=== PATIENT | female | born 1935 | race Caucasian/White ===

== ENCOUNTER 2017-11-16 08:54 | Inpatient (IN) | payer MEDICARE, OTHER, SELFPAY ==
[2017-11-16] VITALS (11 sets, daily range): BP systolic 134–185; BP diastolic 60–103; PULSE 61–83; RESP 16–21; TEMP 36.6–37.1; O2SAT 95–97; BMI 25.7; BMI 26.5; BMI 26.6
--- NOTE | 2017-11-16 09:11 | RAD_ITS ---
STUDY: X-RAY CHEST REASON FOR EXAM: Female, 82 years old. Weakness. Nausea and vomiting. TECHNIQUE: Single AP portable view of the chest. COMPARISON: Comparison is made with prior study dated December 09, 2014. FINDINGS: EKG electrodes are seen. Mild degree of vascular congestion and CHF. There is no demonstrated pleural abnormality. There is mild cardiac enlargement. A left-sided dual-chamber pacemaker is seen. Normal mediastinum and thomas. Normal visualized pulmonary arteries. There is atherosclerotic tortuosity of the aortic arch and descending thoracic aorta. There is a dextroscoliosis of the thoracic spine. Normal visualized ribs, clavicles, and shoulders. There is no demonstrated abnormality of the visualized soft tissue structures of the upper abdomen. RAD/Chest 1 View (Portable) IMPRESSION: Vascular congestion and mild degree of CHF. Electronically Signed: Iain Ho MD at 9:34 EDT Tel [phone], Service support ,
--- NOTE | 2017-11-16 09:11 | EKG12_ITS ---
Test Reason : CARDIAC HISTORY Blood Pressure : / mmHG Vent. Rate : 071 BPM Atrial Rate : 071 BPM P-R Int : 178 ms QRS Dur : 196 ms QT Int : 516 ms P-R-T Axes : 060 -74 086 degrees QTc Int : 560 ms Atrial-sensed ventricular-paced rhythm Abnormal ECG Confirmed by JEMIMA VELÁZQUEZ MD ([id number]), book editor THEODORE QUISPE ([id number]) on 11/17/2017 2:43:12 PM Referred By: HALEY
--- NOTE | 2017-11-16 09:12 | ED.VISSUMM ---
- ER Visit Summary Date of Service: 11/16/17 Chief Complaint: Weakness, lightheaded History of Present Illness: The patient is a 82 F who presents with the above symptoms. She states it started this morning when she woke up. She felt sweaty and at that time she did not feel stable on her feet. She was able to walk bed to hang onto a dresser to help her ambulate. She did not feel like the room was spinning. No vertiginous-like symptoms. She denies any pain. She states that she did have some nausea and vomiting this morning. Recent illnesses. She has been eating and drinking well. Physical Examination: Vital signs reviewed. HEENT exam unremarkable. Heart is regular rate and rhythm without murmurs. Lungs are clear to auscultation. Abdomen is soft and nontender. Extremities reveal no edema. Skin exam normal. Neurologic exam normal. Test Results: EKG was paced rhythm with a rate of 71. Nonspecific ST-T wave changes noted. Chest x-ray reveals CHF. Platelets are 131 which is chronic. BUN 25. Troponin is 0.303 Emergency Department Course and Treatment: I did give the patient aspirin and Lasix. She has no chest pain or shortness of breath at this time. However, due to the elevated troponin I feel she should be admitted. I spoke with the hospitalist for admission Treatment Plan: [] Disposition: Admit Impression: Weakness, elevated troponin, CHF This note was generated with Tube2T[employer] dictation software. It may contain incorrect words, spelling, and punctuation that were not noted in review of the chart prior to signing ED Disposition - Plan for ED Patient: Chief Complaint: Weakness Referrals: Tierney Benitez MD [STAFF PHYSICIAN] -
[2017-11-16 09:28] LABS: Absolute Lymphocyte Count 1.07 X10^3/ul (0.83-4.51); Absolute Neutrophil Count 5.3 X10^3/uL (2.0-7.7); Basophil# 0.02 X10^3/uL; Basophil% 0.3 % (0-1); Eosinophil# 0.14 X10^3/uL; Hematocrit 38.7 % (37-47); Hemoglobin 12.7 g/dl (12.0-15.0); Lymphocyte # 1.07 X10^3/ul (4.0); Lymphocyte % 15.3 % (19-41); Mean Corp Hgb Conc 32.8 g/gl (32-36); Mean Corpuscular Hgb 29.5 pg (27.0-32.0); Mean Corpuscular Volume 89.8 fL (81-99); Mean Platelet Vol. 9.2 fl (6.2-12.0); Monocyte% 5.7 % (0-10); Neutrophil # 5.34 X10^3/uL (2.7-7.7); Neutrophil % 76.6 % (47-70); Platelet Count 131 K/mm3 (150-450); RBC Distribution Width CV 13.2 % (11.6-14.6); RBC Distribution Width SD 43.1 fl (35.1-43.9); Red Blood Count 4.31 M/mm3 (4.2-5.4)
[2017-11-16] MEDS: 0.9% Normal Saline 1,000 ML 1000 ML IV (09:30)
[2017-11-16 09:32] LABS: POSITIVE COUNT NO; POSITIVE DIFFERENTIAL NO; POSITIVE MORPHOLOGY NO
[2017-11-16 09:40] LABS: ALB/GLOB Ratio 0.9 RATIO (0.9-2.4); AST(SGOT) 26 U/L (15-37); Alanine Aminotransfer ALT/SGPT 28 U/L (13-56); Albumin, Serum 3.6 g/dL (3.2-5.0); Alkaline Phosphatase 90 U/L (45-117); Anion Gap 9 (5-15); BUN 25 mg/dL (7-18); Calcium,Total 9.1 mg/dL (8.5-10.1); Chloride 105 mmol/L (98-107); Creatinine, Serum 0.78 mg/dL (0.55-1.02); EST Glomerular Filtration Rate 75 mL/min (>60); Est Glom Filt Rate - Afr Amer 91 mL/min (>60); Estimated Creatinine Clearance 40.33 ml/min; Globulin 3.8 g/dL (2.2-4.2); Glucose 149 mg/dL (74-106); Lipase 101 U/L (73-393); Potassium 3.8 mmol/L (3.5-5.1); Protein, Total 7.4 g/dL (6.4-8.2); Sodium Level 141 mmol/L (136-145)
--- NOTE | 2017-11-16 10:04 | NURSING ---
DR JOHNSON FOR DR JENKINS
--- NOTE | 2017-11-16 10:07 | NURSING ---
[address] NEAR SYNCOPE, ISA TROP ELIZABETH
[2017-11-16] MEDS: Aspirin 325 MG Tablet PO (10:18)
[2017-11-16] MEDS: Furosemide 40 MG/4 ML Vial IV ×2 (10:18→15:42)
[2017-11-16 10:43] LABS: BNP,B-Type NATRIURETIC PEPTIDE 116.1 pg/mL (0-100)
--- NOTE | 2017-11-16 10:44 | EKG12_ITS ---
Test Reason : ADMISSION TO PCU Blood Pressure : / mmHG Vent. Rate : 067 BPM Atrial Rate : 067 BPM P-R Int : 186 ms QRS Dur : 184 ms QT Int : 502 ms P-R-T Axes : 061 -73 085 degrees QTc Int : 530 ms Atrial-sensed ventricular-paced rhythm Abnormal ECG When compared with ECG of 09-DEC-2014 08:07, Vent. rate has decreased BY 6 BPM Confirmed by EBER HAMLIN, JEMIMA ([id number]), editor school photograph THEODORE QUISPE ([id number]) on 11/17/2017 2:48:34 PM Referred By: ELIZABETH Confirmed By:JEMIMA VELÁZQUEZ MD
--- NOTE | 2017-11-16 11:10 | HP.PCM_ITS ---
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 She was also sweaty but denies chest pain, shortness of breath. She denied orthopnea or PND. No vertigo. EKG shows pacemaker rhythm. First troponin 0.30 and second troponin I 0.08. BNP 116. Chest x-ray suggestive of mild vascular congestion. Patient is further admitted in PCU. Currently, she is comfortable sitting on the bed and eating her meal. Past Medical History Allergies No Known Allergies Allergy (Verified 11/16/17 08:55) Home Medications: Ambulatory Orders Medication Instructions Recorded Lisinopril/Hydrochlorothiazide 1 tablet PO DAILY 01/15/14 [Zestoretic 11/27.5 Tablet] Metoprolol(XL)Succ [Toprol Xl 50 mg PO DAILY 01/15/14 (Beta Brooke)] Betaine HCl 1,800 mg PO TIDCM 11/16/17 Calcium Lactate 250 mg PO TID 11/16/17 Cod Liver Oil 1 each PO DAILY 11/16/17 Ferrous Gluconate [Iron] 65 mg PO DAILY 11/16/17 H.A. Joint & Skin Formula 11/16/17 Multivitamin [Multiple Vitamins] 1 each PO DAILY 11/16/17 Seaweed 11/16/17 Smoking Status: Never smoker - *Family History Paternal History Items: No pertinent history Review of Systems Constitutional: Reports: Chills. Denies: Fever, Weight Change HEENT: Reports: Sinus Congestion, Sinus Drainage. Denies: Head Aches Cardiovascular: Denies: Chest Pain, Edema, Orthopnea, Palpitations, Paroxysmal Noc. Dyspnea, Syncope Respiratory: Denies: Cough, Shortness of breath at rest, Sputum production Gastrointestinal: Denies: Abdominal Pain, Nausea, Vomiting Genitourinary: Denies: Dysuria Musculoskeletal: Denies: Joint Tenderness Skin: Denies: Rash, Wounds Neurological: Denies: Numbness, Tingling, Focal weakness Psychiatric: Denies: Anxiety, Depression, Homicidal Ideations, Suicidal Ideations Hematologic/ Lymphatic: Denies: Easy Bruising, Easy Bleeding VTE Information - Inpt Only VTE Present on Admission: No VTE Mechan Device Prophylaxis: None VTE Pharm Prophylaxis ordered?: Yes Patient Problems: Active and Suspected Problems Heart failure (Acute) Near syncope (Acute) NSTEMI (non-ST elevated myocardial infarction) (Acute) - Physical Exam General: Alert, Oriented x3, Cooperative HEENT: Atraumatic, PERRLA, EOMI, Normocephalic Neck: Supple, No JVD, Negative Carotid Bruits Lungs: Clear to auscultation, Normal air movement Cardiovascular: Regular rate, Normal S1, Normal S2, Murmur - Systolic murmur present over left lower sternal border, tricuspid area aortic region., - - Paced rhythm on the athletic monitor Abdomen: Bowel Sounds Present, Soft, Non Tender, Non-Distended Extremities: No edema, Capillary Refill Less than 3 Seconds Skin: No rashes, No breakdown Musculoskeletal: No Tenderness to Palpation of Joints or Extremities, Arthritic Changes, Muscle Wasting Neurological: Cranial nerves II-XII grossly intact Psych/Mental Status: Normal Affect, Appropriate Vital Signs Temp Pulse Resp BP Pulse Ox 97.8 F 65 16 147/89 H 95 11/16/17 10:49 11/16/17 10:49 11/16/17 10:49 11/16/17 10:49 11/16/17 10:49 Oxygen Delivery Method Room Air Weight: 131 lb 13.383 oz Body Mass Index (BMI) 26.5 Laboratory Tests Past 24 Hrs 11/16/17 11/16/17 11/16/17 09:15 09:15 09:15 WBC 7.0 RBC 4.31 Hgb 12.7 Hct 38.7 MCV 89.8 MCH 29.5 MCHC 32.8 RDW 13.2 RDW Differential 43.1 Plt Count 131 L MPV 9.2 Immature Gran % (Auto) 0.100 Neut % (Auto) 76.6 H Lymph % (Auto) 15.3 L [place] % (Auto) 5.7 Eos % (Auto) 2.0 Baso % (Auto) 0.3 Absolute Neuts (auto) 5.3 Absolute Lymphs (auto) 1.07 Total Counted Not Reportable Sodium 141 Potassium 3.8 Chloride 105 Carbon Dioxide 27.0 Anion Gap 9 BUN 25 H Creatinine 0.78 Estim Creat Clear Calc 40.33 Est GFR (MDRD) Af Amer 91 Est GFR (MDRD) Non-Af 75 BUN/Creatinine Ratio 32.0 H Glucose 149 H Calcium 9.1 Total Bilirubin 0.50 AST 26 ALT 28 Alkaline Phosphatase 90 Troponin I 0.303 H B-Natriuretic Peptide 116.1 H Total Protein 7.4 Albumin 3.6 Globulin 3.8 Albumin/Globulin Ratio 0.9 Lipase 101 Assessment/Plan All Active Problems Heart failure (Acute) Near syncope (Acute) NSTEMI (non-ST elevated myocardial infarction) (Acute) The patient is a 82 year old F with history of possible sinus node dysfunction with pacemake in [facility] 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 She was also sweaty but denies chest pain, shortness of breath. She denied orthopnea or PND. No vertigo. EKG shows pacemaker rhythm. First troponin 0.30 and second troponin I 0.08. BNP 116. Chest x-ray suggestive of mild vascular congestion. Patient is further admitted in PCU. Currently, she is comfortable sitting on the bed and eating her meal. 1. Near syncope, most probably related to cardiac origin: Patient is being admitted in PCU. Her blood pressure was high 185/103, heart rate 83 and respiratory rate 21 when she came to ER. Currently pulse ox 95% on room air. Try to treat underlying condition. 2. CHF exacerbation, type and etiology unclear, probably ACS might be triggering factor: Patient follows Dr. Lipscomb and she does not previous cardiac tests record here. Started on Lasix, continue metoprolol and lisinopril. 2D echo ordered. Cardiology consulted. 3. Elevated troponin probably non-STEMI: Serial troponin enzymes. Rest as mentioned above. Aspirin given in ER. Plavix loading dose ordered. started on Lovenox 1 mg/kg body weight, therapeutic dose. Further recommendation as per supervisor long goods. 4. Hypertension: Currently blood pressure is controlled. Continue home medications. 5. Hyperglycemia: A1c tomorrow a.m. DVT prophylaxis: On Lovenox. Laboratory Results 11/16/17 09:15: WBC 7.0, RBC 4.31, Hgb 12.7, Hct 38.7, MCV 89.8, MCH 29.5, MCHC 32.8, RDW 13.2, RDW Differential 43.1, Plt Count 131 L, MPV 9.2, Immature Gran % (Auto) 0.100, Neut % (Auto) 76.6 H, Lymph % (Auto) 15.3 L, [place] % (Auto) 5.7, Eos % (Auto) 2.0, Baso % (Auto) 0.3, Absolute Neuts (auto) 5.3, Absolute Lymphs (auto) 1.07, Total Counted Not Reportable 11/16/17 09:15: Sodium 141, Potassium 3.8, Chloride 105, Carbon Dioxide 27.0, Anion Gap 9, BUN 25 H, Creatinine 0.78, Estim Creat Clear Calc 40.33, Est GFR (MDRD) Af Amer 91, Est GFR (MDRD) Non-Af 75, BUN/Creatinine Ratio 32.0 H, Glucose 149 H, Calcium 9.1, Total Bilirubin 0.50, AST 26, ALT 28, Alkaline Phosphatase 90, Troponin I 0.303 H, Total Protein 7.4, Albumin 3.6, Globulin 3.8, Albumin/Globulin Ratio 0.9, Lipase 101 11/16/17 09:15: B-Natriuretic Peptide 116.1 H 11/16/17 11:40: Urine Color Yellow, Urine Clarity Clear, Urine pH 6.5, Ur Specific [place] 1.010, Urine Protein Negative, Urine Glucose (UA) Normal, Urine Ketones Negative, Urine Occult Blood Negative, Urine Nitrite Negative, Urine Bilirubin Negative, Urine Urobilinogen Normal, Ur Leukocyte Esterase Negative, Urine RBC 0 SEEN, Urine WBC 0 SEEN, Ur Squamous Epith Cells 0 SEEN, Urine Bacteria 0 SEEN, Urine Mucus 0 SEEN 11/16/17 12:00: Troponin I 1.080 H* Clinical Impression(s) from Imaging Studies Chest X-Ray 11/16/17 09:11 IMPRESSION: Vascular congestion and mild degree of CHF. [] Code Visit Inpatient E&M: 71467 Init Hosp L3
[2017-11-16 11:51] LABS: Bacteria 0 SEEN /hpf (None Seen); Mucous, Urine 0 SEEN /hpf (<or=2+); Red Blood Cells-Urine 0 SEEN /hpf (0-5); Squamous Epithelial Cells - UA 0 SEEN /hpf (5-10); White Blood Cells 0 SEEN /hpf (0-5)
[2017-11-16 11:53] LABS: Color, Urine Yellow (Yellow); Glucose, Dipstick Normal (Normal); Ketone-Dipstick Negative (Negative); Leukocyte Esterase-Dipstick Negative /ul (Negative); Nitrite-Dipstick Negative (Negative); Occult Blood-Urine Negative /ul (Negative); Protein-Dipstick Negative (Negative); Urine Bilirubin Dipstick Negative (Negative); Urine Clarity Clear (Clear); Urine Urobilinogen Normal (Normal); Urine pH 6.5 (5.0 - 8.0)
--- NOTE | 2017-11-16 13:29 | ECHOD_ITS ---
Reason For Study: CHF Procedure This was a 2D Doppler, Color Flow transthoracic echocardiogram. Did not use Definity due to increased PAP. Exam performed portable in patient room. Left Ventricle Normal LV size. Sigmoid septum. Left ventricular systolic function is lower limits of normal. The estimated ejection fraction is 53 %. There are regional wall motion abnormalities as specified. [place] : Akinetic. Mid-anteroseptal : Hypokinetic. Mid-Anterior : Hypokinetic. Mid-Lateral : Hypokinetic. Right Ventricle Normal RV size. ICD or pacer leads identified within the right ventricle. Normal systolic function. Atria Normal left atrium. Normal right atrium. Mitral Valve There is moderate mitral annular calcification. Mild (1+) eccentric mitral valve insufficiency. Tricuspid Valve Normal tricuspid valve. Mild (1+) tricuspid valve insufficiency. Pulmonary artery systolic pressure is 31 mmHg. Aortic Valve Normal aortic valve. Trisinus/trileaflet aortic valve. Trivial aortic valve insufficiency. Pulmonic Valve Normal pulmonic valve. Great Vessels Normal aortic root. The pulmonary artery is normal size. Inferior vena cava collapse with sniff. Pericardium/Pleural No pericardial effusion. MMode/2D Measurements & Calculations LVIDd: 4.3 cm IVSd: 1.4 cm Ao root diam: 2.6 cm LVIDs: 3.5 cm LVPWd: 1.1 cm RVDd: 4.8 cm FS: 17.8 % LAV(MOD-bp): 57.5 ml LVAd ap4: 31.4 cm2 SV(MOD-sp4): 39.9 ml LAV(MOD-bp) Indexed: 37.3 ml/m2 EDV(MOD-sp4): 101.2 ml LAV(MOD-sp2): 62.1 ml EDV(sp4-el): 106.1 ml LAV(MOD-sp4): 52.1 ml LVAs ap4: 23.3 cm2 ESV(MOD-sp4): 61.3 ml ESV(sp4-el): 64.0 ml EF(MOD-sp4): 39.4 % EF(sp4-el): 39.7 % SV(sp4-el): 42.1 ml LA A4 area: 19.2 cm2 RA A4 area: 19.2 cm2 Doppler Measurements & Calculations MV E max bharath: 90.6 cm/sec Lat Peak E' Bharath: 6.7 cm/sec Med Peak E' Bharath: 5.6 cm/sec MV A max bharath: 127.8 cm/sec E/E' lat: 13.5 E/E' med: 16.3 MV E/A: 0.71 Ao V2 max: 184.6 cm/sec LV V1 max: 119.1 cm/sec TR max bharath: 240.6 cm/sec Ao max P.6 mmHg LV V1 max P.7 mmHg TR max P.5 mmHg Ao V2 mean: 138.8 cm/sec Ao mean P.3 mmHg Ao V2 VTI: 41.5 cm Interpretation Summary Normal LV size. Sigmoid septum. Left ventricular systolic function is lower limits of normal. The estimated ejection fraction is 53 %. There are regional wall motion abnormalities as specified. Mild (1+) eccentric mitral valve insufficiency. Mild (1+) tricuspid valve insufficiency. Trivial aortic valve insufficiency. Compared to prior study, there is no significant change. Ordering Physician: Juan Porras Referring Physician: Oneida Monreal Performed By: Maritza Solis, LILI, RVT
[2017-11-16] MEDS: Metoprolol(XL)Succ 50 MG Tablet PO (15:42)
[2017-11-16] MEDS: Enoxaparin 60 MG/0.6 ML Syringe SC (15:43)
[2017-11-16] MEDS: Clopidogrel Bisulfate 300 MG Tablet PO (15:48)
[2017-11-16] MEDS: 0.9% Saline Lock 10 ML Syringe IV (15:59)
--- NOTE | 2017-11-16 16:45 | NURSING ---
this RN assuming care of pt at this time
--- NOTE | 2017-11-16 16:59 | PCM.CONS.C ---
Reason for Consult Date of Consultation: 11/16/17 Reason for Consultation: Abnormal cardiac enzymes History of Present Illness: The patient is a 82 year old F with a previous cardiac history secondary to for sick sinus syndrome status post pacemaker implantation at [facility]. She says she woke up this morning not feeling well with vertiginous-like symptoms. She also was weak but she specifically denied any chest pain. She did not have any paroxysmal nocturnal dyspnea or pedal edema. Due to her not feeling well she presented to the emergency room where she was noted to be in a paced rhythm but with minimally abnormal cardiac enzymes. Cardiology was called for further evaluation on the basis of the above. She denies any neck arm or jaw discomfort suggest angina no palpitations and no intermittent claudication. [] Past Medical History Allergies/Adverse Reactions: Allergies No Known Allergies Allergy (Verified 11/16/17 08:55) Home Medications: Ambulatory Orders Medication Instructions Recorded Lisinopril/Hydrochlorothiazide 1 tablet PO DAILY 01/15/14 [Zestoretic 11/27.5 Tablet] Metoprolol(XL)Succ [Toprol Xl 50 mg PO DAILY 01/15/14 (Beta Brooke)] Betaine HCl 1,800 mg PO TIDCM 11/16/17 Calcium Lactate 250 mg PO TID 11/16/17 Cod Liver Oil 1 each PO DAILY 11/16/17 Ferrous Gluconate [Iron] 65 mg PO DAILY 11/16/17 H.A. Joint & Skin Formula 11/16/17 Multivitamin [Multiple Vitamins] 1 each PO DAILY 11/16/17 Seaweed 11/16/17 - *Family History Paternal History Items: No pertinent history Smoking Status: Never smoker Alcohol: None Drugs: None Review of Systems - Review of Systems General: Denies: Fever, Night Sweats, Fatigue Cardiovascular: Denies: Chest Discomfort, Shortness of Breath, Orthopnea, PND, Peripheral Edema, Palpitations, Lightheadedness, Dizziness, Near Syncope, Syncope Respiratory: Denies: Cough, Sputum Production, Hemoptysis Gastrointestinal: Denies: Hematemesis, Hematochezia, Melena Genitourinary: Denies: Dysuria, Hematuria Skin: Denies: Rash Subjectve: Pleasant lady in no apparent distress Objective: Vital Signs Temp Pulse Resp BP Pulse Ox 98.1 F 67 16 134/74 H 95 11/16/17 15:36 11/16/17 16:04 11/16/17 15:36 11/16/17 15:36 11/16/17 15:36 Oxygen Delivery Method Room Air Weight: 131 lb 13.383 oz Body Mass Index (BMI) 26.5 General: Awake, Alert, Oriented x 3 HEENT: PERRL, EOMI, Sclera Non Icteric Neck: Supple, Good ROM, No Lymph Node Enlargement Lungs: Clear to auscultation Cardiovascular: Regular Rhythm, Normal S1, Normal S2, No Murmurs, No Rubs, No Gallops Vascular: No Carotid Bruits, Normal Femoral Pulses, Normal Radial Pulses, Normal Dorsalis Pedal Pulse, Normal Posterior Tibial Pulses Abdomen: Bowel Sounds Present, Soft, Non Tender, No HSM, No Organomegaly Extremities: No Cyanosis, No Clubbing, No edema Neurological: No Focal Motor or Sensory Deficit 11/16/17 09:15: WBC 7.0, RBC 4.31, Hgb 12.7, Hct 38.7, MCV 89.8, MCH 29.5, MCHC 32.8, RDW 13.2, RDW Differential 43.1, Plt Count 131 L, MPV 9.2, Immature Gran % (Auto) 0.100, Neut % (Auto) 76.6 H, Lymph % (Auto) 15.3 L, [place] % (Auto) 5.7, Eos % (Auto) 2.0, Baso % (Auto) 0.3, Absolute Neuts (auto) 5.3, Total Counted Not Reportable 11/16/17 09:15: Sodium 141, Potassium 3.8, Chloride 105, Carbon Dioxide 27.0, Anion Gap 9, BUN 25 H, Creatinine 0.78, Est GFR (MDRD) Af Amer 91, Est GFR (MDRD) Non-Af 75, BUN/Creatinine Ratio 32.0 H, Glucose 149 H, Calcium 9.1, Total Bilirubin 0.50, Troponin I 0.303 H 11/16/17 09:15: B-Natriuretic Peptide 116.1 H 11/16/17 11:40: Urine Color Yellow, Urine Clarity Clear, Urine pH 6.5, Ur Specific [place] 1.010, Urine Protein Negative, Urine Glucose (UA) Normal, Urine Ketones Negative, Urine Occult Blood Negative, Urine Nitrite Negative, Urine Bilirubin Negative, Urine Urobilinogen Normal, Ur Leukocyte Esterase Negative, Urine RBC 0 SEEN, Urine WBC 0 SEEN 11/16/17 12:00: Troponin I 1.080 H* 11/16/17 15:30: Troponin I 1.570 H* Rhythm: EKG: Normal sinus rhythm with a ventricular paced at 70 bpm Assessment/Plan 1. Non-ST elevation myocardial infarction Patient presents with atypical symptoms and is noted to have a non-ST elevation myocardial infarction. My recommendation at this time would be for us to work her up for coronary artery disease as this has never been done previously. 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 This appears to be old-dating back to at least 2016. I would recommend that we obtain a cardiac catheterization and depending on the findings further recommendations will be made. In the meantime we will start her on clopidogrel Continue baby aspirin Continue beta-brooke The risk benefits alternatives have been explained to her she understands and agrees to proceed. 2. Hypertension Blood pressure appears to be under good control Continue current medical therapy with no changes 3. We will continue secondary risk factor modification with statins. Thank you for allowing me to participate in the care of your patient. Please don't hesitate to call if any issues arise
--- NOTE | 2017-11-16 17:03 | CON.PCM_ITS ---
Reason for Consult Date of Consultation: 11/16/17 Reason for Consultation: Abnormal cardiac enzymes History of Present Illness: The patient is a 82 year old F with a previous cardiac history secondary to for sick sinus syndrome status post pacemaker implantation at [facility]. She says she woke up this morning not feeling well with vertiginous- like symptoms. She also was weak but she specifically denied any chest pain. She did not have any paroxysmal nocturnal dyspnea or pedal edema. Due to her not feeling well she presented to the emergency room where she was noted to be in a paced rhythm but with minimally abnormal cardiac enzymes. Cardiology was called for further evaluation on the basis of the above. She denies any neck arm or jaw discomfort suggest angina no palpitations and no intermittent claudication. [] Past Medical History Allergies/Adverse Reactions: Allergies No Known Allergies Allergy (Verified 11/16/17 08:55) Home Medications: Ambulatory Orders Medication Instructions Recorded Lisinopril/Hydrochlorothiazide 1 tablet PO DAILY 01/15/14 [Zestoretic 11/27.5 Tablet] Metoprolol(XL)Succ [Toprol Xl 50 mg PO DAILY 01/15/14 (Beta Brooke)] Betaine HCl 1,800 mg PO TIDCM 11/16/17 Calcium Lactate 250 mg PO TID 11/16/17 Cod Liver Oil 1 each PO DAILY 11/16/17 Ferrous Gluconate [Iron] 65 mg PO DAILY 11/16/17 H.A. Joint & Skin Formula 11/16/17 Multivitamin [Multiple Vitamins] 1 each PO DAILY 11/16/17 Seaweed 11/16/17 - *Family History Paternal History Items: No pertinent history Smoking Status: Never smoker Alcohol: None Drugs: None Review of Systems - Review of Systems General: Denies: Fever, Night Sweats, Fatigue Cardiovascular: Denies: Chest Discomfort, Shortness of Breath, Orthopnea, PND, Peripheral Edema, Palpitations, Lightheadedness, Dizziness, Near Syncope, Syncope Respiratory: Denies: Cough, Sputum Production, Hemoptysis Gastrointestinal: Denies: Hematemesis, Hematochezia, Melena Genitourinary: Denies: Dysuria, Hematuria Skin: Denies: Rash Subjectve: Pleasant lady in no apparent distress Objective: Vital Signs Temp Pulse Resp BP Pulse Ox 98.1 F 67 16 134/74 H 95 11/16/17 15:36 11/16/17 16:04 11/16/17 15:36 11/16/17 15:36 11/16/17 15:36 Oxygen Delivery Method Room Air Weight: 131 lb 13.383 oz Body Mass Index (BMI) 26.5 General: Awake, Alert, Oriented x 3 HEENT: PERRL, EOMI, Sclera Non Icteric Neck: Supple, Good ROM, No Lymph Node Enlargement Lungs: Clear to auscultation Cardiovascular: Regular Rhythm, Normal S1, Normal S2, No Murmurs, No Rubs, No Gallops Vascular: No Carotid Bruits, Normal Femoral Pulses, Normal Radial Pulses, Normal Dorsalis Pedal Pulse, Normal Posterior Tibial Pulses Abdomen: Bowel Sounds Present, Soft, Non Tender, No HSM, No Organomegaly Extremities: No Cyanosis, No Clubbing, No edema Neurological: No Focal Motor or Sensory Deficit 11/16/17 09:15: WBC 7.0, RBC 4.31, Hgb 12.7, Hct 38.7, MCV 89.8, MCH 29.5, MCHC 32.8, RDW 13.2, RDW Differential 43.1, Plt Count 131 L, MPV 9.2, Immature Gran % (Auto) 0.100, Neut % (Auto) 76.6 H, Lymph % (Auto) 15.3 L, [place] % (Auto) 5.7, Eos % (Auto) 2.0, Baso % (Auto) 0.3, Absolute Neuts (auto) 5.3, Total Counted Not Reportable 11/16/17 09:15: Sodium 141, Potassium 3.8, Chloride 105, Carbon Dioxide 27.0, Anion Gap 9, BUN 25 H, Creatinine 0.78, Est GFR (MDRD) Af Amer 91, Est GFR (MDRD) Non-Af 75, BUN/Creatinine Ratio 32.0 H, Glucose 149 H, Calcium 9.1, Total Bilirubin 0.50, Troponin I 0.303 H 11/16/17 09:15: B-Natriuretic Peptide 116.1 H 11/16/17 11:40: Urine Color Yellow, Urine Clarity Clear, Urine pH 6.5, Ur Speci fic [place] 1.010, Urine Protein Negative, Urine Glucose (UA) Normal, Urine Ketones Negative, Urine Occult Blood Negative, Urine Nitrite Negative, Urine Bilirubin Negative, Urine Urobilinogen Normal, Ur Leukocyte Esterase Negative, Urine RBC 0 SEEN, Urine WBC 0 SEEN 11/16/17 12:00: Troponin I 1.080 H* 11/16/17 15:30: Troponin I 1.570 H* Rhythm: EKG: Normal sinus rhythm with a ventricular paced at 70 bpm Assessment/Plan 1. Non-ST elevation myocardial infarction Patient presents with atypical symptoms and is noted to have a non-ST elevation myocardial infarction. My recommendation at this time would be for us to work her up for coronary artery disease as this has never been done previously. 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 This appears to be old-dating back to at least 2015. I would recommend that we obtain a cardiac catheterization and depending on the findings further recommendations will be made. * In the meantime we will start her on clopidogrel * Continue baby aspirin * Continue beta-brooke * The risk benefits alternatives have been explained to her she understands and agrees to proceed. * 2. Hypertension * Blood pressure appears to be under good control * Continue current medical therapy with no changes * 3. We will continue secondary risk factor modification with statins. Thank you for allowing me to participate in the care of your patient. Please don't hesitate to call if any issues arise
[2017-11-17] VITALS (41 sets, daily range): BP systolic 100–154; BP diastolic 35–88; PULSE 60–92; RESP 12–25; TEMP 36.7–36.9; O2SAT 93–100
[2017-11-17 05:40] LABS: Hematocrit 41.1 % (37-47); Hemoglobin 13.5 g/dl (12.0-15.0); Mean Corp Hgb Conc 32.8 g/gl (32-36); Mean Corpuscular Hgb 29.2 pg (27.0-32.0); Mean Platelet Vol. 9.1 fl (6.2-12.0); Platelet Count 153 K/mm3 (150-450); RBC Distribution Width CV 13.2 % (11.6-14.6); RBC Distribution Width SD 42.6 fl (35.1-43.9); Red Blood Count 4.62 M/mm3 (4.2-5.4); White Blood Count 5.7 K/mm3 (4.4-11.0)
[2017-11-17] MEDS: Aspirin E.C. 81 MG Tablet PO (05:40)
[2017-11-17] MEDS: Clopidogrel Bisulfate 75 MG Tablet PO (05:40)
[2017-11-17] MEDS: Lisinopril 10 MG Tablet PO (05:40)
[2017-11-17] MEDS: Metoprolol(XL)Succ 50 MG Tablet PO (05:40)
[2017-11-17 05:44] LABS: Partial Thromboplast Time 32.4 Seconds (24.1-36.2); Prothrombin Time (Protime)PT. 13.4 SECONDS (11.7-14.9)
[2017-11-17 05:53] LABS: Scan Indicated on CBC? Y/N NO
[2017-11-17 06:06] LABS: ALB/GLOB Ratio 0.9 RATIO (0.9-2.4); AST(SGOT) 33 U/L (15-37); Alanine Aminotransfer ALT/SGPT 27 U/L (13-56); Albumin, Serum 3.4 g/dL (3.2-5.0); Alkaline Phosphatase 79 U/L (45-117); Anion Gap 9 (5-15); BUN 20 mg/dL (7-18); BUN/Creat Ratio 24.1 RATIO (10-20); Calcium,Total 8.9 mg/dL (8.5-10.1); Chloride 101 mmol/L (98-107); Cholesterol 262 mg/dL (200); Creatinine, Serum 0.83 mg/dL (0.55-1.02); EST Glomerular Filtration Rate 70 mL/min (>60); Est Glom Filt Rate - Afr Amer 85 mL/min (>60); Estimated Creatinine Clearance 50.18 ml/min; Globulin 3.9 g/dL (2.2-4.2); Glucose 101 mg/dL (74-106); High Density Lipoprotein 74 mg/dL; Magnesium 2.1 mg/dL (1.6-2.6); Potassium 3.3 mmol/L (3.5-5.1); Protein, Total 7.3 g/dL (6.4-8.2); Sodium Level 140 mmol/L (136-145); Thyroid Stim Hormone (TSH) 0.24 uIU/mL (0.358-3.74); Triglycerides 176 mg/dL; Very Low Density Lipoprotein 35 mg/dL (5-40)
[2017-11-17 07:58] LABS: Hemoglobin A1c 5.7 % (4.2-6.3)
--- NOTE | 2017-11-17 08:13 | PN.CARD_ITS ---
Subjectve: Patient seen and evaluated. Appears to be doing well. Underwent cardiac catheterization this morning. Objective: Vital Signs Temp Pulse Resp BP Pulse Ox 98.3 F 66 16 125/69 H 94 11/17/17 05:35 11/17/17 07:02 11/17/17 05:35 11/17/17 05:35 11/17/17 05:35 Oxygen Delivery Method Room Air Weight: 131 lb 13.383 oz Body Mass Index (BMI) 26.5 Intake and Output for Last 24 Hours 11/15/17 11/16/17 11/17/17 23:59 23:59 23:59 Intake Total 450 / 450 120 / 120 Balance 450 / 450 120 / 120 General: Awake, Alert, Oriented x 3 HEENT: PERRL, EOMI, Sclera Non Icteric Neck: Supple, Good ROM, No Lymph Node Enlargement Lungs: Clear to auscultation Cardiovascular: Regular Rhythm, Normal S1, Normal S2, No Murmurs, No Rubs, No Gallops Vascular: No Carotid Bruits, Normal Femoral Pulses, Normal Radial Pulses, Normal Dorsalis Pedal Pulse, Normal Posterior Tibial Pulses Abdomen: Bowel Sounds Present, Soft, Non Tender, No HSM, No Organomegaly Extremities: No Cyanosis, No Clubbing, No edema Neurological: No Focal Motor or Sensory Deficit 11/16/17 09:15: WBC 7.0, RBC 4.31, Hgb 12.7, Hct 38.7, MCV 89.8, MCH 29.5, MCHC 32.8, RDW 13.2, RDW Differential 43.1, Plt Count 131 L, MPV 9.2, Immature Gran % (Auto) 0.100, Neut % (Auto) 76.6 H, Lymph % (Auto) 15.3 L, [place] % (Auto) 5.7, Eos % (Auto) 2.0, Baso % (Auto) 0.3, Absolute Neuts (auto) 5.3, Total Counted Not Reportable 11/16/17 09:15: Sodium 141, Potassium 3.8, Chloride 105, Carbon Dioxide 27.0, Anion Gap 9, BUN 25 H, Creatinine 0.78, Est GFR (MDRD) Af Amer 91, Est GFR (MDRD) Non-Af 75, BUN/Creatinine Ratio 32.0 H, Glucose 149 H, Calcium 9.1, Total Bilirubin 0.50, Troponin I 0.303 H 11/16/17 09:15: B-Natriuretic Peptide 116.1 H 11/16/17 11:40: Urine Color Yellow, Urine Clarity Clear, Urine pH 6.5, Ur Specific [place] 1.010, Urine Protein Negative, Urine Glucose (UA) Normal, Urine Ketones Negative, Urine Occult Blood Negative, Urine Nitrite Negative, Urine Bilirubin Negative, Urine Urobilinogen Normal, Ur Leukocyte Esterase Negative, Urine RBC 0 SEEN, Urine WBC 0 SEEN 11/16/17 12:00: Troponin I 1.080 H* 11/16/17 15:30: Troponin I 1.570 H* 11/17/17 05:00: Sodium 140, Potassium 3.3 L, Chloride 101, Carbon Dioxide 30.0, Anion Gap 9, BUN 20 H, Creatinine 0.83, Est GFR (MDRD) Af Amer 85, Est GFR (MDRD) Non-Af 70, BUN/Creatinine Ratio 24.1 H, Glucose 101, Calcium 8.9, Magnesium 2.1, Total Bilirubin 0.60, Triglycerides 176, Cholesterol 262 H, LDL Cholesterol 153 H, VLDL Cholesterol 35, HDL Cholesterol 74 11/17/17 05:00: Hemoglobin A1c 5.7 11/17/17 05:00: WBC 5.7, RBC 4.62, Hgb 13.5, Hct 41.1, MCV 89.0, MCH 29.2, MCHC 32.8, RDW 13.2, RDW Differential 42.6, Plt Count 153, MPV 9.1 11/17/17 05:00: PT 13.4, INR 1.0, APTT 32.4 Rhythm: EKG: ECHO: Stress Test: Cardiac Cath: PCI: CT Surgery: Holter monitor: EPS: PPM: CXR: Chest CT Scan: Medical Necessity - Tobacco Use Smoking Status: Never smoker Assessment/Plan 1. Non-ST elevation myocardial infarction Patient presents with atypical symptoms and is noted to have a non-ST elevation myocardial infarction. My recommendation at this time would be for us to work her up for coronary artery disease as this has never been done previously. 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 This appears to be old-dating back to at least 2016. She underwent a cardiac catheterization which demonstrated the following: Normal left main coronary artery. Left anterior descending artery with mid segment 75% stenosis. Left circumflex artery with no significant stenosis. Dominant right coronary artery with no significant stenosis. Reduced left ventricular systolic function with near akinetic apex and estimated ejection fraction of 45-50%. 2. Hypertension * Blood pressure appears to be under good control * Continue current medical therapy with no changes * 3. We will continue secondary risk factor modification with statins. 4. Status post ICD implantation * Will have her ICD interrogated today to make sure that there is no evidence of defibrillator discharge or ventricular tachyarrhythmias. Thank you for allowing me to participate in the care of your patient. Please don't hesitate to call if any issues arise
--- NOTE | 2017-11-17 08:42 | CL.D_ITS ---
Patient Name: RAJIV SUTTON Study Date: 11/17/2017 Performing: Sonny Jaime MD Ht: 59.05 inches 150 cm : 1935 Wt: 132.28 lbs 60 kg Age: 82 Gender: female BSA: 1.55 PROCEDURE(S) PERFORMED BT64-THR/COR/LV CLINICAL PROFILE AND INDICATIONS Indications: Suspected CAD Heart Failure: None Stress/Imaging Stress/Image Study Performed: No CAD Presentations: Non-STEMI. 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 RECOMMENDATIONS Referred for immediate PCI DESCRIPTION OF PROCEDURE The patient arrived to the procedure lab. The risks and benefits of the procedure as well as a full d escription of our services here and current unavailability of surgical backup were fully explained to the patient and/or their significant other prior to the catheterization. The Timeout was completed, verifying the correct patient and procedure. The patient's procedural site was prepped and draped in the usual fashion. Local anesthetic was given subcutaneously to right groin region with Lidocaine 2%. Using a modified Seldinger technique, arterial access was obtained via the right femoral artery, a 5 Fr sheath was inserted. Left Coronary Artery selective angiography was performed in multiple views u sing a 5 Fr. JL4 catheter. Right Coronary Artery selective angiography was then performed in multiple views using a 5 Fr. JR 4 catheter. Left Ventriculography was performed in CELESTE projection using a 5 F r. Pigtail catheter. LV to AO pullback pressures were then recorded. CORONARY ANGIOGRAPHY DOMINANCE: Right Dominant LEFT HEART ASSESSMENT Left Ventricular Ejection Fraction: by LV Gram 45 % Apical Akinesis Depressed Left Ventricular systolic function LEFT MAIN: Angiographically normal LEFT ANTERIOR DECENDING ARTERY: MID LAD: 75 % Stenosis DIAGONAL 1: Proximal - Mild luminal irregularities CIRCUMFLEX ARTERY: Mild luminal irregularities RIGHT CORONARY ARTERY: Mild luminal irregularities COMPLICATIONS PROCEDURE MEDICATIONS Versed 1 mg IV Oxygen: 2 L/min via nasal cannula Heparin 6000 unit(s) IV 11/17/2017 08:15:29 Nitro 200 mcg IC 11/17/2017 08:20:28 Nitro 200 mcg IC 11/17/2017 08:20:28 SUMMARY OF HEMODYNAMIC DATA Time AIR REST ECG 07:31:46 AO 123/65 (89) SA 07:40:30 LV 129/3, 8 07:49:59 LV 127/4, 8 07:50:06 LV 129/1, 16 07:51:14 LV 135/2, 18 07:51:21 LVp 138/3, 19 07:51:25 AOp 145/66 (98) 07:51:30 Signed By Sonny Jaime MD On 11/17/2017 08:41:06 Sonny Jaime MD
--- NOTE | 2017-11-17 08:50 | PCM.PN.HOSP ---
Patient Problems: Active and Suspected Problems Heart failure (Acute) Near syncope (Acute) NSTEMI (non-ST elevated myocardial infarction) (Acute) Subjective: Patient had cardiac catheter today. Discussed with educational adviser Dr. ryan. EF 45% on LV gram, mid LAD 75% and a stent was inserted. Patient was admitted with atypical symptoms of non-STEMI. Vitals/I&O's: Vital Signs Temp Pulse Resp BP Pulse Ox 98.3 F 66 16 125/69 H 94 11/17/17 05:35 11/17/17 07:02 11/17/17 05:35 11/17/17 05:35 11/17/17 05:35 Oxygen Delivery Method Room Air Weight: 131 lb 13.383 oz Body Mass Index (BMI) 26.5 Intake and Output for Last 24 Hours 11/15/17 11/16/17 11/17/17 23:59 23:59 23:59 Intake Total 450 / 450 120 / 120 Balance 450 / 450 120 / 120 General: Alert, Oriented x3, Cooperative HEENT: Atraumatic, PERRLA, EOMI, Normocephalic Neck: Supple, No JVD, Negative Carotid Bruits Lungs: Clear to auscultation, Normal air movement Cardiovascular: Regular rate, Regular Rhythm, Normal S1, Normal S2, No murmurs Abdomen: Bowel Sounds Present, Soft, Non Tender Extremities: No edema, Capillary Refill Less than 3 Seconds Skin: No rashes, No breakdown Musculoskeletal: No Tenderness to Palpation of Joints or Extremities Neurological: Cranial nerves II-XII grossly intact Psych/Mental Status: Normal Affect, Appropriate Microbiology Past 72 Hours 11/16/17 14:47 Mucosa - Nasopharyngeal - Final Laboratory Results 11/16/17 09:15: WBC 7.0, RBC 4.31, Hgb 12.7, Hct 38.7, MCV 89.8, MCH 29.5, MCHC 32.8, RDW 13.2, RDW Differential 43.1, Plt Count 131 L, MPV 9.2, Immature Gran % (Auto) 0.100, Neut % (Auto) 76.6 H, Lymph % (Auto) 15.3 L, [place] % (Auto) 5.7, Eos % (Auto) 2.0, Baso % (Auto) 0.3, Absolute Neuts (auto) 5.3, Absolute Lymphs (auto) 1.07, Total Counted Not Reportable 11/16/17 09:15: Sodium 141, Potassium 3.8, Chloride 105, Carbon Dioxide 27.0, Anion Gap 9, BUN 25 H, Creatinine 0.78, Estim Creat Clear Calc 40.33, Est GFR (MDRD) Af Amer 91, Est GFR (MDRD) Non-Af 75, BUN/Creatinine Ratio 32.0 H, Glucose 149 H, Calcium 9.1, Total Bilirubin 0.50, AST 26, ALT 28, Alkaline Phosphatase 90, Troponin I 0.303 H, Total Protein 7.4, Albumin 3.6, Globulin 3.8, Albumin/Globulin Ratio 0.9, Lipase 101 11/16/17 09:15: B-Natriuretic Peptide 116.1 H 11/16/17 11:40: Urine Color Yellow, Urine Clarity Clear, Urine pH 6.5, Ur Specific [place] 1.010, Urine Protein Negative, Urine Glucose (UA) Normal, Urine Ketones Negative, Urine Occult Blood Negative, Urine Nitrite Negative, Urine Bilirubin Negative, Urine Urobilinogen Normal, Ur Leukocyte Esterase Negative, Urine RBC 0 SEEN, Urine WBC 0 SEEN, Ur Squamous Epith Cells 0 SEEN, Urine Bacteria 0 SEEN, Urine Mucus 0 SEEN 11/16/17 12:00: Troponin I 1.080 H* 11/16/17 15:30: Troponin I 1.570 H* 11/17/17 05:00: Sodium 140, Potassium 3.3 L, Chloride 101, Carbon Dioxide 30.0, Anion Gap 9, BUN 20 H, Creatinine 0.83, Estim Creat Clear Calc 50.18, Est GFR (MDRD) Af Amer 85, Est GFR (MDRD) Non-Af 70, BUN/Creatinine Ratio 24.1 H, Glucose 101, Calcium 8.9, Magnesium 2.1, Total Bilirubin 0.60, AST 33, ALT 27, Alkaline Phosphatase 79, Total Protein 7.3, Albumin 3.4, Globulin 3.9, Albumin/Globulin Ratio 0.9, Triglycerides 176, Cholesterol 262 H, LDL Cholesterol 153 H, VLDL Cholesterol 35, HDL Cholesterol 74, TSH 0.24 L 11/17/17 05:00: Hemoglobin A1c 5.7 11/17/17 05:00: WBC 5.7, RBC 4.62, Hgb 13.5, Hct 41.1, MCV 89.0, MCH 29.2, MCHC 32.8, RDW 13.2, RDW Differential 42.6, Plt Count 153, MPV 9.1 11/17/17 05:00: PT 13.4, INR 1.0, APTT 32.4 Current Medications Al Hydroxide/Mg Hydroxide (Mylanta Ii) 30 ml PO Q6H PRN PRN PRN Reason: Gastric Burning Aspirin (Ecotrin) 81 mg PO DAILY@0800 COUNTS INCLUDE 234 BEDS AT THE [facility] Last Admin: 11/17/17 05:40 Dose: 81 mg Bisacodyl (Dulcolax) 10 mg RECTAL DAILY PRN PRN PRN Reason: Constipation Clopidogrel Bisulfate (Plavix) 75 mg PO DAILY COUNTS INCLUDE 234 BEDS AT THE [facility] Last Admin: 11/17/17 05:40 Dose: 75 mg Docusate Sodium (Colace) 200 mg PO BID PRN PRN PRN Reason: Constipation Enoxaparin Sodium (Lovenox) 60 mg SC Q12@0600,1800 COUNTS INCLUDE 234 BEDS AT THE [facility] Last Admin: 11/17/17 05:39 Dose: Not Given Ferrous Gluconate (Ferrous Gluconate) 325 mg PO DAILY COUNTS INCLUDE 234 BEDS AT THE [facility] Sodium Chloride () 1,000 mls @ 0 mls/hr IV .Q0M COUNTS INCLUDE 234 BEDS AT THE [facility] Lisinopril (Zestril) 10 mg PO DAILY COUNTS INCLUDE 234 BEDS AT THE [facility] Last Admin: 11/17/17 05:40 Dose: 10 mg Metoprolol Succinate (Toprol Xl (Beta Brooke)) 50 mg PO DAILY COUNTS INCLUDE 234 BEDS AT THE [facility] Last Admin: 11/17/17 05:40 Dose: 50 mg Multivit[facility] ([facility] Nitroglycerin (Nitrostat) 0.4 mg SUBLINGUAL Q5M PRN PRN Reason: CHEST PAIN Ondansetron HCl (Zofran) 4 mg IV Q8H PRN PRN PRN Reason: Nausea Polyethylene Glycol (Miralax) 17 gm PO DAILY COUNTS INCLUDE 234 BEDS AT THE [facility] Sodium Chloride () 5 - 30 ml IV UD PRN PRN Reason: SALINE FLUSH Zolpidem Tartrate (Ambien (Generic)) 5 mg PO QHS PRN PRN PRN Reason: INSOMNIA Medical Necessity - Tobacco Use Smoking Status: Never smoker Assessment/Plan All Active Problems Heart failure (Acute) Near syncope (Acute) NSTEMI (non-ST elevated myocardial infarction) (Acute) The patient is a 82 year old F with history of possible sinus node dysfunction with pacemake in [facility] last year, educational adviser Dr. Lipscomb but no previous cardiac cath, hypertension came to ER today for dizziness, lightheadedness this morning when she woke up. She was also sweaty but denies chest pain, shortness of breath. She denied orthopnea or PND. No vertigo. EKG shows pacemaker rhythm. First troponin 0.30 and second troponin I 0.08. BNP 116. Chest x-ray suggestive of mild vascular congestion. Patient is further admitted in PCU. Currently, she is comfortable sitting on the bed and eating her meal. 1. Near syncope, most probably related to cardiac origin: Patient is being admitted in PCU. Her blood pressure was high 185/103, heart rate 83 and respiratory rate 21 when she came to ER. Currently pulse ox 95% on room air. Blood pressure was controlled. 2. CHF exacerbation, acute systolic heart failure, NSTEMI triggering factor: Patient follows Dr. Lipscomb. Started on Lasix, continue metoprolol and lisinopril. 2D echo ordered. Patient was seen by Dr. ryan in his consult and discussion appreciated. 2D echo reported as EF 53% with systolic function lower limits of normal. [place] akinetic, mid anteroseptal, mid anterior and mid lateral hypokinetic. Normal right and left atria. Mild eccentric MR. Mild TR, RVSP 31 mmHg. Normal aortic valve. 3. non-STEMI: Serial troponins met the criteria for non-STEMI although it was atypical presentation. Aspirin given in ER. Plavix loading dose ordered. Was started on Lovenox 1 mg/kg body weight, therapeutic dose. She had cardiac cath which showed mid LAD 75%, EF 45% on LV gram and WARNER inserted. Right groin, cardiac cath access is dry with no hematoma or bruise. 4. Hypertension: Currently blood pressure is controlled. Continue home medications. 5. Hyperglycemia: A1c 5.7. TSH 0.24. Free T4 ordered. 6. Dyslipidemia: Total cholesterol 262, LDL 153. On atorvastatin. DVT prophylaxis: On Lovenox. Microbiology Past 72 Hours 11/16/17 14:47 Mucosa - Nasopharyngeal - Final Laboratory Results 11/16/17 09:15: WBC 7.0, RBC 4.31, Hgb 12.7, Hct 38.7, MCV 89.8, MCH 29.5, MCHC 32.8, RDW 13.2, RDW Differential 43.1, Plt Count 131 L, MPV 9.2, Immature Gran % (Auto) 0.100, Neut % (Auto) 76.6 H, Lymph % (Auto) 15.3 L, [place] % (Auto) 5.7, Eos % (Auto) 2.0, Baso % (Auto) 0.3, Absolute Neuts (auto) 5.3, Absolute Lymphs (auto) 1.07, Total Counted Not Reportable 11/16/17 09:15: Sodium 141, Potassium 3.8, Chloride 105, Carbon Dioxide 27.0, Anion Gap 9, BUN 25 H, Creatinine 0.78, Estim Creat Clear Calc 40.33, Est GFR (MDRD) Af Amer 91, Est GFR (MDRD) Non-Af 75, BUN/Creatinine Ratio 32.0 H, Glucose 149 H, Calcium 9.1, Total Bilirubin 0.50, AST 26, ALT 28, Alkaline Phosphatase 90, Troponin I 0.303 H, Total Protein 7.4, Albumin 3.6, Globulin 3.8, Albumin/Globulin Ratio 0.9, Lipase 101 11/16/17 09:15: B-Natriuretic Peptide 116.1 H 11/16/17 11:40: Urine Color Yellow, Urine Clarity Clear, Urine pH 6.5, Ur Specific [place] 1.010, Urine Protein Negative, Urine Glucose (UA) Normal, Urine Ketones Negative, Urine Occult Blood Negative, Urine Nitrite Negative, Urine Bilirubin Negative, Urine Urobilinogen Normal, Ur Leukocyte Esterase Negative, Urine RBC 0 SEEN, Urine WBC 0 SEEN, Ur Squamous Epith Cells 0 SEEN, Urine Bacteria 0 SEEN, Urine Mucus 0 SEEN 11/16/17 12:00: Troponin I 1.080 H* 11/16/17 15:30: Troponin I 1.570 H* 11/17/17 05:00: Sodium 140, Potassium 3.3 L, Chloride 101, Carbon Dioxide 30.0, Anion Gap 9, BUN 20 H, Creatinine 0.83, Estim Creat Clear Calc 50.18, Est GFR (MDRD) Af Amer 85, Est GFR (MDRD) Non-Af 70, BUN/Creatinine Ratio 24.1 H, Glucose 101, Calcium 8.9, Magnesium 2.1, Total Bilirubin 0.60, AST 33, ALT 27, Alkaline Phosphatase 79, Total Protein 7.3, Albumin 3.4, Globulin 3.9, Albumin/Globulin Ratio 0.9, Triglycerides 176, Cholesterol 262 H, LDL Cholesterol 153 H, VLDL Cholesterol 35, HDL Cholesterol 74, TSH 0.24 L 11/17/17 05:00: Hemoglobin A1c 5.7 11/17/17 05:00: WBC 5.7, RBC 4.62, Hgb 13.5, Hct 41.1, MCV 89.0, MCH 29.2, MCHC 32.8, RDW 13.2, RDW Differential 42.6, Plt Count 153, MPV 9.1 11/17/17 05:00: PT 13.4, INR 1.0, APTT 32.4 Clinical Impression(s) from Imaging Studies Chest X-Ray 11/16/17 09:11 IMPRESSION: Vascular congestion and mild degree of CHF. [] Active Medications Al Hydroxide/Mg Hydroxide (Mylanta Ii) 30 ml PO Q6H PRN PRN PRN Reason: Gastric Burning Aspirin (Ecotrin) 81 mg PO DAILY@0800 COUNTS INCLUDE 234 BEDS AT THE [facility] Last Admin: 11/17/17 05:40 Dose: 81 mg Bisacodyl (Dulcolax) 10 mg RECTAL DAILY PRN PRN PRN Reason: Constipation Clopidogrel Bisulfate (Plavix) 75 mg PO DAILY COUNTS INCLUDE 234 BEDS AT THE [facility] Last Admin: 11/17/17 05:40 Dose: 75 mg Docusate Sodium (Colace) 200 mg PO BID PRN PRN PRN Reason: Constipation Ferrous Gluconate (Ferrous Gluconate) 325 mg PO DAILY COUNTS INCLUDE 234 BEDS AT THE [facility] Sodium Chloride () 1,000 mls @ 0 mls/hr IV .Q0M COUNTS INCLUDE 234 BEDS AT THE [facility] Lisinopril (Zestril) 10 mg PO DAILY COUNTS INCLUDE 234 BEDS AT THE [facility] Last Admin: 11/17/17 05:40 Dose: 10 mg Metoprolol Succinate (Toprol Xl (Beta [place]oke)) 50 mg PO DAILY COUNTS INCLUDE 234 BEDS AT THE [facility] Last Admin: 11/17/17 05:40 Dose: 50 mg Multivitamins ([facility]itamin) [facility] Nitroglycerin (Nitrostat) 0.4 mg SUBLINGUAL Q5M PRN PRN Reason: CHEST PAIN Ondansetron HCl (Zofran) 4 mg IV Q8H PRN PRN PRN Reason: Nausea Polyethylene Glycol (Miralax) 17 gm PO DAILY COUNTS INCLUDE 234 BEDS AT THE [facility] Sodium Chloride () 5 - 30 ml IV UD PRN PRN Reason: SALINE FLUSH Zolpidem Tartrate (Ambien (Generic)) 5 mg PO QHS PRN PRN PRN Reason: INSOMNIA Code Visit Inpatient E&M: 91089 Subs Hosp L3
--- NOTE | 2017-11-17 08:57 | PN_ITS ---
Patient Problems: Active and Suspected Problems Heart failure (Acute) Near syncope (Acute) NSTEMI (non-ST elevated myocardial infarction) (Acute) Subjective: Patient had cardiac catheter today. Discussed with architectural draftsman Dr. ryan. EF 45% on LV gram, mid LAD 75% and a stent was inserted. Patient was admitted with atypical symptoms of non-STEMI. Vitals/I&O's: Vital Signs Temp Pulse Resp BP Pulse Ox 98.3 F 66 16 125/69 H 94 11/17/17 05:35 11/17/17 07:02 11/17/17 05:35 11/17/17 05:35 11/17/17 05:35 Oxygen Delivery Method Room Air Weight: 131 lb 13.383 oz Body Mass Index (BMI) 26.5 Intake and Output for Last 24 Hours 11/15/17 11/16/17 11/17/17 23:59 23:59 23:59 Intake Total 450 / 450 120 / 120 Balance 450 / 450 120 / 120 General: Alert, Oriented x3, Cooperative HEENT: Atraumatic, PERRLA, EOMI, Normocephalic Neck: Supple, No JVD, Negative Carotid Bruits Lungs: Clear to auscultation, Normal air movement Cardiovascular: Regular rate, Regular Rhythm, Normal S1, Normal S2, No murmurs Abdomen: Bowel Sounds Present, Soft, Non Tender Extremities: No edema, Capillary Refill Less than 3 Seconds Skin: No rashes, No breakdown Musculoskeletal: No Tenderness to Palpation of Joints or Extremities Neurological: Cranial nerves II-XII grossly intact Psych/Mental Status: Normal Affect, Appropriate Microbiology Past 72 Hours 11/16/17 14:47 Mucosa - Nasopharyngeal - Final Laboratory Results 11/16/17 09:15: WBC 7.0, RBC 4.31, Hgb 12.7, Hct 38.7, MCV 89.8, MCH 29.5, MCHC 32.8, RDW 13.2, RDW Differential 43.1, Plt Count 131 L, MPV 9.2, Immature Gran % (Auto) 0.100, Neut % (Auto) 76.6 H, Lymph % (Auto) 15.3 L, Shelby % (Auto) 5.7, Eos % (Auto) 2.0, Baso % (Auto) 0.3, Absolute Neuts (auto) 5.3, Absolute Lymphs (auto) 1.07, Total Counted Not Reportable 11/16/17 09:15: Sodium 141, Potassium 3.8, Chloride 105, Carbon Dioxide 27.0, Anion Gap 9, BUN 25 H, Creatinine 0.78, Estim Creat Clear Calc 40.33, Est GFR (MDRD) Af Amer 91, Est GFR (MDRD) Non-Af 75, BUN/Creatinine Ratio 32.0 H, Glucos e 149 H, Calcium 9.1, Total Bilirubin 0.50, AST 26, ALT 28, Alkaline Phosphatase 90, Troponin I 0.303 H, Total Protein 7.4, Albumin 3.6, Globulin 3.8, Albumin/Globulin Ratio 0.9, Lipase 101 11/16/17 09:15: B-Natriuretic Peptide 116.1 H 11/16/17 11:40: Urine Color Yellow, Urine Clarity Clear, Urine pH 6.5, Ur Specific [place] 1.010, Urine Protein Negative, Urine Glucose (UA) Normal, Urine Ketones Negative, Urine Occult Blood Negative, Urine Nitrite Negative, Urine Bilirubin Negative, Urine Urobilinogen Normal, Ur Leukocyte Esterase Negative, Urine RBC 0 SEEN, Urine WBC 0 SEEN, Ur Squamous Epith Cells 0 SEEN, Urine Bacteria 0 SEEN, Urine Mucus 0 SEEN 11/16/17 12:00: Troponin I 1.080 H* 11/16/17 15:30: Troponin I 1.570 H* 11/17/17 05:00: Sodium 140, Potassium 3.3 L, Chloride 101, Carbon Dioxide 30.0, Anion Gap 9, BUN 20 H, Creatinine 0.83, Estim Creat Clear Calc 50.18, Est GFR (MDRD) Af Amer 85, Est GFR (MDRD) Non-Af 70, BUN/Creatinine Ratio 24.1 H, Glucose 101, Calcium 8.9, Magnesium 2.1, Total Bilirubin 0.60, AST 33, ALT 27, Alkaline Phosphatase 79, Total Protein 7.3, Albumin 3.4, Globulin 3.9, Albumin/Globulin Ratio 0.9, Triglycerides 176, Cholesterol 262 H, LDL Cholesterol 153 H, VLDL Cholesterol 35, HDL Cholesterol 74, TSH 0.24 L 11/17/17 05:00: Hemoglobin A1c 5.7 11/17/17 05:00: WBC 5.7, RBC 4.62, Hgb 13.5, Hct 41.1, MCV 89.0, MCH 29.2, MCHC 32.8, RDW 13.2, RDW Differential 42.6, Plt Count 153, MPV 9.1 11/17/17 05:00: PT 13.4, INR 1.0, APTT 32.4 Current Medications Al Hydroxide/Mg Hydroxide (Mylanta Ii) 30 ml PO Q6H PRN PRN PRN Reason: Gastric Burning Aspirin (Ecotrin) 81 mg PO DAILY@0800 [facility] Last Admin: 11/17/17 05:40 Dose: 81 mg Bisacodyl (Dulcolax) 10 mg RECTAL DAILY PRN PRN PRN Reason: Constipation Clopidogrel Bisulfate (Plavix) 75 mg PO DAILY [facility] Last Admin: 11/17/17 05:40 Dose: 75 mg Docusate Sodium (Colace) 200 mg PO BID PRN PRN PRN Reason: Constipation Enoxaparin Sodium (Lovenox) 60 mg SC Q12@0600,1800 [facility] Last Admin: 11/17/17 05:39 Dose: Not Given Ferrous Gluconate (Ferrous Gluconate) 325 mg PO DAILY [facility] Sodium Chloride () 1,000 mls @ 0 mls/hr IV .Q0M [facility] Lisinopril (Zestril) 10 mg PO DAILY [facility] Last Admin: 11/17/17 05:40 Dose: 10 mg Metoprolol Succinate (Toprol Xl (Beta Brooke)) 50 mg PO DAILY [facility] Last Admin: 11/17/17 05:40 Dose: 50 mg Multivit[facility] ([facility]ivitamin) [facility] Nitroglycerin (Nitrostat) 0.4 mg SUBLINGUAL Q5M PRN PRN Reason: CHEST PAIN Ondansetron HCl (Zofran) 4 mg IV Q8H PRN PRN PRN Reason: Nausea Polyethylene Glycol (Miralax) 17 gm PO DAILY [facility] Sodium Chloride () 5 - 30 ml IV UD PRN PRN Reason: SALINE FLUSH Zolpidem Tartrate (Ambien (Generic)) 5 mg PO QHS PRN PRN PRN Reason: INSOMNIA Medical Necessity - Tobacco Use Smoking Status: Never smoker Assessment/Plan All Active Problems Heart failure (Acute) Near syncope (Acute) NSTEMI (non-ST elevated myocardial infarction) (Acute) The patient is a 82 year old F with history of possible sinus node dysfunction with pacemake in [facility] last year, architectural draftsman Dr. Lipscomb but no previous cardiac cath, hypertension came to ER today for dizziness, lightheadedness this morning when she woke up. She was also sweaty but denies chest pain, shortness of breath. She denied orthopnea or PND. No vertigo. EKG shows pacemaker rhythm. First troponin 0.30 and second troponin I 0.08. BNP 116. Chest x-ray suggestive of mild vascular congestion. Patient is further admitted in PCU. Currently, she is comfortable sitting on the bed and eating her meal. 1. Near syncope, most probably related to cardiac origin: Patient is being admitted in PCU. Her blood pressure was high 185/103, heart rate 83 and respiratory rate 21 when she came to ER. Currently pulse ox 95% on room air. Blood pressure was controlled. 2. CHF exacerbation, acute systolic heart failure, NSTEMI triggering factor: Patient follows Dr. Lipscomb. Started on Lasix, continue metoprolol and lisinopril. 2D echo ordered. Patient was seen by Dr. ryan in his consult and discussion appreciated. 2D echo reported as EF 53% with systolic function lower limits of normal. [place] akinetic, mid anteroseptal, mid anterior and mid lateral hypokinetic. Normal right and left atria. Mild eccentric MR. Mild TR, RVSP 31 mmHg. Normal aortic valve. 3. non-STEMI: Serial troponins met the criteria for non-STEMI although it was atypical presentation. Aspirin given in ER. Plavix loading dose ordered. Was started on Lovenox 1 mg/kg body weight, therapeutic dose. She had cardiac cath which showed mid LAD 75%, EF 45% on LV gram and WARNER inserted. Right groin, cardiac cath access is dry with no hematoma or bruise. 4. Hypertension: Currently blood pressure is controlled. Continue home medications. 5. Hyperglycemia: A1c 5.7. TSH 0.24. Free T4 ordered. 6. Dyslipidemia: Total cholesterol 262, LDL 153. On atorvastatin. DVT prophylaxis: On Lovenox. Microbiology Past 72 Hours 11/16/17 14:47 Mucosa - Nasopharyngeal - Final Laboratory Results 11/16/17 09:15: WBC 7.0, RBC 4.31, Hgb 12.7, Hct 38.7, MCV 89.8, MCH 29.5, MCHC 32.8, RDW 13.2, RDW Differential 43.1, Plt Count 131 L, MPV 9.2, Immature Gran % (Auto) 0.100, Neut % (Auto) 76.6 H, Lymph % (Auto) 15.3 L, Shelby % (Auto) 5.7, Eos % (Auto) 2.0, Baso % (Auto) 0.3, Absolute Neuts (auto) 5.3, Absolute Lymphs (auto) 1.07, Total Counted Not Reportable 11/16/17 09:15: Sodium 141, Potassium 3.8, Chloride 105, Carbon Dioxide 27.0, Anion Gap 9, BUN 25 H, Creatinine 0.78, Estim Creat Clear Calc 40.33, Est GFR (MDRD) Af Amer 91, Est GFR (MDRD) Non-Af 75, BUN/Creatinine Ratio 32.0 H, Glucose 149 H, Calcium 9.1, Total Bilirubin 0.50, AST 26, ALT 28, Alkaline Phosphatase 90, Troponin I 0.303 H, Total Protein 7.4, Albumin 3.6, Globulin 3.8, Albumin/Globulin Ratio 0.9, Lipase 101 11/16/17 09:15: B-Natriuretic Peptide 116.1 H 11/16/17 11:40: Urine Color Yellow, Urine Clarity Clear, Urine pH 6.5, Ur Specific [place] 1.010, Urine Protein Negative, Urine Glucose (UA) Normal, Urine Ketones Negative, Urine Occult Blood Negative, Urine Nitrite Negative, Urine Bilirubin Negative, Urine Urobilinogen Normal, Ur Leukocyte Esterase Negative, Urine RBC 0 SEEN, Urine WBC 0 SEEN, Ur Squamous Epith Cells 0 SEEN, Urine Bacteria 0 SEEN, Urine Mucus 0 SEEN 11/16/17 12:00: Troponin I 1.080 H* 11/16/17 15:30: Troponin I 1.570 H* 11/17/17 05:00: Sodium 140, Potassium 3.3 L, Chloride 101, Carbon Dioxide 30.0, Anion Gap 9, BUN 20 H, Creatinine 0.83, Estim Creat Clear Calc 50.18, Est GFR (MDRD) Af Amer 85, Est GFR (MDRD) Non-Af 70, BUN/Creatinine Ratio 24.1 H, Glucose 101, Calcium 8.9, Magnesium 2.1, Total Bilirubin 0.60, AST 33, ALT 27, Alkaline Phosphatase 79, Total Protein 7.3, Albumin 3.4, Globulin 3.9, Albumin/Globulin Ratio 0.9, Triglycerides 176, Cholesterol 262 H, LDL Cholesterol 153 H, VLDL Cholesterol 35, HDL Cholesterol 74, TSH 0.24 L 11/17/17 05:00: Hemoglobin A1c 5.7 11/17/17 05:00: WBC 5.7, RBC 4.62, Hgb 13.5, Hct 41.1, MCV 89.0, MCH 29.2, MCHC 32.8, RDW 13.2, RDW Differential 42.6, Plt Count 153, MPV 9.1 11/17/17 05:00: PT 13.4, INR 1.0, APTT 32.4 Clinical Impression(s) from Imaging Studies Chest X-Ray 11/16/17 09:11 IMPRESSION: Vascular congestion and mild degree of CHF. [] Active Medications Al Hydroxide/Mg Hydroxide (Mylanta Ii) 30 ml PO Q6H PRN PRN PRN Reason: Gastric Burning Aspirin (Ecotrin) 81 mg PO DAILY@0800 [facility] Last Admin: 11/17/17 05:40 Dose: 81 mg Bisacodyl (Dulcolax) 10 mg RECTAL DAILY PRN PRN PRN Reason: Constipation Clopidogrel Bisulfate (Plavix) 75 mg PO DAILY [facility] Last Admin: 11/17/17 05:40 Dose: 75 mg Docusate Sodium (Colace) 200 mg PO BID PRN PRN PRN Reason: Constipation Ferrous Gluconate (Ferrous Gluconate) 325 mg PO DAILY [facility] Sodium Chloride () 1,000 mls @ 0 mls/hr IV .Q0M [facility] Lisinopril (Zestril) 10 mg PO DAILY [facility] Last Admin: 11/17/17 05:40 Dose: 10 mg Metoprolol Succinate (Toprol Xl (Beta Brooke)) 50 mg PO DAILY [facility] Last Admin: 11/17/17 05:40 Dose: 50 mg Multivitamins (Multivitamin) [facility] Nitroglycerin (Nitrostat) 0.4 mg SUBLINGUAL Q5M PRN PRN Reason: CHEST PAIN Ondansetron HCl (Zofran) 4 mg IV Q8H PRN PRN PRN Reason: Nausea Polyethylene Glycol (Miralax) 17 gm PO DAILY [facility] Sodium Chloride () 5 - 30 ml IV UD PRN PRN Reason: SALINE FLUSH Zolpidem Tartrate (Ambien (Generic)) 5 mg PO QHS PRN PRN PRN Reason: INSOMNIA Code Visit Inpatient E&M: 80230 Subs Hosp L3
--- NOTE | 2017-11-17 09:15 | CL.I_ITS ---
Patient Name: RAJIV SUTTON Study Date: 11/17/2017 Performing: Ron Waller MD Ht: 59.05 inches 150 cm : 1935 Wt: 132.28 lbs 60 kg Age: 82 Gender: female BSA: 1.55 PROCEDURE(S) PERFORMED [id number] W OR WO PTCA, SINGLE CORONARY ARTERY [id number] W OR WO PTCA, EACH ADD'L ARTERY, SAME MAJOR CLINICAL PROFILE AND CO-MORBIDITIES Indications: Suspected CAD, Suspected CAD Heart Failure: NYHA Class: 1, Newly Diagnosed: No, Heart Failure Type: Systolic Stress/Imaging Stress/Image Study Performed: No Stress/Image Study Performed: No Angina Classification Anginal Classification w/in 2 Weeks: No symptoms CAD Presentations: Non-STEMI. Symptom onset Date/Time: 11/16/2017 Time Not Available Non-STEMI. Sy mptom onset Date/Time: 11/17/2017 Time Not Available Comorbidities/Risk Factors: Current/Recent Smoker (< 1year) Hypertension Dyslipidemia Prior CHF CONCLUSIONS Successful PTCA/WARNER to mid LAD with a 3.0 x 24 Promus Synergy, post dilated proximally with a 3.5 x 8 NC Balloon; 75%-->0%, no dissection. Successful PCI with PTCA to the ostial DIAG#2 with a 2.0 x 12 Balloon; 75%-->40%, no dissection. No additional stenting performed due to acute angle of DIAG#2 and <50% ostial stenosis post POBA. RECOMMENDATIONS Highly recommend quitting all tobacco products Follow up with primary control room helper Risk factor modification ASA Indefinitley Plavix for at least 12 months Routine post interventional care Refer for Outpatient Cardiac Rehab Manual sheath removal per protocol Follow up with Dr. Jaime PPM interrogation. DESCRIPTION OF PROCEDURE The patient arrived to the procedure lab. The risks and benefits of the procedure as well as a full d escription of our services here and current unavailability of surgical backup were fully explained to the patient and/or their significant other prior to the catheterization. The Timeout was completed, verifying the correct patient and procedure. The patient's procedural site was prepped and draped in the usual fashion. Local anesthetic was given subcutaneously to right groin region with Lidocaine 2% Using a modified Seldinger technique,arterial access was obtained via the right femoral artery, a 5Fr sheath was inserted. Left Coronary Artery selective angiography was performed in multiple views usin g a 5 Fr. JL4 catheter. Right Coronary Artery selective angiography was then performed in multiple vi ews using a 5 Fr. JR 4 catheter. Left Ventriculography was performed in CELESTE projection using a 5 Fr. Pigtail catheter. LV to AO pullback pressures were then recorded.The images were reviewed and options discussed. A decision was then made to proceed with an Intervention, IVUS or other adjunct procedure . Arterial sheath was exchanged for a 6 Fr Sheath. ebu 3.5 Guide catheter was inserted and engaged into the LCA. bmw Guide wire was advanced to the LAD. bmw Guide wire was advanced to the 2 Diagonal. Jennifer ogram performed pre balloon dilatation. emerge 2.00 x 12 Balloon catheter was advanced across lesion in the second diagonal, ostial PTCA balloon inflated at 8 atms for 20 secs. PTCA balloon inflated at 6 atms for 12 secs. Angiogram performed post balloon dilatation. synergy 3.00 x 24 Drug Eluting stent was advanced across the lesion in the LAD, mid. Angiogram performed post stent deployment. nc emerge 3.50 x 8 Balloon catheter was inserted post stent. Angiogram performed post balloon dilatation. reema ge push 1.2 x 8 Balloon catheter was advanced across lesion in the second diagonal, ostial PTCA ballo on inflated at 14 atms for 25 secs. PTCA balloon inflated at 14 atms for 23 secs. emerge 1.5 x 8 Ball oon catheter was advanced across lesion in the second diagonal, ostial PTCA balloon inflated at 12 at ms for 29 secs. Angiogram performed post balloon dilatation. emerge 2.00 x 12 Balloon catheter was ad vanced across lesion in the second diagonal, ostial PTCA balloon inflated at 9 atms for 60 secs. Jennifer ogram performed post balloon dilatation. The arterial sheath was exchanged to a standard sheath and left inplace to be pulled in the holding area. The arterial sheath was sutured in place and capped INTERVENTION INFORMATION LESION SITE: 2nd Diagonal (Ostial) Lesion Complexity: High/C, lesion at bifurcation: Yes, thrombus present: No, lesion length: 10 mm, cu lprit lesion: No Pre Stenosis: 75 % Pre intervention JUAN flow: 3 PROCEDURE: Balloon Angioplasty Post Stenosis: 40 % Post intervention JUAN flow: 3 Lesion Devices: Jaydon Sci EMERGE MR 2.00x12 BALLOON Jaydon Sci EMERGE MR 1.50x08 BALLOON Jaydon Sci EMERGE PUSH MR 1.20x08 BALLOON LESION SITE: LAD (Mid) Lesion Complexity: High/C, lesion at bifurcation: Yes, thrombus present: No, lesion length: 24 mm, cu lprit lesion: Yes Pre Stenosis: 75 % Pre intervention JUAN flow: 3 PROCEDURE: Drug Eluting Stent with pre and post dilatation Post Stenosis: 0 % Post intervention JUAN flow: 3 Lesion Devices: Jaydon Sci Synergy MR WARNER 3.00x24 Jaydon Sci NC EMERGE MR 3.50x08 BALLOON COMPLICATIONS PROCEDURE MEDICATIONS Versed 1 mg IV Oxygen: 2 L/min via nasal cannula Heparin 6000 unit(s) IV 11/17/2017 08:15:29 Nitro 200 mcg IC 11/17/2017 08:20:28 Nitro 200 mcg IC 11/17/2017 08:20:28 SUMMARY OF HEMODYNAMIC DATA Time AIR REST ECG 07:31:46 AO 123/65 (89) SA 07:40:30 LV 129/3, 8 07:49:59 LV 127/4, 8 07:50:06 LV 129/1, 16 07:51:14 LV 135/2, 18 07:51:21 LVp 138/3, 19 07:51:25 AOp 145/66 (98) 07:51:30 Signed By Ron Waller MD On 11/17/2017 09:14:16 Ron Waller MD
--- NOTE | 2017-11-17 09:17 | EKG12_ITS ---
Test Reason : POST PCI Blood Pressure : / mmHG Vent. Rate : 063 BPM Atrial Rate : 063 BPM P-R Int : 180 ms QRS Dur : 184 ms QT Int : 622 ms P-R-T Axes : 058 -80 137 degrees QTc Int : 636 ms Atrial-sensed ventricular-paced rhythm Abnormal ECG When compared with ECG of 16-NOV-2017 11:30, Vent. rate has decreased BY 4 BPM Confirmed by EBER HAMLIN, JEMIMA ([id number]), web content editor THEODORE QUISPE ([id number]) on 11/23/2017 3:50:19 PM Referred By: PAOLO Confirmed By:JEMIMA VELÁZQUEZ MD
[2017-11-17] MEDS: 0.9% Normal Saline 1,000 ML 150 ML IV (09:45)
[2017-11-17 10:10] LABS: ACT Activated Clotting Time 180 sec (74-137)
[2017-11-17 10:13] LABS: T4 Free Direct 0.86 ng/dL (0.76-1.46)
--- NOTE | 2017-11-17 10:32 | CRPHASE1 ---
Patient Data/Charges Phase II Referral:: [facility] Start Phase II:: FOLLOWING OFFICE VISIT WITH CARDIOLOGY Risk Factors/Lifestyle Smoking Status: Never smoker Hx Hypertension: Yes Hx Diabetes Mellitus Type 1: No Hx Diabetes Mellitus Type 2: No Hx Metabolic Disorders: No Hx Dyslipidemia: Yes Hx Obesity: No Height: 4 ft 11 in - BMI 26.6 Post-Menopausal: Yes Stress: Home/Family Substance Abuse: No Risk Factor for Sedentary Lifestyle: Moderate Risk Past Cardiac Illness: CHF Laboratory Values: Cardiac Rehab Phase I Labs Hemoglobin A1c 5.7 % (4.2-6.3) 11/17/17 05:00 Triglycerides 176 mg/dL (-199) 11/17/17 05:00 Cholesterol 262 mg/dL (200) H 11/17/17 05:00 LDL Cholesterol 153 mg/dL (0-130) H 11/17/17 05:00 HDL Cholesterol 74 mg/dL (40-) 11/17/17 05:00 Phase I Education Given On:: [place], Nutrition, Antiplatelet medication, CHF Issues Affecting Care:: None, Reading difficulty Knowledge of Condition:: Yes Learning Preferences: Verbal, Written Hospital Course Presenting Symptoms:: NSTEMI Medical/Surgical History [place]:: Yes - NSTEMI Diabetes:: No Hypertension:: Yes Dyslipidemia:: Yes Discharge/Home/Social Eval Discharge Disposition: Home
--- NOTE | 2017-11-17 10:35 | CRPHASE1_ITS ---
Patient Data/Charges Phase II Referral:: [facility] Start Phase II:: FOLLOWING OFFICE VISIT WITH CARDIOLOGY Risk Factors/Lifestyle Smoking Status: Never smoker Hx Hypertension: Yes Hx Diabetes Mellitus Type 1: No Hx Diabetes Mellitus Type 2: No Hx Metabolic Disorders: No Hx Dyslipidemia: Yes Hx Obesity: No Height: 4 ft 11 in - BMI 26.6 Post-Menopausal: Yes Stress: Home/Family Substance Abuse: No Risk Factor for Sedentary Lifestyle: Moderate Risk Past Cardiac Illness: CHF Laboratory Values: Cardiac Rehab Phase I Labs Hemoglobin A1c 5.7 % (4.2-6.3) 11/17/17 05:00 Triglycerides 176 mg/dL (-199) 11/17/17 05:00 Cholesterol 262 mg/dL (200) H 11/17/17 05:00 LDL Cholesterol 153 mg/dL (0-130) H 11/17/17 05:00 HDL Cholesterol 74 mg/dL (40-) 11/17/17 05:00 Phase I Education Given On:: [place], Nutrition, Antiplatelet medication, CHF Issues Affecting Care:: None, Reading difficulty Knowledge of Condition:: Yes Learning Preferences: Verbal, Written Hospital Course Presenting Symptoms:: NSTEMI Medical/Surgical History [place]:: Yes - NSTEMI Diabetes:: No Hypertension:: Yes Dyslipidemia:: Yes Discharge/Home/Social Eval Discharge Disposition: Home
--- NOTE | 2017-11-17 10:35 | CRPH1.INSTRU ---
General Education CAD and cardiac anatomy and function:: Patient communicates acknowledgment Explanation of diagnoses and procedures:: Patient communicates acknowledgment Sign/Symptoms of [place]:: Patient communicates acknowledgment Antiplatelet therapy: Patient communicates acknowledgment Proper use of NTG-SL: Patient communicates acknowledgment Emergency procedures and activation of EMS: Patient communicates acknowledgment Compliance of all prescribed medications: Patient communicates acknowledgment Smoking Patient Nicotine/Smoking Risk Factors Are:: Never smoked Dyslipidemia Patient Dyslipidemia Risk Factors Are:: Total Cholesterol, Triglycerides, LDL Recommendations Include:: Lipid profile not available, Reviewed NCEP/ATP guidelines, Therapeutic Lifestyle Change dietary guidelines Dyslipidemia Response Code:: Patient communicates acknowledgment Overweight/Obesity Patient Overweight/Obesity Risk Factors Are:: BMI Normal [24-29 & > 65 years old] Hypertension Recommendations Include:: Maintain BP <130/85, DASH dietary guidelines, Decrease/maintain normal body weight, Moderation of ETOH Hypertension:: Patient communicates acknowledgment Diabetes Patient Diabetes Risk Factors Are:: No documented hx of diabetes Metabolic Syndrome Recommendations Include:: Does not meet criteria Sedentary Patient Sedentary Risk Factors Are:: Lack of regular exercise Recommendations Include:: Aerobic exercise 5-7 times/week for 20-30 minutes continuously, Benefits of regular exercise, Discussed home walking program, Monitored Outpatient Cardiac Rehab Sedentary Response Code:: Patient communicates acknowledgment Stress Recommendations Include:: Identification of stressors, and assessment of coping skills, Stress management techniques Stress Response Code:: Patient communicates acknowledgment
[2017-11-17 10:51] LABS: ACT Activated Clotting Time 213 sec (74-137)
[2017-11-17 11:11] LABS: ACT Activated Clotting Time 153 sec (74-137)
--- NOTE | 2017-11-17 12:29 | CASEMGMT ---
RN CM Assessment. Attempted to see pt post heart cath. Nursing providing care. Victor Manuel VILLEDA RN ACM
--- NOTE | 2017-11-17 13:49 | CASEMGMT ---
RN CM Assessment. Pt presented to ER with feeling unsteady, came to ER. NSTEMI, for PCI. PCP: Dr. Monreal Specialists: Dr. Stas Knowles Prescription Benefit:? Yes LNOK: Sons Living Arrangements: Lives with son Art Transportation: Drives or has family drive DME/HHC: has walker, usually independent ?Intro role of CM to patient in room. Pt states she is normally independent, no needs identified for dc. Plan: Home on dc with family support.
[2017-11-18] VITALS (15 sets, daily range): BP systolic 87–128; BP diastolic 40–64; PULSE 60–78; RESP 12–22; TEMP 36.6–36.8; O2SAT 92–99
[2017-11-18 04:33] LABS: Hematocrit 34.7 % (37-47); Hemoglobin 11.3 g/dl (12.0-15.0); Mean Corp Hgb Conc 32.6 g/gl (32-36); Mean Corpuscular Hgb 29.4 pg (27.0-32.0); Mean Corpuscular Volume 90.4 fL (81-99); Mean Platelet Vol. 9.4 fl (6.2-12.0); Platelet Count 147 K/mm3 (150-450); RBC Distribution Width CV 13.5 % (11.6-14.6); RBC Distribution Width SD 44.5 fl (35.1-43.9); Red Blood Count 3.84 M/mm3 (4.2-5.4); White Blood Count 6.3 K/mm3 (4.4-11.0)
[2017-11-18 04:34] LABS: Scan Indicated on CBC? Y/N NO
[2017-11-18 05:09] LABS: Anion Gap 10 (5-15); BUN 22 mg/dL (7-18); BUN/Creat Ratio 30.1 RATIO (10-20); Calcium,Total 8.1 mg/dL (8.5-10.1); Chloride 108 mmol/L (98-107); Creatinine, Serum 0.73 mg/dL (0.55-1.02); EST Glomerular Filtration Rate 81 mL/min (>60); Est Glom Filt Rate - Afr Amer 98 mL/min (>60); Estimated Creatinine Clearance 41.65 ml/min; Glucose 100 mg/dL (74-106); Sodium Level 141 mmol/L (136-145)
--- NOTE | 2017-11-18 05:55 | EKG12_ITS ---
Test Reason : MORNING EKG Blood Pressure : / mmHG Vent. Rate : 064 BPM Atrial Rate : 064 BPM P-R Int : 186 ms QRS Dur : 180 ms QT Int : 602 ms P-R-T Axes : -08 -75 154 degrees QTc Int : 621 ms AV dual-paced rhythm Abnormal ECG When compared with ECG of 17-NOV-2017 09:36, MANUAL COMPARISON REQUIRED, DATA IS UNCONFIRMED Confirmed by EBER HAMLIN, JEMIMA ([id number]), editor city THEODORE QUISPE ([id number]) on 11/23/2017 3:49:14 PM Referred By: ELIZABETH Confirmed By:JEMIMA VELÁZQUEZ MD
--- NOTE | 2017-11-18 08:05 | PCM.PN.CARD ---
Subjectve: Patient seen and evaluated. Had uneventful night. Objective: Vital Signs Temp Pulse Resp BP Pulse Ox 97.8 F 63 16 111/57 L 99 11/18/17 07:50 11/18/17 07:50 11/18/17 07:50 11/18/17 07:50 11/18/17 07:50 Oxygen Delivery Method Room Air Weight: 131 lb 13.383 oz Body Mass Index (BMI) 26.5 Intake and Output for Last 24 Hours 11/16/17 11/17/17 11/18/17 23:59 23:59 23:59 Intake Total 450 / 450 1899 / 1899 120 / 120 Output Total 0 / 0 Balance 450 / 450 1899 / 1899 120 / 120 General: Awake, Alert, Oriented x 3 HEENT: PERRL, EOMI, Sclera Non Icteric Neck: Supple, Good ROM, No Lymph Node Enlargement Lungs: Clear to auscultation Cardiovascular: Regular Rhythm, Normal S1, Normal S2, No Murmurs, No Rubs, No Gallops Vascular: No Carotid Bruits, Normal Femoral Pulses, Normal Radial Pulses, Normal Dorsalis Pedal Pulse, Normal Posterior Tibial Pulses Abdomen: Bowel Sounds Present, Soft, Non Tender, No HSM, No Organomegaly Extremities: No Cyanosis, No Clubbing, No edema Neurological: No Focal Motor or Sensory Deficit 11/18/17 04:20: Sodium 141, Potassium 4.0, Chloride 108 H, Carbon Dioxide 23.0, Anion Gap 10, BUN 22 H, Creatinine 0.73, Est GFR (MDRD) Af Amer 98, Est GFR (MDRD) Non-Af 81, BUN/Creatinine Ratio 30.1 H, Glucose 100, Calcium 8.1 L 11/18/17 04:20: WBC 6.3, RBC 3.84 L, Hgb 11.3 L, Hct 34.7 L, MCV 90.4, MCH 29.4, MCHC 32.6, RDW 13.5, RDW Differential 44.5 H, Plt Count 147 L, MPV 9.4 Rhythm: EKG: ECHO: Stress Test: Cardiac Cath: PCI: CT Surgery: Holter monitor: EPS: PPM: CXR: Chest CT Scan: Medical Necessity - Tobacco Use Smoking Status: Never smoker Assessment/Plan 1. Non-ST elevation myocardial infarction Patient presents with atypical symptoms and is noted to have a non-ST elevation myocardial infarction. My recommendation at this time would be for us to work her up for coronary artery disease as this has never been done previously. 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 This appears to be old-dating back to at least 2016. She underwent a cardiac catheterization which demonstrated the following: Normal left main coronary artery. Left anterior descending artery with mid segment 75% stenosis. Left circumflex artery with no significant stenosis. Dominant right coronary artery with no significant stenosis. Reduced left ventricular systolic function with near akinetic apex and estimated ejection fraction of 45-50%. She subsequently underwent angioplasty and stenting of the mid left anterior descending artery. Post stenting she is done well with no EKG changes no groin hematomas and no significant decrease in hemoglobin or increase in creatinine. The plan will be to discharge her today for outpatient follow-up in 2-4 weeks with my office. 2. Hypertension Blood pressure appears to be under good control. Was mildly hypotensive through the night. We will reduce lisinopril to 5 mg a day. Continue current medical therapy with no changes 3. We will continue secondary risk factor modification with statins. 4. Status post ICD implantation Her ICD interrogated did not demonstrate any evidence of defibrillator discharge or ventricular tachyarrhythmias. Thank you for allowing me to participate in the care of your patient. Please don't hesitate to call if any issues arise
--- NOTE | 2017-11-18 08:08 | PN.CARD_ITS ---
Subjectve: Patient seen and evaluated. Had uneventful night. Objective: Vital Signs Temp Pulse Resp BP Pulse Ox 97.8 F 63 16 111/57 L 99 11/18/17 07:50 11/18/17 07:50 11/18/17 07:50 11/18/17 07:50 11/18/17 07:50 Oxygen Delivery Method Room Air Weight: 131 lb 13.383 oz Body Mass Index (BMI) 26.5 Intake and Output for Last 24 Hours 11/16/17 11/17/17 11/18/17 23:59 23:59 23:59 Intake Total 450 / 450 1899 / 1899 120 / 120 Output Total 0 / 0 Balance 450 / 450 1899 / 1899 120 / 120 General: Awake, Alert, Oriented x 3 HEENT: PERRL, EOMI, Sclera Non Icteric Neck: Supple, Good ROM, No Lymph Node Enlargement Lungs: Clear to auscultation Cardiovascular: Regular Rhythm, Normal S1, Normal S2, No Murmurs, No Rubs, No Gallops Vascular: No Carotid Bruits, Normal Femoral Pulses, Normal Radial Pulses, Normal Dorsalis Pedal Pulse, Normal Posterior Tibial Pulses Abdomen: Bowel Sounds Present, Soft, Non Tender, No HSM, No Organomegaly Extremities: No Cyanosis, No Clubbing, No edema Neurological: No Focal Motor or Sensory Deficit 11/18/17 04:20: Sodium 141, Potassium 4.0, Chloride 108 H, Carbon Dioxide 23.0, Anion Gap 10, BUN 22 H, Creatinine 0.73, Est GFR (MDRD) Af Amer 98, Est GFR (MDRD) Non-Af 81, BUN/Creatinine Ratio 30.1 H, Glucose 100, Calcium 8.1 L 11/18/17 04:20: WBC 6.3, RBC 3.84 L, Hgb 11.3 L, Hct 34.7 L, MCV 90.4, MCH 29.4, MCHC 32.6, RDW 13.5, RDW Differential 44.5 H, Plt Count 147 L, MPV 9.4 Rhythm: EKG: ECHO: Stress Test: Cardiac Cath: PCI: CT Surgery: Holter monitor: EPS: PPM: CXR: Chest CT Scan: Medical Necessity - Tobacco Use Smoking Status: Never smoker Assessment/Plan 1. Non-ST elevation myocardial infarction Patient presents with atypical symptoms and is noted to have a non-ST elevation myocardial infarction. My recommendation at this time would be for us to work her up for coronary artery disease as this has never been done previously. 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 This appears to be old-dating back to at least 2016. She underwent a cardiac catheterization which demonstrated the following: Normal left main coronary artery. Left anterior descending artery with mid segment 75% stenosis. Left circumflex artery with no significant stenosis. Dominant right coronary artery with no significant stenosis. Reduced left ventricular systolic function with near akinetic apex and estimated ejection fraction of 45-50%. She subsequently underwent angioplasty and stenting of the mid left anterior descending artery. Post stenting she is done well with no EKG changes no groin hematomas and no significant decrease in hemoglobin or increase in creatinine. The plan will be to discharge her today for outpatient follow-up in 2-4 weeks with my office. 2. Hypertension * Blood pressure appears to be under good control. Was mildly hypotensive through the night. We will reduce lisinopril to 5 mg a day. * Continue current medical therapy with no changes * 3. We will continue secondary risk factor modification with statins. 4. Status post ICD implantation * Her ICD interrogated did not demonstrate any evidence of defibrillator discharge or ventricular tachyarrhythmias. Thank you for allowing me to participate in the care of your patient. Please don't hesitate to call if any issues arise
--- NOTE | 2017-11-18 08:16 | DCINST_ITS ---
- Discharge Diagnoses Current Active Problems: Current Active and Chronic Problems Heart failure (Acute) Near syncope (Acute) NSTEMI (non-ST elevated myocardial infarction) (Acute) You will use the following diet at home:: Cardiac Allergies/Adverse Reactions: Allergies No Known Allergies Allergy (Verified 11/16/17 08:55) Medications to take at Discharge Betaine HCl 1,800 mg PO TIDCM 11/16/17 Calcium Lactate 250 mg PO TID 11/16/17 Cod Liver Oil 1 each PO DAILY 11/16/17 Ferrous Gluconate [Iron] 65 mg PO DAILY 11/16/17 H.A. Joint & Skin Formula 11/16/17 Multivitamin [Multiple Vitamins] 1 each PO DAILY 11/16/17 Seaweed 11/16/17 Aspirin E.C. [Ecotrin] 81 mg PO DAILY@0800 #30 tablet 11/18/17 Clopidogrel Bisulfate [Plavix] 75 mg PO DAILY #30 tablet 11/18/17 Lisinopril [Prinivil] 5 mg PO DAILY #30 tablet 11/18/17 Metoprolol(XL)Succ [Toprol Xl (Beta Brooke)] 50 mg PO DAILY #0 11/18/17 The following prescriptions were given: Aspirin E.C. [Ecotrin] 81 mg PO DAILY@0800 #30 tablet Clopidogrel Bisulfate [Plavix] 75 mg PO DAILY #30 tablet Lisinopril [Prinivil] 5 mg PO DAILY #30 tablet Primary Care Physician: Tierney Benitez MD [STAFF PHYSICIAN] - Please follow up with your Primary Care Physician in: in 1-2 weeks Test Results: Test results from this visit will be discussed in further detail at your follow- up appointment, if applicable. Please Follow Up With: Sonny Jaime MD When: in 2-4 weeks
--- NOTE | 2017-11-18 08:16 | PCM.DC.SUM ---
Discharge Date and Diagnosis Date of Admission: 11/16/17 Date of Discharge: 11/18/17 - Primary Discharge Diagnosis Active and Suspected Problems Heart failure (Acute) Near syncope (Acute) NSTEMI (non-ST elevated myocardial infarction) (Acute) Hospital Course and Treatment Summary of Care Provided: [] The patient is a 82 year old F with history of possible sinus node dysfunction with pacemake in 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 She was also sweaty but denies chest pain, shortness of breath. She denied orthopnea or PND. No vertigo. EKG shows pacemaker rhythm. First troponin 0.30 and second troponin I 0.08. BNP 116. Chest x-ray suggestive of mild vascular congestion. Patient was further admitted in PCU and transferred to ICU after cardiac cath resulting into PCI Currently, she is comfortable sitting on the bed and eating her meal. Seen and examined today. General: Alert, Oriented x3, Cooperative HEENT: Atraumatic, PERRLA, EOMI, Normocephalic Neck: Supple, No JVD, Negative Carotid Bruits Lungs: Clear to auscultation, Normal air movement Cardiovascular: Regular rate, Regular Rhythm, Normal S1, Normal S2, No murmurs Abdomen: Bowel Sounds Present, Soft, Non Tender Extremities: No edema, Capillary Refill Less than 3 Seconds Skin: No rashes, No breakdown. No hematoma on right groin. Musculoskeletal: No Tenderness to Palpation of Joints or Extremities Neurological: Cranial nerves II-XII grossly intact Psych/Mental Status: Normal Affect, Appropriate 1. Near syncope, most probably related to cardiac origin: Patient is being admitted in PCU. Her blood pressure was high 185/103, heart rate 83 and respiratory rate 21 when she came to ER. Currently pulse ox 95% on room air. Blood pressure was controlled. Mild hypotension: Patient blood pressure in the morning systolic was in the 80s. Blood pressure in the morning was held and lisinopril dose was decreased to 5 mg daily. 2. CHF exacerbation, acute systolic heart failure, NSTEMI triggering factor: Patient follows Dr. Lipscomb. Started on Lasix, continue metoprolol and lisinopril. 2D echo ordered. Patient was seen by Dr. ryan in his consult and discussion appreciated. 2D echo reported as EF 53% with systolic function lower limits of normal. [place] akinetic, mid anteroseptal, mid anterior and mid lateral hypokinetic. Normal right and left atria. Mild eccentric MR. Mild TR, RVSP 31 mmHg. Normal aortic valve. 3. non-STEMI: Serial troponins met the criteria for non-STEMI although it was atypical presentation. Aspirin given in ER. Plavix loading dose ordered. Was started on Lovenox 1 mg/kg body weight, therapeutic dose. She had cardiac cath which showed mid LAD 75%, EF 45% on LV gram and WARNER inserted. Right groin, cardiac cath access is dry with no hematoma or bruise. 4. Hypertension: Currently blood pressure is controlled. Continue home medications. 5. Hyperglycemia: A1c 5.7. TSH 0.24. Free T4 0.86. Most probably euthyroid sick syndrome. Advised to repeat TFT after 3-4 weeks. 6. Dyslipidemia: Total cholesterol 262, LDL 153. On atorvastatin. DVT prophylaxis: On Lovenox. Discharge medication reconciliation done. Patient is discharged on lisinopril, metoprolol, aspirin Plavix and atorvastatin. Follow-up with Dr. ryan in 2 weeks. Discharge follow-up instructions completed. Total time spent, exact 35 minutes on discharge meds reconciliation, examination, review of imaging and blood test and discussion with the patient on follow-up instructions. Home Medications: Medications to take at Discharge Betaine HCl 1,800 mg PO TIDCM 11/16/17 Calcium Lactate 250 mg PO TID 11/16/17 Cod Liver Oil 1 each PO DAILY 11/16/17 Ferrous Gluconate [Iron] 65 mg PO DAILY 11/16/17 H.A. Joint & Skin Formula 11/16/17 Multivitamin [Multiple Vitamins] 1 each PO DAILY 11/16/17 Seaweed 11/16/17 Aspirin E.C. [Ecotrin] 81 mg PO DAILY@0800 #30 tablet 11/18/17 Clopidogrel Bisulfate [Plavix] 75 mg PO DAILY #30 tablet 11/18/17 Lisinopril [Prinivil] 5 mg PO DAILY #30 tablet 11/18/17 Metoprolol(XL)Succ [Toprol Xl (Beta Brooke)] 50 mg PO DAILY #0 11/18/17 Following Prescrptions Were Given to Patient: Aspirin E.C. [Ecotrin] 81 mg PO DAILY@0800 #30 tablet Clopidogrel Bisulfate [Plavix] 75 mg PO DAILY #30 tablet Lisinopril [Prinivil] 5 mg PO DAILY #30 tablet Primary Care Physician: Tierney Benitez MD [STAFF PHYSICIAN] - Please follow up with your Primary Care Physician in: in 1-2 weeks Please Follow Up With: Sonny Ryan MD When: in 2-4 weeks Medical Necessity - Tobacco Use Smoking Status: Never smoker Meaningful Use Info Meaningful Use Diagnoses (Choose all that apply): AMI - AMI Aspirin given w/in 24hrs of arrival?: Yes ASA at discharge?: Yes Statins at discharge?: Yes Dave/ARB at discharge?: Yes Beta Brooke at discharge?: Yes Done w/ Acute ME measure.: Yes
[2017-11-18] MEDS: Aspirin E.C. 81 MG Tablet PO (08:44)
[2017-11-18] MEDS: Multivitamins,Therapeutic Tablet 1 TABLET PO (08:44)
[2017-11-18] MEDS: Clopidogrel Bisulfate 75 MG Tablet PO (08:45)
[2017-11-18] MEDS: Ferrous Gluconate 325 MG Tablet PO (08:45)
[2017-11-18] MEDS: Metoprolol(XL)Succ 25 MG Tablet PO (08:49)
== END 2017-11-18 11:00 | disposition home or self-care (01) | DRG 246 ==
LOC: ED 09:36 → PCU 10:17 → ICU 11-17 08:26
PROVIDERS: Internal Medicine Cardiovascular Disease; Admitting Provider Internal Medicine; Emergency Provider Emergency Medicine; Family Provider Internal Medicine; PCP Internal Medicine; Visit Provider Internal Medicine
DX: I21.4 Non-ST elevation (NSTEMI) myocardial infarction (principal); I50.23 Acute on chronic systolic (congestive) heart failure; I11.0 Hypertensive heart disease with heart failure; E78.5 Hyperlipidemia, unspecified; I25.10 Atherosclerotic heart disease of native coronary artery without angina pectoris; R73.9 Hyperglycemia, unspecified; Z95.810 Presence of automatic (implantable) cardiac defibrillator
CPT/HCPCS: 36415; 71045; 80048; 80053; 80061; 81001; 83036; 83690; 83735; 83880; 84439; 84443; 84484; 85025; 85027; 85347; 85610; 85730; 87631; 92921; 92928; 93005; 93306; 93458; 99152; 99153; 99285; J0153; J7030; J7040; A4216; C1725; C1769; C1874; C1887; C1894; C9600; J1940; Q9967

== ENCOUNTER → 2017-11-26 10:33 | Outpatient (CLI) | payer MEDICARE, OTHER, SELFPAY | PROVIDERS: Family Provider Internal Medicine; PCP Internal Medicine; Referring Provider Internal Medicine Cardiovascular Disease; Visit Provider Internal Medicine Cardiovascular Disease | DX: I25.10 Atherosclerotic heart disease of native coronary artery without angina pectoris (principal); Z95.5 Presence of coronary angioplasty implant and graft; Z95.0 Presence of cardiac pacemaker; I49.5 Sick sinus syndrome; R55 Syncope and collapse; I21.4 Non-ST elevation (NSTEMI) myocardial infarction ==

== ENCOUNTER 2019-04-01 15:04 | Emergency (ER) | payer MEDICARE, OTHER, SELFPAY ==
[2018-06-03 14:42] VITALS: BMI 27.4
[2019-04-01 15:05] VITALS: BP 123/77; PULSE 76; RESP 16; TEMP 36.9; O2SAT 98; BMI 28.4
--- NOTE | 2019-04-01 15:23 | VDLE_ITS ---
Reason For Study: EDEMA RIGHT GSV is normal. CFV is compressible, spontaneous, phasic, competent and demonstrates normal augmentation. FV is compressible, spontaneous, phasic, competent and demonstrates normal augmentation. POP V is compressible, spontaneous, phasic, competent and demonstrates normal augmentation. T/P Trunk is compressible. PTV is compressible. RT PerV is compressible. Procedure Exam performed portable in ED. A preliminary report was called and/or faxed to ED. Interpretation Summary Deep veins of the right lower extremity are patent and compressible segmentally. There is no evidence of right lower extremity deep vein thrombosis. Valvular competence appears intact within the proximal deep venous system on the right . The right great saphenous vein appears patent and compressible segmentally. Ordering Physician: Dana Tejada Referring Physician: ISRAEL BERTRAND Performed By: Lyn Limon, LILI, RVT
--- NOTE | 2019-04-01 15:24 | ED.VIS.GEN ---
History of Present Illness Chief Complaint: Edema Informant: Patient Onset: Month(s) Context: Gradual Onset Timing: Continuous Narrative: Patient is an 84-year-old female presenting from urgent care with concern of atraumatic right leg swelling. Patient has had slightly worsening swelling of her right lower leg for the past month or 2. Patient had an injury back in December, 3 months ago, with a wound on the back of her right calf but that has been healing. She does have a history of an atraumatic DVT from boots that were too tight remotely. She is not currently on any anticoagulation. 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 She denies any pain, fever, chest pain, shortness of breath or any other associated symptoms. Past Medical History - Allergies and Home Meds Allergies/Adverse Reactions: Allergies No Known Allergies Allergy (Verified 04/01/19 15:10) Primary Care Physician: Oneida Monreal MD [Primary Care Provider] - Past Medical History: - - CHF, hyperlipidemia, hypertension, history of V. fib status post ICD Surgical History: noncontributory Lives: With Family Smoking Status: Never smoker - Family History Paternal Family History: Reports: No pertinent history Review of Systems General: Denies: Chills, Fever, Sweats Eyes: Denies: Visual changes - bilaterally, Diplopia Cardiovascular: Denies: Chest pain, Palpitations Respiratory: Denies: Dyspnea, Cough, Dyspnea on exertion Gastrointestinal: Denies: Abdominal pain, Nausea, Vomiting, Diarrhea Musculoskeletal: Reports: Swelling - Right lower leg. Denies: Back pain, Extremity Pain Skin: Reports: Wounds - Chronic wound right posterior calf?healing. Denies: Rash Neurological: Denies: Headache, Weakness, Numbness Physical Exam Vital Signs/Narrative: Vital Signs Temp Pulse Resp BP Pulse Ox 04/01/19 15:05 98.4 F 76 16 123/77 H 98 Inital Vital Signs reviewed: Yes General: Well nourished, Well developed, No Acute Distress Head: Normocephalic, Atraumatic Eyes: Perrl, EOMI ENT: Moist mucous membranes, No rhinorrhea Neck: Supple, Nontender Cardiovascular: Regular rate, Regular rhythm, Murmur Respiratory: No distress, CTA bilaterally, Chest nontender Abdomen: Soft, Nontender, Nondistended Back: Nontender, Normal Inspection Extremities: Nontender, Edema - nonpitting, right calf, no plapable cords . Negative for: Calf Tenderness Skin: Normal color, No rash, - - 1 cm wound with overlying scab right posterior mid calf, no surrounding erythema. Neurological: Alert, Oriented x3, Cranial nerves II-XII grossly intact, Normal Strength, Normal Sensation Psychological: Normal affect, Normal Mood Diagnostic/Tx/Re-eval - Medical Decision Making Patient is evaluated for 1 to 2 months of right lower extremity edema. She is concerned for DVT. Ultrasound obtained in the ER does not show DVT. Likely this is dependent edema as patient states the swelling gets better in the morning and is worse at the end of the day. Patient is counseled on elevating her leg throughout the day and wearing compression stockings. Patient is instructed to follow-up with her PCP. Patient does not have any other systemic symptoms. Patient is counseled on signs and symptoms requiring return to the emergency room. Patient verbalizes agreement and understand this plan. Patient discharged home in stable and improved condition. ED Disposition - Plan for ED Patient: Disposition: Home or Assisted Living Diagnosis: Edema of right lower extremity Instructions: ED Peripheral Edema, Unilateral Referrals: Oneida Monreal MD [Primary Care Provider] - Additional Instructions: You do not have a DVT. Elevate the leg as much as you can and wear compression stockings. Please follow-up with your primary care doctor.
--- NOTE | 2019-04-01 15:50 | ED.RN ---
pt doppler completed. negative dvt reported to dr roy
== END 2019-04-01 16:23 | disposition home or self-care (01) ==
PROVIDERS: Emergency Provider Emergency Medicine; PCP Internal Medicine
DX: R60.0 Localized edema (principal); S81.801A Unspecified open wound, right lower leg, initial encounter; X58.XXXA Exposure to other specified factors, initial encounter; Y93.9 Activity, unspecified; Y92.9 Unspecified place or not applicable; I11.0 Hypertensive heart disease with heart failure; I50.9 Heart failure, unspecified; I49.01 Ventricular fibrillation; Z86.718 Personal history of other venous thrombosis and embolism; Z95.810 Presence of automatic (implantable) cardiac defibrillator; Z79.899 Other long term (current) drug therapy
CPT/HCPCS: 93971; 99282; J7030

== ENCOUNTER → 2020-05-28 15:34 | Outpatient (CLI) | payer MEDICARE, OTHER, SELFPAY ==
[2020-05-28 17:07] LABS: Absolute Lymphocyte Count 1.16 X10^3/uL (0.83-4.51); Absolute Neutrophil Count 3.9 X10^3/uL (2.0-7.7); Basophil# 0.03 X10^3/uL; Basophil% 0.5 % (0-1); Eosinophils% 1.7 % (0-5); Hematocrit 38.5 % (37-47); Hemoglobin 12.2 g/dL (12.0-15.0); Lymphocyte # 1.16 X10^3/ul (4.0); Lymphocyte % 20.1 % (19-41); Mean Corp Hgb Conc 31.7 g/dL (32-36); Mean Corpuscular Volume 91.4 fL (81-99); Monocyte# 0.57 X10^3/uL; Monocyte% 9.9 % (0-10); NRBC Flagged by Analyzer 0 % (0-5); Neutrophil % 67.5 % (47-70); Platelet Count 196 K/mm3 (150-450); Red Blood Count 4.21 M/mm3 (4.2-5.4); White Blood Count 5.8 K/mm3 (4.4-11.0)
[2020-05-28 17:25] LABS: ALB/GLOB Ratio 0.8 RATIO (0.9-2.4); AST(SGOT) 33 U/L (15-37); Alanine Aminotransfer ALT/SGPT 25 U/L (13-56); Albumin, Serum 3.6 g/dL (3.2-5.0); Alkaline Phosphatase 110 U/L (45-117); Anion Gap 7 (5-15); BUN 18 mg/dL (7-18); BUN/Creat Ratio 26.4 RATIO (10-20); Chloride 105 mmol/L (98-107); Creatinine, Serum 0.68 mg/dL (0.55-1.02); EST Glomerular Filtration Rate 87 mL/min (>60); Est Glom Filt Rate - Afr Amer 106 mL/min (>60); Ferritin 331 ng/mL (8-252); Globulin 4.3 g/dL (2.2-4.2); Glucose 87 mg/dL (74-106); Iron 37 ug/dL (50-170); Iron Binding Capacity,Total 296 ug/dL (250-450); PERCENT IRON SATURATION 12.5 % (15.0-55.0); Potassium 3.8 mmol/L (3.5-5.1); Protein, Total 7.9 g/dL (6.4-8.2); Sodium Level 137 mmol/L (136-145); Thyroid Stim Hormone (TSH) 0.39 uIU/mL (0.358-3.74)
== END ==
PROVIDERS: PCP Internal Medicine; Visit Provider Internal Medicine
DX: E78.5 Hyperlipidemia, unspecified (principal); I10 Essential (primary) hypertension; I49.01 Ventricular fibrillation
CPT/HCPCS: 36415; 80053; 82728; 83540; 83550; 84443; 85025

== ENCOUNTER → 2020-06-14 | Outpatient (CLI) | payer MEDICARE, OTHER, SELFPAY ==
--- NOTE | 2020-06-14 12:00 | LES_PTH ---
PATIENT: RAJIV STUTON LOC: [facility] U#:[id number] AGE/SX: 85/F ROOM: RE06/14/[address]: Dr. Jeff Underwood MD : [id number] BED: DIS: 06/14/2020 SPEC #: [id number] RECD: 06/14/20 16:18 STATUS: BIBI RERené #: [id number] LIONEL: 06/14/20 12:[address]: Jeff Underwood DEPT: SURGICAL PATHOLOGY RECD BY: Cyndi Forrester ENTERED: 06/15/20 09:03 SP TYPE: Lesion OTHR DR: Dr. Zuleyka Delatorre MD Tissues: Skin of arm Procedures: Surgery Specimen Level IV HEADER OPERATION: Excision posterior right upper arm lesion PRE-OP DIAGNOSIS: Neoplasm arm TISSUE SUBMITTED: Right arm lesion MICROSCOPIC DIAGNOSIS Skin lesion of right arm, excisional biopsy: Seborrheic keratosis with mild atypia, inflamed, completely excised. AM:burke 06/18/2020 COMMENT Case has been reviewed in consultation with Dr. Malhotra who concurs with the above diagnosis. IDC:[email or web address] MICROSCOPIC DESCRIPTION Slides are reviewed. GROSS DESCRIPTION Received in fixative is one container labeled with the patient's name and designated right arm lesion. The specimen consists of a piece of [place]-white skin measuring 2 x 1.5 cm and up to 1 cm in thickness. There is a raised round lesion on the surface measuring 1.6 x 1.5 x 0.5 cm. The specimen is inked, serially sectioned and submitted entirely in three cassettes. Cassette 1 contains the tips of the skin ellipse. / VASU:burke 06/15/20 TC:1 CPT: 81628
[2020-06-14 12:04] VITALS: BMI 28.4
== END | disposition home or self-care (01) ==
LOC: LABSPEC 16:23
PROVIDERS: PCP Internal Medicine; Referring Provider Surgery; Visit Provider Surgery
DX: L82.0 Inflamed seborrheic keratosis (principal)
CPT/HCPCS: 88305

== ENCOUNTER → 2021-06-17 | Outpatient (CLI) | payer MEDICARE, OTHER, SELFPAY ==
[2021-06-17 15:28] LABS: Absolute Lymphocyte Count 1.07 X10^3/uL (0.83-4.51); Absolute Neutrophil Count 3.4 X10^3/uL (2.0-7.7); Basophil# 0.03 X10^3/uL; Basophil% 0.6 % (0-1); Eosinophil# 0.11 X10^3/uL; Eosinophils% 2.2 % (0-5); Hematocrit 37.3 % (37-47); Hemoglobin 12.1 g/dL (12.0-15.0); Lymphocyte # 1.07 X10^3/ul (0.83-4.51); Lymphocyte % 21.2 % (19-41); Mean Corp Hgb Conc 32.4 g/dL (32-36); Mean Corpuscular Hgb 29.9 pg (27.0-32.0); Mean Corpuscular Volume 92.1 fL (81-99); Mean Platelet Vol. 9.9 fl (6.2-12.0); Monocyte# 0.46 X10^3/uL; Monocyte% 9.1 % (0-10); NRBC Flagged by Analyzer 0 % (0-5); Neutrophil # 3.35 X10^3/uL (2.7-7.7); Neutrophil % 66.5 % (47-70); Platelet Count 183 K/mm3 (150-450); RBC Distribution Width CV 12.6 % (11.6-14.6); RBC Distribution Width SD 42.2 fl (35.1-43.9); Red Blood Count 4.05 M/mm3 (4.2-5.4)
[2021-06-17 16:00] LABS: Vitamin B12 405 pg/mL (211-911); Vitamin D,25 Hydroxy 17.9 ng/mL
[2021-06-17 16:32] LABS: ALB/GLOB Ratio 0.9 RATIO (0.9-2.4); AST(SGOT) 29 U/L (15-37); Alanine Aminotransfer ALT/SGPT 27 U/L (13-56); Albumin, Serum 3.8 g/dL (3.2-5.0); Alkaline Phosphatase 90 U/L (45-117); Anion Gap 7 (5-15); BUN 28 mg/dL (7-18); BUN/Creat Ratio 36.5 RATIO (10-20); Chloride 100 mmol/L (98-107); Cholesterol 237 mg/dL (200); Creatinine, Serum 0.77 mg/dL (0.55-1.02); EST Glomerular Filtration Rate 76 mL/min (>60); Est Glom Filt Rate - Afr Amer 92 mL/min (>60); Free T3 2.7 pg/mL (2.18-3.98); Globulin 4.1 g/dL (2.2-4.2); Glucose 91 mg/dL (74-106); High Density Lipoprotein 64 mg/dL; Magnesium 1.9 mg/dL (1.6-2.6); Potassium 3.8 mmol/L (3.5-5.1); Protein, Total 7.9 g/dL (6.4-8.2); Sodium Level 135 mmol/L (136-145); T4 Free Direct 0.93 ng/dL (0.76-1.46); Thyroid Stim Hormone (TSH) 0.56 uIU/mL (0.358-3.74); Triglycerides 80 mg/dL; Very Low Density Lipoprotein 16 mg/dL (5-40)
[2021-06-18 11:42] LABS: Ferritin 382 ng/mL (8-252); Iron 46 ug/dL (50-170); Iron Binding Capacity,Total 155 ug/dL (250-450); PERCENT IRON SATURATION 29.7 % (15.0-55.0)
== END | disposition home or self-care (01) ==
PROVIDERS: PCP Internal Medicine; Referring Provider Internal Medicine; Visit Provider Internal Medicine
DX: R55 Syncope and collapse (principal); I48.0 Paroxysmal atrial fibrillation; I10 Essential (primary) hypertension; I25.2 Old myocardial infarction; E78.00 Pure hypercholesterolemia, unspecified; D64.9 Anemia, unspecified; E55.9 Vitamin D deficiency, unspecified
CPT/HCPCS: 36415; 80053; 80061; 82306; 82607; 82728; 82746; 83540; 83550; 83735; 84439; 84443; 84481; 85025

== ENCOUNTER → 2022-02-27 | Outpatient (CLI) | payer MEDICARE, SELFPAY ==
[2022-02-27 15:54] LABS: Absolute Lymphocyte Count 0.99 X10^3/uL (0.83-4.51); Absolute Neutrophil Count 4.1 X10^3/uL (2.0-7.7); Basophil# 0.02 X10^3/uL; Basophil% 0.3 % (0-1); Eosinophil# 0.16 X10^3/uL; Eosinophils% 2.7 % (0-5); Hematocrit 35.6 % (37-47); Hemoglobin 11.8 g/dL (12.0-15.0); Lymphocyte # 0.99 X10^3/ul (0.83-4.51); Lymphocyte % 16.9 % (19-41); Mean Corp Hgb Conc 33.1 g/dL (32-36); Mean Corpuscular Hgb 30.1 pg (27.0-32.0); Mean Corpuscular Volume 90.8 fL (81-99); Mean Platelet Vol. 9.7 fl (6.2-12.0); Monocyte# 0.61 X10^3/uL; Monocyte% 10.4 % (0-10); NRBC Flagged by Analyzer 0 % (0-5); Neutrophil # 4.06 X10^3/uL (2.7-7.7); Neutrophil % 69.4 % (47-70); Platelet Count 183 K/mm3 (150-450); RBC Distribution Width CV 12.7 % (11.6-14.6); RBC Distribution Width SD 41.7 fl (35.1-43.9); Red Blood Count 3.92 M/mm3 (4.2-5.4); White Blood Count 5.9 K/mm3 (4.4-11.0)
[2022-02-27 16:28] LABS: Vitamin D,25 Hydroxy 16.3 ng/mL
[2022-02-27 16:35] LABS: AST(SGOT) 25 U/L (15-37); Alanine Aminotransfer ALT/SGPT 22 U/L (13-56); Albumin, Serum 3.8 g/dL (3.2-5.0); Alkaline Phosphatase 82 U/L (45-117); Anion Gap 8 (5-15); BUN 22 mg/dL (7-18); BUN/Creat Ratio 25.1 RATIO (10-20); Calcium,Total 9.6 mg/dL (8.5-10.1); Chloride 101 mmol/L (98-107); Cholesterol 216 mg/dL (200); Creatinine, Serum 0.88 mg/dL (0.55-1.02); EST Glomerular Filtration Rate 65 mL/min (>60); Est Glom Filt Rate - Afr Amer 79 mL/min (>60); Glucose 102 mg/dL (74-106); High Density Lipoprotein 60 mg/dL; Iron 48 ug/dL (50-170); Iron Binding Capacity,Total 157 ug/dL (250-450); Magnesium 2.1 mg/dL (1.6-2.6); PERCENT IRON SATURATION 30.6 % (15.0-55.0); Potassium 3.7 mmol/L (3.5-5.1); Protein, Total 7.8 g/dL (6.4-8.2); Sodium Level 134 mmol/L (136-145); Triglycerides 123 mg/dL; Very Low Density Lipoprotein 25 mg/dL (5-40)
== END | disposition home or self-care (01) ==
LOC: LAB 15:03
PROVIDERS: PCP Internal Medicine; Referring Provider Internal Medicine; Visit Provider Internal Medicine
DX: Z95.5 Presence of coronary angioplasty implant and graft (principal); R06.81 Apnea, not elsewhere classified; E61.1 Iron deficiency; I10 Essential (primary) hypertension; E78.00 Pure hypercholesterolemia, unspecified; E55.9 Vitamin D deficiency, unspecified
CPT/HCPCS: 36415; 80053; 80061; 82306; 83540; 83550; 83735; 85025

== ENCOUNTER 2022-04-24 11:56 | Emergency (ER) | payer MEDICARE, SELFPAY ==
[2022-04-24 11:57] VITALS: BP 183/95; PULSE 91; RESP 16; TEMP 36.6; O2SAT 97
--- NOTE | 2022-04-24 12:18 | EDS_ITS ---
HPI History of Present Illness Chief Complaint: Chest Other Narrative Narrative: Patient presents with chest pain that started in the middle the night and its continuous its left sided below her breast. No pleuritic component. No fever chills cough or congestion. The pain does not radiate. No back pain or tearing sensation. No abdominal pain. [facility] Medical History Anemia Arthritis Atherosclerosis of coronary artery of [place] heart without angina pectoris Chronic systolic (congestive) heart failure Deep vein thrombosis Essential (primary) hypertension Hearing loss Hyperlipidemia Hypertension Non-rheumatic tricuspid valve insufficiency NSTEMI (non-ST elevated myocardial infarction) (11/17/17) Paroxysmal atrial fibrillation Seborrheic keratoses, inflamed Secondary pulmonary arterial hypertension Sick sinus syndrome Ventricular fibrillation (03/2012) Home Medications apple cider vinegar 600 mg capsule 600 mg PO DAILY 06/03/18 [History Last Taken Unknown] calcium citrate 250 mg PO DAILY 06/03/18 [History Last Taken Unknown] cataplex B PO 11/29/19 [History Last Taken Unknown] cataplex E2 PO 11/29/19 [History Last Taken Unknown] cataplex F PO 11/29/19 [History Last Taken Unknown] omega [id number] oil 600 mg-20 mg-500 mcg-800 mcg capsule (CardioVid PLUS) 1 cap PO DAILY 11/29/19 [History Last Taken Unknown] ferrous sulfate 325 mg (65 mg iron) tablet (FeroSul) 325 mg PO BID 02/27/22 [History Last Taken Unknown] cholecalciferol (vitamin D3) 25 mcg (1,000 unit) capsule 25 mcg PO DAILY 03/03/22 [History Last Taken Unknown] lisinopril 10 mg-hydrochlorothiazide 12.5 mg tablet 1 tab PO DAILY #90 tabs 04/04/22 [Rx Last Taken Unknown] metoprolol succinate 50 mg tablet,extended release 24 hr 50 mg PO DAILY #90 tabs 04/04/22 [Rx Last Taken Unknown] doxycycline hyclate 100 mg capsule 100 mg PO BID #20 caps 04/24/22 [Rx Last Taken Unknown] Allergy/AdvReac Type Severity Reaction Status Date / Time Arwnebs-HJW-HqK Reductase AdvReac Mild muscle Verified 04/24/22 11:59 Inhibitor aches [Srebebd-Dms-Xfe Reductase Inhibitor] Family History Other Depression Diabetes Suicide attempt Surgical History History of coronary artery stent placement (11/17/17) History of implantable cardiac defibrillator (ICD) (04/09/17) Social History Smoking Status: Never smoker alcohol intake: never substance use type: does not use ROS ROS ED ROS Narrative Past medical history: Reviewed Medications: Reviewed Social history: Noncontributory Review of systems: All systems negative except as indicated General: No fever Eyes: No visual changes ENT: No upper airway congestion, normal voice Neck: No neck pain Cardiovascular: Chest pain as in HPI no palpitations. Respiratory: No shortness of breath or cough Gastrointestinal: No abdominal pain, nausea vomiting or diarrhea Genitourinary: No dysuria Musculoskeletal: Denies myalgias no difficulty with ambulation Skin: No rash Neurological: No memory loss, confusion or any focal weakness Psych: No recent behavioral changes Hematologic: No easy bleeding or easy bruising EXAM Physical Exam Narrative Exam Narrative: Physical exam General: Well nourished, Well developed, No Acute Distress Head: Normocephalic, Atraumatic Eyes: Conjunctiva not pale ENT: Moist mucous membranes Neck: Supple, Nontender, No lymphadenopathy Cardiovascular: Regular rate, Regular rhythm Chest wall: She has reproducible point tenderness right below her rib. No rash in that region. Respiratory: No distress, CTA bilaterally Abdomen: Soft, Nontender, Nondistended Back: Nontender, Normal Inspection. Negative for: CVA tenderness Extremities: Nontender, No edema Skin: Normal color, No rash Neurological: Alert, Normal Strength, Normal Sensation Psychological: Normal affect Const Vital Signs: 04/24/22 11:57 04/24/22 12:11 04/24/22 12:35 Temperature 97.8 F Temperature Source Temporal Pulse Rate 91 Respiratory Rate 16 Respiratory Effort Normal Non-Labored Blood Pressure 183/95 H Blood Pressure Mean 124 Pulse Ox 97 Oxygen Delivery Method Room Air Room Air MDM MDM MDM Narrative Medical decision making narrative: A. Problems addressed Patient has chest pain. I thought about pulmonary embolism especially that she has had thromboembolic events in the past, D-dimer was elevated but the PE study was normal for PE. I thought about cardiac etiology but patient has normal EKG and normal troponin There is no evidence of pneumothorax on the chest x-ray. The x-ray did show a infiltrate, which is confirmed by the chest x-ray. Patient will be treated with doxycycline for home anything changes she is to return. B. Amount and/or complexity of the data 1. I discussed with the son and granddaughter in the room. CBC CMP troponin and D-dimer were ordered interpreted by me. 2. Independent interpretation of test Telemetry: Paced rhythm in the 90s C. Risk of complications and/or morbidity Differential diagnosis: See above I have thought about admitting the patient, but she is not hypoxic, and has a normal work-up. Lab Data Labs: Laboratory Results - last 24 hr 04/24/22 04/24/22 04/24/22 12:26 12:26 12:26 WBC 8.0 RBC 3.90 L Hgb 11.8 L Hct 36.2 L MCV 92.8 MCH 30.3 MCHC 32.6 RDW Std Deviation 42.7 RDW Coeff of Josette 12.6 Plt Count 175 MPV 9.1 Immature Gran % (Auto) 0.300 Neut % (Auto) 81.7 H Lymph % (Auto) 8.2 L Louisa % (Auto) 8.5 Eos % (Auto) 1.0 Baso % (Auto) 0.3 Absolute Neuts (auto) 6.5 Absolute Lymphs (auto) 0.65 L Nucleated RBC % 0 D-Dimer Quant (PE/DVT) > 20.00 H* Sodium 136 Potassium 3.6 Chloride 100 Carbon Dioxide 28.0 Anion Gap 8 BUN 15 Creatinine 0.89 Est GFR (MDRD) Af Amer 78 Est GFR (MDRD) Non-Af 64 BUN/Creatinine Ratio 16.9 Glucose 173 H Calcium 9.1 Troponin I High Sens 13 B-Natriuretic Peptide 04/24/22 12:26 WBC RBC Hgb Hct MCV MCH MCHC RDW Std Deviation RDW Coeff of Josette Plt Count MPV Immature Gran % (Auto) Neut % (Auto) Lymph % (Auto) Louisa % (Auto) Eos % (Auto) Baso % (Auto) Absolute Neuts (auto) Absolute Lymphs (auto) Nucleated RBC % D-Dimer Quant (PE/DVT) Sodium Potassium Chloride Carbon Dioxide Anion Gap BUN Creatinine Est GFR (MDRD) Af Amer Est GFR (MDRD) Non-Af BUN/Creatinine Ratio Glucose Calcium Troponin I High Sens B-Natriuretic Peptide 109.8 H Radiography Diagnostic Testing: Clinical Impression(s) from Imaging Studies Chest X-Ray 04/24/22 12:30 IMPRESSION: Increased markings at the left lung base suggestive of early infiltrate. Follow-up is recommended. Electronically Signed: Iain Ho MD at 12:52 EST , Chest CTA 04/24/22 13:05 IMPRESSION: Small left pleural effusion with left basilar infiltration and/or atelectasis. No evidence of a pulmonary embolism. Electronically Signed: Iain Ho MD at 13:49 EST , Chest x-ray read by me is relatively normal other than slight haziness in the left lower lung EKG Initial EKG: Comments: Atrially sensed ventricular paced rhythm. No malfunction. No ischemic changes underlying. Interpreted by emergency doctor Discharge Plan Triage Chief Complaint: Chest Other ED Provider: Jos Gzt Dx/Rx/DC Orders Clinical Impression: Chest pain, Pneumonia Instructions: Treating Pneumonia Prescriptions: New doxycycline hyclate 100 mg capsule 100 mg PO BID Qty: 20 0RF No Action calcium citrate 250 mg calcium tablet 250 mg PO DAILY apple cider vinegar 600 mg capsule 600 mg PO DAILY cataplex F PO cataplex E2 PO cataplex B PO CardioVid PLUS [id number] [id number]-qa-meg-mcg capsule 1 cap PO DAILY ferrous sulfate [FeroSul] 325 mg (65 mg iron) tablet 325 mg PO BID cholecalciferol (vitamin D3) 25 mcg (1,000 unit) capsule 25 mcg PO DAILY metoprolol succinate 50 mg tablet extended release 24 hr 50 mg PO DAILY Qty: 90 3RF lisinopril-hydrochlorothiazide 10-12.5 mg tablet 1 tab PO DAILY Qty: 90 3RF Primary Care Provider: Zuelyka Delatorre Referrals: Zuleyka Delatorre MD [Primary Care Provider] - 3-5 Days Disposition Disposition: Home, Self Care
--- NOTE | 2022-04-24 12:30 | RAD_ITS ---
STUDY: X-RAY CHEST REASON FOR EXAM: Female, 87 years old. Chest pain TECHNIQUE: Single AP portable view of the chest. COMPARISON: Comparison is made with prior study November 16, 2012. FINDINGS: EKG electrodes are seen. Mild degree of increased markings at the left lung base with blunting of the left costophrenic angle. This may represent an early infiltrate. Normal size heart. A left-sided pacemaker is seen. Normal mediastinum and thomas. Normal visualized pulmonary arteries. There is atherosclerotic calcification of the aortic arch with tortuosity. There are diffuse degenerative changes of the visualized thoracic spine. Dextroscoliosis. There is degenerative osteoarthritis of the bilateral shoulders. There is no demonstrated abnormality of the visualized soft tissue structures of the upper abdomen. RAD/Chest 1 View (Portable) IMPRESSION: Increased markings at the left lung base suggestive of early infiltrate. Follow-up is recommended. Electronically Signed: Iain Ho MD at 12:52 EST ,
[2022-04-24 12:35] LABS: Absolute Lymphocyte Count 0.65 X10^3/uL (0.83-4.51); Absolute Neutrophil Count 6.5 X10^3/uL (2.0-7.7); Basophil# 0.02 X10^3/uL; Basophil% 0.3 % (0-1); Eosinophil# 0.08 X10^3/uL; Hematocrit 36.2 % (37-47); Hemoglobin 11.8 g/dL (12.0-15.0); Lymphocyte # 0.65 X10^3/ul (0.83-4.51); Lymphocyte % 8.2 % (19-41); Mean Corp Hgb Conc 32.6 g/dL (32-36); Mean Corpuscular Hgb 30.3 pg (27.0-32.0); Mean Corpuscular Volume 92.8 fL (81-99); Mean Platelet Vol. 9.1 fl (6.2-12.0); Monocyte# 0.68 X10^3/uL; Monocyte% 8.5 % (0-10); NRBC Flagged by Analyzer 0 % (0-5); Neutrophil # 6.51 X10^3/uL (2.7-7.7); Neutrophil % 81.7 % (47-70); Platelet Count 175 K/mm3 (150-450); RBC Distribution Width CV 12.6 % (11.6-14.6); RBC Distribution Width SD 42.7 fl (35.1-43.9)
[2022-04-24] MEDS: Aspirin 81 MG TAB.CHEW 324 MG PO (12:45)
[2022-04-24 12:51] LABS: Anion Gap 8 (5-15); BUN 15 mg/dL (7-18); BUN/Creat Ratio 16.9 RATIO (10-20); Calcium,Total 9.1 mg/dL (8.5-10.1); Chloride 100 mmol/L (98-107); Creatinine, Serum 0.89 mg/dL (0.55-1.02); EST Glomerular Filtration Rate 64 mL/min (>60); Est Glom Filt Rate - Afr Amer 78 mL/min (>60); Glucose 173 mg/dL (74-106); Potassium 3.6 mmol/L (3.5-5.1); Sodium Level 136 mmol/L (136-145); Troponin-I HS (w/2H Reflex) 13 pg/mL (3.0-54.0)
[2022-04-24 12:54] LABS: BNP,B-Type NATRIURETIC PEPTIDE 109.8 pg/mL (0-100)
--- NOTE | 2022-04-24 13:05 | CT_ITS ---
STUDY: CTA CHEST REASON FOR EXAM: Female, 87 years old. PE. Lower chest pain. RADIATION DOSAGE (If Supplied By Facility): CTDIvol = ( 7.58 ) mGy, DLP = ( 177.28 ) mGycm TECHNIQUE: The examination was performed with the intravenous administration of IV 100mL Isovue-370. Post-processing of the angiographic images was performed, with multiplanar reformation and 3D reconstruction. Individualized dose optimization techniques were used for this CT. COMPARISON: Comparison is made with prior chest radiograph done earlier today. FINDINGS: Normal enhancement of the main pulmonary artery and right and left pulmonary arteries. Normal enhancement of the bilateral peripheral pulmonary arteries. There is no demonstrated pulmonary embolism. There is atherosclerotic calcification of the aortic arch with tortuosity. There is no demonstrated aortic dissection. There are calcifications of the coronary arteries. A dual-chamber pacemaker is seen. Cardiomegaly. Normal mediastinum. Calcified right hilar lymph nodes. Normal visualized trachea and bronchi. The lungs are well expanded. Small left pleural effusion with left basilar atelectasis and/or infiltrate mild increased markings are seen in the posterior aspect of the lingular segment of the left upper lobe. Normal chest wall structures. There are degenerative changes of thoracic spine. Increased kyphosis. Calcified splenic granulomas. CT/CTA Chest W/WO Contrast IMPRESSION: Small left pleural effusion with left basilar infiltration and/or atelectasis. No evidence of a pulmonary embolism. Electronically Signed: Iain Ho MD at 13:49 EST ,
[2022-04-24 13:06] LABS: D-Dimer Quantitative (DVT/PE) > 20.00 FEU/ug/m (0.27-0.49)
[2022-04-24 14:00] VITALS: BP 159/74; PULSE 85; RESP 23; O2SAT 98
[2022-04-24] MEDS: Doxycycline 100 MG CAPSULE PO (14:26)
[2022-04-24 14:31] LABS: Reflex Troponin-HS? (from REC) Y
== END 2022-04-24 14:41 | disposition home or self-care (01) ==
PROVIDERS: Emergency Provider Emergency Medicine; PCP Internal Medicine; Visit Provider Emergency Medicine
DX: R07.9 Chest pain, unspecified (principal); I50.22 Chronic systolic (congestive) heart failure; J18.9 Pneumonia, unspecified organism; I25.10 Atherosclerotic heart disease of native coronary artery without angina pectoris; I25.2 Old myocardial infarction; Z86.718 Personal history of other venous thrombosis and embolism; Z95.810 Presence of automatic (implantable) cardiac defibrillator; Z95.5 Presence of coronary angioplasty implant and graft
CPT/HCPCS: 71045; 71275; 80048; 83880; 84484; 85025; 85379; 93005; 99285; Q9967; A4216

== ENCOUNTER → 2022-05-14 | Outpatient (CLI) | payer MEDICARE, SELFPAY ==
--- NOTE | 2022-05-14 14:20 | RAD_ITS ---
INDICATION: Follow up pneumonia/left effusion EXAMINATION/TECHNIQUE: X-RAY - XR Chest 2 Views COMPARISON: April 24, 2022 FINDINGS: LINES/DEVICES: Stable left-sided pacemaker. LUNGS: No consolidation, edema or effusion. Right basilar atelectasis. No pneumothorax. MEDIASTINUM AND CARDIOVASCULAR STRUCTURES: Cardiac silhouette not enlarged. Central airways and mediastinal contour are unremarkable. BONES AND SOFT TISSUES: Degenerative vertebral changes and scoliosis. Degenerative changes of the shoulders. RAD/Chest PA and Lateral IMPRESSION: Mild right basilar atelectasis. Electronically Signed: Aramis Daniel DO at 18:33 EDT ,
== END | disposition home or self-care (01) ==
LOC: RAD 14:12
PROVIDERS: PCP Internal Medicine; Visit Provider Internal Medicine
DX: R07.9 Chest pain, unspecified (principal); J18.9 Pneumonia, unspecified organism
CPT/HCPCS: 71046

== ENCOUNTER 2022-06-06 21:43 | Emergency (ER) | payer MEDICARE, SELFPAY ==
[2022-06-06 21:43] VITALS: BP 154/78; PULSE 87; RESP 18; TEMP 36.7; O2SAT 99; BMI 28.9
[2022-06-06 22:03] VITALS: O2SAT 100
--- NOTE | 2022-06-06 22:14 | EKG12_ITS ---
Test Reason : DYSRHYTHMIA Blood Pressure : / mmHG Vent. Rate : 068 BPM Atrial Rate : 068 BPM P-R Int : 180 ms QRS Dur : 188 ms QT Int : 514 ms P-R-T Axes : 062 -78 084 degrees QTc Int : 546 ms Atrial-sensed ventricular-paced rhythm with occasional Premature ventricular complexes Abnormal ECG Confirmed by EBER HAMLIN, JEMIMA ([id number]), primer expeditor and drier LITTLE TAI ([id number]) on 06/09/2022 11:07:26 AM Referred By: RONNIE Confirmed By:JEMIMA VELÁZQUEZ MD
--- NOTE | 2022-06-06 22:20 | RAD_ITS ---
INDICATION: cough EXAMINATION/TECHNIQUE: X-RAY - XR Chest 2 Views COMPARISON: 05/14/2022 FINDINGS: LINES/DEVICES: Left chest AICD remains in similar position. LUNGS: Interval increased interstitial markings and hazy opacities in the right hemithorax No consolidation, edema or effusion. No pneumothorax. MEDIASTINUM AND CARDIOVASCULAR STRUCTURES: Atherosclerotic calcifications. Cardiac silhouette not enlarged. Central airways and mediastinal contour are unremarkable. BONES AND SOFT TISSUES: Degenerative changes in the shoulders and scoliotic and degenerative changes visualized spine. No acute osseous abnormality. RAD/Chest PA and Lateral IMPRESSION: Increased interstitial markings and hazy opacities, differential includes infection or asymmetric edema. Electronically Signed: Nakul Gaona MD at 22:56 EDT ,
[2022-06-06] MEDS: Albuterol Sulfate 8 gm Inhaler (60 puffs) 2 PUFF INHALATION (22:37)
--- NOTE | 2022-06-06 22:49 | ED.VIS.DYS ---
HPI History of Present Illness Chief Complaint: Cough Informant: patient and family Narrative Narrative: Presents with reported increasing dyspnea wheezing this evening. Mild cough for 2 days worse since this morning. No fevers no myalgias. No chest pains. No abdominal pain. Denies history of asthma or COPD. When discussed she states she has severe iron deficiency however not any significant anemia. Initial reported no other significant history. Records reviewed, history of AICD V-fib history. NSTEMI sick sinus history. Paroxysmal A-fib. [facility] Medical History Anemia Arthritis Atherosclerosis of coronary artery of [place] heart without angina pectoris Chronic systolic (congestive) heart failure Deep vein thrombosis Essential (primary) hypertension Hearing loss Hyperlipidemia Hypertension Non-rheumatic tricuspid valve insufficiency NSTEMI (non-ST elevated myocardial infarction) (11/17/17) Paroxysmal atrial fibrillation Seborrheic keratoses, inflamed Secondary pulmonary arterial hypertension Sick sinus syndrome Ventricular fibrillation (03/2012) Home Medications apple cider vinegar 600 mg capsule 600 mg PO DAILY 06/03/18 [History Last Taken Unknown] calcium citrate 250 mg PO DAILY 06/03/18 [History Last Taken Unknown] cataplex B PO 11/29/19 [History Last Taken Unknown] cataplex E2 PO 11/29/19 [History Last Taken Unknown] cataplex F PO 11/29/19 [History Last Taken Unknown] omega [id number] oil 600 mg-20 mg-500 mcg-800 mcg capsule (CardioVid PLUS) 1 cap PO DAILY 11/29/19 [History Last Taken Unknown] ferrous sulfate 325 mg (65 mg iron) tablet (FeroSul) 325 mg PO BID 02/27/22 [History Last Taken Unknown] cholecalciferol (vitamin D3) 25 mcg (1,000 unit) capsule 25 mcg PO DAILY 03/03/22 [History Last Taken Unknown] metoprolol succinate 50 mg tablet,extended release 24 hr 50 mg PO DAILY #90 tabs 04/04/22 [Rx Last Taken Unknown] doxycycline hyclate 100 mg capsule 100 mg PO BID #20 caps 04/24/22 [Rx Last Taken Unknown] lisinopril 10 mg-hydrochlorothiazide 12.5 mg tablet 1 tab PO DAILY #90 tabs 05/04/22 [Rx Last Taken Unknown] cefdinir 300 mg capsule 300 mg PO BID #13 caps 06/06/22 [Rx Last Taken Unknown] Allergy/AdvReac Type Severity Reaction Status Date / Time Qcsmalo-HLX-TtO Reductase AdvReac Mild muscle Verified 06/06/22 21:45 Inhibitor aches [Uzcnagj-Sgt-Zzp Reductase Inhibitor] Family History Other Depression Diabetes Suicide attempt Surgical History History of coronary artery stent placement (11/17/17) History of implantable cardiac defibrillator (ICD) (04/09/17) Social History Smoking Status: Never smoker alcohol intake: never substance use type: does not use ROS ROS ED Constitutional Constitutional ED: Denies chills, fever(s) or sweats Eyes Eyes: Denies change in vision ENT ENT ED: Denies dysphagia or sore throat Cardiovascular Cardiovascular: Denies chest pain, leg edema, palpitations or racing heartbeat Respiratory/Chest Respiratory/Chest: Reports cough and dyspnea; Denies dyspnea on exertion Gastrointestinal Gastrointestinal: Denies abdominal pain, diarrhea, nausea or vomiting Genitourinary Genitourinary ED: Denies dysuria, hematuria or urinary frequency Musculoskeletal Musculoskeletal: Denies back pain, extremity pain or neck pain Integumentary Denies rash or wounds Neurologic Neurologic: Denies headache(s), paresthesias or weakness EXAM Physical Exam Const Vital Signs: 06/06/22 21:43 06/06/22 22:03 06/06/22 23:16 Temperature 98.0 F Temperature Source Temporal Pulse Rate 87 88 Respiratory Rate 18 18 Respiratory Effort Normal Non-Labored Respiratory Depth Normal Respiratory Pattern Normal Blood Pressure 154/78 H Blood Pressure Mean 103 Pulse Ox 99 99 Oxygen Delivery Method Room Air Room Air Positive well nourished and well developed General Appearance ED: well developed and NAD HEENT Reports moist mucous membranes normocephalic and atraumatic Eyes PERRL, EOMs intact bilaterally and conjunctivae normal General Eye ED: Yes normal appearance of both eyes Neck no lymphadenopathy and supple General: Negative for tenderness Chest Wall Chest: Negative for tenderness Resp Resp Narrative: No distress mild expiratory wheeze. Effort and Inspection: symmetric chest movement; Negative for respiratory distress Cardio regular rate, regular rhythm and no murmurs Peripheral Pulses: pulses 2+ throughout GI normal to inspection, nondistended, normoactive bowel sounds and non-tender Palpation: Negative for guarding or rebound tenderness present Back/Spine no CVA tenderness and no thoracic nor lumbar tenderness Extremity normal to inspection General Extremety ED: Negative for edema or tenderness General Extremity: Negative for edema Neuro oriented x3, CN's II-XII intact bilaterally and no sensory deficits noted Sensorium / Orientation: awake and alert Skin no rashes or lesions noted and no wounds MDM MDM MDM Narrative Medical decision making narrative: Interventions / MDM: Differential diagnosis: Pneumonia, bronchitis, viral syndrome Diagnosis considered but do not suspect: N/A My EKG interpretation: Atrial paced rhythm rate of 68, PVC noted. Imaging independently reviewed and interpreted by myself: 2 view chest x-ray: Right lower lobe infiltrate, per radiology possible also edema. External documents reviewed: N/A Test considered but not ordered:N/A ED course: Patient upper airway wheezing, aerosol treatment with MDI provided with spacer. This improving symptoms. Rapid COVID-negative. Two-view chest x-ray concerning for pneumonia. Clinically cough with sputum. No CHF symptoms. Feeling better on reevaluation 99% on room air. She started on Omnicef for community acquired pneumonia. With her cardiac history EKG obtained noting paced rhythm. Clinically is feeling better, return precautions discussed otherwise outpatient follow with her PCP. All questions were answered. Re-evaluation: stable Disposition discussed with patient/family/significant other: Patient and family Case discussed with consulting clinician: N/A Radiography Diagnostic Testing: Clinical Impression(s) from Imaging Studies Chest X-Ray 06/06/22 22:20 IMPRESSION: Increased interstitial markings and hazy opacities, differential includes infection or asymmetric edema. Electronically Signed: Nakul Gaona MD at 22:56 EDT , Discharge Plan Triage Chief Complaint: Cough ED Provider: Mick Lind Dx/Rx/DC Orders Clinical Impression: Community acquired pneumonia, Acute bronchospasm Instructions: ED Bronchospasm (Adult), ED Pneumonia (Adult) Prescriptions: New cefdinir 300 mg capsule 300 mg PO BID Qty: 13 0RF No Action calcium citrate 250 mg calcium tablet 250 mg PO DAILY apple cider vinegar 600 mg capsule 600 mg PO DAILY cataplex F PO cataplex E2 PO cataplex B PO CardioVid PLUS [id number] ni-pi-hyv-mcg capsule 1 cap PO DAILY ferrous sulfate [FeroSul] 325 mg (65 mg iron) tablet 325 mg PO BID doxycycline hyclate 100 mg capsule 100 mg PO BID Qty: 20 0RF cholecalciferol (vitamin D3) 25 mcg (1,000 unit) capsule 25 mcg PO DAILY metoprolol succinate 50 mg tablet extended release 24 hr 50 mg PO DAILY Qty: 90 3RF lisinopril-hydrochlorothiazide 10-12.5 mg tablet 1 tab PO DAILY Qty: 90 3RF Primary Care Provider: Zuleyka Delatorre Referrals: Zuleyka Delatorre MD [Primary Care Provider] - 3-5 Days Activity Restrictions/Additional Instructions: Chest x-ray with pneumonia right lower lobe. Take antibiotic prescribed. Inhaler as needed for wheezing. Follow-up your doctor. Return if worsening symptoms. Disposition Disposition: Home, Self Care Discharge Date/Time: 06/06/22 23:46
[2022-06-06 23:16] VITALS: PULSE 88; RESP 18; O2SAT 99
[2022-06-06] MEDS: Cefdinir 300 MG Capsule PO (23:26)
== END 2022-06-06 23:46 | disposition home or self-care (01) ==
PROVIDERS: Emergency Provider Emergency Medicine; PCP Internal Medicine; Visit Provider Emergency Medicine
DX: J18.9 Pneumonia, unspecified organism (principal); I11.0 Hypertensive heart disease with heart failure; I50.22 Chronic systolic (congestive) heart failure; I25.10 Atherosclerotic heart disease of native coronary artery without angina pectoris; J98.01 Acute bronchospasm; E78.5 Hyperlipidemia, unspecified; Z95.5 Presence of coronary angioplasty implant and graft
CPT/HCPCS: 71046; 87811; 93005; 99283

== ENCOUNTER 2022-09-14 13:40 | Observation (INO) | payer MEDICARE, SELFPAY ==
[2022-09-14 13:41] VITALS: BP 159/77; PULSE 65; RESP 16; TEMP 37.1; O2SAT 99; BMI 28.5
--- NOTE | 2022-09-14 14:00 | RAD_ITS ---
STUDY: X-RAY CHEST REASON FOR EXAM: Female, 87 years old. cough TECHNIQUE: PA and lateral views of the chest. COMPARISON: 06/06/2022 FINDINGS: Left pacer in place. There is hyperinflation of the lungs consistent with chronic obstructive lung disease (COPD). Mild opacity overlies the right lower lobe possibly representing superimposed interstitial markings. There is no demonstrated pleural abnormality. There is mild cardiac enlargement. Normal mediastinum and thomas. Normal visualized pulmonary arteries. There is atherosclerotic tortuosity of the aortic arch and descending thoracic aorta. There are diffuse degenerative changes of the visualized thoracic spine. Degenerative scoliosis of the lower thoracolumbar spine is present. Normal visualized ribs, clavicles, and shoulders. There is no demonstrated abnormality of the visualized soft tissue structures of the upper abdomen. RAD/Chest PA and Lateral IMPRESSION: 1. COPD related changes with prominent interstitial markings with superimposed right lower lobe infiltrate not excluded. Overall similar appearance compared to prior exam. Electronically Signed: Royal Santiago DO at 14:40 EDT ,
--- NOTE | 2022-09-14 14:00 | EKG12_ITS ---
Test Reason : Blood Pressure : / mmHG Vent. Rate : 066 BPM Atrial Rate : 071 BPM P-R Int : 000 ms QRS Dur : 186 ms QT Int : 530 ms P-R-T Axes : 000 -70 086 degrees QTc Int : 555 ms Ventricular-paced rhythm with occasional supraventricular complexes and with premature ventricular or aberrantly conducted complexes Abnormal ECG Confirmed by NOAM HAMLIN, MARCELA ([id number]), graphics editor LITTLE TAI ([id number]) on 09/18/2022 8:41:26 AM Referred By: Confirmed By:RICHAR SANTACRUZ MD
--- NOTE | 2022-09-14 14:01 | EX.ED.DYSGE1 ---
HPI History of Present Illness Chief Complaint: General Illness Informant: patient Narrative Narrative: Patient presents with decreased energy and some fatigue that started yesterday. She states that she was seen here twice recently with some upper abdominal pain. On 1 visit she was diagnosed with pneumonia and on the other visit with bronchitis. She states those symptoms resolved. She states now she feels short of breath would not be surprised if she has pneumonia. She does not believe she had a fever. 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 [facility] Medical History Anemia Arthritis Atherosclerosis of coronary artery of [place] heart without angina pectoris Chronic systolic (congestive) heart failure Deep vein thrombosis Essential (primary) hypertension Hearing loss Hyperlipidemia Hypertension Non-rheumatic tricuspid valve insufficiency NSTEMI (non-ST elevated myocardial infarction) (11/17/17) Paroxysmal atrial fibrillation Seborrheic keratoses, inflamed Secondary pulmonary arterial hypertension Sick sinus syndrome Ventricular fibrillation (03/2012) Home Medications calcium citrate 250 mg PO DAILY 06/03/18 [History Last Taken Unknown] cataplex B PO 11/29/19 [History Last Taken Unknown] cataplex E2 PO 11/29/19 [History Last Taken Unknown] cataplex F PO 11/29/19 [History Last Taken Unknown] omega [id number] oil 600 mg-20 mg-500 mcg-800 mcg capsule (CardioVid PLUS) 1 cap PO DAILY 11/29/19 [History Last Taken Unknown] ferrous sulfate 325 mg (65 mg iron) tablet (FeroSul) 325 mg PO BID 02/27/22 [History Last Taken Unknown] cholecalciferol (vitamin D3) 25 mcg (1,000 unit) capsule 25 mcg PO DAILY 03/03/22 [History Last Taken Unknown] metoprolol succinate 50 mg tablet,extended release 24 hr 50 mg PO DAILY #90 tabs 04/04/22 [Rx Last Taken Unknown] lisinopril 10 mg-hydrochlorothiazide 12.5 mg tablet 1 tab PO DAILY #90 tabs 05/04/22 [Rx Last Taken Unknown] apple cider vinegar 600 mg capsule 600 mg PO .COMPLEX 06/16/22 [History Last Taken Unknown] vitamin b PO 06/16/22 [History Last Taken Unknown] Allergy/AdvReac Type Severity Reaction Status Date / Time Ruxtiob-HAN-QdX Reductase AdvReac Mild muscle Verified 09/14/22 13:41 Inhibitor aches [Rsghzyk-Tkx-Ueg Reductase Inhibitor] Family History Other Depression Diabetes Suicide attempt Surgical History History of coronary artery stent placement (11/17/17) History of implantable cardiac defibrillator (ICD) (04/09/17) Social History Smoking Status: Never smoker alcohol intake: never substance use type: does not use ROS ROS ED Constitutional Constitutional ED: Denies chills or fever(s) Eyes Eyes: Denies change in vision ENT ENT ED: Denies rhinorrhea or sore throat Cardiovascular Cardiovascular: Denies chest pain or palpitations Respiratory/Chest Respiratory/Chest: Reports cough and sputum; Denies dyspnea Gastrointestinal Gastrointestinal: Denies abdominal pain, diarrhea, nausea or vomiting Genitourinary Genitourinary ED: Denies dysuria Musculoskeletal Musculoskeletal: Denies back pain or extremity pain Integumentary Denies Abrasions or rash Neurologic Neurologic: Reports weakness; Denies headache(s) Psychiatric Psychiatric: Denies anxiety or depression Allergic/Immunologic Allergic/Immunologic ED: Denies lip swelling or urticaria EXAM Physical Exam Const Vital Signs: 09/14/22 13:41 09/14/22 13:57 09/14/22 15:48 Temperature 98.7 F Temperature Source Temporal Pulse Rate 65 89 Respiratory Rate 16 14 Respiratory Effort Normal Respiratory Pattern Normal Blood Pressure 159/77 H 134/76 H Blood Pressure Mean 104 95 Pulse Ox 99 98 Oxygen Delivery Method Room Air Positive well nourished and well developed General Appearance ED: well developed HEENT Reports normocephalic and head/scalp atraumatic Eyes PERRL and EOMs intact bilaterally Neck supple Chest Wall inspection of chest normal and palpation of chest normal Resp normal respiratory effort and clear to auscultation bilaterally Cardio regular rate and regular rhythm GI non-tender Auscultation: hypoactive bowel sounds Palpation: soft Extremity normal to inspection Neuro oriented x3 Neuro Narrative: No focal neurologic deficit. Sensorium / Orientation: alert Psych mental status grossly normal Skin no rashes or lesions noted MDM MDM MDM Narrative Medical decision making narrative: Patient placed on monitoring tech. EKG obtained to evaluate for cardiac arrhythmia/ischemia. Labwork obtained to evaluate for leukocytosis, anemia, and electrolyte derangement. Urinalysis obtained to evaluate for infection/hematuria. Chest x-ray obtained to evaluate for acute lung pathology, cardiac size, or mediastinal abnormality. Swab for COVID and influenza obtained. Lab Data Attestation: I reviewed the patient's lab results. Labs: Laboratory Results - last 24 hr 09/14/22 09/14/22 09/14/22 14:17 15:15 16:25 WBC 4.6 RBC 3.80 L Hgb 11.4 L Hct 34.6 L MCV 91.1 MCH 30.0 MCHC 32.9 RDW Std Deviation 47.1 H RDW Coeff of Josette 14.0 Plt Count 193 MPV 8.8 Immature Gran % (Auto) 0.200 Neut % (Auto) 65.3 Lymph % (Auto) 16.6 L [place] % (Auto) 17.9 H Eos % (Auto) 0.0 Baso % (Auto) 0.0 Absolute Neuts (auto) 3.0 Absolute Lymphs (auto) 0.77 L Nucleated RBC % 0 Sodium 134 L Potassium 3.3 L Chloride 102 Carbon Dioxide 25.0 Anion Gap 7 BUN 23 H Creatinine 1.13 H Estim Creat Clear Calc 33.78 Est GFR (MDRD) Af Amer 59 L Est GFR (MDRD) Non-Af 49 L BUN/Creatinine Ratio 20.4 H Glucose 154 H Calcium 8.1 L Total Bilirubin 0.30 Direct Bilirubin 0.10 AST 31 ALT 24 Alkaline Phosphatase 77 Troponin I High Sens 100 H 125 H* Total Protein 7.4 Albumin 3.1 L Globulin 4.3 H Urine Color Yellow Urine Clarity Clear Urine pH 5.0 Ur Specific [place] 1.020 Urine Protein 30 H Urine Glucose (UA) Normal Urine Ketones Negative Urine Occult Blood 25 H Urine Nitrite Negative Urine Bilirubin Negative Urine Urobilinogen Normal Ur Leukocyte Esterase 500 H Urine RBC 0 SEEN Urine WBC 10-25 SEEN Ur Squamous Epith Cells 5-10 SEEN Urine Bacteria 2+ Urine Mucus 0 SEEN Radiography Chest X-Ray - ED: 2 View, Read by ED Physician and Chronic Changes Diagnostic Testing: Clinical Impression(s) from Imaging Studies Chest X-Ray 09/14/22 14:00 IMPRESSION: 1. COPD related changes with prominent interstitial markings with superimposed right lower lobe infiltrate not excluded. Overall similar appearance compared to prior exam. Electronically Signed: Royal Santiago DO at 14:40 EDT , EKG Initial EKG: Attestation: I personally reviewed and interpreted this EKG as follows: Interpretation: - (Paced rhythm at 66 bpm. Occasional [place] beats. No acute ischemia.) Treatment and Re-Evaluation :: CBC reveals white count of 4.6 with normal differential. Hemoglobin 11.4. Chemistry studies reveal a sodium of 134 potassium of 3.3. This is replaced orally. BUN is 23 and creatinine is 1.13. She is given a 500 cc IV fluid bolus. Glucose is 154. LFTs are unremarkable. Troponin is 100. COVID swab is positive. Influenza swab is positive for influenza B. Urinalysis does reveal 10-25 white cells however 5-10 epithelials are noted. 2+ bacteria is present. There are no nitrites. This will be sent for urine culture but will not give her antibiotics as she does not have any symptoms of UTI. Test results are discussed with the patient and family at bedside. She would prefer not to start Paxlovid or Tamiflu at this time. Given her elevated troponin level we will repeat this at 2 hours. Repeat troponin after 2 hours has elevated to 125. Protocol suggest hospital observation for an elevation of troponin of 20 points. I do believe this is a type II event given her viral illnesses. I will discuss with hospitalist regarding observation and cycling of enzymes. Discharge Plan Triage Chief Complaint: General Illness ED Provider: Eve Rivers Dx/Rx/DC Orders Clinical Impression: COVID, Influenza B, Elevated troponin Prescriptions: No Action calcium citrate 250 mg calcium tablet 250 mg PO DAILY apple cider vinegar 600 mg capsule 600 mg PO .COMPLEX Rx Instructions: 600 mg orally 3x a day; cataplex F PO cataplex E2 PO cataplex B PO CardioVid PLUS [id number]-mcg capsule 1 cap PO DAILY ferrous sulfate [FeroSul] 325 mg (65 mg iron) tablet 325 mg PO BID vitamin b PO cholecalciferol (vitamin D3) 25 mcg (1,000 unit) capsule 25 mcg PO DAILY metoprolol succinate 50 mg tablet extended release 24 hr 50 mg PO DAILY Qty: 90 3RF lisinopril-hydrochlorothiazide 10-12.5 mg tablet 1 tab PO DAILY Qty: 90 3RF Primary Care Provider: Zuleyka Delatorre Referrals: Zuleyka Delatorre MD [Primary Care Provider] -
[2022-09-14] MEDS: 0.9% Normal Saline 1,000 ML 100 ML IV (14:30)
[2022-09-14 14:31] LABS: Absolute Lymphocyte Count 0.77 X10^3/uL (0.83-4.51); Hematocrit 34.6 % (37-47); Hemoglobin 11.4 g/dL (12.0-15.0); Lymphocyte # 0.77 X10^3/ul (0.83-4.51); Lymphocyte % 16.6 % (19-41); Mean Corp Hgb Conc 32.9 g/dL (32-36); Mean Corpuscular Volume 91.1 fL (81-99); Mean Platelet Vol. 8.8 fl (6.2-12.0); Monocyte# 0.83 X10^3/uL; Monocyte% 17.9 % (0-10); NRBC Flagged by Analyzer 0 % (0-5); Neutrophil # 3.03 X10^3/uL (2.7-7.7); Neutrophil % 65.3 % (47-70); Platelet Count 193 K/mm3 (150-450); RBC Distribution Width SD 47.1 fl (35.1-43.9); White Blood Count 4.6 K/mm3 (4.4-11.0)
--- NOTE | 2022-09-14 14:42 | ED.RN ---
PT WITH POSITIVE COVID AND FLU B. DR BATEMAN
[2022-09-14 14:45] LABS: AST(SGOT) 31 U/L (15-37); Alanine Aminotransfer ALT/SGPT 24 U/L (13-56); Albumin, Serum 3.1 g/dL (3.2-5.0); Alkaline Phosphatase 77 U/L (45-117); Anion Gap 7 (5-15); BUN 23 mg/dL (7-18); BUN/Creat Ratio 20.4 RATIO (10-20); Calcium,Total 8.1 mg/dL (8.5-10.1); Chloride 102 mmol/L (98-107); Creatinine, Serum 1.13 mg/dL (0.55-1.02); EST Glomerular Filtration Rate 49 mL/min (>60); Est Glom Filt Rate - Afr Amer 59 mL/min (>60); Estimated Creatinine Clearance 33.78 ml/min; Globulin 4.3 g/dL (2.2-4.2); Glucose 154 mg/dL (74-106); Potassium 3.3 mmol/L (3.5-5.1); Protein, Total 7.4 g/dL (6.4-8.2); Sodium Level 134 mmol/L (136-145); Troponin-I HS 100 pg/mL (3.0-54.0)
[2022-09-14 15:25] LABS: Mucous, Urine 0 SEEN /hpf (<or=2+); Red Blood Cells-Urine 0 SEEN /hpf (0-5)
[2022-09-14 15:29] LABS: Color, Urine Yellow (Yellow); Glucose, Dipstick Normal (Normal); Ketone-Dipstick Negative (Negative); Leukocyte Esterase-Dipstick 500 /ul (Negative); Nitrite-Dipstick Negative (Negative); Occult Blood-Urine 25 /ul (Negative); Protein-Dipstick 30 mg/dl (Negative); Urine Bilirubin Dipstick Negative (Negative); Urine Clarity Clear (Clear); Urine Urobilinogen Normal (Normal)
[2022-09-14 15:39] LABS: White Blood Cells 10-25 SEEN /hpf (0-5)
[2022-09-14 15:40] LABS: Bacteria 2+ /hpf (None Seen); Squamous Epithelial Cells - UA 5-10 SEEN /hpf (5-10)
[2022-09-14 15:48] VITALS: BP 134/76; PULSE 89; RESP 14; O2SAT 98
[2022-09-14] MEDS: Potassium Chloride Oral Tablet 20 MEQ 40 MEQ PO (15:57)
[2022-09-14 17:13] LABS: Troponin-I HS 125 pg/mL (3.0-54.0)
[2022-09-14 17:27] VITALS: BP 134/76; PULSE 89; RESP 14; TEMP 36.6; O2SAT 98
[2022-09-14 17:56] LABS: Magnesium 1.9 mg/dL (1.6-2.6); Phosphorus 2.8 mg/dL (2.5-4.9)
--- NOTE | 2022-09-14 18:03 | HP.PCM.HOS_ITS ---
HPI - General General Date of Admission: 09/14/22 Date of Service: 09/14/22 Chief Complaint: Tiredness extreme for 3 days HPI Narrative RAJIV SUTTON, is a 87 F Came to ED for extreme tiredness fatigue progressive worsening for 3 days. 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 As per the son she is mildly short of breath on exertion for last 3 days and fatigue. She gets short of breath even on walking within the home or climbing stairs. She denies fever or chills. She also has mild cough which is on and off since May 2022. In May 2022, she was found to have right lower lobe pneumonia and was given antibiotic and discharged in ED. In June 2022 she also had bronchitis and oral thrush and was treated by PCP but not an antibiotic. Currently she denies nasal congestion sore throat or postnasal drip. Denies chest pain tightness or pressure. She has history of coronary artery disease, chronic systolic heart failure status post AICD and mild valvular heart disease, sick sinus syndrome history of ventricular fibrillation, secondary pulmonary hypertension and follows Dr. Jaime and Lanie Hammond. Last visit was May 2018. In ED, her vitals are in normal range. Pulse ox 98% on room air. She is not tachypneic. In ED, twelve-lead EKG done which shows prominent interstitial markings suggestive of chronic changes with possible right lower lobe infiltrate which looks atelectatic to me rather than pneumonic consolidation. Twelve-lead individually reviewed shows V paced rhythm with occasional supraventricular complexes, PVCs at 66 beats present. [facility] Medical History Anemia Arthritis Atherosclerosis of coronary artery of [place] heart without angina pectoris Chronic systolic (congestive) heart failure Deep vein thrombosis Essential (primary) hypertension Hearing loss Hyperlipidemia Hypertension Non-rheumatic tricuspid valve insufficiency NSTEMI (non-ST elevated myocardial infarction) (11/17/17) Paroxysmal atrial fibrillation Seborrheic keratoses, inflamed Secondary pulmonary arterial hypertension Sick sinus syndrome Ventricular fibrillation (03/2012) Home Medications calcium citrate 250 mg PO DAILY supplement 06/03/18 [History Last Taken 09/13/22] cataplex B See Rx Instructions PO DAILY supplement 11/29/19 [History Last Taken Unknown] cataplex E2 See Rx Instructions PO .COMPLEX supplement 11/29/19 [History Last Taken Unknown] cataplex F See Rx Instructions PO .COMPLEX supplement 11/29/19 [History Last Taken Unknown] omega [id number] oil 600 mg-20 mg-500 mcg-800 mcg capsule (CardioVid PLUS) 1 cap PO DAILY supplement 11/29/19 [History Last Taken Unknown] ferrous sulfate 325 mg (65 mg iron) tablet (FeroSul) 325 mg PO BID supplement 02/27/22 [History Last Taken Unknown] metoprolol succinate 50 mg tablet,extended release 24 hr 50 mg PO DAILY #90 tabs 04/04/22 [Rx Last Taken 09/14/22] lisinopril 10 mg-hydrochlorothiazide 12.5 mg tablet 1 tab PO DAILY #90 tabs 05/04/22 [Rx Last Taken 09/14/22] apple cider vinegar 600 mg capsule 600 mg PO .COMPLEX 06/16/22 [History Last Taken 09/11/22] ascorbic acid (vitamin C) 500 mg tablet 500 mg PO BID supplement 09/14/22 [His tory Last Taken Unknown] vitamin B complex (B Complex-Vitamin B12 tablet) 1 tab PO DAILY supplement 09/14/22 [History Last Taken Unknown] Allergy/AdvReac Type Severity Reaction Status Date / Time Camvxev-TDZ-EcG Reductase AdvReac Mild muscle Verified 09/14/22 13:41 Inhibitor aches [Ggcycti-Jlc-Ewd Reductase Inhibitor] Family History Other Depression Diabetes Suicide attempt Surgical History History of coronary artery stent placement (11/17/17) History of implantable cardiac defibrillator (ICD) (04/09/17) Social History Smoking Status: Never smoker alcohol intake: never substance use type: does not use ROS ROS Narrative Constitutional: Reports extreme fatigue and weakness. No fever. HEENT: Reports systems reviewed and no addt'l complaints, except as documented Respiratory/Chest: No wheezing. Rest as described in HPI. CVS: Denies chest pain pressure or tightness. Gastrointestinal: Denies coffee ground emesis, hematemesis or vomiting Genitourinary: Denies burning urination or new urinary tract symptoms. Musculoskeletal: Denies acute joint pain or limited range of motion. No acute injury Neurologic: Denies seizure-like symptoms. skin: No ulcer. No rash Endocrinology: Reports systems reviewed and no addt'l complaints, except as documented Hematologic/Lymphatic: Reports systems reviewed and no addt'l complaints, except as documented Rest 14 ROS are negative except as mentioned in HPI Vital Signs Vital Signs Vital Signs: 09/14/22 13:41 09/14/22 13:57 09/14/22 15:48 Temperature 98.7 F Temperature Source Temporal Pulse Rate 65 89 Respiratory Rate 16 14 Respiratory Effort Normal Respiratory Pattern Normal Blood Pressure 159/77 H 134/76 H Blood Pressure Mean 104 95 Pulse Ox 99 98 Oxygen Delivery Method Room Air 09/14/22 17:27 09/14/22 17:27 Temperature 97.8 F Temperature Source Oral Pulse Rate 89 89 Respiratory Rate 14 14 Respiratory Effort Respiratory Pattern Blood Pressure 134/76 H 134/76 H Blood Pressure Mean 95 95 Pulse Ox 98 98 Oxygen Delivery Method Room Air Room Air Weight Weight: 132 lb Body Mass Index (BMI) 28.5 Physical Exam Narrative General: Alert, Oriented x3, Cooperative HEENT: Atraumatic, PERRLA, EOMI, Normocephalic Oral: Oral mucosa dry. No Gingival or Mucosal Lesions/ Ulcerations Neck: Supple, No JVD, Negative Carotid Bruits Lungs: Air entry diminished in bilateral lung bases. No crepitation/rhonchi Cardiovascular: Regular rhythm, paced rhythm, Normal S1, Normal S2, no clinically murmur. Abdomen: Bowel Sounds Present, Soft, Non Tender, Non-Distended : No renal angle tenderness. No suprapubic tenderness. Extremities: No edema, Capillary Refill Less than 3 Seconds Skin: No rashes, No breakdown Musculoskeletal: No Tenderness to Palpation of Joints or Extremities. Muscle strength 5/5 at knee and hip joints. Neurological: Cranial nerves II-XII grossly intact, DTR 2+/4. No acute focal neurological defic Psych/Mental Status: Normal Affect, Appropriate. Results Lab / Micro Data 09/14/22 14:17 09/14/22 14:17 Labs: Laboratory Results - last 24 hr 09/14/22 14:17: WBC 4.6, RBC 3.80 L, Hgb 11.4 L, Hct 34.6 L, MCV 91.1, MCH 30.0, MCHC 32.9, RDW Std Deviation 47.1 H, RDW Coeff of Josette 14.0, Plt Count 193, MPV 8.8, Immature Gran % (Auto) 0.200, Neut % (Auto) 65.3, Lymph % (Auto) 16.6 L, [place] % (Auto) 17.9 H, Eos % (Auto) 0.0, Baso % (Auto) 0.0, Absolute Neuts (auto) 3.0, Absolute Lymphs (auto) 0.77 L, Nucleated RBC % 0, Sodium 134 L, Potassium 3.3 L, Chloride 102, Carbon Dioxide 25.0, Anion Gap 7, BUN 23 H, Creatinine 1.13 H, Estim Creat Clear Calc 33.78, Est GFR (MDRD) Af Amer 59 L, Est GFR (MDRD) Non-Af 49 L, BUN/Creatinine Ratio 20.4 H, Glucose 154 H, Calcium 8.1 L, Total Bilirubin 0.30, Direct Bilirubin 0.10, AST 31, ALT 24, Alkaline Phosphatase 77, Troponin I High Sens 100 H, Total Protein 7.4, Albumin 3.1 L, Globulin 4.3 H 09/14/22 15:15: Urine Color Yellow, Urine Clarity Clear, Urine pH 5.0, Ur Specific [place] 1.020, Urine Protein 30 H, Urine Glucose (UA) Normal, Urine Ketones Negative, Urine Occult Blood 25 H, Urine Nitrite Negative, Urine B ilirubin Negative, Urine Urobilinogen Normal, Ur Leukocyte Esterase 500 H, Urine RBC 0 SEEN, Urine WBC 10-25 SEEN, Ur Squamous Epith Cells 5-10 SEEN, Urine Bacteria 2+, Urine Mucus 0 SEEN 09/14/22 16:25: Phosphorus 2.8, Magnesium 1.9, Troponin I High Sens 125 H* Micro: Microbiology 09/14/22 14:17 Nasal Secretion SARS-CoV-2 & FLU Antigen (Rapid) - Final SARS-CoV-2 (COVID 19) Influenzae B Radiology Impression Chest X-Ray 09/14/22 14:00 IMPRESSION: 1. COPD related changes with prominent interstitial markings with superimposed right lower lobe infiltrate not excluded. Overall similar appearance compared to prior exam. Electronically Signed: Royal Santiago, DO at 14:40 EDT , Assessment & Plan Assessment/Plan (1) COVID: (2) Influenza B: (3) Elevated troponin: PLAN: Plan This 87-year-old female is being mainly admitted for extreme fatigue and weakness with elevated troponin. 1. Extreme fatigue and weakness probably due to acute COVID-19 and influenza infection/bronchitis: Patient is being admitted in PCU. Rapid antigen in the ED is positive of SARS-CoV-2 and influenza B. To ED physician, she refused for Tamiflu and Paxlovid thinking to be a vaccine. She is not vaccinated with COVID and remotely vaccinated for flu. COVID-19 PCR ordered. She agreed for Tamiflu which is ordered. We do not have Paxlovid as inpatient therefore started on dexamethasone 6 mg daily for extreme fatigue and weakness and mild bronchitis symptoms. Chest x-ray shows bilateral atelectasis predominantly in the lung base. She is not having symptoms of fever, severe cough, tachypnea or hypoxia to require IV antibiotic. ED patient Dr. Kirby said she would have discharged the patient because she has minimal symptoms of COVID-19 and flu but she need observation because of elevat ed troponin. 2. Elevated troponin probably due to mild increased myocardial demand/myocardial injury from viral bronchitis: First troponin 100, second troponin 125 although delta change is not significant. Serial troponin ordered. Patient has multiple chronic cardiac conditions including coronary artery disease, chronic systolic heart failure status post AICD, sick sinus syndrome, history of ventricular fibrillation, secondary pulmonary hypertension and follows Dr. Jaime. Last cardiology visit in November 2017. Last echo in November 2017 reported as EF 53%, mild eccentric MR, mild TR, trivial AI. PASP 31 mmHg. Serum magnesium and phosphorus level are normal. She has history of coronary artery disease, chronic systolic heart failure status post AICD and mild valvular heart disease, sick sinus syndrome history of ventricular fibrillation, secondary pulmonary hypertension and follows Dr. Jaime. Last cardiology clinic visit was in May 2018. Her cardiac medications are continued. 3. CKD stage 3B and slight pyuria on UA: UA suggestive of 5-10 cells, LE 500 but negative nitrite. 2+ bacteria. Patient does not have burning micturition increased frequency urgency or intact symptoms therefore decided not to treat for now. Urine culture is ordered. Most probably asymptomatic bacteriuria. Creatinine clearance is 33 mill per minute, creatinine 1.13. Last creatinine 0.89 in April 2022. She does not meet criteria for OUMAR. 4. Hypertension: Currently blood pressure is controlled. Continue home medications. 5. Hyperglycemia: Glucose is elevated 154. During previous admission in November 2017, her A1c was 5.7. Repeat A1c. At that time her TSH 0.24. Free T4 0.86. Repeat TSH and free T4 tomorrow a.m. 6. Dyslipidemia: Patient was on atorvastatin during previous admission in 2017 but herself discontinued. During last cardiology clinic visit in May 2018 it is mentioned that patient does not want to take statin because of significant muscle aches. DVT prophylaxis: On Lovenox 40 mg subcu daily. Discontinue if platelet count drops less than 50,000 or hemoglobin less than 8 g% Living will/advanced directive/end of life care: Patient does have living will or advanced directive. After discussion of benefits/risks procedures involved with full code, DNR CC arrest and DNR CC, the patient and her POA son in ED opted for DNR CC arrest with no intubation. Patient doesn't want artificial life support including intubation, tube feed, ventilator and/chest compression, central venous catheter, vasopressor and DC shock if needed Total time spent in [id number] encounter in discussion of advanced directive 17 minutes. Microbiology Past 72 Hours 09/14/22 14:17 Nasal Secretion SARS-CoV-2 & FLU Antigen (Rapid) - Final SARS-CoV-2 (COVID 19) Influenzae B Laboratory Results 09/14/22 14:17: WBC 4.6, RBC 3.80 L, Hgb 11.4 L, Hct 34.6 L, MCV 91.1, MCH 30.0, MCHC 32.9, RDW Std Deviation 47.1 H, RDW Coeff of [place] 14.0, Plt Count 193, MPV 8.8, Immature Gran % (Auto) 0.200, Neut % (Auto) 65.3, Lymph % (Auto) 16.6 L, [place] % (Auto) 17.9 H, Eos % (Auto) 0.0, Baso % (Auto) 0.0, Absolute Neuts (auto) 3.0, Absolute Lymphs (auto) 0.77 L, Nucleated RBC % 0, Sodium 134 L, Potassium 3.3 L, Chloride 102, Carbon Dioxide 25.0, Anion Gap 7, BUN 23 H, Creatinine 1.13 H, Estim Creat Clear Calc 33.78, Est GFR (MDRD) Af Amer 59 L, Est GFR (MDRD) Non-Af 49 L, BUN/Creatinine Ratio 20.4 H, Glucose 154 H, Calcium 8.1 L, Total Bilirubin 0.30, Direct Bilirubin 0.10, AST 31, ALT 24, Alkaline Phosphatase 77, Troponin I High Sens 100 H, Total Protein 7.4, Albumin 3.1 L, Globulin 4.3 H 09/14/22 15:15: Urine Color Yellow, Urine Clarity Clear, Urine pH 5.0, Ur Specific [place] 1.020, Urine Protein 30 H, Urine Glucose (UA) Normal, Urine Ketones Negative, Urine Occult Blood 25 H, Urine Nitrite Negative, Urine Bilirubin Negative, Urine Urobilinogen Normal, Ur Leukocyte Esterase 500 H, Urine RBC 0 SEEN, Urine WBC 10-25 SEEN, Ur Squamous Epith Cells 5-10 SEEN, Urine Bacteria 2+, Urine Mucus 0 SEEN 09/14/22 16:25: Phosphorus 2.8, Magnesium 1.9, Troponin I High Sens 125 H* Charges/Coding Visit Charges Inpatient E&M: 09016 Init Hosp L3 Procedures Hospitalists Procedures: 75951 Advncd Care Plan 30 Min
[2022-09-14 18:41] VITALS: BMI 29.0
[2022-09-14 18:55] VITALS: BP 145/68; PULSE 64; RESP 20; TEMP 37.9; O2SAT 97
[2022-09-14 19:00] VITALS: BP 134/66; PULSE 66; RESP 17; TEMP 36.4; O2SAT 98
[2022-09-14 19:31] LABS: BNP,B-Type NATRIURETIC PEPTIDE 499.8 pg/mL (0-100)
[2022-09-14 19:34] LABS: CPK Total, Creatine Kinase 118 U/L (26-192); LDH 209 U/L (84-246)
[2022-09-14 19:35] LABS: Lactic Acid 0.9 mmol/L (0.4-1.9)
[2022-09-14 19:39] LABS: Procalcitonin 0.25 ng/mL (0.00-0.09)
[2022-09-14 19:43] LABS: Troponin-I HS 135 pg/mL (3.0-54.0)
--- NOTE | 2022-09-14 19:44 | NURSING ---
Pts primary rn aware of troponin of 135 at this time.
[2022-09-14 19:57] VITALS: O2SAT 99
[2022-09-14 19:58] LABS: Fibrinogen 511 mg/dl (203-444)
[2022-09-14 20:03] LABS: D-Dimer Quantitative (DVT/PE) > 20.00 FEU/ug/m (0.27-0.49)
[2022-09-14] MEDS: KCL 20MEQ in 0.9% NS 20 MEQ/1,000 ML IV.SOLN. 75 MEQ IV (20:16)
[2022-09-14] MEDS: Oseltamivir Phosphate 30 MG Capsule PO (20:17)
[2022-09-14] MEDS: dexAMETHasone 4 MG Tablet 6 MG PO (20:18)
[2022-09-14] MEDS: Ascorbic Acid 500 MG Tablet PO (20:18)
--- NOTE | 2022-09-14 20:18 | CT_ITS ---
INDICATION: suspected PE EXAMINATION: CTA Chest WO/W Contrast Injection TECHNIQUE: Helically acquired images were obtained of the chest following administration of IV contrast. A radiation dose optimization technique was used for this scan. 3D postprocessing images including MIPS were reviewed. IV Contrast dosage and agent: IV 100mL [id number] COMPARISON: 04/24/2022. FINDINGS: Lungs: Bibasilar atelectasis. Mediastinum: The heart is moderately enlarged. No mediastinal, hilar or axillary adenopathy. Mild aortic arch and coronary artery calcifications. No obvious filling defect seen within the visualized pulmonary arteries. Left-sided cardiac device. Pleura: Trace left pleural effusion. Bones/Soft tissues: There are diffuse severe degenerative changes of the spine. Exaggerated kyphosis of the thoracic spine. Incompletely healed fracture deformities of the sternum. Upper abdomen: No visualized abnormalities in the upper abdomen. CT/CTA Chest W/WO Contrast IMPRESSION: No evidence of acute pulmonary emboli to the segmental level. Cardiomegaly with trace left pleural effusion. Incompletely healed fracture deformities of the sternum. Electronically Signed: Phillip Zhang MD at 22:33 EDT ,
[2022-09-14] MEDS: 0.9% Saline Lock 10 ML Syringe IV (20:20)
[2022-09-14] MEDS: Contrast Allergy Safety Check IV (22:30)
[2022-09-15] VITALS (7 sets, daily range): BP systolic 112–128; BP diastolic 64–78; PULSE 62–77; RESP 15–18; TEMP 36.6–36.8; O2SAT 93–98; BMI 29.2
[2022-09-15] MEDS: Enoxaparin 40 MG/0.4 ML Syringe SC ×2 (00:43→09:09)
[2022-09-15 06:30] LABS: Absolute Lymphocyte Count 0.58 X10^3/uL (0.83-4.51); Hematocrit 36.3 % (37-47); Hemoglobin 11.5 g/dL (12.0-15.0); Lymphocyte # 0.58 X10^3/ul (0.83-4.51); Lymphocyte % 21.8 % (19-41); Mean Corp Hgb Conc 31.7 g/dL (32-36); Mean Corpuscular Hgb 29.3 pg (27.0-32.0); Mean Corpuscular Volume 92.4 fL (81-99); Mean Platelet Vol. 8.9 fl (6.2-12.0); Monocyte# 0.11 X10^3/uL; Monocyte% 4.1 % (0-10); NRBC Flagged by Analyzer 0 % (0-5); Neutrophil # 1.96 X10^3/uL (2.7-7.7); Neutrophil % 73.7 % (47-70); POSITIVE DIFFERENTIAL YES; Platelet Count 180 K/mm3 (150-450); RBC Distribution Width CV 13.6 % (11.6-14.6); RBC Distribution Width SD 46.6 fl (35.1-43.9); Red Blood Count 3.93 M/mm3 (4.2-5.4); White Blood Count 2.7 K/mm3 (4.4-11.0)
[2022-09-15 06:32] LABS: Differential Indicated SCAN CRITERIA MET
[2022-09-15 07:05] LABS: T4 Free Direct 0.77 ng/dL (0.76-1.46); Thyroid Stim Hormone (TSH) 0.03 uIU/mL (0.358-3.74)
[2022-09-15 07:37] LABS: Differential Comment SCANNED
[2022-09-15 07:39] LABS: Hemoglobin A1c 5.6 % (3.8-5.6)
[2022-09-15] MEDS: dexAMETHasone 4 MG Tablet 6 MG PO (09:09)
[2022-09-15] MEDS: Metoprolol(XL)Succ 50 MG Tablet PO (09:10)
[2022-09-15] MEDS: Vitamin B Comp W-C Capsule 1 CAP PO (09:10)
[2022-09-15] MEDS: Ferrous Sulfate 325 MG Tablet PO (09:10)
[2022-09-15] MEDS: Calcium Carbonate 500 MG Tablet PO (09:11)
[2022-09-15] MEDS: Oseltamivir Phosphate 30 MG Capsule PO (09:11)
[2022-09-15] MEDS: Ascorbic Acid 500 MG Tablet PO (09:11)
[2022-09-15] MEDS: Lisinopril 10 MG Tablet PO (09:11)
[2022-09-15] MEDS: hydroCHLOROthiazide 12.5mg 12.5 MG PO (09:12)
--- NOTE | 2022-09-15 13:52 | DCINST_ITS ---
Discharge Instructions Diet Discharge Diet: No restrictions Activity Discharge Activity: - (Increase activity as tolerated) Follow Up Care Test Results: Test results from this visit will be discussed in further detail at your follow- up appointment, if applicable. Discharge Plan Admission Admit Date/Time: 09/14/22 17:26 Primary Reason for Your Visit: Weakness, covid 19 Attending Provider: Reshma Dodd Primary Care Provider: Zuleyka Delatorre Consulting Providers: Juan Porras Instructions Patient Instructions: Infection Preventing Spread Additional Instructions / Restrictions: DISCHARGE INSTRUCTIONS PLEASE READ *Please take this with you to your next doctors appointment* -You will be discharged on an additional 8 days of dexamethasone -It is advised that you completely isolate for 5 days from her positive test on 09/14 and wear a mask after that for 5 additional days to decrease risk of transmission -Continue other home medications -Please call your primary care provider's office upon discharge to schedule a hospital follow up within 1 week. -For any concerning signs or symptoms please call 911 or proceed to the nearest emergency department Discharge Orders/Prescriptions Prescriptions: New dexamethasone 4 mg Tablet 6 mg PO DAILY 8 Days Qty: 12 0RF Rx Instructions: Start 09/16 Continued calcium citrate 250 mg calcium tablet 250 mg PO DAILY apple cider vinegar 600 mg capsule 600 mg PO .COMPLEX Rx Instructions: 600 mg orally 3x a day; cataplex F See Rx Instructions PO .COMPLEX Rx Instructions: 1 tablet daily orally cataplex E2 See Rx Instructions PO .COMPLEX Rx Instructions: 1 tablet orally daily cataplex B See Rx Instructions PO DAILY Rx Instructions: 1 tablet orally daily; CardioVid PLUS [id number] capsule 1 cap PO DAILY ferrous sulfate [FeroSul] 325 mg (65 mg iron) tablet 325 mg PO BID ascorbic acid (vitamin C) 500 mg tablet 500 mg PO BID vitamin B complex [B Complex-Vitamin B12] Tablet 1 tab PO DAILY metoprolol succinate 50 mg tablet extended release 24 hr 50 mg PO DAILY Qty: 90 3RF lisinopril-hydrochlorothiazide 10-12.5 mg tablet 1 tab PO DAILY Qty: 90 3RF Referrals / Follow Up: Zuleyka Delatorre MD [Primary Care Provider] - Within 1 Week Disposition Disposition (needs filled in before D/C Order can be placed): Home, Self Care
--- NOTE | 2022-09-15 14:10 | DS.PCM_ITS ---
Providers Date of Admission: 09/14/22 Date of Discharge: 09/15/22 Primary Care Physician: Dr. Zuleyka Delatorre MD Reason For Visit: RaPID COVID 19, SOB Diagnosis Discharge Diagnosis (1) COVID: Status: Acute Code(s): U07.1 - COVID-19 (2) Elevated troponin: Status: Acute Code(s): R77.8 - Other specified abnormalities of plasma proteins Plan #COVID viral illness #Elevated troponin, demand ischemia #HTN #SSS s/p ppm Medications at Discharge Home Medications calcium citrate 250 mg PO DAILY supplement 06/03/18 cataplex B See Rx Instructions PO DAILY supplement 11/29/19 cataplex E2 See Rx Instructions PO .COMPLEX supplement 11/29/19 cataplex F See Rx Instructions PO .COMPLEX supplement 11/29/19 omega [id number] oil 600 mg-20 mg-500 mcg-800 mcg capsule (CardioVid PLUS) 1 cap PO DAILY supplement 11/29/19 ferrous sulfate 325 mg (65 mg iron) tablet (FeroSul) 325 mg PO BID supplement 02/27/22 metoprolol succinate 50 mg tablet,extended release 24 hr 50 mg PO DAILY #90 tabs 04/04/22 lisinopril 10 mg-hydrochlorothiazide 12.5 mg tablet 1 tab PO DAILY #90 tabs 05/04/22 apple cider vinegar 600 mg capsule 600 mg PO .COMPLEX 06/16/22 ascorbic acid (vitamin C) 500 mg tablet 500 mg PO BID supplement 09/14/22 vitamin B complex (B Complex-Vitamin B12 tablet) 1 tab PO DAILY supplement 09/14/22 dexamethasone 4 mg tablet 6 mg (1.5 x 4 mg) PO DAILY 8 days #12 tabs 09/15/22 Hospital Course Summary of Care Provided Minutes Spent on Discharge: 31 Hospital Course: 87-year-old female history of hypertension and sick sinus syndrome status post pacemaker presented to [facility] 09/14/2022 with increasing fatigue and shortness of breath for 3 days, she is found to be COVID-positive and was admitted due to her weakness and fatigue and started on dexamethasone. Was also on a stoma barrier due to a rapid flu being positive however follow-up swab was negative but COVID PCR was indeed positive. She felt much better after being started on the steroids and felt stronger and ready to go home. She was not hypoxic but given her significant improvement with the dexamethasone will complete course. On day of discharge patient feels ready for home with minimal cough and no shortness of breath. Physical Exam Narrative General: Alert, oriented, no apparent distress HEENT: Atraumatic, normocephalic Eyes: Anicteric, normal conjunctiva, extraocular movements grossly intact Neck: Supple Respiratory: Clear to auscultation bilaterally, normal respiratory effort Cardiovascular: Regular rate GI: Soft, nontender, nondistended Extremities: No edema Musculoskeletal: Moving all extremities Neuro: No overt focal neurological deficits Skin: No rashes appreciated Psych: Cooperative Weight / BMI Weight Weight: 61.2 kg Body Mass Index (BMI) 29.2 ABG / Lab / Microbiology Data 09/15/22 06:15 09/14/22 14:17 Laboratory: Laboratory Results - last 24 hr 09/14/22 14:17: WBC 4.6, RBC 3.80 L, Hgb 11.4 L, Hct 34.6 L, MCV 91.1, MCH 30.0, MCHC 32.9, RDW Std Deviation 47.1 H, RDW Coeff of Josette 14.0, Plt Count 193, MPV 8.8, Immature Gran % (Auto) 0.200, Neut % (Auto) 65.3, Lymph % (Auto) 16.6 L, [place] % (Auto) 17.9 H, Eos % (Auto) 0.0, Baso % (Auto) 0.0, Absolute Neuts (auto) 3.0, Absolute Lymphs (auto) 0.77 L, Nucleated RBC % 0, Sodium 134 L, Potassium 3.3 L, Chloride 102, Carbon Dioxide 25.0, Anion Gap 7, BUN 23 H, Creatinine 1.13 H, Estim Creat Clear Calc 33.78, Est GFR (MDRD) Af Amer 59 L, Est GFR (MDRD) Non-Af 49 L, BUN/Creatinine Ratio 20.4 H, Glucose 154 H, Calcium 8.1 L, Total Bilirubin 0.30, Direct Bilirubin 0.10, AST 31, ALT 24, Alkaline Phosphatase 77, Troponin I High Sens 100 H, Total Protein 7.4, Albumin 3.1 L, Globulin 4.3 H 09/14/22 15:15: Urine Color Yellow, Urine Clarity Clear, Urine pH 5.0, Ur Specific [place] 1.020, Urine Protein 30 H, Urine Glucose (UA) Normal, Urine Ketones Negative, Urine Occult Blood 25 H, Urine Nitrite Negative, Urine Bilirubin Negative, Urine Urobilinogen Normal, Ur Leukocyte Esterase 500 H, Urine RBC 0 SEEN, Urine WBC 10-25 SEEN, Ur Squamous Epith Cells 5-10 SEEN, Urine Bacteria 2+, Urine Mucus 0 SEEN 09/14/22 16:25: Phosphorus 2.8, Magnesium 1.9, Troponin I High Sens 125 H* 09/14/22 18:57: Fibrinogen 511 H, D-Dimer Quant (PE/DVT) > 20.00 H*, Lactic Acid 0.9, Lactate Dehydrogenase 209, Total Creatine Kinase 118, Troponin I High Sens 135 H*, C-React Prot Ext Range 18.90 H, B-Natriuretic Peptide 499.8 H, Procalcitonin 0.25 H 09/15/22 06:15: WBC 2.7 L, RBC 3.93 L, Hgb 11.5 L, Hct 36.3 L, MCV 92.4, MCH 29.3, MCHC 31.7 L, RDW Std Deviation 46.6 H, RDW Coeff of Josette 13.6, Plt Count 180, MPV 8.9, Immature Gran % (Auto) 0.400, Neut % (Auto) 73.7 H, Lymph % (Auto) 21.8, [place] % (Auto) 4.1, Eos % (Auto) 0.0, Baso % (Auto) 0.0, Absolute Neuts (auto) 2.0, Absolute Lymphs (auto) 0.58 L, Nucleated RBC % 0, Differential Comment SCANNED, Diff Path Review June foll, Hemoglobin A1c 5.6, TSH 0.03 L, Free T4 0.77 Microbiology: Microbiology 09/14/22 17:45 Mucosa - Nasopharyngeal Respiratory Panel (PCR) - Final 09/14/22 15:15 Urine, Clean Catch Urine Culture - Final Mixed Gram Positive Organisms 09/14/22 23:45 Urine, Random Legionella Antigen - Final 09/14/22 23:45 Urine, Random Streptococcus pneumoniae Antigen (M - Final 09/14/22 17:45 Mucosa - Nasopharyngeal Coronavirus COVID-19 PCR - Final SARS-CoV-2 (COVID 19 PCR) 09/14/22 14:17 Nasal Secretion SARS-CoV-2 & FLU Antigen (Rapid) - Final SARS-CoV-2 (COVID 19) Influenzae B Radiography Diagnostic Testing: Radiology Impression Chest X-Ray 09/14/22 14:00 IMPRESSION: 1. COPD related changes with prominent interstitial markings with superimposed right lower lobe infiltrate not excluded. Overall similar appearance compared to prior exam. Electronically Signed: Royal Santiago DO at 14:40 EDT , Chest CTA 09/14/22 20:18 IMPRESSION: No evidence of acute pulmonary emboli to the segmental level. Cardiomegaly with trace left pleural effusion. Incompletely healed fracture deformities of the sternum. Electronically Signed: Phillip Zhang MD at 22:33 EDT , D/C Instructions Discharge Diet: No restrictions Meaningful Use Info Meaningful Use Diagnoses (Choose all that apply): None applicable Discharge Plan Admission Admit Date/Time: 09/14/22 17:26 Primary Reason for Your Visit: Weakness, covid 19 Attending Provider: Reshma Dodd Primary Care Provider: Zuleyka Delatorre Consulting Providers: Juan Porras Instructions Patient Instructions: Infection Preventing Spread Additional Instructions / Restrictions: DISCHARGE INSTRUCTIONS PLEASE READ *Please take this with you to your next doctors appointment* -You will be discharged on an additional 8 days of dexamethasone -It is advised that you completely isolate for 5 days from her positive test on 09/14 and wear a mask after that for 5 additional days to decrease risk of transmission -Continue other home medications -Please call your primary care provider's office upon discharge to schedule a hospital follow up within 1 week. -For any concerning signs or symptoms please call 911 or proceed to the nearest emergency department Discharge Orders/Prescriptions Prescriptions: New dexamethasone 4 mg Tablet 6 mg PO DAILY 8 Days Qty: 12 0RF Rx Instructions: Start 09/16 Continued calcium citrate 250 mg calcium tablet 250 mg PO DAILY apple cider vinegar 600 mg capsule 600 mg PO .COMPLEX Rx Instructions: 600 mg orally 3x a day; cataplex F See Rx Instructions PO .COMPLEX Rx Instructions: 1 tablet daily orally cataplex E2 See Rx Instructions PO .COMPLEX Rx Instructions: 1 tablet orally daily cataplex B See Rx Instructions PO DAILY Rx Instructions: 1 tablet orally daily; CardioVid PLUS [phone] [id number] capsule 1 cap PO DAILY ferrous sulfate [FeroSul] 325 mg (65 mg iron) tablet 325 mg PO BID ascorbic acid (vitamin C) 500 mg tablet 500 mg PO BID vitamin B complex [B Complex-Vitamin B12] Tablet 1 tab PO DAILY metoprolol succinate 50 mg tablet extended release 24 hr 50 mg PO DAILY Qty: 90 3RF lisinopril-hydrochlorothiazide 10-12.5 mg tablet 1 tab PO DAILY Qty: 90 3RF Referrals / Follow Up: Zuleyka Delatorre MD [Primary Care Provider] - Within 1 Week Disposition Disposition (needs filled in before D/C Order can be placed): Home, Self Care Charges/Coding Visit Charges Inpatient E&M: 22251 Disch Hosp >30min
--- NOTE | 2022-09-15 14:52 | PHA.DC_ITS ---
Pharmacy [facility] has performed discharge medication reconciliation and counseling for this patient. Patient counseled via telephone due to COVID precautions. Patient requested meds to beds delivery. This h spoke to retail to requested delivery to floor/nurse because patient is in COVID precautions. Nurse also notified to expect delivery. 1. DEXAMETHASONE 6MG PO X 8 DAYS The patient's discharge medication list was reviewed for discrepancies and discrepancies were resolved. The patient was counseled on the following discharge medications and changes in medications for homegoing were reviewed. The Reason for Use, instructions for use, and potential side effects were reviewed for all new medications. The patient's questions regarding all of their medications were answered. The patient was able to verbally demonstrate an understanding of their discharge medications. Medications at Discharge Home Medications calcium citrate 250 mg PO DAILY supplement 06/03/18 cataplex B See Rx Instructions PO DAILY supplement 11/29/19 cataplex E2 See Rx Instructions PO .COMPLEX supplement 11/29/19 cataplex F See Rx Instructions PO .COMPLEX supplement 11/29/19 omega [id number] oil 600 mg-20 mg-500 mcg-800 mcg capsule (CardioVid PLUS) 1 cap PO DAILY supplement 11/29/19 ferrous sulfate 325 mg (65 mg iron) tablet (FeroSul) 325 mg PO BID supplement 02/27/22 metoprolol succinate 50 mg tablet,extended release 24 hr 50 mg PO DAILY #90 tabs 04/04/22 lisinopril 10 mg-hydrochlorothiazide 12.5 mg tablet 1 tab PO DAILY #90 tabs 05/04/22 apple cider vinegar 600 mg capsule 600 mg PO .COMPLEX 06/16/22 ascorbic acid (vitamin C) 500 mg tablet 500 mg PO BID supplement 09/14/22 vitamin B complex (B Complex-Vitamin B12 tablet) 1 tab PO DAILY supplement 09/14/22 dexamethasone 4 mg tablet 6 mg (1.5 x 4 mg) PO DAILY 8 days #12 tabs 09/15/22
--- NOTE | 2022-09-15 15:17 | CASEMGMT ---
EMELIA CALVO in to patient's room to discuss needs at discharge. EMELIA CALVO reviewed progress with therapy 50 ft SBA. Patient states she has walker and son is able to help patient. EMELIA CALVO discussed HHC with patient, patient declined HHC at this time. Patient had no further questions or concerns at this time.
[2022-09-16 15:39] LABS: Pathologist Review Reviewed
== END 2022-09-15 18:01 | disposition home or self-care (01) ==
LOC: ED 14:24 → PCU 17:48
PROVIDERS: Admitting Provider Internal Medicine; Emergency Provider Emergency Medicine; PCP Internal Medicine; Visit Provider Internal Medicine
DX: U07.1 COVID-19 (principal); I13.0 Hypertensive heart and chronic kidney disease with heart failure and stage 1 through stage 4 chronic kidney disease, or unspecified chronic kidney disease; I50.22 Chronic systolic (congestive) heart failure; I27.21 Secondary pulmonary arterial hypertension; I48.0 Paroxysmal atrial fibrillation; N18.32 Chronic kidney disease, stage 3b; I25.10 Atherosclerotic heart disease of native coronary artery without angina pectoris; Z95.810 Presence of automatic (implantable) cardiac defibrillator; I49.3 Ventricular premature depolarization; E78.5 Hyperlipidemia, unspecified; Z86.718 Personal history of other venous thrombosis and embolism; Z79.899 Other long term (current) drug therapy; R73.9 Hyperglycemia, unspecified
CPT/HCPCS: 36415; 71046; 71275; 80048; 80076; 81001; 82550; 83036; 83605; 83615; 83735; 83880; 84100; 84145; 84439; 84443; 84484; 85025; 85379; 85384; 86140; 87086; 87088; 87428; 87449; 87633; 87635; 93005; 94668; 96360; 96361; 96372; 97162; 97166; 99221; 99285; J7040; Q9967; A4216; G0378

== ENCOUNTER → 2022-09-29 | Outpatient (CLI) | payer MEDICARE, SELFPAY ==
[2022-09-29 15:00] LABS: Anion Gap 6 (5-15); BUN 30 mg/dL (7-18); BUN/Creat Ratio 29.1 RATIO (10-20); Calcium,Total 9.1 mg/dL (8.5-10.1); Chloride 100 mmol/L (98-107); Creatinine, Serum 1.03 mg/dL (0.55-1.02); EST Glomerular Filtration Rate 54 mL/min (>60); Est Glom Filt Rate - Afr Amer 65 mL/min (>60); Glucose 93 mg/dL (74-106); Magnesium 2.4 mg/dL (1.6-2.6); Potassium 3.8 mmol/L (3.5-5.1); Sodium Level 134 mmol/L (136-145)
== END | disposition home or self-care (01) ==
LOC: LAB 13:46
PROVIDERS: PCP Internal Medicine; Referring Provider Internal Medicine; Visit Provider Internal Medicine
DX: E87.6 Hypokalemia (principal); I10 Essential (primary) hypertension
CPT/HCPCS: 36415; 80048; 83735

== ENCOUNTER → 2022-10-16 | Outpatient (CLI) | payer MEDICARE, SELFPAY ==
--- NOTE | 2022-10-16 13:00 | VDLE_ITS ---
Reason For Study: BLE Swelling RIGHT LEFT GSV is normal. GSV is normal. CFV is compressible, spontaneous, competent CFV is compressible, spontaneous, competent, and demonstrates pulsatile venous flow. and demonstrates pulsatile venous flow. FV is compressible, spontaneous, competent FV is compressible, spontaneous, competent and demonstrates pulsatile venous flow. and demonstrates pulsatile venous flow. POP V is compressible, spontaneous, competent POP V is compressible, spontaneous, competent and demonstrates pulsatile venous flow. and demonstrates pulsatile venous flow. T/P Trunk is compressible. T/P Trunk is compressible. PTV is compressible. PTV is compressible. RT PerV is compressible. LT PerV is compressible. Pitting edema noted throughout calf. A non vascularized anechoic area measuring Procedure approximately 3.42cm x 1.23cm is noted in the This is a venous duplex using B-mode, color popliteal fossa. flow and spectral Doppler. Pitting edema noted throughout calf. Exam performed in department. The exam was diagnostic. A preliminary report was called and/or faxed to [facility]. VL/Venous Duplex US - Ubaldo Extrem Interpretation Summary Deep veins of the bilateral lower extremities are patent and compressible segme ntally. There is no evidence of bilateral lower extremity deep vein thrombosis. The bilateral great saphenous veins appear patent and compressible segmentally. Ordering Physician: Kristie Stewart Referring Physician: Zuleyka Delatorre M.D. Performed By: Aleksandr Brenner, RVT
== END | disposition home or self-care (01) ==
LOC: CVS 13:00
PROVIDERS: PCP Internal Medicine; Referring Provider Internal Medicine Cardiovascular Disease; Visit Provider Internal Medicine Cardiovascular Disease
DX: I21.4 Non-ST elevation (NSTEMI) myocardial infarction (principal); R60.0 Localized edema; L81.9 Disorder of pigmentation, unspecified
CPT/HCPCS: 93970

== ENCOUNTER 2022-11-14 09:53 | Outpatient (RCR) | payer MEDICARE, SELFPAY ==
[2022-11-14 10:51] VITALS: BP 152/65; PULSE 66; RESP 18; TEMP 35.8
--- NOTE | 2022-11-14 13:14 | HP.PCM_ITS ---
History of Present Illness Date of Service: 11/14/22 Chief Complaint: nonhealing ulcer to right pichardo, edema bilaterally History of Wound: Kenia is a sweet 87 yo woman that presents to the wound center today for evaluation and treatment of a nonhealing ulcer of her right lower leg/pichardo that has been present for several weeks. She has had increased edema to her lower legs bilaterally for the last 3 months and about 2 weeks ago her granddaughter noticed an area that was open and draining on her right leg and took her to urgent care at the [facility]. She was diagnosed with cellulitis and was treated with Keflex 500 mg TID x 10 days. She was also referred here for an ulcer and a callous of her right plantar foot. They have been dressing the area on her right pichardo with black salve. She has had improvement in her edema but it is still present. She did have a venous duplex a month ago to evaluate for DVTs which was negative. She has never had trouble healing wounds in the past and had not been having edema until several months ago. She does not wear compression stockings and does not typically elevate her feet often. She does eat well and has significant amount of protein in her diet. They do have a new puppy in the house which could have caused a scratch or open area to begin. She lives with her son and his family. She is still very active and does some cleaning and some cooking and outside work. She denies fever, chills, erythema or odor. [facility] Medical History Anemia Arthritis Atherosclerosis of coronary artery of [place] heart without angina pectoris Breathlessness Chronic systolic (congestive) heart failure COVID Deep vein thrombosis Elevated troponin Essential (primary) hypertension Hearing loss Hyperlipidemia Hypertension Iron deficiency Near syncope Non-rheumatic tricuspid valve insufficiency NSTEMI (non-ST elevated myocardial infarction) (11/17/17) Paroxysmal atrial fibrillation Seborrheic keratoses, inflamed Secondary pulmonary arterial hypertension Sick sinus syndrome Skin lesion Ventricular fibrillation (03/2012) Home Medications calcium citrate 250 mg PO DAILY supplement 06/03/18 [History Last Taken 09/13/22] cataplex B See Rx Instructions PO DAILY supplement 11/29/19 [History Last Taken Unknown] cataplex E2 See Rx Instructions PO .COMPLEX supplement 11/29/19 [History Last Taken Unknown] cataplex F See Rx Instructions PO .COMPLEX supplement 11/29/19 [History Last Taken Unknown] omega [id number] oil 600 mg-20 mg-500 mcg-800 mcg capsule (CardioVid PLUS) 1 cap PO DAILY supplement 11/29/19 [History Last Taken Unknown] ferrous sulfate 325 mg (65 mg iron) tablet (FeroSul) 325 mg PO BID supplement 02/27/22 [History Last Taken Unknown] apple cider vinegar 600 mg capsule 600 mg PO .COMPLEX 06/16/22 [History Last Taken 09/11/22] ascorbic acid (vitamin C) 500 mg tablet 500 mg PO BID supplement 09/14/22 [History Last Taken Unknown] vitamin B complex (B Complex-Vitamin B12 tablet) 1 tab PO DAILY supplement 09/14/22 [History Last Taken Unknown] dexamethasone 4 mg tablet 6 mg (1.5 x 4 mg) PO DAILY 8 days #12 tabs 09/15/22 [Rx Last Taken Unknown] furosemide 20 mg tablet (Lasix) 20 mg PO DAILY #30 tabs 10/16/22 [Rx Last Taken Unknown] lisinopril 10 mg tablet 10 mg PO DAILY #30 tabs 10/16/22 [Rx Last Taken Unknown] metoprolol succinate 100 mg tablet,extended release 24 hr 100 mg PO DAILY #30 tabs 10/16/22 [Rx Last Taken Unknown] potassium chloride 10 mEq tablet,extended release 10 meq PO DAILY #30 tabs 10/16/22 [Rx Last Taken Unknown] cephalexin 500 mg capsule 500 mg PO TID 10 days #30 caps 11/07/22 [Rx Last Taken Unknown] Allergy/AdvReac Type Severity Reaction Status Date / Time Jyzlyge-SPD-XaH Reductase AdvReac Mild muscle Verified 10/16/22 11:12 Inhibitor aches [Dteaael-Bgd-Kae Reductase Inhibitor] Family History Other Depression Diabetes Suicide attempt Surgical History History of coronary artery stent placement (11/17/17) History of implantable cardiac defibrillator (ICD) (04/09/17) Status post excision of skin lesion, follow-up exam Social History Smoking Status: Never smoker alcohol intake: never substance use type: does not use caffeine: Yes Type: coffee Number of servings: 2 ROS Constitutional Constitutional: Denies chills, fatigue or fever(s) Eyes Eyes: Denies blurry vision, change in vision or loss of vision ENT HEENT: Denies dysphagia, hearing loss or sore throat Cardiovascular Cardiovascular: Reports edema and leg edema; Denies chest pain or palpitations Respiratory/Chest Respiratory/Chest: Denies dry cough, dyspnea, dyspnea on exertion, productive cough or wheezing Gastrointestinal Gastrointestinal: Denies diarrhea, nausea or vomiting Genitourinary Genitourinary: Denies dysuria or polyuria Musculoskeletal Musculoskeletal: Denies arthralgias, joint stiffness or muscle weakness Integumentary Integumentary: Reports erythema and wounds Neurologic Neurologic: Denies dizziness, memory loss or weakness Psychiatric Psychiatric: Denies homicidal ideation or suicidal ideation Endocrine Endocrinology: Denies polydipsia, polyphagia or polyuria Hematologic/Lymphatic Hematologic/Lymphatic: Denies easy bleeding or easy bruising Allergic/Immunologic Allergic/Immunologic: Denies throat swelling, tongue swelling or urticaria Vital Signs Vital Signs Vital Signs: 11/14/22 10:51 Temperature 96.4 F L Temperature Source Temporal Pulse Rate 66 Respiratory Rate 18 Blood Pressure 152/65 H Blood Pressure Mean 94 Blood Pressure Source Monitor Blood Pressure Position Semi-Fowlers Blood Pressure Location Left Arm Physical Exam Const alert, oriented x3 and no apparent distress General Appearance: cooperative and comfortable HEENT normocephalic and head/scalp atraumatic Resp normal respiratory effort Effort and Inspection: able to speak in complete sentences Cardio regular rate and regular rhythm GI normal to inspection, nondistended, normoactive bowel sounds and soft to palpation Extremity General Extremity: edema bilateral lower extremity Details: moderate Skin General Skin Exam: venous stasis and dermatitis Wounds: wounds noted Wound Narrative: as in clinical panel Psych mental status grossly normal, thought process normal, cooperative and affect normal Debridement Note Debridement Note Wound debrided: right pichardo Laterality: Right Type of Debridement: Excisional debridement Anesthesia Used: 4% Lidocaine Solution and 5% Lidocaine Gel Depth: Down to and including healthy tissue and in the subcutaneous layer Percentage of wound debrided: 100 Instrument Used: 3mm curette Tissue Removed: Yellow slough, devitalized tissue Severity: Fat Layer Exposed Amount of bleeding with debridement: Mild Bleeding Controlled with: Compression and gauze Patient tolerated procedure: Patient tolerated procedure well Post-Debridement Measurements and Additional Note: Post-Debridement Measurements/Treatment WC - Nurse 1 - General Ulcer Assessment Start: 11/14/22 10:50 Freq: Status: Active Protocol: MICHAEL Activity Type Activity Date Activity User E-sign Co-sign Detail Recorded Client Recorded Date Recorded By Document 11/14/22 10:51 RB Desktop 11/14/22 10:57 RB 11/14/22 10:51 WC - Today's Visit Information Type of service Initial Visit Arrival Mode Ambulatory Transfer Assistance None Patient Identification Verified (Name & Yes ) Patient Requires Transmission-Based No Precautions Vital Signs Temperature (97.8 F-99.1 F) 96.4 F L Temperature Source Temporal Pulse Rate (60-100) 66 Pulse Location Monitor Respiratory Rate (12-18) 18 Respiratory rate source Observation Blood Pressure (90/60-120/80) 152/65 H Blood Pressure Mean 94 Source Monitor Position Semi-Fowlers Blood Pressure Location Left Arm History Since Last Visit- (Skip if this is Patient's initial visit) Have you changed medications since your No last visit? Any new allergies or adverse reactions No Had a fall/change in ADL's that may No increase risk of falls Signs or symptoms of abuse and/or No neglect since last visit Have you been in the hospital since your No last visit? Has dressing in place as prescribed Yes Has compression in place as prescribed No Has offloadiing in place as prescribed No Experienced any changes in pain level or No management Pain Scale: 0-10 Numeric Is Patient Pain Free? Yes Neuropathy Assessment Feet - Top Side and Bottom <Entered> (a) Communication Assessment Preferred language Lithuanian Glass Etcher Helper Required No Able to Read Yes Able to Write Yes Communication Tools None Caregiver Communication Skills No Impairment Impairment Right Hearing Abillity Normal Left Hearing Abillity Normal Visual Assistive Devices Glasses Teaching Assessment Preferences Verbal,Written, Demonstration Barriers to Learning None Readiness To Learn Good Willingness to Engage in Self Management Med Activies Readiness to Engage in Self Management Med Activities Anxiety Level Calm Cooperation Cooperative Perception Coherent Interest in Health Problem Asks Questions Education Importance Acknowledges Need Does Patient Smoke tobacco or other No substances Smoking Status Never smoker Is Patient Diabetic No (a) 1 - + throughout WC - Nurse 1 - General Ulcer Measurement Start: 11/14/22 10:50 Freq: Status: Active Protocol: Activity Type Activity Date Activity User E-sign Co-sign Detail Recorded Client Recorded Date Recorded By Document 11/14/22 10:51 RB Desktop 11/14/22 10:57 RB 11/14/22 10:51 Wound Center Nurse 1 2. R plantar -Combined with other wound No -Current Size (cm) - Length 0.1 -Current Size (cm) - Width 0.1 -Current Size (cm) - Depth 0.1 -Total Square Cm 0.01 -Tunneling No -Undermining/Tunneling No -Circular Undermining No -Exudate Amt Large -Exudate Type Serosanguineous -Wound Margin Distinct, Outline Attached -Granulation Amt Medium (34-66%) -Granulation Quality [place] -Slough/Fibrin Yes -Necrosis Amt Medium (34-66%) -Necrotic Tissue Type Adherent Slough -Structure Exposed N/A -Texture (Sania-wound Skin Appearance) Assessed -Moisture (Sania-wound Skin Appearance) Assessed -Color (Sania-wound Skin Appearance) Assessed -Temperature (Sania-wound Skin No Abnormality Appearance) (Pt Warm) -Tenderness on Palpation (Sania-wound No Skin Appearance) -Ulcer Cleansing Wound Cleanser -Foul Odor after Cleansing No -Anesthetic Used 5% Lidocaine Gel 1. RLE -Combined with other wound No -Current Size (cm) - Length 0.4 -Current Size (cm) - Width 0.3 -Current Size (cm) - Depth 0.1 -Total Square Cm 0.12 -Photo Taken Yes -Tunneling No -Undermining/Tunneling No -Circular Undermining No -Exudate Amt Medium -Exudate Type Serosanguineous -Wound Margin Distinct, Outline Attached -Granulation Amt Medium (34-66%) -Granulation Quality [place] -Slough/Fibrin Yes -Necrosis Amt Medium (34-66%) -Necrotic Tissue Type Adherent Slough -Structure Exposed N/A -Texture (Sania-wound Skin Appearance) Assessed -Moisture (Sania-wound Skin Appearance) Assessed -Color (Sania-wound Skin Appearance) Assessed -Temperature (Sania-wound Skin No Abnormality Appearance) (Pt Warm) -Tenderness on Palpation (Sania-wound No Skin Appearance) -Ulcer Cleansing Wound Cleanser -Foul Odor after Cleansing No -Anesthetic Used 5% Lidocaine Gel Lower Limb Edema Present Yes Right Calf (cm) 37.5 Right Ankle (cm) 19.5 Left Calf (cm) 34 Left Ankle (cm) 21 - Nurse 2 - General Ulcer CM Notes Start: 11/14/22 10:50 Freq: Status: Active Protocol: Activity Type Activity Date Activity User E-sign Co-sign Detail Recorded Client Recorded Date Recorded By Document 11/14/22 12:45 GM [id number] 11/14/22 12:50 GM 11/14/22 12:45 Wound Center Nurse 2 2. R plantar -Time 11:08 -Correct Patient Yes -Correct Side, Site, Position Yes -Correct Procedure Yes -Procedure Performed Yes -Type of Procedure Debridement -Ulcer Cleansing Rinsed/ Irrigated with Saline -Foul Odor after Cleansing No -Bioengineered Tissue No -Bleeding Controlled with Pressure -Treatment Response Procedure Tolerated Well -Debridement - Subq, 1st 20sq cm Yes 1. RLE -Time 11:08 -Correct Patient Yes -Correct Side, Site, Position Yes -Correct Procedure Yes -Procedure Performed Yes -Type of Procedure Debridement -Clinical Debridement Subcutaneous -Tissue Removed Subcutaneous -Post Debridement (cm) - Length 0.8 -Post Debridement (cm) - Width 0.5 -Post Debridement (cm) - Depth 0.2 -Total Square (Post) (cm) 0.40 -Area of Debridement (cm) - Length 0.8 -Area of Debridement (cm) - Width 0.5 -Total Square (Area) (cm) 0.40 -Tunneling No -Undermining/Tunneling No -Wound/Ulcer Outcome Not Healed -Ulcer Cleansing Rinsed/ Irrigated with Saline -Foul Odor after Cleansing No -Bioengineered Tissue No -Bleeding Controlled with Pressure -Treatment Response Procedure Tolerated Well -Offloading No -Debridement - Subq, 1st 20sq cm Yes Pain Scale: 0-10 Numeric Is Patient Pain Free? Yes - Nurse 3 - General Ulcer D/C NN Start: 11/14/22 10:50 Freq: Status: Active Protocol: Activity Type Activity Date Activity User E-sign Co-sign Detail Recorded Client Recorded Date Recorded By Document 11/14/22 12:35 RB [id number] 11/14/22 12:39 RB 11/14/22 12:35 Wound Care Center Nurse 3 2. R plantar -Primary Dressing Covered/Secured with Dry Gauze,Dry Gauze & Roll Gauze,Secured with Tape 1. RLE -Ulcer Cleansing Wound Cleanser -Primary Dressing Applied C Hydrogel ($), Mepilex Border -Mepilex Border 2 Right -Tubular Bandage Single Layer -Size of Tubigrip Used Size D -Size D ($) 2 Left -Tubular Bandage Single Layer -Size of Tubigrip Used Size D -Size D ($) 2 Pain Scale: 0-10 Numeric Is Patient Pain Free? Yes Teaching: Wound Center Dressing Your Wound -Person Taught Patient,Family -Teaching Method Discussion, Demonstration -Response to teaching Verbalize understanding WC - Visit Discharge Discharge Condition Stable Ambulatory Status Ambulatory Transportation Private Auto Medication Reconcilliation completed & No provided to patient/care provider Clinical Summary of Care Provided Yes Additional Wound Wound debrided: right plantar Laterality: Right Type of Debridement: Selective debridement Anesthesia Used: 5% Lidocaine Gel Depth: Down to and including healthy tissue Percentage of wound debrided: 100 Instrument Used: #15 blade Tissue Removed: Devitalized tissue and callus Severity: Limited To Skin Breakdown Amount of bleeding with debridement: None Patient tolerated procedure: Patient tolerated procedure well Assessment/Plan Assessment/Plan (1) Bilateral lower extremity edema: CODE(S): R60.0 - Localized edema (2) Cellulitis of right lower extremity: CODE(S): L03.115 - Cellulitis of right lower limb (3) Hypertension: CODE(S): I10 - Essential (primary) hypertension QUALIFIERS: Hypertension type: primary hypertension Qualified Code(s): I10 - Essential (primary) hypertension (4) Non-rheumatic tricuspid valve insufficiency: CODE(S): I36.1 - Nonrheumatic tricuspid (valve) insufficiency (5) Paroxysmal atrial fibrillation: CODE(S): I48.0 - Paroxysmal atrial fibrillation (6) Chronic systolic (congestive) heart failure: CODE(S): I50.22 - Chronic systolic (congestive) heart failure (7) Hyperlipidemia: CODE(S): E78.5 - Hyperlipidemia, unspecified QUALIFIERS: Hyperlipidemia type: pure hypercholesterolemia Qualified Code(s): E78.00 - Pure hypercholesterolemia, unspecified; E78.0 - Pure hypercholesterolemia (8) History of implantable cardiac defibrillator (ICD): (9) Atherosclerosis of coronary artery of [place] heart without angina pectoris: CODE(S): I25.10 - Atherosclerotic heart disease of [place] coronary artery without angina pectoris QUALIFIERS: Coronary Disease-Associated Artery/Lesion type: [place] artery Qualified Code(s): I25.10 - Atherosclerotic heart disease of [place] coronary artery without angina pectoris (10) Callus of foot: CODE(S): L84 - Corns and callosities (11) Venous ulcer of right lower extremity without varicose veins: CODE(S): I87.2 - Venous insufficiency (chronic) (peripheral); L97.919 - Non-pressure chronic ulcer of unspecified part of right lower leg with unspecified severity (12) Venous stasis dermatitis of both lower extremities: CODE(S): I87.2 - Venous insufficiency (chronic) (peripheral) PLAN: Plan Debridement performed today in clinic as annotated above. At home wound-care instructions: Will have her dress the ulcer of her right lower leg with hydrogel and a foam dressing daily for moderate drainage. Try to offload the right plantar foot with ABD. Keep dressing clean and dry. Vascular studies ordered to evaluate for venous disease and for PAD given her h/o CAD and edema. May benefit from venous intervention if significant reflux is seen. Compression: Will have her use tubigrip compression daily upon rising and remove at bedtime. Off-loading: The patient was instructed to avoid pressure and friction on the affected areas. Reposition every 2 hours at minimum. Avoid prolonged standing and/or dangling of legs. When seated, feet should be elevated at chest level. Frequent ambulation is encouraged. Diet: Patient encouraged to increase protein intake while taking caution to avoid high carbohydrate and/or sugar intake. Labs/cultures/imaging: No sign of infecton and 3 days left of Keflex. Follow-up: Return in 1 week for wound care follow up. Return sooner or report to the emergency room should symptoms worsen, or new symptoms arise. Note: [employer] speech recognition housekeeping supervisor hotel software was used to create portions of this document. Sound-alike and misspelled words, as well as other housekeeping supervisor hotel errors may be contained in the documentation.
== END 2022-11-15 23:59 | disposition home or self-care (01) ==
LOC: WC 09:53
PROVIDERS: PCP Internal Medicine; Referring Provider Physician Assistant Surgical; Visit Provider Family Medicine
DX: L97.812 Non-pressure chronic ulcer of other part of right lower leg with fat layer exposed (principal); L97.411 Non-pressure chronic ulcer of right heel and midfoot limited to breakdown of skin; I11.0 Hypertensive heart disease with heart failure; I50.22 Chronic systolic (congestive) heart failure; I48.0 Paroxysmal atrial fibrillation; I87.2 Venous insufficiency (chronic) (peripheral); R60.0 Localized edema; L84 Corns and callosities; I25.10 Atherosclerotic heart disease of native coronary artery without angina pectoris; I36.1 Nonrheumatic tricuspid (valve) insufficiency; E78.00 Pure hypercholesterolemia, unspecified; L03.115 Cellulitis of right lower limb; I25.2 Old myocardial infarction
CPT/HCPCS: 11042; 99213; G0463

== ENCOUNTER 2022-12-05 10:30 | Outpatient (RCR) | payer MEDICARE, SELFPAY ==
[2022-11-16 00:30] VITALS: BP 152/65; PULSE 66; RESP 18; TEMP 35.8
--- NOTE | 2022-11-20 14:01 | VDLE_ITS ---
Reason For Study: edema RIGHT LEFT CFV is compressible, spontaneous, phasic, CFV is compressible, spontaneous, phasic, competent and demonstrates normal competent, and demonstrates normal augmentation. augmentation. FV is compressible, spontaneous, phasic, FV is compressible, spontaneous, phasic, competent and demonstrates normal competent and demonstrates normal augmentation. augmentation. POP V is compressible, spontaneous, phasic, POP V is compressible, spontaneous, phasic, competent and demonstrates normal competent and demonstrates normal augmentation. augmentation. T/P Trunk is compressible. T/P Trunk is compressible. PTV is compressible. PTV is compressible. RT PerV is compressible. LT PerV is compressible. SFJ is competent and measures .56 cm. Heterogeneous area behind the knee measuring GSV proximal thigh measures .49 x .45 cm. 1.24 x 2.98 cm. Area is nonvascular. GSV at knee measures .47 x .48 cm. SFJ is competent and measures .64 cm. GSV INCOMPETENT throughout for greater than GSV proximal thigh measures .35 x .36 cm. 0.5 seconds. GSV at knee measures .19 x .19 cm. SSV proximal calf is INCOMPETENT for greater GSV INCOMPETENT throughout for greater than than 0.5 seconds and measures .25 x .29 cm. 0.5 seconds. Procedure SSV proximal calf is INCOMPETENT for greater This is a venous duplex using B-mode, color than 0.5 seconds and measures .33 x 33 cm. flow and spectral Doppler. Exam performed in department. The exam was diagnostic. VL/Venous Duplex US - Ubaldo Extrem Interpretation Summary Deep veins of the lower extremities are bilaterally patent and compressible seg mentally. There is no evidence of deep vein thrombosis on either side. Valvular competence appears in tact within the proximal deep venous systems bilaterally. The great saphenous veins appear bila terally patent and compressible segmentally. Sapheno-femoral junctions are bilaterally competent . Segmental valvular incompetence is noted within the great saphenous veins bilaterally. Small saphe nous veins are patent and incompetent bilaterally. A non-vascular, heterogeneous structure is noted i n the left popliteal space, measuring 1.24 cm x 2.98 cm. This probably represents a popliteal cyst. Clinical correlation is advised. Ordering Physician: Kimber Braun Referring Physician: Blayne Crain Performed By: Urbano Rosa RVT
[2022-11-21 09:26] VITALS: BP 159/66; PULSE 82; RESP 18; TEMP 36.1
--- NOTE | 2022-11-21 14:22 | PCM.WC.PN ---
History of Present Illness Date of Service: 11/21/22 Chief Complaint: nonhealing ulcer to right pichardo, edema bilaterally History of Wound: Kenia is a sweet 87 yo woman that presents to the wound center today for evaluation and treatment of a nonhealing ulcer of her right lower leg/pichardo that has been present for several weeks. She has had increased edema to her lower legs bilaterally for the last 3 months and about 2 weeks ago her granddaughter noticed an area that was open and draining on her right leg and took her to urgent care at the [facility]. She was diagnosed with cellulitis and was treated with Keflex 500 mg TID x 10 days. She was also referred here for an ulcer and a callous of her right plantar foot. They have been dressing the area on her right picahrdo with black salve. She has had improvement in her edema but it is still present. She did have a venous duplex a month ago to evaluate for DVTs which was negative. She has never had trouble healing wounds in the past and had not been having edema until several months ago. She does not wear compression stockings and does not typically elevate her feet often. She does eat well and has significant amount of protein in her diet. They do have a new puppy in the house which could have caused a scratch or open area to begin. She lives with her son and his family. She is still very active and does some cleaning and some cooking and outside work. She denies fever, chills, erythema or odor. Subjective Subjective Kenia returns today for follow up of a nonhealing ulcer of her right lateral lower leg. She tolerated the compression and the dressings to her right lower leg ulcer. She has light drainage from the ulcer. She denies erythema, pain or increase in drainage. Objective Data Objective Data Vital Signs: Vital Signs Temp Pulse Resp BP 96.9 F L 82 18 159/66 H 11/21/22 09:26 11/21/22 09:26 11/21/22 09:26 11/21/22 09:26 Radiography Diagnostic Testing: Radiology Impression Venous Doppler Study 11/20/22 14:01 Interpretation Summary Deep veins of the lower extremities are bilaterally patent and compressible segmentally. There is no evidence of deep vein thrombosis on either side. Valvular competence appears intact within the proximal deep venous systems bilaterally. The great saphenous veins appear bilaterally patent and compressible segmentally. Sapheno-femoral junctions are bilaterally competent . Segmental valvular incompetence is noted within the great saphenous veins bilaterally. Small saphenous veins are patent and incompetent bilaterally. A non-vascular, heterogeneous structure is noted in the left popliteal space, measuring 1.24 cm x 2.98 cm. This probably represents a popliteal cyst. Clinical correlation is advised. Ordering Physician: Kimber Braun Referring Physician: Blayne Crain Performed By: Urbano Rosa RVT Physical Exam Const alert, oriented x3 and no apparent distress General Appearance: cooperative and comfortable HEENT normocephalic and head/scalp atraumatic Resp normal respiratory effort Effort and Inspection: able to speak in complete sentences Cardio regular rate and regular rhythm GI normal to inspection, nondistended, normoactive bowel sounds and soft to palpation Extremity General Extremity: edema bilateral lower extremity Details: moderate Skin General Skin Exam: venous stasis and dermatitis Wounds: wounds noted Wound Narrative: as in clinical panel Psych mental status grossly normal, thought process normal, cooperative and affect normal Debridement Note Debridement Note Wound debrided: right pichardo Laterality: Right Type of Debridement: Excisional debridement Anesthesia Used: 4% Lidocaine Solution and 5% Lidocaine Gel Depth: Down to and including healthy tissue and in the subcutaneous layer Percentage of wound debrided: 100 Instrument Used: 3mm curette Tissue Removed: Yellow slough, devitalized tissue Severity: Fat Layer Exposed Amount of bleeding with debridement: Mild Bleeding Controlled with: Compression and gauze Patient tolerated procedure: Patient tolerated procedure well Post-Debridement Measurements and Additional Note: Post-Debridement Measurements/Treatment WC - Nurse 1 - General Ulcer Assessment Start: 11/21/22 09:26 Freq: Status: Active Protocol: MICHAEL Activity Type Activity Date Activity User E-sign Co-sign Detail Recorded Client Recorded Date Recorded By Document 11/21/22 09:26 RB Desktop 11/21/22 09:30 RB 11/21/22 09:26 - Today's Visit Information Type of service 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 Any new allergies or adverse reactions No Had a fall/change in ADL's that may No increase risk of falls Signs or symptoms of abuse and/or No neglect since last visit Have you been in the hospital since your No last visit? Has dressing in place as prescribed Yes Has compression in place as prescribed No Has offloadiing in place as prescribed No Experienced any changes in pain level or No management Pain Scale: 0-10 Numeric Is Patient Pain Free? Yes - Nurse 1 - General Ulcer Measurement Start: 11/21/22 09:26 Freq: Status: Active Protocol: Activity Type Activity Date Activity User E-sign Co-sign Detail Recorded Client Recorded Date Recorded By Document 11/21/22 09:26 Desktop 11/21/22 09:30 11/21/22 09:26 Wound Center Nurse 1 2. R plantar -Combined with other wound No -Current Size (cm) - Length 0.1 -Current Size (cm) - Width 0.1 -Current Size (cm) - Depth 0.1 -Total Square Cm 0.01 -Tunneling No -Undermining/Tunneling No -Circular Undermining No -Exudate Amt Medium -Exudate Type Serosanguineous -Wound Margin Distinct, Outline Attached -Granulation Amt Medium (34-66%) -Granulation Quality Cent[place] -Slough/Fibrin Yes -Necrosis Amt Medium (34-66%) -Necrotic Tissue Type Adherent Slough -Structure Exposed N/A -Texture (Sania-wound Skin Appearance) Assessed -Moisture (Sania-wound Skin Appearance) Assessed -Color (Sania-wound Skin Appearance) Assessed -Temperature (Sania-wound Skin No Abnormality Appearance) (Pt Warm) -Tenderness on Palpation (Sania-wound No Skin Appearance) -Ulcer Cleansing Wound Cleanser -Foul Odor after Cleansing No -Anesthetic Used 5% Lidocaine Gel 1. RLE -Combined with other wound No -Current Size (cm) - Length 0.7 -Current Size (cm) - Width 0.5 -Current Size (cm) - Depth 0.1 -Total Square Cm 0.35 -Tunneling No -Undermining/Tunneling No -Circular Undermining No -Exudate Amt Medium -Exudate Type Serosanguineous -Wound Margin Distinct, Outline Attached -Granulation Amt Medium (34-66%) -Granulation Quality [place] -Slough/Fibrin Yes -Necrosis Amt Medium (34-66%) -Necrotic Tissue Type Adherent Slough -Structure Exposed N/A -Texture (Sania-wound Skin Appearance) Assessed -Moisture (Sania-wound Skin Appearance) Assessed -Color (Sania-wound Skin Appearance) Assessed -Temperature (Sania-wound Skin No Abnormality Appearance) (Pt Warm) -Tenderness on Palpation (Sania-wound No Skin Appearance) -Ulcer Cleansing Wound Cleanser -Foul Odor after Cleansing No -Anesthetic Used 5% Lidocaine Gel Lower Limb Edema Present Yes Right Calf (cm) 33.5 Right Ankle (cm) 21.2 Left Calf (cm) 35.5 Left Ankle (cm) 19 WC - Nurse 2 - General Ulcer CM Notes Start: 11/21/22 09:26 Freq: Status: Active Protocol: Activity Type Activity Date Activity User E-sign Co-sign Detail Recorded Client Recorded Date Recorded By Document 11/21/22 09:36 Desktop 11/21/22 09:46 GM 11/21/22 09:36 Wound Center Nurse 2 2. R plantar -Time 09:36 -Correct Patient Yes -Correct Side, Site, Position Yes -Correct Procedure Yes 1. RLE -Time 09:36 -Correct Patient Yes -Correct Side, Site, Position Yes -Correct Procedure Yes -Procedure Performed Yes -Type of Procedure Debridement -Clinical Debridement Subcutaneous -Tissue Removed Subcutaneous -Post Debridement (cm) - Length 0.9 -Post Debridement (cm) - Width 0.5 -Post Debridement (cm) - Depth 0.1 -Total Square (Post) (cm) 0.45 -Area of Debridement (cm) - Length 0.9 -Area of Debridement (cm) - Width 0.5 -Total Square (Area) (cm) 0.45 -Tunneling No -Undermining/Tunneling No -Circular Undermining No -Wound/Ulcer Outcome Not Healed -Ulcer Cleansing Rinsed/ Irrigated with Saline -Foul Odor after Cleansing No -Bioengineered Tissue No -Bleeding Controlled with Pressure -Treatment Response Procedure Tolerated Well -Debridement - Subq, 1st 20sq cm Yes Pain Scale: 0-10 Numeric Is Patient Pain Free? Yes - Nurse 3 - General Ulcer D/C NN Start: 11/21/22 09:26 Freq: Status: Active Protocol: Activity Type Activity Date Activity User E-sign Co-sign Detail Recorded Client Recorded Date Recorded By Document 11/21/22 10:01 RB Desktop 11/21/22 10:02 RB 11/21/22 10:01 Wound Care Center Nurse 3 1. RLE -Primary Dressing Applied Mepilex Border -Other Dressing hydrogel -Mepilex Border 2 Right -Other pt own single layer tubigrip Left -Other pt own single layer tubigrip Treatment Response Procedure Tolerated Well Pain Scale: 0-10 Numeric Is Patient Pain Free? Yes WC - Visit Discharge Discharge Condition Stable Ambulatory Status Ambulatory Transportation Private Auto Medication Reconcilliation completed & No provided to patient/care provider Clinical Summary of Care Provided Yes Assessment/Plan Assessment/Plan (1) Bilateral lower extremity edema: CODE(S): R60.0 - Localized edema (2) Cellulitis of right lower extremity: CODE(S): L03.115 - Cellulitis of right lower limb (3) Hypertension: CODE(S): I10 - Essential (primary) hypertension QUALIFIERS: Hypertension type: primary hypertension Qualified Code(s): I10 - Essential (primary) hypertension (4) Non-rheumatic tricuspid valve insufficiency: CODE(S): I36.1 - Nonrheumatic tricuspid (valve) insufficiency (5) Paroxysmal atrial fibrillation: CODE(S): I48.0 - Paroxysmal atrial fibrillation (6) Chronic systolic (congestive) heart failure: CODE(S): I50.22 - Chronic systolic (congestive) heart failure (7) Hyperlipidemia: CODE(S): E78.5 - Hyperlipidemia, unspecified QUALIFIERS: Hyperlipidemia type: pure hypercholesterolemia Qualified Code(s): E78.00 - Pure hypercholesterolemia, unspecified; E78.0 - Pure hypercholesterolemia (8) History of implantable cardiac defibrillator (ICD): (9) Atherosclerosis of coronary artery of [place] heart without angina pectoris: CODE(S): I25.10 - Atherosclerotic heart disease of [place] coronary artery without angina pectoris QUALIFIERS: Coronary Disease-Associated Artery/Lesion type: [place] artery Qualified Code(s): I25.10 - Atherosclerotic heart disease of [place] coronary artery without angina pectoris (10) Callus of foot: CODE(S): L84 - Corns and callosities (11) Venous ulcer of right lower extremity without varicose veins: CODE(S): I87.2 - Venous insufficiency (chronic) (peripheral); L97.919 - Non-pressure chronic ulcer of unspecified part of right lower leg with unspecified severity (12) Venous stasis dermatitis of both lower extremities: CODE(S): I87.2 - Venous insufficiency (chronic) (peripheral) PLAN: Plan Debridement performed today in clinic as annotated above. At home wound-care instructions: Will have her dress the ulcer of her right lower leg with hydrogel, cover with adaptic and a foam dressing daily for light drainage. Try to offload the right plantar foot with ABD. Keep dressing clean and dry. Vascular studies ordered to evaluate for venous disease and for PAD given her h/o CAD and edema. May benefit from venous intervention if significant reflux is seen. Compression: Will have her use tubigrip compression daily upon rising and remove at bedtime. Off-loading: The patient was instructed to avoid pressure and friction on the affected areas. Reposition every 2 hours at minimum. Avoid prolonged standing and/or dangling of legs. When seated, feet should be elevated at chest level. Frequent ambulation is encouraged. Diet: Patient encouraged to increase protein intake while taking caution to avoid high carbohydrate and/or sugar intake. Labs/cultures/imaging: No sign of infection. Follow-up: Return in 2 weeks for wound care follow up. Return sooner or report to the emergency room should symptoms worsen, or new symptoms arise. Note: [employer] speech recognition senior grant writer software was used to create portions of this document. Sound-alike and misspelled words, as well as other senior grant writer errors may be contained in the documentation.
[2022-12-05 10:58] VITALS: BP 155/77; PULSE 81; RESP 18; TEMP 35.9
--- NOTE | 2022-12-05 15:24 | PN.PCM_ITS ---
History of Present Illness Date of Service: 12/05/22 Chief Complaint: nonhealing ulcer to right pichardo, edema bilaterally History of Wound: Kenia is a sweet 87 yo woman that presents to the wound center today for evaluation and treatment of a nonhealing ulcer of her right lower leg/pichardo that has been present for several weeks. She has had increased edema to her lower legs bilaterally for the last 3 months and about 2 weeks ago her granddaughter noticed an area that was open and draining on her right leg and took her to urgent care at the [facility]. She was diagnosed with cellulitis and was treated with Keflex 500 mg TID x 10 days. She was also referred here for an ulcer and a callous of her right plantar foot. They have been dressing the area on her right pichardo with black salve. She has had improvement in her edema but it is still present. She did have a venous duplex a month ago to evaluate for DVTs which was negative. She has never had trouble healing wounds in the past and had not been having edema until several months ago. She does not wear compression stockings and does not typically elevate her feet often. She does eat well and has significant amount of protein in her diet. They do have a new puppy in the house which could have caused a scratch or open area to begin. She lives with her son and his family. She is still very active and does some cleaning and some cooking and outside work. She denies fever, chills, erythema or odor. Subjective Subjective Kenia returns today for follow up of a nonhealing ulcer of her right lateral lower leg. She tolerated the compression and the dressings to her right lower leg ulcer. She has light drainage from the ulcer. It has minimally improved in size. Her edema is controlled. She denies erythema, pain or increase in drainage. Objective Data Objective Data Vital Signs: Vital Signs Temp Pulse Resp BP 96.6 F L 81 18 155/77 H 12/05/22 10:58 12/05/22 10:58 12/05/22 10:58 12/05/22 10:58 Physical Exam Const alert, oriented x3 and no apparent distress General Appearance: cooperative and comfortable HEENT normocephalic and head/scalp atraumatic Resp normal respiratory effort Effort and Inspection: able to speak in complete sentences Cardio regular rate and regular rhythm GI normal to inspection, nondistended, normoactive bowel sounds and soft to palpation Extremity General Extremity: edema bilateral lower extremity Details: moderate Skin General Skin Exam: venous stasis and dermatitis Wounds: wounds noted Wound Narrative: as in clinical panel Psych mental status grossly normal, thought process normal, cooperative and affect normal Debridement Note Debridement Note Wound debrided: right pichardo Laterality: Right Type of Debridement: Excisional debridement Anesthesia Used: 4% Lidocaine Solution and 5% Lidocaine Gel Depth: Down to and including healthy tissue and in the subcutaneous layer Percentage of wound debrided: 100 Instrument Used: 3mm curette Tissue Removed: Yellow slough, devitalized tissue Severity: Fat Layer Exposed Amount of bleeding with debridement: Mild Bleeding Controlled with: Compression and gauze Patient tolerated procedure: Patient tolerated procedure well Post-Debridement Measurements and Additional Note: Post-Debridement Measurements/Treatment - Nurse 1 - General Ulcer Assessment Start: 11/21/22 09:26 Freq: Status: Active Protocol: [email or web address].[email or web address] Activity Type Activity Date Activity User E-sign Co-sign Detail Recorded Client Recorded Date Recorded By Document 11/21/22 09:26 Desktop 11/21/22 09:30 RB Document 12/05/22 10:58 Desktop 12/05/22 11:05 RB 11/21/22 12/05/22 09:26 10:58 - Today's Visit Information Type of service Follow-up Visit Follow-up Visit (Physician/STYRENE DEHYDRATION REACTOR OPERATOR (Physician/STYRENE DEHYDRATION REACTOR OPERATOR ) ) Arrival Mode Ambulatory Ambulatory Transfer Assistance None None Patient Identification Verified (Name & Yes Yes ) Patient Requires Transmission-Based No No Precautions Vital Signs Temperature (97.8 F-99.1 F) 96.9 F L 96.6 F L Temperature Source Temporal Temporal Pulse Rate (60-100) 82 81 Pulse Location Monitor Monitor Respiratory Rate (12-18) 18 18 Respiratory rate source Observation Observation Blood Pressure (90/60-120/80) 159/66 H 155/77 H Blood Pressure Mean (mm Hg) 97 103 Source Monitor Monitor Position Semi-Fowlers Semi-Fowlers Blood Pressure Location Left Arm Left Arm History Since Last Visit- (Skip if this is Patient's initial visit) Have you changed medications since your No No last visit? Any new allergies or adverse reactions No No Had a fall/change in ADL's that may No No increase risk of falls Signs or symptoms of abuse and/or No No neglect since last visit Have you been in the hospital since your No No last visit? Has dressing in place as prescribed Yes Yes Has compression in place as prescribed No Yes Has offloadiing in place as prescribed No No Experienced any changes in pain level or No No management Pain Scale: 0-10 Numeric Is Patient Pain Free? Yes Yes WC - Nurse 1 - General Ulcer Measurement Start: 11/21/22 09:26 Freq: Status: Active Protocol: Activity Type Activity Date Activity User E-sign Co-sign Detail Recorded Client Recorded Date Recorded By Document 11/21/22 09:26 RB Desktop 11/21/22 09:30 RB Document 12/05/22 10:58 RB Desktop 12/05/22 11:05 RB 11/21/22 12/05/22 09:26 10:58 Wound Center Nurse 1 2. R plantar -Combined with other wound No No -Current Size (cm) - Length 0.1 0.1 -Current Size (cm) - Width 0.1 0.1 -Current Size (cm) - Depth 0.1 0.1 -Total Square Cm 0.01 0.01 -Tunneling No No -Undermining/Tunneling No No -Circular Undermining No No -Exudate Amt Medium Medium -Exudate Type Serosanguineous Serosanguineous -Wound Margin Distinct, Distinct, Outline Outline Attached Attached -Granulation Amt Medium (34-66%) Medium (34-66%) -Granulation Quality [place] -Slough/Fibrin Yes Yes -Necrosis Amt Medium (34-66%) Medium (34-66%) -Necrotic Tissue Type Adherent Slough Adherent Slough -Structure Exposed N/A N/A -Texture (Sania-wound Skin Appearance) Assessed Assessed -Moisture (Sania-wound Skin Appearance) Assessed Assessed -Color (Sania-wound Skin Appearance) Assessed Assessed -Temperature (Sania-wound Skin No Abnormality No Abnormality Appearance) (Pt Warm) (Pt Warm) -Tenderness on Palpation (Sania-wound No No Skin Appearance) -Ulcer Cleansing Wound Cleanser Wound Cleanser -Foul Odor after Cleansing No No -Anesthetic Used 5% Lidocaine 5% Lidocaine Gel Gel 1. RLE -Combined with other wound No No -Current Size (cm) - Length 0.7 0.9 -Current Size (cm) - Width 0.5 0.5 -Current Size (cm) - Depth 0.1 0.1 -Total Square Cm 0.35 0.45 -Tunneling No No -Undermining/Tunneling No No -Circular Undermining No No -Exudate Amt Medium Medium -Exudate Type Serosanguineous Serosanguineous -Wound Margin Distinct, Distinct, Outline Outline Attached Attached -Granulation Amt Medium (34-66%) Medium (34-66%) -Granulation Quality [place] -Slough/Fibrin Yes Yes -Necrosis Amt Medium (34-66%) Medium (34-66%) -Necrotic Tissue Type Adherent Slough Adherent Slough -Structure Exposed N/A N/A -Texture (Sania-wound Skin Appearance) Assessed Assessed,Callus -Moisture (Sania-wound Skin Appearance) Assessed Assessed -Color (Sania-wound Skin Appearance) Assessed Assessed -Temperature (Sania-wound Skin No Abnormality No Abnormality Appearance) (Pt Warm) (Pt Warm) -Tenderness on Palpation (Sania-wound No No Skin Appearance) -Ulcer Cleansing Wound Cleanser Wound Cleanser -Foul Odor after Cleansing No No -Anesthetic Used 5% Lidocaine 5% Lidocaine Gel Gel Lower Limb Edema Present Yes Yes Right Calf (cm) 33.5 33.4 Right Ankle (cm) 21.2 19.5 Left Calf (cm) 35.5 Left Ankle (cm) 19 WC - Nurse 2 - General Ulcer CM Notes Start: 11/21/22 09:26 Freq: Status: Active Protocol: Activity Type Activity Date Activity User E-sign Co-sign Detail Recorded Client Recorded Date Recorded By Document 11/21/22 09:36 Desktop 11/21/22 09:46 Document 12/05/22 11:14 Desktop 12/05/22 11:27 11/21/22 12/05/22 09:36 11:14 Wound Center Nurse 2 2. R plantar -Time 09:36 11:15 -Correct Patient Yes Yes -Correct Side, Site, Position Yes Yes -Correct Procedure Yes Yes -Procedure Performed Yes -Type of Procedure Debridement -Clinical Debridement Subcutaneous -Tissue Removed Subcutaneous -Wound/Ulcer Outcome Not Healed -Ulcer Cleansing Rinsed/ Irrigated with Saline -Foul Odor after Cleansing No -Bioengineered Tissue No -Bleeding Controlled with Pressure -Treatment Response Procedure Tolerated Well -Debridement - Subq, 1st 20sq cm No 1. RLE -Time 09:36 11:15 -Correct Patient Yes Yes -Correct Side, Site, Position Yes Yes -Correct Procedure Yes Yes -Procedure Performed Yes Yes -Type of Procedure Debridement Debridement -Clinical Debridement Subcutaneous Subcutaneous -Tissue Removed Subcutaneous Subcutaneous -Post Debridement (cm) - Length 0.9 1.0 -Post Debridement (cm) - Width 0.5 0.4 -Post Debridement (cm) - Depth 0.1 0.2 -Total Square (Post) (cm) 0.45 0.40 -Area of Debridement (cm) - Length 0.9 1 -Area of Debridement (cm) - Width 0.5 0.4 -Total Square (Area) (cm) 0.45 0.4 -Tunneling No No -Undermining/Tunneling No No -Circular Undermining No No -Wound/Ulcer Outcome Not Healed Not Healed -Ulcer Cleansing Rinsed/ Rinsed/ Irrigated with Irrigated with Saline Saline -Foul Odor after Cleansing No No -Bioengineered Tissue No No -Bleeding Controlled with Pressure Pressure -Treatment Response Procedure Procedure Tolerated Well Tolerated Well -Debridement - Subq, 1st 20sq cm Yes Yes Pain Scale: 0-10 Numeric Is Patient Pain Free? Yes Yes - Nurse 3 - General Ulcer D/C NN Start: 11/21/22 09:26 Freq: Status: Active Protocol: Activity Type Activity Date Activity User E-sign Co-sign Detail Recorded Client Recorded Date Recorded By Document 11/21/22 10:01 RB Desktop 11/21/22 10:02 RB Document 12/05/22 11:42 RB Desktop 12/05/22 11:43 RB 11/21/22 12/05/22 10:01 11:42 Wound Care Center Nurse 3 1. RLE -Ulcer Cleansing Wound Cleanser -Primary Dressing Applied Mepilex Border Mepilex Border, NonAdherent Contact Layer, Promogran -Other Dressing hydrogel moistened hydrogel -Mepilex Border 2 1 -Promogran 1 Right -Tubular Bandage Single Layer -Size of Tubigrip Used Size D -Size D ($) 1 -Other pt own single layer tubigrip Left -Tubular Bandage Single Layer -Size of Tubigrip Used Size D -Size D ($) 1 -Other pt own single layer tubigrip Treatment Response Procedure Procedure Tolerated Well Tolerated Well Pain Scale: 0-10 Numeric Is Patient Pain Free? Yes Yes WC - Visit Discharge Discharge Condition Stable Stable Ambulatory Status Ambulatory Ambulatory Transportation Private Auto Private Auto Medication Reconcilliation completed & No No provided to patient/care provider Clinical Summary of Care Provided Yes Yes Assessment/Plan Assessment/Plan (1) Bilateral lower extremity edema: CODE(S): R60.0 - Localized edema (2) Cellulitis of right lower extremity: CODE(S): L03.115 - Cellulitis of right lower limb (3) Hypertension: CODE(S): I10 - Essential (primary) hypertension QUALIFIERS: Hypertension type: primary hypertension Qualified Code(s): I10 - Essential (primary) hypertension (4) Non-rheumatic tricuspid valve insufficiency: CODE(S): I36.1 - Nonrheumatic tricuspid (valve) insufficiency (5) Paroxysmal atrial fibrillation: CODE(S): I48.0 - Paroxysmal atrial fibrillation (6) Chronic systolic (congestive) heart failure: CODE(S): I50.22 - Chronic systolic (congestive) heart failure (7) Hyperlipidemia: CODE(S): E78.5 - Hyperlipidemia, unspecified QUALIFIERS: Hyperlipidemia type: pure hypercholesterolemia Qualified Code(s): E78.00 - Pure hypercholesterolemia, unspecified; E78.0 - Pure hypercholesterolemia (8) History of implantable cardiac defibrillator (ICD): (9) Atherosclerosis of coronary artery of [place] heart without angina pectoris: CODE(S): I25.10 - Atherosclerotic heart disease of [place] coronary artery without angina pectoris QUALIFIERS: Coronary Disease-Associated Artery/Lesion type: [place] artery Qualified Code(s): I25.10 - Atherosclerotic heart disease of [place] coronary artery without angina pectoris (10) Callus of foot: CODE(S): L84 - Corns and callosities (11) Venous ulcer of right lower extremity without varicose veins: CODE(S): I87.2 - Venous insufficiency (chronic) (peripheral); L97.919 - Non-pressure chronic ulcer of unspecified part of right lower leg with unspecified severity (12) Venous stasis dermatitis of both lower extremities: CODE(S): I87.2 - Venous insufficiency (chronic) (peripheral) PLAN: Plan Debridement performed today in clinic as annotated above. At home wound-care instructions: Will have her dress the ulcer of her right lower leg with Promogram moistened with hydrogel, cover with adaptic and a foam dressing every other day for light drainage. Try to offload the right plantar foot with ABD. Keep dressing clean and dry. Vascular studies ordered to evaluate for venous disease and for PAD given her h/o CAD and edema. May benefit from venous intervention if significant reflux is seen. Compression: Will have her use tubigrip compression daily upon rising and remove at bedtime. Off-loading: The patient was instructed to avoid pressure and friction on the affected areas. Reposition every 2 hours at minimum. Avoid prolonged standing and/or dangling of legs. When seated, feet should be elevated at chest level. Frequent ambulation is encouraged. Diet: Patient encouraged to increase protein intake while taking caution to avoid high carbohydrate and/or sugar intake. Labs/cultures/imaging: No sign of infection. Follow-up: Return in 2 weeks for wound care follow up. Return sooner or report to the emergency room should symptoms worsen, or new symptoms arise. Note: [employer] speech recognition brazer induction software was used to create portions of this document. Sound-alike and misspelled words, as well as other brazer induction errors may be contained in the documentation.
== END 2022-12-16 23:59 ==
LOC: WC 10:30
PROVIDERS: PCP Internal Medicine; Referring Provider Physician Assistant Surgical; Visit Provider Family Medicine
DX: I87.2 Venous insufficiency (chronic) (peripheral) (principal); L97.812 Non-pressure chronic ulcer of other part of right lower leg with fat layer exposed; I50.22 Chronic systolic (congestive) heart failure; I11.0 Hypertensive heart disease with heart failure; I48.0 Paroxysmal atrial fibrillation; R60.0 Localized edema; L84 Corns and callosities; I25.10 Atherosclerotic heart disease of native coronary artery without angina pectoris; L03.115 Cellulitis of right lower limb; I36.1 Nonrheumatic tricuspid (valve) insufficiency; E78.5 Hyperlipidemia, unspecified; Z95.810 Presence of automatic (implantable) cardiac defibrillator
CPT/HCPCS: 11042; 93970

== ENCOUNTER 2022-12-26 11:48 | Emergency (ER) | payer MEDICARE, SELFPAY ==
[2022-12-26 11:49] VITALS: BP 133/87; PULSE 76; RESP 16; TEMP 35.8; O2SAT 99; BMI 29.6
--- NOTE | 2022-12-26 12:49 | ED.VIS.FEGU ---
HPI HPI - Female History of Present Illness Chief Complaint: Complaint Informant: patient Narrative Narrative: 87-year-old female states she has had a prolapsed bladder for 6 years, and for the past year her pessary has not been working properly. She states it very easily drops down, and feels like it is sitting on the nerve because it is so uncomfortable and painful. Sometimes it falls out. She has urinary frequency and incontinence, she denies any dysuria, fevers, chills, hematuria. She states sometimes it gets in the way of bowel movements, and stool gets on the prolapsed bladder or pessary and she has a hard time cleaning it. She states she has seen urology, but she is offered no other solutions and she states she came to the ER because she does not know what else to do. She has no acute symptoms. [facility] Medical History Anemia Arthritis Atherosclerosis of coronary artery of [place] heart without angina pectoris Breathlessness Chronic systolic (congestive) heart failure COVID Deep vein thrombosis Elevated troponin Essential (primary) hypertension Hearing loss Hyperlipidemia Hypertension Iron deficiency Near syncope Non-rheumatic tricuspid valve insufficiency NSTEMI (non-ST elevated myocardial infarction) (11/17/17) Paroxysmal atrial fibrillation Seborrheic keratoses, inflamed Secondary pulmonary arterial hypertension Sick sinus syndrome Skin lesion Ventricular fibrillation (03/2012) Home Medications calcium citrate 250 mg PO DAILY supplement 06/03/18 [History Last Taken 09/13/22] cataplex B See Rx Instructions PO DAILY supplement 11/29/19 [History Last Taken Unknown] cataplex E2 See Rx Instructions PO .COMPLEX supplement 11/29/19 [History Last Taken Unknown] cataplex F See Rx Instructions PO .COMPLEX supplement 11/29/19 [History Last Taken Unknown] omega [id number] oil 600 mg-20 mg-500 mcg-800 mcg capsule (CardioVid PLUS) 1 cap PO DAILY supplement 11/29/19 [History Last Taken Unknown] ferrous sulfate 325 mg (65 mg iron) tablet (FeroSul) 325 mg PO BID supplement 02/27/22 [History Last Taken Unknown] apple cider vinegar 600 mg capsule 600 mg PO .COMPLEX 06/16/22 [History Last Taken 09/11/22] ascorbic acid (vitamin C) 500 mg tablet 500 mg PO BID supplement 09/14/22 [History Last Taken Unknown] vitamin B complex (B Complex-Vitamin B12 tablet) 1 tab PO DAILY supplement 09/14/22 [History Last Taken Unknown] lisinopril 10 mg tablet 10 mg PO DAILY #30 tabs 10/16/22 [Rx Last Taken Unknown] metoprolol succinate 100 mg tablet,extended release 24 hr 100 mg PO DAILY awaiting on mail order RX #30 tabs 11/20/22 [Rx Last Taken Unknown] Allergy/AdvReac Type Severity Reaction Status Date / Time [id number] Reductase AdvReac Mild muscle Verified 10/16/22 11:12 Inhibitor aches [Odskbpb-Ylc-Ovk Reductase Inhibitor] Family History Other Depression Diabetes Suicide attempt Surgical History History of coronary artery stent placement (11/17/17) History of implantable cardiac defibrillator (ICD) (04/09/17) Status post excision of skin lesion, follow-up exam Social History Smoking Status: Never smoker alcohol intake: never substance use type: does not use caffeine: Yes Type: coffee Number of servings: 2 ROS ROS ED Constitutional Constitutional ED: Denies chills or fever(s) Eyes Eyes: Denies change in vision or diplopia ENT ENT ED: Denies rhinorrhea or sore throat Cardiovascular Cardiovascular: Denies chest pain or palpitations Respiratory/Chest Respiratory/Chest: Denies cough or dyspnea Gastrointestinal Gastrointestinal: Denies abdominal pain, diarrhea, nausea or vomiting Genitourinary Genitourinary ED: Denies dysuria or hematuria Musculoskeletal Musculoskeletal: Denies back pain or neck pain Integumentary Denies abscess or rash Neurologic Neurologic: Denies headache(s), paresthesias or weakness Psychiatric Psychiatric: Denies anxiety or suicidal thoughts EXAM Physical Exam Const Vital Signs: 12/26/22 11:49 Temperature 96.5 F L Temperature Source Temporal Pulse Rate 76 Respiratory Rate 16 Blood Pressure 133/87 H Blood Pressure Mean 102 Pulse Ox 99 Oxygen Delivery Method Room Air Positive well nourished and well developed General Appearance ED: well developed and NAD HEENT Reports moist mucous membranes normocephalic and atraumatic Eyes PERRL and EOMs intact bilaterally Neck full ROM and supple Resp normal respiratory effort GI non-tender and non-distended Auscultation: normoactive bowel sounds Palpation: soft Back/Spine General Back: other FROM Extremity normal to inspection General Extremety ED: Negative for edema, pulses abnormal or tenderness General Extremity: Negative for edema or pulses abnormal Neuro oriented x3, CN's II-XII intact bilaterally and no sensory deficits noted Sensorium / Orientation: awake and alert Motor Exam: strength 5/5 throughout Skin no rashes or lesions noted and no wounds MDM MDM MDM Narrative Medical decision making narrative: I discussed with Dr. Burnett, who states that she is happy to reevaluate the patient in the office and discuss pros and cons of surgical options, and alternative providers if the patient wishes. She is comfortable with that plan. Discharge Plan Triage Chief Complaint: Complaint Other Complaint: Female C/O ED Provider: Karri Caballero Dx/Rx/DC Orders Clinical Impression: Bladder prolapse, female, acquired Instructions: Cystocele Prolapsed Bladder Prescriptions: No Action calcium citrate 250 mg calcium tablet 250 mg PO DAILY apple cider vinegar 600 mg capsule 600 mg PO .COMPLEX Rx Instructions: 600 mg orally 3x a day; cataplex F See Rx Instructions PO .COMPLEX Rx Instructions: 1 tablet daily orally cataplex E2 See Rx Instructions PO .COMPLEX Rx Instructions: 1 tablet orally daily cataplex B See Rx Instructions PO DAILY Rx Instructions: 1 tablet orally daily; CardioVid PLUS [phone] [id number] capsule 1 cap PO DAILY ferrous sulfate [FeroSul] 325 mg (65 mg iron) tablet 325 mg PO BID lisinopril 10 mg tablet 10 mg PO DAILY Qty: 30 1RF furosemide [Lasix] 20 mg tablet 20 mg PO DAILY Qty: 30 1RF potassium chloride 10 mEq tablet extended release 10 meq PO DAILY Qty: 30 1RF ascorbic acid (vitamin C) 500 mg tablet 500 mg PO BID vitamin B complex [B Complex-Vitamin B12] Tablet 1 tab PO DAILY dexamethasone 4 mg Tablet 6 mg PO DAILY 8 Days Qty: 12 0RF Rx Instructions: Start 09/16 metoprolol succinate 100 mg tablet extended release 24 hr 100 mg PO DAILY Qty: 30 0RF Primary Care Provider: Zuleyka Delatorre Referrals: Marisol Burnett MD [Med Staff - Active Staff] - As soon as possible Zuleyka Delatorre MD [Primary Care Provider] - Disposition Disposition: Home, Self Care Discharge Date/Time: 12/26/22 13:06
[2022-12-26 13:05] VITALS: PULSE 80; RESP 16
== END 2022-12-26 13:06 | disposition home or self-care (01) ==
PROVIDERS: Emergency Provider Emergency Medicine; PCP Internal Medicine; Visit Provider Emergency Medicine
DX: N32.89 Other specified disorders of bladder (principal); I11.0 Hypertensive heart disease with heart failure; I50.22 Chronic systolic (congestive) heart failure; I25.10 Atherosclerotic heart disease of native coronary artery without angina pectoris; E78.5 Hyperlipidemia, unspecified; I25.2 Old myocardial infarction; I5A Non-ischemic myocardial injury (non-traumatic); Z79.899 Other long term (current) drug therapy; Z95.5 Presence of coronary angioplasty implant and graft
CPT/HCPCS: 99283

== ENCOUNTER 2023-01-02 10:15 | Outpatient (RCR) | payer MEDICARE, SELFPAY ==
[2022-12-17 00:19] VITALS: BP 155/77; PULSE 81; RESP 18; TEMP 35.9
[2022-12-19 11:07] VITALS: BP 154/80; PULSE 78; RESP 16; TEMP 36.2
--- NOTE | 2022-12-19 14:10 | PCM.WC.PN ---
History of Present Illness Date of Service: 12/19/22 Chief Complaint: nonhealing ulcer to right pichardo, edema bilaterally History of Wound: Kenia is a sweet 87 yo woman that presents to the wound center today for evaluation and treatment of a nonhealing ulcer of her right lower leg/pichardo that has been present for several weeks. She has had increased edema to her lower legs bilaterally for the last 3 months and about 2 weeks ago her granddaughter noticed an area that was open and draining on her right leg and took her to urgent care at the [facility]. She was diagnosed with cellulitis and was treated with Keflex 500 mg TID x 10 days. She was also referred here for an ulcer and a callous of her right plantar foot. They have been dressing the area on her right pichardo with black salve. She has had improvement in her edema but it is still present. She did have a venous duplex a month ago to evaluate for DVTs which was negative. She has never had trouble healing wounds in the past and had not been having edema until several months ago. She does not wear compression stockings and does not typically elevate her feet often. She does eat well and has significant amount of protein in her diet. They do have a new puppy in the house which could have caused a scratch or open area to begin. She lives with her son and his family. She is still very active and does some cleaning and some cooking and outside work. She denies fever, chills, erythema or odor. Subjective Subjective Kenia returns today for follow up of a nonhealing ulcer of her right lateral lower leg. She tolerated the compression and the dressings to her right lower leg ulcer. She continues to have light drainage from the ulcer. It has minimally improved in size. Her edema is controlled. She denies erythema, pain or increase in drainage. Objective Data Objective Data Vital Signs: Vital Signs Temp Pulse Resp BP O2 Del Method 97.1 F L 78 16 154/80 H Room Air 12/19/22 11:07 12/19/22 11:07 12/19/22 11:07 12/19/22 11:12/19/22 11:07 Oxygen Delivery Method Room Air Physical Exam Const alert, oriented x3 and no apparent distress General Appearance: cooperative and comfortable HEENT normocephalic and head/scalp atraumatic Resp normal respiratory effort Effort and Inspection: able to speak in complete sentences Cardio regular rate and regular rhythm GI normal to inspection, nondistended, normoactive bowel sounds and soft to palpation Extremity General Extremity: edema bilateral lower extremity Details: moderate Skin General Skin Exam: venous stasis and dermatitis Wounds: wounds noted Wound Narrative: as in clinical panel Psych mental status grossly normal, thought process normal, cooperative and affect normal Debridement Note Debridement Note Wound debrided: right pichardo Laterality: Right Type of Debridement: Excisional debridement Anesthesia Used: 4% Lidocaine Solution and 5% Lidocaine Gel Depth: Down to and including healthy tissue and in the subcutaneous layer Percentage of wound debrided: 100 Instrument Used: 3mm curette Tissue Removed: Yellow slough, devitalized tissue Severity: Fat Layer Exposed Amount of bleeding with debridement: Mild Bleeding Controlled with: Compression and gauze Patient tolerated procedure: Patient tolerated procedure well Post-Debridement Measurements and Additional Note: Post-Debridement Measurements/Treatment - Nurse 1 - General Ulcer Assessment Start: 12/19/22 11:05 Freq: Status: Active Protocol: MICHAEL Activity Type Activity Date Activity User E-sign Co-sign Detail Recorded Client Recorded Date Recorded By Document 12/19/22 11:07 [facility] Desktop 12/19/22 11:15 [facility] 12/19/22 11:07 - Today's Visit Information Type of service 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 ) Arrival Mode Ambulatory Transfer Assistance None Accompanied by gr yoav Patient Identification Verified (Name & Yes ) Patient Requires Transmission-Based No Precautions Vital Signs Temperature (97.8 F-99.1 F) 97.1 F L Temperature Source Temporal Pulse Rate (60-100) 78 Pulse Location Monitor Respiratory Rate (12-18) 16 Respiratory rate source Observation Oxygen Delivery Method Room Air Blood Pressure (90/60-120/80) 154/80 H Blood Pressure Mean (mm Hg) 104 Source Monitor Position Sitting Blood Pressure Location Left Arm History Since Last Visit- (Skip if this is Patient's initial visit) Have you changed medications since your No last visit? Any new allergies or adverse reactions No Had a fall/change in ADL's that may No increase risk of falls Signs or symptoms of abuse and/or No neglect since last visit Have you been in the hospital since your No last visit? Has dressing in place as prescribed Yes Has compression in place as prescribed Yes Has offloadiing in place as prescribed N/A Experienced any changes in pain level or No management Left Footwear Regular Shoe Right Footwear Regular Shoe Pain Scale: 0-10 Numeric Is Patient Pain Free? Yes WC - Nurse 1 - General Ulcer Measurement Start: 12/19/22 11:05 Freq: Status: Active Protocol: Activity Type Activity Date Activity User E-sign Co-sign Detail Recorded Client Recorded Date Recorded By Document 12/19/22 11:07 [facility] Desktop 12/19/22 11:15 [facility] 12/19/22 11:07 Wound Center Nurse 1 2. R plantar -Combined with other wound No -Current Size (cm) - Length 0.1 -Current Size (cm) - Width 0.1 -Current Size (cm) - Depth 0.1 -Total Square Cm 0.01 -Texture (Sania-wound Skin Appearance) Assessed,Callus -Moisture (Sania-wound Skin Appearance) Assessed,Dry/ Scaly -Color (Sania-wound Skin Appearance) Assessed 1. RLE -Combined with other wound No -Current Size (cm) - Length 0.5 -Current Size (cm) - Width 0.3 -Current Size (cm) - Depth 0.2 -Total Square Cm 0.15 -Photo Taken No -Epithelialization Small 1-33% -Tunneling No -Undermining/Tunneling No -Circular Undermining No -Exudate Amt Medium -Exudate Type Serosanguineous -Wound Margin Distinct, Outline Attached -Granulation Amt Large (67-100%) -Granulation Quality Red -Slough/Fibrin Yes -Necrosis Amt Small (1-33%) -Necrotic Tissue Type Adherent Slough -Texture (Sania-wound Skin Appearance) Assessed, Scarring -Moisture (Sania-wound Skin Appearance) Assessed, Maceration -Color (Sania-wound Skin Appearance) Assessed -Temperature (Sania-wound Skin No Abnormality Appearance) (Pt Warm) -Tenderness on Palpation (Sania-wound No Skin Appearance) -Ulcer Cleansing Rinsed/ Irrigated with Saline -Foul Odor after Cleansing No -Anesthetic Used 5% Lidocaine Gel Right Calf (cm) 32.6 Right Ankle (cm) 20 WC - Nurse 2 - General Ulcer CM Notes Start: 12/19/22 11:05 Freq: Status: Active Protocol: Activity Type Activity Date Activity User E-sign Co-sign Detail Recorded Client Recorded Date Recorded By Document 12/19/22 11:24 Desktop 12/19/22 11:32 12/19/22 11:24 Wound Center Nurse 2 1. RLE -Time 11:25 -Correct Patient Yes -Correct Side, Site, Position Yes -Correct Procedure Yes -Procedure Performed Yes -Type of Procedure Debridement -Clinical Debridement Subcutaneous -Tissue Removed Subcutaneous -Post Debridement (cm) - Length 0.6 -Post Debridement (cm) - Width 0.3 -Post Debridement (cm) - Depth 0.1 -Total Square (Post) (cm) 0.18 -Area of Debridement (cm) - Length 0.6 -Area of Debridement (cm) - Width 0.3 -Total Square (Area) (cm) 0.18 -Tunneling No -Undermining/Tunneling No -Circular Undermining No -Wound/Ulcer Outcome Not Healed -Ulcer Cleansing Rinsed/ Irrigated with Saline -Foul Odor after Cleansing No -Bioengineered Tissue No -Bleeding Controlled with Pressure -Treatment Response Procedure Tolerated Well -Debridement - Subq, 1st 20sq cm Yes Pain Scale: 0-10 Numeric Is Patient Pain Free? Yes - Nurse 3 - General Ulcer D/C NN Start: 12/19/22 11:05 Freq: Status: Active Protocol: Activity Type Activity Date Activity User E-sign Co-sign Detail Recorded Client Recorded Date Recorded By Document 12/19/22 11:38 [facility] 12/19/22 11:41 12/19/22 11:38 Wound Care Center Nurse 3 2. R plantar -Other Dressing vaseline to callus to R foot per pt at home. 1. RLE -Ulcer Cleansing Rinsed/ Irrigated with Saline -Primary Dressing Applied Mepilex Border, NonAdherent Contact Layer, Promogran -Mepilex Border 1 -Promogran 1 Right -Tubular Bandage Single Layer -Size of Tubigrip Used Size C -Size C ($) 1 Left -Tubular Bandage Single Layer -Size of Tubigrip Used Size C -Size C ($) 1 Pain Scale: 0-10 Numeric Is Patient Pain Free? Yes - Visit Discharge Discharge Condition Stable Ambulatory Status Ambulatory Transportation Private Auto Medication Reconcilliation completed & No provided to patient/care provider Clinical Summary of Care Provided Yes Assessment/Plan Assessment/Plan (1) Bilateral lower extremity edema: CODE(S): R60.0 - Localized edema (2) Cellulitis of right lower extremity: CODE(S): L03.115 - Cellulitis of right lower limb (3) Hypertension: CODE(S): I10 - Essential (primary) hypertension QUALIFIERS: Hypertension type: primary hypertension Qualified Code(s): I10 - Essential (primary) hypertension (4) Non-rheumatic tricuspid valve insufficiency: CODE(S): I36.1 - Nonrheumatic tricuspid (valve) insufficiency (5) Paroxysmal atrial fibrillation: CODE(S): I48.0 - Paroxysmal atrial fibrillation (6) Chronic systolic (congestive) heart failure: CODE(S): I50.22 - Chronic systolic (congestive) heart failure (7) Hyperlipidemia: CODE(S): E78.5 - Hyperlipidemia, unspecified QUALIFIERS: Hyperlipidemia type: pure hypercholesterolemia Qualified Code(s): E78.00 - Pure hypercholesterolemia, unspecified; E78.0 - Pure hypercholesterolemia (8) History of implantable cardiac defibrillator (ICD): (9) Atherosclerosis of coronary artery of [place] heart without angina pectoris: CODE(S): I25.10 - Atherosclerotic heart disease of [place] coronary artery without angina pectoris QUALIFIERS: Coronary Disease-Associated Artery/Lesion type: [place] artery Qualified Code(s): I25.10 - Atherosclerotic heart disease of [place] coronary artery without angina pectoris (10) Callus of foot: CODE(S): L84 - Corns and callosities (11) Venous ulcer of right lower extremity without varicose veins: CODE(S): I87.2 - Venous insufficiency (chronic) (peripheral); L97.919 - Non-pressure chronic ulcer of unspecified part of right lower leg with unspecified severity (12) Venous stasis dermatitis of both lower extremities: CODE(S): I87.2 - Venous insufficiency (chronic) (peripheral) PLAN: Plan Debridement performed today in clinic as annotated above. At home wound-care instructions: Will have her dress the ulcer of her right lower leg with Promogram moistened with hydrogel, cover with adaptic and a folded gauze for additional edema control and a foam dressing every other day for light drainage. Apply Vaseline or Aquaphor to sole of foot daily. Keep dressing clean and dry. Compression: Will have her use tubigrip compression daily upon rising and remove at bedtime. Off-loading: The patient was instructed to avoid pressure and friction on the affected areas. Reposition every 2 hours at minimum. Avoid prolonged standing and/or dangling of legs. When seated, feet should be elevated at chest level. Frequent ambulation is encouraged. Diet: Patient encouraged to increase protein intake while taking caution to avoid high carbohydrate and/or sugar intake. Labs/cultures/imaging: No sign of infection. Venous testing showed incompetence of veins in right lower leg. Discussed referral to Dr. Egan for consideration of possible intervention. Follow-up: Return in 2 weeks for wound care follow up. Return sooner or report to the emergency room should symptoms worsen, or new symptoms arise. Note: [employer] speech recognition food safety scientist software was used to create portions of this document. Sound-alike and misspelled words, as well as other food safety scientist errors may be contained in the documentation.
[2023-01-02 10:24] VITALS: BP 152/72; PULSE 72; RESP 20; TEMP 36.3
--- NOTE | 2023-01-02 14:04 | PN.PCM_ITS ---
History of Present Illness Date of Service: 01/02/23 Chief Complaint: nonhealing ulcer to right pichardo, edema bilaterally History of Wound: Kenia is a sweet 87 yo woman that presents to the wound center today for evaluation and treatment of a nonhealing ulcer of her right lower leg/pichardo that has been present for several weeks. She has had increased edema to her lower legs bilaterally for the last 3 months and about 2 weeks ago her granddaughter noticed an area that was open and draining on her right leg and took her to urgent care at the [facility]. She was diagnosed with cellulitis and was treated with Keflex 500 mg TID x 10 days. She was also referred here for an ulcer and a callous of her right plantar foot. They have been dressing the area on her right pichardo with black salve. She has had improvement in her edema but it is still present. She did have a venous duplex a month ago to evaluate for DVTs which was negative. She has never had trouble healing wounds in the past and had not been having edema until several months ago. She does not wear compression stockings and does not typically elevate her feet often. She does eat well and has significant amount of protein in her diet. They do have a new puppy in the house which could have caused a scratch or open area to begin. She lives with her son and his family. She is still very active and does some cleaning and some cooking and outside work. She denies fever, chills, erythema or odor. Subjective Subjective Kenia returns today for follow up of a nonhealing ulcer of her right lateral lower leg. She tolerated the compression and the dressings to her right lower leg ulcer. She continues to have light drainage from the ulcer. It has minimally improved in size. Her edema is controlled. She denies erythema, pain or increase in drainage. She is scheduled to see vascular surgery on 01/05/23 for evaluation of her venous disease. Objective Data Objective Data Vital Signs: Vital Signs Temp Pulse Resp BP O2 Del Method 97.4 F L 72 20 H 152/72 H Room Air 01/02/23 10:24 01/02/23 10:24 01/02/23 10:24 01/02/23 10:24 12/19/22 11:07 Oxygen Delivery Method Room Air Physical Exam Const alert, oriented x3 and no apparent distress General Appearance: cooperative and comfortable HEENT normocephalic and head/scalp atraumatic Resp normal respiratory effort Effort and Inspection: able to speak in complete sentences Cardio regular rate and regular rhythm GI normal to inspection, nondistended, normoactive bowel sounds and soft to palpation Extremity General Extremity: edema bilateral lower extremity Details: moderate Skin General Skin Exam: venous stasis and dermatitis Wounds: wounds noted Wound Narrative: as in clinical panel Psych mental status grossly normal, thought process normal, cooperative and affect normal Debridement Note Debridement Note Wound debrided: right pichardo Laterality: Right Type of Debridement: Excisional debridement Anesthesia Used: 4% Lidocaine Solution and 5% Lidocaine Gel Depth: Down to and including healthy tissue and in the subcutaneous layer Percentage of wound debrided: 100 Instrument Used: 3mm curette Tissue Removed: Yellow slough, devitalized tissue Severity: Fat Layer Exposed Amount of bleeding with debridement: Mild Bleeding Controlled with: Compression and gauze Patient tolerated procedure: Patient tolerated procedure well Post-Debridement Measurements and Additional Note: Post-Debridement Measurements/Treatment - Nurse 1 - General Ulcer Assessment Start: 12/19/22 11:05 Freq: Status: Active Protocol: MICHAEL Activity Type Activity Date Activity User E-sign Co-sign Detail Recorded Client Recorded Date Recorded By Document 12/19/22 11:[address] [facility] Desktop 12/19/22 11:15 [employer] Document 01/02/23 10:24 MW Desktop 01/02/23 10:34 MW 12/19/22 01/02/23 11:07 10:24 - Today's Visit Information Type of service Follow-up Visit Follow-up Visit (Physician/COLLATOR OPERATOR (Physician/COLLATOR OPERATOR ) ) Arrival Mode Ambulatory Ambulatory Transfer Assistance None None Accompanied by gr yoav Patient Identification Verified (Name & Yes Yes ) Patient Requires Transmission-Based No No Precautions Vital Signs Temperature (97.8 F-99.1 F) 97.1 F L 97.4 F L Temperature Source Temporal Temporal Pulse Rate (60-100) 78 72 Pulse Location Monitor Monitor Respiratory Rate (12-18) 16 20 H Respiratory rate source Observation Observation Oxygen Delivery Method Room Air Blood Pressure (90/60-120/80) 154/80 H 152/72 H Blood Pressure Mean (mm Hg) 104 98 Source Monitor Monitor Position Sitting Blood Pressure Location Left Arm History Since Last Visit- (Skip if this is Patient's initial visit) Have you changed medications since your No No last visit? Any new allergies or adverse reactions No No Had a fall/change in ADL's that may No No increase risk of falls Signs or symptoms of abuse and/or No No neglect since last visit Have you been in the hospital since your No No last visit? Has dressing in place as prescribed Yes Yes Has compression in place as prescribed Yes Yes Has offloadiing in place as prescribed N/A N/A Experienced any changes in pain level or No No management Left Footwear Regular Shoe Right Footwear Regular Shoe Pain Scale: 0-10 Numeric Is Patient Pain Free? Yes Yes WC - Nurse 1 - General Ulcer Measurement Start: 12/19/22 11:05 Freq: Status: Active Protocol: Activity Type Activity Date Activity User E-sign Co-sign Detail Recorded Client Recorded Date Recorded By Document 12/19/22 11:07 [facility] Desktop 12/19/22 11:15 [facility] Document 01/02/23 10:24 MW Desktop 01/02/23 10:34 MW 12/19/22 01/02/23 11:07 10:24 Wound Center Nurse 1 2. R plantar -Combined with other wound No -Current Size (cm) - Length 0.1 0.1 -Current Size (cm) - Width 0.1 0.1 -Current Size (cm) - Depth 0.1 0.1 -Total Square Cm 0.01 0.01 -Exudate Amt None Present -Wound Margin Thickened -Granulation Amt None Present (0 %) -Necrosis Amt Small (1-33%) -Necrotic Tissue Type Eschar -Structure Exposed N/A -Texture (Sania-wound Skin Appearance) Assessed,Callus Callus,Scarring -Moisture (Sania-wound Skin Appearance) Assessed,Dry/ No Abnormality Scaly -Color (Sania-wound Skin Appearance) Assessed Hemosiderin Staining -Temperature (Sania-wound Skin No Abnormality Appearance) (Pt Warm) -Tenderness on Palpation (Sania-wound No Skin Appearance) -Ulcer Cleansing Soap and Water -Foul Odor after Cleansing No -Anesthetic Used 5% Lidocaine Gel 1. RLE -Combined with other wound No -Current Size (cm) - Length 0.5 0.5 -Current Size (cm) - Width 0.3 0.3 -Current Size (cm) - Depth 0.2 0.1 -Total Square Cm 0.15 0.15 -Photo Taken No -Epithelialization Small 1-33% -Tunneling No -Undermining/Tunneling No -Circular Undermining No -Exudate Amt Medium Small -Exudate Type Serosanguineous Serosanguineous -Wound Margin Distinct, Distinct, Outline Outline Attached Attached -Granulation Amt Large (67-100%) Small (1-33%) -Granulation Quality Red [place] -Slough/Fibrin Yes -Necrosis Amt Small (1-33%) None Present (0 %) -Necrotic Tissue Type Adherent Slough -Texture (Sania-wound Skin Appearance) Assessed, Scarring Scarring -Moisture (Sania-wound Skin Appearance) Assessed, Maceration -Color (Sania-wound Skin Appearance) Assessed Hemosiderin Staining -Temperature (Sania-wound Skin No Abnormality No Abnormality Appearance) (Pt Warm) (Pt Warm) -Tenderness on Palpation (Sania-wound No Skin Appearance) -Ulcer Cleansing Rinsed/ Soap and Water Irrigated with Saline -Foul Odor after Cleansing No No -Anesthetic Used 5% Lidocaine 5% Lidocaine Gel Gel Right Calf (cm) 32.6 31.5 Right Ankle (cm) 20 19.6 - Nurse 2 - General Ulcer CM Notes Start: 12/19/22 11:05 Freq: Status: Active Protocol: Activity Type Activity Date Activity User E-sign Co-sign Detail Recorded Client Recorded Date Recorded By Document 12/19/22 11:24 GM Desktop 12/19/22 11:32 GM Document 01/02/23 11:13 GM Desktop 01/02/23 11:24 12/19/22 01/02/23 11:24 11:13 Wound Center Nurse 2 Right achilles -Time 11:22 -Correct Patient Yes -Correct Side, Site, Position Yes -Correct Procedure Yes -Procedure Performed Yes -Type of Procedure Debridement -Clinical Debridement Subcutaneous -Tissue Removed Subcutaneous -Post Debridement (cm) - Length 0.3 -Post Debridement (cm) - Width 0.5 -Post Debridement (cm) - Depth 0.1 -Total Square (Post) (cm) 0.15 -Area of Debridement (cm) - Length 0.3 -Area of Debridement (cm) - Width 0.5 -Total Square (Area) (cm) 0.15 -Tunneling No -Undermining/Tunneling No -Circular Undermining No -Wound/Ulcer Outcome Not Healed -Ulcer Cleansing Not Cleansed -Foul Odor after Cleansing No -Bioengineered Tissue No -Bleeding Controlled with Pressure -Treatment Response Procedure Tolerated Well -Debridement - Subq, 1st 20sq cm No 2. R plantar -Time 11:13 -Correct Patient Yes -Correct Side, Site, Position Yes -Correct Procedure Yes -Procedure Performed Yes -Type of Procedure Debridement -Clinical Debridement Subcutaneous -Tissue Removed Subcutaneous -Wound/Ulcer Outcome Not Healed -Ulcer Cleansing Rinsed/ Irrigated with Saline -Foul Odor after Cleansing No -Bioengineered Tissue No -Bleeding Controlled with Pressure -Treatment Response Procedure Tolerated Well -Debridement - Subq, 1st 20sq cm No 1. RLE -Time 11:25 11:13 -Correct Patient Yes Yes -Correct Side, Site, Position Yes Yes -Correct Procedure Yes Yes -Procedure Performed Yes Yes -Type of Procedure Debridement Debridement -Clinical Debridement Subcutaneous Subcutaneous -Tissue Removed Subcutaneous Subcutaneous -Post Debridement (cm) - Length 0.6 0.7 -Post Debridement (cm) - Width 0.3 0.3 -Post Debridement (cm) - Depth 0.1 0.1 -Total Square (Post) (cm) 0.18 0.21 -Area of Debridement (cm) - Length 0.6 0.7 -Area of Debridement (cm) - Width 0.3 0.3 -Total Square (Area) (cm) 0.18 0.21 -Tunneling No No -Undermining/Tunneling No No -Circular Undermining No No -Wound/Ulcer Outcome Not Healed Not Healed -Ulcer Cleansing Rinsed/ Rinsed/ Irrigated with Irrigated with Saline Saline -Foul Odor after Cleansing No No -Bioengineered Tissue No No -Bleeding Controlled with Pressure Pressure -Treatment Response Procedure Procedure Tolerated Well Tolerated Well -Debridement - Subq, 1st 20sq cm Yes Yes Pain Scale: 0-10 Numeric Is Patient Pain Free? Yes Yes WC - Nurse 3 - General Ulcer D/C NN Start: 12/19/22 11:05 Freq: Status: Active Protocol: Activity Type Activity Date Activity User E-sign Co-sign Detail Recorded Client Recorded Date Recorded By Document 12/19/22 11:38 RB Desktop 12/19/22 11:41 RB Document 01/02/23 11:40 RB Desktop 01/02/23 11:43 RB 12/19/22 01/02/23 11:38 11:40 Wound Care Center Nurse 3 Right achilles -Ulcer Cleansing Rinsed/ Irrigated with Saline -Primary Dressing Applied C Hydrogel ($), Mepilex Border -Mepilex Border 1 2. R plantar -Other Dressing vaseline to vaseline callus to R applied at home foot per pt at home. 1. RLE -Ulcer Cleansing Rinsed/ Rinsed/ Irrigated with Irrigated with Saline Saline -Primary Dressing Applied Mepilex Border, Mepilex Border NonAdherent Contact Layer, Promogran -Other Dressing hydrogel -Mepilex Border 1 1 -Promogran 1 Right -Tubular Bandage Single Layer Single Layer -Size of Tubigrip Used Size C Size D -Size C ($) 1 -Size D ($) 1 Left -Tubular Bandage Single Layer -Size of Tubigrip Used Size C -Size C ($) 1 -Other pt own tubigrip single layer Treatment Response Procedure Tolerated Well Pain Scale: 0-10 Numeric Is Patient Pain Free? Yes Yes Teaching: Wound Center Dressing Your Wound -Person Taught Patient,Family -Teaching Method Discussion, Demonstration -Response to teaching Verbalize understanding WC - Visit Discharge Discharge Condition Stable Stable Ambulatory Status Ambulatory Ambulatory Transportation Private Auto Private Auto Accompanied by daughter in law Medication Reconcilliation completed & No No provided to patient/care provider Clinical Summary of Care Provided Yes Yes Notes: Pt daughter in law shown dressing change Additional Wound Wound debrided: right achilles Laterality: Right Type of Debridement: Excisional debridement Anesthesia Used: 4% Lidocaine Solution and 5% Lidocaine Gel Depth: Down to and including healthy tissue and in the subcutaneous layer Percentage of wound debrided: 100 Instrument Used: 3mm curette Tissue Removed: Yellow slough, devitalized tissue Severity: Fat Layer Exposed Amount of bleeding with debridement: Mild Bleeding Controlled with: Compression and gauze Patient tolerated procedure: Patient tolerated procedure well Assessment/Plan Assessment/Plan (1) Bilateral lower extremity edema: CODE(S): R60.0 - Localized edema (2) Cellulitis of right lower extremity: CODE(S): L03.115 - Cellulitis of right lower limb (3) Hypertension: CODE(S): I10 - Essential (primary) hypertension QUALIFIERS: Hypertension type: primary hypertension Qualified Code(s): I10 - Essential (primary) hypertension (4) Non-rheumatic tricuspid valve insufficiency: CODE(S): I36.1 - Nonrheumatic tricuspid (valve) insufficiency (5) Paroxysmal atrial fibrillation: CODE(S): I48.0 - Paroxysmal atrial fibrillation (6) Chronic systolic (congestive) heart failure: CODE(S): I50.22 - Chronic systolic (congestive) heart failure (7) Hyperlipidemia: CODE(S): E78.5 - Hyperlipidemia, unspecified QUALIFIERS: Hyperlipidemia type: pure hypercholesterolemia Qualified Code(s): E78.00 - Pure hypercholesterolemia, unspecified; E78.0 - Pure hypercholesterolemia (8) History of implantable cardiac defibrillator (ICD): (9) Atherosclerosis of coronary artery of [place] heart without angina pectoris: CODE(S): I25.10 - Atherosclerotic heart disease of [place] coronary artery without angina pectoris QUALIFIERS: Coronary Disease-Associated Artery/Lesion type: [place] artery Qualified Code(s): I25.10 - Atherosclerotic heart disease of [place] coronary artery without angina pectoris (10) Callus of foot: CODE(S): L84 - Corns and callosities (11) Venous ulcer of right lower extremity without varicose veins: CODE(S): I87.2 - Venous insufficiency (chronic) (peripheral); L97.919 - Non-pressure chronic ulcer of unspecified part of right lower leg with unspecified severity (12) Venous stasis dermatitis of both lower extremities: CODE(S): I87.2 - Venous insufficiency (chronic) (peripheral) PLAN: Plan Debridement performed today in clinic as annotated above. At home wound-care instructions: Will have her dress the ulcer of her right lower leg with hydrogel, cover with adaptic and a folded gauze for additional edema control and a foam dressing every other day for light drainage. Apply hydrogel and foam dressing to Achilles ulcer. Apply Vaseline or Aquaphor to sole of foot daily. Keep dressing clean and dry. Compression: Will have her use tubigrip compression daily upon rising and remove at bedtime. Off-loading: The patient was instructed to avoid pressure and friction on the affected areas. Reposition every 2 hours at minimum. Avoid prolonged standing and/or dangling of legs. When seated, feet should be elevated at chest level. Frequent ambulation is encouraged. Diet: Patient encouraged to increase protein intake while taking caution to avoid high carbohydrate and/or sugar intake. Labs/cultures/imaging: No sign of infection. Venous testing showed incompetence of veins in right lower leg. Discussed referral to Dr. Egan for consideration of possible intervention and she is scheduled for 01/05/23. Follow-up: Return in 2 weeks for wound care follow up. Return sooner or report to the emergency room should symptoms worsen, or new symptoms arise. Note: [email or web address] speech recognition race steward software was used to create portions of this document. Sound-alike and misspelled words, as well as other race steward errors may be contained in the documentation.
== END 2023-01-15 23:59 | disposition home or self-care (01) ==
LOC: WC 10:15
PROVIDERS: PCP Internal Medicine; Referring Provider Physician Assistant Surgical; Visit Provider Family Medicine
DX: I87.2 Venous insufficiency (chronic) (peripheral) (principal); L97.812 Non-pressure chronic ulcer of other part of right lower leg with fat layer exposed; I11.0 Hypertensive heart disease with heart failure; I50.22 Chronic systolic (congestive) heart failure; I48.0 Paroxysmal atrial fibrillation; R60.0 Localized edema; L84 Corns and callosities; I36.1 Nonrheumatic tricuspid (valve) insufficiency; L03.115 Cellulitis of right lower limb; I25.10 Atherosclerotic heart disease of native coronary artery without angina pectoris; E78.00 Pure hypercholesterolemia, unspecified; Z79.899 Other long term (current) drug therapy
CPT/HCPCS: 11042

== ENCOUNTER 2023-01-16 06:47 | Outpatient (RCR) | payer MEDICARE, SELFPAY ==
[2023-01-16 00:12] VITALS: BP 152/72; PULSE 72; RESP 20; TEMP 36.3
[2023-01-16 10:35] VITALS: BP 143/68; PULSE 74; RESP 18; TEMP 36.4
--- NOTE | 2023-01-16 13:57 | PN.PCM_ITS ---
History of Present Illness Date of Service: 01/16/23 Chief Complaint: nonhealing ulcer to right pichardo, edema bilaterally History of Wound: Kenia is a sweet 87 yo woman that presents to the wound center today for evaluation and treatment of a nonhealing ulcer of her right lower leg/pichardo that has been present for several weeks. She has had increased edema to her lower legs bilaterally for the last 3 months and about 2 weeks ago her granddaughter noticed an area that was open and draining on her right leg and took her to urgent care at the [facility]. She was diagnosed with cellulitis and was treated with Keflex 500 mg TID x 10 days. She was also referred here for an ulcer and a callous of her right plantar foot. They have been dressing the area on her right pichardo with black salve. She has had improvement in her edema but it is still present. She did have a venous duplex a month ago to evaluate for DVTs which was negative. She has never had trouble healing wounds in the past and had not been having edema until several months ago. She does not wear compression stockings and does not typically elevate her feet often. She does eat well and has significant amount of protein in her diet. They do have a new puppy in the house which could have caused a scratch or open area to begin. She lives with her son and his family. She is still very active and does some cleaning and some cooking and outside work. She denies fever, chills, erythema or odor. Subjective Subjective Kenia returns today for follow up of a nonhealing ulcer of her right lateral lower leg. It is healed. She denies erythema, pain or increase in drainage. Objective Data Objective Data Vital Signs: Vital Signs Temp Pulse Resp BP 97.6 F L 74 18 143/68 H 01/16/23 10:35 01/16/23 10:35 01/16/23 10:35 01/16/23 10:35 Physical Exam Const alert, oriented x3 and no apparent distress General Appearance: cooperative and comfortable HEENT normocephalic and head/scalp atraumatic Resp normal respiratory effort Effort and Inspection: able to speak in complete sentences Cardio regular rate and regular rhythm GI normal to inspection, nondistended, normoactive bowel sounds and soft to palpation Extremity General Extremity: edema bilateral lower extremity Details: moderate Skin General Skin Exam: venous stasis and dermatitis Wounds: wounds noted Wound Narrative: as in clinical panel Psych mental status grossly normal, thought process normal, cooperative and affect normal Debridement Note Debridement Note Post-Debridement Measurements and Additional Note: Post-Debridement Measurements/Treatment - Nurse 1 - General Ulcer Assessment Start: 01/16/23 10:35 Freq: Status: Active Protocol: MICHAEL Activity Type Activity Date Activity User E-sign Co-sign Detail Recorded Client Recorded Date Recorded By Document 01/16/23 10:35 PL Tablet 01/16/23 10:36 PL 01/16/23 10:35 WC - Today's Visit Information Type of service Follow-up Visit (Physician/STRATEGIC PARTNERSHIP SPECIALIST ) Arrival Mode Ambulatory Transfer Assistance None Patient Identification Verified (Name & Yes ) Patient Requires Transmission-Based No Precautions Safety Precautions NA Vital Signs Temperature (97.8 F-99.1 F) 97.6 F L Temperature Source Temporal Pulse Rate (60-100) 74 Respiratory Rate (12-18) 18 Blood Pressure (90/60-120/80) 143/68 H Blood Pressure Mean (mm Hg) 93 History Since Last Visit- (Skip if this is Patient's initial visit) Have you changed medications since your No last visit? Any new allergies or adverse reactions No Had a fall/change in ADL's that may No increase risk of falls Signs or symptoms of abuse and/or No neglect since last visit Have you been in the hospital since your No last visit? Has dressing in place as prescribed Yes Has compression in place as prescribed Yes Has offloadiing in place as prescribed N/A Experienced any changes in pain level or No management Pain Scale: 0-10 Numeric Is Patient Pain Free? Yes - Nurse 2 - General Ulcer CM Notes Start: 01/16/23 10:35 Freq: Status: Active Protocol: Activity Type Activity Date Activity User E-sign Co-sign Detail Recorded Client Recorded Date Recorded By Document 01/16/23 10:54 GM Desktop 01/16/23 10:58 GM Edit Result 01/16/23 10:54 GM (1) Desktop 01/16/23 11:03 GM (1) 2. R plantar - Correct Procedure => Yes - Procedure Performed => Yes - Type of Procedure => Debridement - Clinical Debridement => Epidermis / Dermis - Tissue Removed => Epidermis - Post Debridement (cm) - Length => 0.1 - Post Debridement (cm) - Width => 0.1 - Post Debridement (cm) - Depth => 0.1 - Total Square (Post) (cm) => 0.01 - Area of Debridement (cm) - Length => 0.1 - Area of Debridement (cm) - Width => 0.1 - Total Square (Area) (cm) => 0.01 - Tunneling => No - Undermining/Tunneling => No - Debridement - Open, 1st 20sq cm => Yes 01/16/23 10:54 Wound Center Nurse 2 Right achilles -Time 10:57 -Correct Patient Yes -Correct Side, Site, Position Yes -Wound/Ulcer Outcome Healed- Epithelialized 2. R plantar -Time 10:57 -Correct Patient Yes -Correct Side, Site, Position Yes -Correct Procedure Yes -Procedure Performed Yes -Type of Procedure Debridement -Clinical Debridement Epidermis / Dermis -Tissue Removed Epidermis -Post Debridement (cm) - Length 0.1 -Post Debridement (cm) - Width 0.1 -Post Debridement (cm) - Depth 0.1 -Total Square (Post) (cm) 0.01 -Area of Debridement (cm) - Length 0.1 -Area of Debridement (cm) - Width 0.1 -Total Square (Area) (cm) 0.01 -Tunneling No -Undermining/Tunneling No -Wound/Ulcer Outcome Healed- Epithelialized -Debridement - Open, 1st 20sq cm Yes 1. RLE -Time 10:57 -Correct Patient Yes -Correct Side, Site, Position Yes -Wound/Ulcer Outcome Healed- Epithelialized Pain Scale: 0-10 Numeric Is Patient Pain Free? Yes WC - Nurse 3 - General Ulcer D/C NN Start: 01/16/23 10:35 Freq: Status: Active Protocol: Activity Type Activity Date Activity User E-sign Co-sign Detail Recorded Client Recorded Date Recorded By Document 01/16/23 10:59 GM Desktop 01/16/23 10:59 GM 01/16/23 10:59 Wound Care Center Nurse 3 1. RLE -Ulcer Cleansing Not Cleansed -Negative Pressure Wound Therapy N/A -Primary Dressing Applied Mepilex Border -Mepilex Border 1 Pain Scale: 0-10 Numeric Is Patient Pain Free? Yes WC - Visit Discharge Discharge Condition Stable Ambulatory Status Ambulatory Transportation Private Auto Medication Reconcilliation completed & Yes provided to patient/care provider Clinical Summary of Care Provided Yes Assessment/Plan Assessment/Plan (1) Bilateral lower extremity edema: CODE(S): R60.0 - Localized edema (2) Cellulitis of right lower extremity: CODE(S): L03.115 - Cellulitis of right lower limb (3) Hypertension: CODE(S): I10 - Essential (primary) hypertension QUALIFIERS: Hypertension type: primary hypertension Qualified Code(s): I10 - Essential (primary) hypertension (4) Non-rheumatic tricuspid valve insufficiency: CODE(S): I36.1 - Nonrheumatic tricuspid (valve) insufficiency (5) Paroxysmal atrial fibrillation: CODE(S): I48.0 - Paroxysmal atrial fibrillation (6) Chronic systolic (congestive) heart failure: CODE(S): I50.22 - Chronic systolic (congestive) heart failure (7) Hyperlipidemia: CODE(S): E78.5 - Hyperlipidemia, unspecified QUALIFIERS: Hyperlipidemia type: pure hypercholesterolemia Qualified Code(s): E78.00 - Pure hypercholesterolemia, unspecified; E78.0 - Pure hypercholesterolemia (8) History of implantable cardiac defibrillator (ICD): (9) Atherosclerosis of coronary artery of [place] heart without angina pectoris: CODE(S): I25.10 - Atherosclerotic heart disease of [place] coronary artery without angina pectoris QUALIFIERS: Coronary Disease-Associated Artery/Lesion type: [place] artery Qualified Code(s): I25.10 - Atherosclerotic heart disease of [place] coronary artery without angina pectoris (10) Callus of foot: CODE(S): L84 - Corns and callosities (11) Venous ulcer of right lower extremity without varicose veins: CODE(S): I87.2 - Venous insufficiency (chronic) (peripheral); L97.919 - Non-pressure chronic ulcer of unspecified part of right lower leg with unspecified severity (12) Venous stasis dermatitis of both lower extremities: CODE(S): I87.2 - Venous insufficiency (chronic) (peripheral) PLAN: Plan Evaluation today in clinic as annotated above. At home wound-care instructions: Ulcer is healed. Continue to pad and protect for next week. Apply Vaseline or Aquaphor to sole of foot daily. Compression: Continue to use tubigrip compression daily upon rising and remove at bedtime. Off-loading: The patient was instructed to avoid pressure and friction on the affected areas. Reposition every 2 hours at minimum. Avoid prolonged standing and/or dangling of legs. When seated, feet should be elevated at chest level. Frequent ambulation is encouraged. Diet: Patient encouraged to increase protein intake while taking caution to avoid high carbohydrate and/or sugar intake. Labs/cultures/imaging: No sign of infection. Venous testing showed incompetence of veins in right lower leg. Discussed referral to Dr. Egan for consideration of possible intervention and she is scheduled for 01/05/23. Follow-up: She is discharged today from treatment and will return if she has any further issues. Note: [employer] speech recognition muffle operator software was used to create portions of this document. Sound-alike and misspelled words, as well as other muffle operator errors may be contained in the documentation.
== END 2023-01-19 15:25 | disposition home or self-care (01) ==
LOC: WC 06:47
PROVIDERS: PCP Internal Medicine; Referring Provider Physician Assistant Surgical; Visit Provider Family Medicine
DX: Z09 Encounter for follow-up examination after completed treatment for conditions other than malignant neoplasm (principal); I11.0 Hypertensive heart disease with heart failure; I50.22 Chronic systolic (congestive) heart failure; I48.0 Paroxysmal atrial fibrillation; I87.2 Venous insufficiency (chronic) (peripheral); L84 Corns and callosities; R60.0 Localized edema; I36.1 Nonrheumatic tricuspid (valve) insufficiency; E78.5 Hyperlipidemia, unspecified; I25.10 Atherosclerotic heart disease of native coronary artery without angina pectoris; Z79.899 Other long term (current) drug therapy
CPT/HCPCS: 97597

== ENCOUNTER 2023-03-12 07:29 | Day surgery (SDC) | payer MEDICARE, SELFPAY ==
[2023-03-12 08:04] VITALS: BMI 27.6
--- NOTE | 2023-03-12 10:00 | HP.PCM_ITS ---
HPI - General HPI Narrative RAJIV SUTTON, is a 88 F who presents with right lower extremity venous inefficiency refractory to compression. [facility] Medical History Anemia Arthritis Atherosclerosis of coronary artery of [place] heart without angina pectoris Breathlessness Chronic systolic (congestive) heart failure COVID Deep vein thrombosis Elevated troponin Essential (primary) hypertension Hearing loss Hyperlipidemia Hypertension Iron deficiency Near syncope Non-rheumatic tricuspid valve insufficiency NSTEMI (non-ST elevated myocardial infarction) (11/17/17) Paroxysmal atrial fibrillation Seborrheic keratoses, inflamed Secondary pulmonary arterial hypertension Sick sinus syndrome Skin lesion Ventricular fibrillation (03/2012) Home Medications cataplex B See Rx Instructions PO DAILY supplement 11/29/19 [History Last Taken Unknown] cataplex F See Rx Instructions PO .COMPLEX supplement 11/29/19 [History Last Taken Unknown] apple cider vinegar 600 mg capsule 600 mg PO .COMPLEX 06/16/22 [History Last Taken 09/11/22] ascorbic acid (vitamin C) 500 mg tablet 500 mg PO BID supplement 09/14/22 [History Last Taken Unknown] vitamin B complex (B Complex-Vitamin B12 tablet) 1 tab PO DAILY supplement 09/14/22 [History Last Taken Unknown] lisinopril 10 mg tablet 10 mg PO DAILY #30 tabs 10/16/22 [Rx Last Taken 03/12/23] ferrous sulfate 325 mg (65 mg iron) tablet (FeroSul) 325 mg PO DAILY supplement 01/29/23 [History Last Taken Unknown] metoprolol succinate 100 mg tablet,extended release 24 hr 50 mg PO DAILY awaiting on mail order RX 01/29/23 [History Last Taken 03/12/23] omega [id number] oil 600 mg-20 mg-500 mcg-800 mcg capsule (CardioVid PLUS) 1 cap PO DAILY 01/29/23 [History Last Taken Unknown] Allergy/AdvReac Type Severity Reaction Status Date / Time Dbhralc-KGM-TxC Reductase AdvReac Mild muscle Verified 01/29/23 13:26 Inhibitor aches [Bgcodsg-Ois-Kqf Reductase Inhibitor] Family History Other Depression Diabetes Suicide attempt Surgical History History of coronary artery stent placement (11/17/17) History of implantable cardiac defibrillator (ICD) (04/09/17) Status post excision of skin lesion, follow-up exam Social History Smoking Status: Never smoker alcohol intake: never substance use type: does not use caffeine: Yes Type: coffee Number of servings: 2 ROS Constitutional Constitutional: Denies chills, fever(s), frequent falls, lethargy or weakness Eyes Eyes: Denies blind spots, change in vision or loss of vision ENT HEENT: Denies bleeding gums, hoarseness or sore throat Cardiovascular Cardiovascular: Denies abdominal pain, bluish discoloration of hand/feet, chest pain with activity, claudication, cold extremities, cyanosis, dyspnea on exertion, erythema on extremities, irregular heart rhythm, leg edema, leg ulcers, numbness in extremities or weakness in extremities Respiratory/Chest Respiratory/Chest: Denies cough, excessive phlegm production, shortness of breath at rest, shortness of breath with exertion or wheezing Gastrointestinal Gastrointestinal: Denies anorexia, change in stool character, constipation, diarrhea, melena or rectal bleeding Genitourinary Genitourinary: Denies dysuria or hematuria Musculoskeletal Musculoskeletal: Denies abnormal gait Integumentary Integumentary: Reports other Details: ; Denies erythema, non-healing lesions or wounds Neurologic Neurologic: Denies abnormal speech, focal weakness, headache(s), loss of vision, numbness, paresthesias or sensory deficit Hematologic/Lymphatic Hematologic/Lymphatic: Denies easy bleeding, easy bruising or lymphadenopathy Vital Signs Vital Signs Vital Signs: Weight Weight: 132 lb Body Mass Index (BMI) 27.6 Physical Exam Const alert, oriented x3, no apparent distress and healthy appearing General Appearance: cooperative; Negative for combative or lethargic Orientation / Consciousness: awake Exam Limitations: no limitations HEENT Head and Scalp: normocephalic and atraumatic Eyes EOMs intact bilaterally General Eye: normal appearance of both eyes Neck full ROM, no lymphadenopathy, thyroid normal and No no carotid bruits General: trachea midline; Negative for lymphadenopathy or tenderness Thyroid: thyroid normal Lymph Lymphatic: Negative for no lymphadenopathy noted Resp normal respiratory effort, no use of accessory muscles and clear to auscultation bilaterally Effort and Inspection: Negative for labored, stridor or audible wheezes Cardio regular rate and regular rhythm Back/Spine Cervical Spine: cervical ROM normal Extremity full ROM, normal capillary refill and no clubbing, cyanosis or edema Skin no rashes or lesions noted and no wounds Neuro oriented x3, CN's II-XII intact bilaterally, no focal motor deficits and no sensory deficits noted Psych thought process normal, cooperative, affect normal, speech normal and activity/motor behavior normal Assessment & Plan Assessment/Plan (1) Venous ulcer of right lower extremity with varicose veins: PLAN: -right saphenous chemical ablation
--- NOTE | 2023-03-12 11:04 | PCM.OPRPT ---
Report of Operation Date of Procedure: 03/12/23 Pre-Operative Diagnosis: venous insufficiency with ulceration, right lower extremity Post-Operative Diagnosis: same Surgery/Procedure Performed:: right great saphenous chemical ablation Surgeon: Juan Egan Type of Anesthesia: Local and Sedation,Conscious Estimated Blood Loss (mL): 2 Description of Procedure: HPI: Patient is an 88-year-old female with venous insufficiency with ulceration of the right lower extremity. Has been refractory to compression therapy so she presents now for great saphenous vein chemical ablation. Description of procedure: Upon obtaining informed consent and verification correct patient procedure site patient taken to [employer] [facility] where she was positioned prepped and draped usual fashion. Time was performed consultation administered Versed and fentanyl. Skin overlying the great saphenous vein just above the ankle was anesthetized 1% lidocaine the vessel accessed under also guidance with a micropuncture needle wire. This then exchanged out for the chemical ablation delivery sheath. Through the 7 [place] sheath a [employer] wire was advanced under ultrasound guidance proximally up to the saphenofemoral junction. Next the glue delivery guide was advanced over the wire and positioned at the saphenofemoral junction. The wire and dilator then withdrawn and the glue delivery guide pulled back 5 cm. The glue delivery sheath was then advanced through the guide and positioned appropriately. These were then positioned at the instructions for use and distance inferior to the saphenofemoral junction of 5 cm. Glue was then deposited along the entirety of the length of the great saphenous vein from this position down to 5 cm above the sheath. The glue delivery guide and catheter then withdrawn after which the sheath was withdrawn a minute pressure held with satisfactory hemostasis noted. Dry sterile dressing and Dave wrap were then applied the patient was taken the recovery room with dissipated discharged home.
== END 2023-03-12 23:59 | disposition home or self-care (01) ==
PROVIDERS: PCP Internal Medicine; Referring Provider Surgery Trauma Surgery; Visit Provider Surgery Trauma Surgery
DX: I83.015 Varicose veins of right lower extremity with ulcer other part of foot (principal); L97.819 Non-pressure chronic ulcer of other part of right lower leg with unspecified severity; I11.0 Hypertensive heart disease with heart failure; I50.22 Chronic systolic (congestive) heart failure; I48.0 Paroxysmal atrial fibrillation; I87.2 Venous insufficiency (chronic) (peripheral); Z86.16 Personal history of COVID-19; D64.9 Anemia, unspecified; I25.10 Atherosclerotic heart disease of native coronary artery without angina pectoris; E78.5 Hyperlipidemia, unspecified; Z86.718 Personal history of other venous thrombosis and embolism; I25.2 Old myocardial infarction; Z95.5 Presence of coronary angioplasty implant and graft; Z95.810 Presence of automatic (implantable) cardiac defibrillator
CPT/HCPCS: 36482; 99152; 99153; C1769; C1894; J7040

== ENCOUNTER → 2023-03-16 | Outpatient (CLI) | payer MEDICARE, SELFPAY ==
--- NOTE | 2023-03-16 09:52 | VDLE_ITS ---
Reason For Study: S/P GSV Chemical Ablation RIGHT LEFT Rt GSV is Dilated and NONCOMPRESSIBLE with CFV is compressible, spontaneous, phasic, intraluminal echogenicity from ankle to competent, and demonstrates normal approximately 1cm distal to SFJ. Finding is augmentation. consistent with recent GSV ablation procedure. CFV is compressible, spontaneous, phasic, competent and demonstrates normal augmentation. FV is compressible, spontaneous, phasic, competent and demonstrates normal augmentation. POP V is compressible, spontaneous, phasic, competent and demonstrates normal augmentation. T/P Trunk is compressible. PTV is compressible. RT PerV is compressible. Procedure This is a venous duplex using B-mode, color flow and spectral Doppler. Exam performed in department. The exam was diagnostic. VL/Venous Duplex US, Unilateral Interpretation Summary Deep veins of the right lower extremity are patent and compressible segmentally . There is no evidence of right lower extremity deep vein thrombosis. Right great saphenous vein occluded consistent with recent chemical ablation Ordering Physician: Susan Blakely Referring Physician: Zuleyka Delatorre Performed By: Aleksandr Brenner RVT
--- OUTSIDE RECORDS SUMMARY | 2023-03-16 10:48 | XMS RPT_ITS | CCD ---
Author Name Unknown Address [address] [place] [address] Organization [facility] Care Team Providers Care Community Mental Health Worker Name Role Phone JAD, CHARLY Unavailable Unavailable JAD, CHARLY Unavailable Unavailable JAD, CHARLY Unavailable Unavailable JAD, CHARLY Unavailable Unavailable [facility] Unavailable Unavailable VITEBSKIY, MARCO Unavailable Unavailable JAD, CHARLY Unavailable Unavailable [facility] Unavailable Unavailable VITEBSKIY, MARCO Unavailable Unavailable [facility] Unavailable Unavailable VITEBSKIY, MARCO Unavailable Unavailable VITEBSKIY, MARCO Unavailable Unavailable [facility] Unavailable Unavailable VITEBSKIY, MARCO Unavailable Unavailable [facility] Unavailable Unavailable [facility] Unavailable Unavailable [facility] Unavailable Unavailable VITEBSKIY, MARCO Unavailable Unavailable VITEBSKIY, MARCO Unavailable Unavailable [facility] Unavailable Unavailable SCHWEIKERT, STACIE A Unavailable Unavailable [facility] Unavailable Unavailable SCHWEIKERT, STACIE A Unavailable Unavailable [facility] Unavailable Unavailable VITEBSKIY, MARCO Unavailable Unavailable [facility] Unavailable Unavailable VITEBSKIY, MARCO ALEKSANDROVICH Unavailable Unavailable JAD, CHARLY E Unavailable Unavailable VITEBSKIY, MARCO ALEKSANDROVICH Unavailable Unavailable VITEBSKIY, MARCO ALEKSANDROVICH Unavailable Unavailable VITEBSKIY, MARCO ALEKSANDROVICH Unavailable Unavailable VITEBSKIY, MARCO ALEKSANDROVICH Unavailable Unavailable SCHWEIKERT, STACIE A Unavailable Unavailable JAD, CHARLY E Unavailable Unavailable JAD, CHARLY E Unavailable Unavailable TAWANA LINTON Primary Care Unavailable NINA CASTRO Attending Unavailable TAWANA LINTON Primary Care Unavailable NATE BELL Attending Unavailable Allergies Allergy Classification Reported Allergen(s) Allergy Type Date of Onset Reaction(s) Facility (3 sources) lovastatin; Translations: [LOVASTATIN] Drug Allergy 01-12-2012 [facility] Repository Problems Active Problems Problem Classification Problem Date Documented Da te Episodic/Chronic Cardiac arrest and ventricular fibrillation (1 source) Ventricular fibrillation; Translations: [Ventricular fibrillation] Onset: 03-17-2017 Chronic Cardiac dysrhythmias (3 sources) Paroxysmal atrial fibrillation; Translations: [Paroxysmal atrial fibrillation] Onset: 03-17-2017 Chronic Conduction disorders (2 sources) Presence of automatic (implantable) cardiac defibrillator; Translations: [Atrioventricular block, complete] Onset: 03-26-2012 Chronic Essential hypertension (1 source) Essential (primary) hypertension; Translations: [Essential (primary) hypertension] Onset: 11-21-2014 Chronic Heart valve disorders (1 source) Rheumatic mitral valve disease, unspecified; Translations: [Rheumatic mitral valve disease, unspecified] Onset: 12-06-2014 Chronic Unclassified (1 source) Unknown / UNK(Unknown) Onset: 03-17-2017 Past or Other Problems Problem Classification Problem Date Documented Da te Episodic/Chronic Complication of device; implant or graft (1 source) Other mechanical complication of other cardiac electronic device, initial encounter; Translations: [Other mechanical complication of other cardiac electronic device, initial encounter] Onset: 01-05-2017 Episodic Results Test Name Value Interpretation Reference Range Facil ity Encounters Encounter Date Encounter Type Care Provider Facility Start: 02-26-2023 End: 02-26-2023 ambulatory TAWANA LINTON Facility:[facility] Start: 02-18-2023 End: 02-18-2023 [facility] TAWANA ROYER Facility:[facility] Start: 04-13-2018 Patient encounter MARCO Gardner acility:[facility] Start: 01-04-2018 Patient encounter MARCO Gardner acility:[facility] Start: 10-05-2017 End: 11-03-2017 Patient encounter STACIE TORRES Facility:[facility] Start: 07-07-2017 Patient encounter MARCO Gardner acility:[facility] Start: 06-30-2017 Patient encounter CHARLY Ocampo ility:[facility] Start: 04-17-2017 End: 04-17-2017 Patient encounter IMCA Facility:[facility] Start: 04-09-2017 End: 04-09-2017 Evaluation and management of inpatient MARCO DEL RIO Facility:[facility] Start: 04-08-2017 End: 04-09-2017 Patient encounter MARCO DEL RIO Facility:[facility] Start: 03-17-2017 End: 03-17-2017 Patient encounter MARCO DEL RIO Facility:[facility] Start: 01-05-2017 End: 01-05-[address] Facility:[facility] Payers Date Payer Category Payer Medicare [id number] 2019 Medicare [id number] Medicare [id number] Progress note 02-26-2023 Note Date & Type Note Facility 02-26-2023 Note HNO ID: [id number] Author: NINA CASTRO APRN.ADMINISTRATIVE SERVICES DIRECTOR Service: ? Author Type: Nurse Practitioner Type: Progress Notes Filed: 02/26/2023 09:40 Note Text: PESSARY FITTING NOTE Kenia Pittman is a 88 year old who presents for a pessary fitting. Urinary incontinence: yes, wears pads Defecatory Dysfunction: yes, takes Metamucil Is patient sexually active? no General: Well appearing, alert, in no acute distress, well-hydrated, well nourished. Pelvic: Ext. Genitalia: No lesions or other abnormalities Vagina: lesions no Cervix: Normal Urethra: Normal Bimanual: No tenderness, No masses Prolapse Noted: Yes POP-Q from last visit on 02/18/[address] Bell: Aa = +3 Ba = +7.0 C = +7.0 gh = 6.0 pb = 2.0 tvl = 8.0 Ap = +3 Bp = +7.0 D = +7.0 Had tried #3 RWS, #2 RWS with knob without success. Today, states she is most bothered by prolapse compared to urinary incontinence. States she has had occasional occurences of small rectal bleeding, has not followed up with PCP yet. PROCEDURE NOTE: UNIVERSAL PROTOCOL / SAFETY CHECKLIST Procedure to be Performed: Pessary fitting Sign In: A Moment of CARE was completed. Personnel directly involved with the procedure wore the appropriate PPE (Personal Protective Equipment). Patient/Surrogate Stated/Verified: PATIENT VERIFIED(optional for EMERGENT procedures): Patient name, Date of , Relevant allergies, and The intended procedure Time Out Communication: Intended patient and procedure match the source documents. Consent documented and matches the intended procedure. Sign Out: SIGN OUT (optional for EMERGENT procedures): No specimen collected. All instruments, equipment, possible retained foreign bodies accounted for. Nina Castro APRN.CNP Fitting chaperoned by: Pam Hernandez RN Fitting pessary(s) pre-count: 4 Fitting pessary(s) post-count: 3, and 1 used to for final fitting, total of 4 Fitting pessary post-count documented by medical fee clerk: Yes Final fitting pessary selected: Gelhorn 2.25 #3 Vaginal sweep prior to placement: A digital sweep of the vaginal canal was performed by Nina Castro APRN.CNP and it was ascertained that no instruments or other foreign bodies are retained within the cavity. The home going pessary was positioned properly within the vagina. PESSARY FITTING PROCEDURE SUMMARY: Patient tolerated procedure well: Yes Patient able to remove and replace pessary without difficulty: No The patient reported no discomfort and the pessary stayed in placed with ambulating: Yes PLAN: Fit today with #3 gelhorn pessary. Advised patient to follow up with PCP for rectal bleeding Return precautions reviewed. Follow up in 4-6 weeks for pessary check. Nina Castro APRN.CNP [facility] Progress note 02-18-2023 Note Date & Type Note Facility 02-18-2023 Note HNO ID: [id number] Author: Nate Bell MD Service: ? Author Type: Physician Type: Progress Notes Filed: 02/18/2023 4:41 PM Note Text: Female Pelvic Medicine AND Reconstructive Surgery Consult CHIEF COMPLAINT: Kenia Pittman is a 88 year old referred for consultation regarding cystocele. She has not had a hysterectomy. HISTORY OF PRESENT ILLNESS: Of note, she has h/o postoperative DVT. She also has a h/o Afib with a pacemaker/defibrillator inserted. She is not currently on anticoagulation. She reports prolapse symptoms for at least 5 months. She has noticed a vaginal bulge that she could see and feel. She reports having pelvic pressure symptoms. She does not manually reduce the bulge. She has tried a pessary but it didn't work. She reports RESHMA with coughing, laughing, and sneezing. She reports UUI. She does have symptoms of urinary urgency and frequency. She does not feel that she empties her bladder completely at times. She has tried overactive bladder medications, she can't recall the name and it did not help for long. Daytime frequency: 3-4 Nocturia: 3 Fluid intake: 2 cups of coffee, and not enough water daily. She denies a history of UTIs. Today she denies any dysuria or hematuria. She does note some bleeding with BMs. She denies constipation. She takes Psyllium powder to firm her stool. She reports fecal incontinence of gas/stool. She does take fiber supplements to help with her constipation. She denies vaginal dryness. She has an RX for vaginal estrogen, but it is difficult to use d/t prolapse. She is not sexually active, . She denies a strong family history of breast and ovarian cancer. 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 FITTER HISTORY: menopause at age 57, Pos hx of HRT, No hx of abnormal paps, last pap age 66 normal, last mammogram 2018 OB History T3 L3 SAB0 IAB0 Ectopic0 Multiple0 Live Births3 , x3 History of third or fourth degree laceration: No Weight of largest baby: 9lb PAST MEDICAL HISTORY Diagnosis Date Anemia, unspecified Dual implantable cardioverter-defibrillator in situ DVT (deep venous thrombosis) ([facility]) 07/29/2012 DVT, femoral, acute ([facility]) 04/21/2012 Fracture Other and unspecified hyperlipidemia Paroxysmal atrial fibrillation ([facility]) 12/06/2014 [facility] - PAST MEDICAL HISTORY OF 05-29-08 pacemaker insertion Unspecified essential hypertension Ventricular fibrillation ([facility]) 03/23/2012 Caused near syncope before self terminating. Left heart catheterization shows mild, nonobstructive disease of the 1st diagonal. Transthoracic echocardiography shows LVEF 48% with moderate left ventricular hypertrophy. The dual chamber permanent pacemaker was up graded to dual chamber Implantable cardioverter defibrillator on 03/25/2012. PAST SURGICAL HISTORY Procedure Laterality Date EXCIS BREAST LESION right benign PAST SURGICAL HISTORY OF 05-29-08 pacemaker insertion REMOVEANDREPLACE ICD PULSE GEN MULTI LEAD 04/09/2017 TOTAL KNEE REPLACEMENT Bilateral 2009 FAMILY HISTORY Problem Relation Age of Onset Diabetes Mother Hypertension Mother None Father Current Outpatient Medications Medication Sig Dispense Refill Apple Cider Vinegar 600 mg cap Apple Cider Vinegar Cider Vinegar Active 600 MG DAILY June 03, 2018 3:09pm 06-03-2018 [facility] ([id number]) FERROUS GLUCONATE ORAL ferrous gluconate Ferrous Gluconate Active 65 MG DAILY November 16, 2017 10:18am 11-16-2017 [facility] ([id number]) predniSONE (DELTASONE) 10 mg tablet Take 1 tablet by mouth once daily. (Patient not taking: Reported on 10/03/2019 ) 5 tablet 0 hydrocortisone 2.5 % cream Apply 1 application to affected area twice daily. Location: eyelids b/l , twice a day for 2 weeks Avoid contact with eyes 40 g 1 BETAINE HCL ORAL Take by mouth. Cod Liver Oil oil Take by mouth. lisinopril-hydrochlorothiazide (PRINZIDE,ZESTORETIC) 10-12.5 mg per tablet Take 1 tablet by mouth once daily. 90 tablet 3 metoprolol tartrate, short acting, (LOPRESSOR) 50 mg tablet Take 1 tablet by mouth twice daily. (Patient taking differently: Take 50 mg by mouth as needed (Pt doesn't take this on a regular basis). ) 180 tablet 3 Ubidecarenone-[place]sey 3-Vit E (COQ-10 AND FISH OIL) 50-300-30 mg-mg-unit ORAL Cap Take one (1) tablet daily (Patient not taking: ) 0 0 MULTIVITAMIN TAB Take one(1) tablet daily. 0 No current facility-administered medications for this visit. ALLERGIES Allergen Reactions Mevacor [Lovastatin] Intolerance Myalgia Social History Tobacco Use Smoking status: Never Smokeless tobacco: Never Vaping Use Vaping Use: Never used Substance Use Topics Alcohol use: No Drug use: No REVIEW OF SYSTEMS ENT: negative for findings Respiratory: negative for findings Cardiovascular: negative Gastrointestinal: negative Genitourinary: negative Musculoskeletal: negative Neurologic: negative Psychiatric: neg (more content not included)... [facility] Summary Purpose Family History No Family History Records FoundNo Family History Records FoundNo Family History Records Found Advance Directives No Advanced Directives Records FoundNo Advanced Directives Records FoundNo Advanced Directives Records Found Additional Source Comments INFORMATION SOURCE (unrecogn ized section and content) DATE CREATED AUTHOR AUTHOR'S SCOTT QUINTANA 11/29/2017 [facility] DATE CREATED AUTHOR AUTHOR'S SCOTT ATION 02/27/2023 [facility] FOR RECORDS PERTAINING TO PATIENTS WHO ARE OR HAVE BEEN ENROLLED IN A CHEMICAL DEPENDENCY/SUBSTANCEABUSE PROGRAM, SOME INFORMATION MAY BE OMITTED. This clinical summary was aggregated from multiple sources. Caution should be exercised in using it in the provision of clinical care. This summary normalizes information from multiple sources, and as a consequence, information in this document may materially change the coding, format and clinical context of patient data. In addition, data may be omitted in some cases. CLINICAL DECISIONS SHOULD BE BASED ON THE PRIMARY CLINICAL RECORDS. [facility]. provides no warranty or guarantee of the accuracy or completeness of information in this document.
== END | disposition home or self-care (01) ==
LOC: CVS 09:52
PROVIDERS: PCP Internal Medicine; Referring Provider Surgery Trauma Surgery; Visit Provider Surgery Trauma Surgery
DX: I83.019 Varicose veins of right lower extremity with ulcer of unspecified site (principal); I83.811 Varicose veins of right lower extremity with pain; Z48.812 Encounter for surgical aftercare following surgery on the circulatory system
CPT/HCPCS: 93971

== ENCOUNTER → 2023-12-24 | Outpatient (CLI) | payer MEDICARE, SELFPAY ==
[2023-12-24 13:58] LABS: Absolute Lymphocyte Count 1.15 X10^3/uL (0.83-4.51); Absolute Neutrophil Count 3.8 X10^3/uL (2.0-7.7); Basophil# 0.05 X10^3/uL; Basophil% 0.9 % (0-1); Eosinophils% 1.8 % (0-5); Hematocrit 35.2 % (37-47); Hemoglobin 11.4 g/dL (12.0-15.0); Lymphocyte # 1.15 X10^3/ul (0.83-4.51); Lymphocyte % 20.3 % (19-41); Mean Corp Hgb Conc 32.4 g/dL (32-36); Mean Corpuscular Hgb 29.8 pg (27.0-32.0); Mean Corpuscular Volume 91.9 fL (81-99); Mean Platelet Vol. 9.7 fl (6.2-12.0); Monocyte# 0.55 X10^3/uL; Monocyte% 9.7 % (0-10); NRBC Flagged by Analyzer 0 % (0-5); Neutrophil # 3.79 X10^3/uL (2.7-7.7); Neutrophil % 66.9 % (47-70); Platelet Count 168 K/mm3 (150-450); RBC Distribution Width CV 13.3 % (11.6-14.6); RBC Distribution Width SD 44.9 fl (35.1-43.9); Red Blood Count 3.83 M/mm3 (4.2-5.4); White Blood Count 5.7 K/mm3 (4.4-11.0)
[2023-12-24 14:21] LABS: Vitamin B12 1048 pg/mL (211-911); Vitamin D,25 Hydroxy 12.1 ng/mL
[2023-12-24 14:23] LABS: Hemoglobin A1c 5.6 % (3.8-5.6)
[2023-12-24 14:32] LABS: ALB/GLOB Ratio 0.9 RATIO (0.9-2.4); AST(SGOT) 27 U/L (15-37); Alanine Aminotransfer ALT/SGPT 21 U/L (13-56); Albumin, Serum 3.8 g/dL (3.2-5.0); Alkaline Phosphatase 103 U/L (45-117); Anion Gap 4 (5-15); BUN 42 mg/dL (7-18); BUN/Creat Ratio 34.7 RATIO (10-20); Calcium,Total 9.3 mg/dL (8.5-10.1); Chloride 110 mmol/L (98-107); Cholesterol 239 mg/dL (200); Creatinine, Serum 1.21 mg/dL (0.55-1.02); EST Glomerular Filtration Rate 45 mL/min (>60); Est Glom Filt Rate - Afr Amer 54 mL/min (>60); Ferritin 523 ng/mL (8-252); Free T3 2.2 pg/mL (2.18-3.98); Globulin 4.2 g/dL (2.2-4.2); Glucose 95 mg/dL (74-106); High Density Lipoprotein 74 mg/dL; Iron 35 ug/dL (50-170); Iron Binding Capacity,Total 153 ug/dL (250-450); PERCENT IRON SATURATION 22.9 % (15.0-55.0); Potassium 4.5 mmol/L (3.5-5.1); Sodium Level 138 mmol/L (136-145); T4 Free Direct 0.84 ng/dL (0.76-1.46); Thyroid Stim Hormone (TSH) 0.595 uIU/mL (0.358-3.740); Triglycerides 97 mg/dL; Very Low Density Lipoprotein 19 mg/dL (5-40)
== END | disposition home or self-care (01) ==
LOC: LAB 13:16
PROVIDERS: PCP Internal Medicine; Referring Provider Internal Medicine; Visit Provider Internal Medicine
DX: Z13.220 Encounter for screening for lipoid disorders (principal); I10 Essential (primary) hypertension; E78.00 Pure hypercholesterolemia, unspecified; R73.9 Hyperglycemia, unspecified; E55.9 Vitamin D deficiency, unspecified; D64.9 Anemia, unspecified; E53.8 Deficiency of other specified B group vitamins
CPT/HCPCS: 80053; 80061; 82306; 82607; 82728; 83036; 83540; 83550; 84439; 84443; 84481; 85025

== ENCOUNTER → 2024-03-21 | Outpatient (CLI) | payer MEDICARE, SELFPAY ==
--- NOTE | 2024-03-21 17:00 | RAD_ITS ---
PROCEDURE: TIBIA FIBULA 2 VIEWS REASON FOR EXAM: Infection to right lower extremity status post trauma. TECHNIQUE: Frontal and lateral view(s) of the right tibia and fibula COMPARISON: None. FINDINGS: RIGHT TIBIA / FIBULA: Anatomic alignment. There is evidence of total knee arthroplasty. Subtle periprosthetic lucency subjacent to the medial aspect of the tibial component, which could be seen with some loosening. No acute fractures or dislocations are identified. No bony destructive lesions are seen. Subtle vascular calcifications. Mild anterior soft tissue swelling about the mid tibia. RAD/Tibia & Fibula 2 Views IMPRESSION: 1. Mild anterior soft tissue swelling overlying the mid tibia. 2. No acute fractures or dislocations are identified. 3. Evidence of total knee arthroplasty. Subtle periprosthetic lucency subjacen t to the medial aspect of the tibial component, which could be seen with some hardware loosening. Correlate clinically Reading Location: [id number]
[2024-03-21 17:43] LABS: Absolute Lymphocyte Count 1.03 X10^3/uL (0.83-4.51); Basophil# 0.05 X10^3/uL; Basophil% 0.9 % (0-1); Eosinophils% 1.7 % (0-5); Hematocrit 36.1 % (37-47); Hemoglobin 11.8 g/dL (12.0-15.0); Lymphocyte # 1.03 X10^3/ul (0.83-4.51); Lymphocyte % 17.9 % (19-41); Mean Corp Hgb Conc 32.7 g/dL (32-36); Mean Corpuscular Volume 91.9 fL (81-99); Mean Platelet Vol. 9.8 fl (6.2-12.0); Monocyte# 0.53 X10^3/uL; Monocyte% 9.2 % (0-10); NRBC Flagged by Analyzer 0 % (0-5); Neutrophil # 4.02 X10^3/uL (2.7-7.7); Platelet Count 178 K/mm3 (150-450); RBC Distribution Width CV 13.5 % (11.6-14.6); RBC Distribution Width SD 45.8 fl (35.1-43.9); Red Blood Count 3.93 M/mm3 (4.2-5.4); White Blood Count 5.8 K/mm3 (4.4-11.0)
[2024-03-21 17:49] LABS: Erythrocyte Sedimentation Rate 31 mm/hr (0-30)
== END | disposition home or self-care (01) ==
LOC: LABSPEC 16:45 → MTLAB 16:50
PROVIDERS: PCP Internal Medicine; Referring Provider Internal Medicine; Visit Provider Internal Medicine
DX: L08.9 Local infection of the skin and subcutaneous tissue, unspecified (principal)
CPT/HCPCS: 36415; 73590; 85025; 85652; 86140; 87070; 87077; 87186; 87205

== ENCOUNTER → 2024-03-31 | Outpatient (CLI) | payer MEDICARE, SELFPAY ==
--- NOTE | 2024-03-31 09:57 | NM_ITS ---
PROCEDURE: BONE SCAN LIMITED AREA REASON FOR EXAM: Right leg wound, reportedly over the right distal tibia. TECHNIQUE: Blood flow, blood pool, and delayed phase imaging of the mid to lower legs after radiopharmaceutical administration RADIOPHARMACEUTICAL: 27.5 mCi Technetium-99m MDP IV COMPARISON: Right tibia and fibula of 03/21/2024 wonderful. FINDINGS: Blood flow: Somewhat asymmetrically increased blood flow is seen to the right leg, compared with the left. Blood pool: Mild asymmetric right sided blood pool activity is seen, most prominent in the medial distal right leg. Delayed: Delayed images demonstrate the presence of bilateral knee prostheses. Asymmetric increased uptake is seen in the dorsal right hindfoot and midfoot, probably related to altered weight-bearing and/or stress response. Delayed images of the right leg show a small area of focal increased uptake in the medial distal right leg, at the level of the distal anterior tibia.. NM/Bone Scan Limited Area IMPRESSION: 1. Asymmetric blood flow to the right leg, compared with the left. 2. Increased uptake at the anteromedial distal right leg, suddenly on blood poo l images, and more focally on delayed images. Differential diagnosis includes osteomyelitis, periosteal soft tissue infection , and stress response. Consider repeat plain film examination, as well. Reading Location: [id number]
== END | disposition home or self-care (01) ==
PROVIDERS: PCP Internal Medicine; Referring Provider Internal Medicine; Visit Provider Internal Medicine
DX: L08.9 Local infection of the skin and subcutaneous tissue, unspecified (principal); S81.809A Unspecified open wound, unspecified lower leg, initial encounter; X58.XXXA Exposure to other specified factors, initial encounter
CPT/HCPCS: 78300; A9503

== ENCOUNTER → 2024-04-13 | Outpatient (CLI) | payer MEDICARE, SELFPAY ==
[2024-04-13 19:03] LABS: Magnesium 1.8 mg/dL (1.5-2.2)
[2024-04-13 19:58] LABS: BUN 19 mg/dL (4-19); BUN/Creat Ratio 17.2 RATIO (10-20); Calcium 9.2 mg/dL (7.6-11.0); Carbon Dioxide 23.7 mmol/L (22.0-29.0); Creatinine, Serum 1.1 mg/dL (0.6-1.0); EST Glomerular Filtration Rate 48 (>60); Glucose 116 mg/dL (70-99)
[2024-04-13 20:01] LABS: Anion Gap 13 (5-15); Chloride 93 mmol/L (96-108); Potassium 4.1 mmol/L (3.3-5.1); Sodium Level 129 mmol/L (133-145)
== END | disposition home or self-care (01) ==
LOC: MTLAB 14:24
PROVIDERS: PCP Internal Medicine; Referring Provider Internal Medicine; Visit Provider Internal Medicine
DX: I10 Essential (primary) hypertension (principal); S81.809A Unspecified open wound, unspecified lower leg, initial encounter; X58.XXXA Exposure to other specified factors, initial encounter; L08.9 Local infection of the skin and subcutaneous tissue, unspecified
CPT/HCPCS: 36415; 80048; 83735; 86140

== ENCOUNTER 2024-04-14 14:00 | Outpatient (RCR) | payer MEDICARE, SELFPAY ==
[2024-04-14 14:18] VITALS: BP 166/82; PULSE 80; RESP 16; BMI 35.1
--- NOTE | 2024-04-14 15:40 | VDLE_ITS ---
Reason For Study Reason For Study: Rt LE Wound / Edema RIGHT GSV is normal. CFV is compressible, spontaneous, phasic, competent and demonstrates normal augmentation. FV is compressible, spontaneous, phasic, competent and demonstrates normal augmentation. POP V is compressible, spontaneous, phasic, competent and demonstrates normal augmentation. T/P Trunk is compressible. PTV is compressible. RT PerV is compressible. Lymph Nodes noted in Rt Groin measuring 1.01cm x 0.98cm and 1.20cm x 0.75cm. Procedure This is a venous duplex using B-mode, color flow and spectral Doppler. Exam performed in department. The exam was diagnostic. A preliminary report was called and/or faxed to Wound Center. VL/Venous Duplex US, Unilateral Interpretation Summary Deep veins of the right lower extremity are patent and compressible segmentally . There is no evidence of right lower extremity deep vein thrombosis. Valvular competence appears intact within the p roximal deep venous system on the right . The right great saphenous vein appears patent and compressible segmentally. Lar ge lymph nodes are noted in the right groin, with dimensions as noted above. Clinical correlation is advised. Ordering Physician: Susan Blakely Referring Physician: Zuleyka Delatorre Performed By: Aleksandr Brenner RVT
--- NOTE | 2024-04-14 18:15 | HP.PCM_ITS ---
History of Present Illness Date of Service: 04/14/24 Chief Complaint: R pichardo ulceration History of Wound: Kenia Pittman is a pleasant 89 y/o woman who presents to the wound care center today for evaluation of R pichardo ulceration as referred by her PCP Dr. Delatorre. She states this wound first started in approximately December after she dropped a metal bucket lid and it hit her pichardo. She states initially she had no bleeding and it scabbed over. She applied various topical homeopathic remedies without much improvement, but she was not having pain so she was not too worried about it. Then a few weeks ago she developed more pain in the area of the wound leading her to see Dr. Delatorre. He performed initial debridement and exam was concerning for infection including possible osteomyelitis so she was initiated on doxycycline and Augmentin; she had subsequent bone scan which was suggestive of osteomyelitis. Her Augmentin was extended, she has been on it 2 weeks now by her report and tolerating well. She had wound culture which was polymicrobial and demonstrated good susceptibility to Augmentin. On my exam today, her RLE is significantly more swollen compared to the LLE. She states this has developed just over the last week or so. She admits she has been much less active, trying to stay off of her feet. Her pain has overall been stable. Her R lower leg from top of her ankle to just below her knee is red, with fairly sharp demarcation at the upper and lower limits. There does not seem to be excess warmth compared to her LLE. She tells me she has been applying recommended homeopathic topical to this portion of her leg. She brought the bottle which is [employer] drink; review of the ingredients is cranberry juice, sour greenberg juice, a variety of other fruit juices and citric acid. It does not seem to be intended for topical application; it is deep red in color. She indicates that her current discoloration is all within the limits of where she has been applying this juice. She denies any nausea, vomiting, fevers, or chills. I have previously seen Kenia in the vascular office. Dr. Egan performed RLE GSV ablation 02/2023 due to RLE venous ulceration she had at that time. [facility] Medical History Open leg wound Skin infection History of hypothyroidism History of iron deficiency Skin tear of right forearm without complication Elevated troponin COVID Iron deficiency Breathlessness Seborrheic keratoses, inflamed Skin lesion Arthritis Hypertension Hearing loss Non-rheumatic tricuspid valve insufficiency Secondary pulmonary arterial hypertension Ventricular fibrillation (03/2012) Anemia Deep vein thrombosis Paroxysmal atrial fibrillation Chronic systolic (congestive) heart failure Hyperlipidemia Essential (primary) hypertension Atherosclerosis of coronary artery of [place] heart without angina pectoris Sick sinus syndrome NSTEMI (non-ST elevated myocardial infarction) (11/17/17) Near syncope Home Medications ?Medication ?Instructions ?Recorded ?Last Taken ?Type cataplex B See Rx Instructions PO DAILY 11/29/19 Unknown History supplement cataplex F See Rx Instructions PO .COMP REBECA 11/29/19 Unknown History supplement apple cider vinegar 600 mg capsule 600 mg PO .COMPLEX 06/16/22 09/11/22 History ascorbic acid (vitamin C) 500 mg 500 mg PO BID supplem ent 09/14/22 Unknown H istory tablet vitamin B complex (B 1 tab PO DAILY supplement Unknown History Complex-Vitamin B12 tablet) ferrous sulfate 325 mg (65 mg 325 mg PO DAILY suppleme nt 01/29/23 Unknown History iron) tablet (FeroSul) omega [id number]-whbs oil 600 1 cap PO DAILY Unknown History mg-20 mg-500 mcg-800 mcg capsule (CardioVid PLUS) lisinopril 10 mg tablet 10 mg PO DAILY #90 tabs 06/09 Unknown Rx Peak thyroid support PO DAILY 12/24/23 Unknown Hi story arginine 1,000 mg-B12 16.6 tab PO Heart 12/24/23 Unkn own History mcg-folic acid 66.6 mcg-B6 3.3 mg tablet ibuprofen 400 mg tablet 400 mg PO Q8H 03/21/24 Unkno wn History lisinopril 10 1 tab PO QDAY #30 tabs 04/06 Unknown Rx mg-hydrochlorothiazide 12.5 mg tablet amoxicillin 500 mg-potassium 1 tab PO TID #30 tabs Unknown Rx clavulanate 125 mg tablet (Augmentin) Allergy/AdvReac Type Severity Reaction Status Date / Time [id number] Reductase AdvReac Mild muscle Verified 04/06/24 13:10 Inhibitor aches Family History Other Depression Diabetes Suicide attempt Surgical History Status post ablation of incompetent vein using laser Status post excision of skin lesion, follow-up exam History of implantable cardiac defibrillator (ICD) (04/09/17) History of coronary artery stent placement (11/17/17) Social History Smoking Status: Never smoker alcohol intake: never substance use type: does not use caffeine: Yes Type: coffee Number of servings: 2 Vital Signs Vital Signs Vital Signs: 04/14/24 14:18 Pulse Rate 80 Respiratory Rate 16 Blood Pressure 166/82 H Blood Pressure Mean 110 Blood Pressure Source Monitor Blood Pressure Position Sitting Blood Pressure Location Left Arm Oxygen Delivery Method Room Air Weight Weight: 135 lb Body Mass Index (BMI) 35.1 Physical Exam Const alert, oriented x3 and no apparent distress General Appearance: cooperative and comfortable HEENT normocephalic, hearing grossly normal bilaterally and external ears normal Eyes General Eye: normal appearance of both eyes Neck General: normal visual inspection and trachea midline Resp normal respiratory effort Effort and Inspection: able to speak in complete sentences Cardio regular rate and regular rhythm Peripheral Pulses: posterior tibial pulses present and dorsalis pedis pulses present Extremity Extremity Narrative: RLE with 1-2+ edema, trace LLE edema Skin Wounds: wounds noted Wound Narrative: R pichardo ulceration to the depth of the fascia; there is some granulation tissue at the wound edges; there is overlying yellow slough; there is no apparent tracking, no purulence, no focal fluctuance/induration There is red discoloration through her right lower leg with sharp demarcation just below her knee, no lymphangitic streaking proximally; not particularly tender to palpation Psych mental status grossly normal, cooperative, speech normal and activity/motor behavior normal Debridement Note Debridement Note Wound debrided: R pichardo ulcer Laterality: Right Type of Debridement: Excisional debridement Anesthesia Used: 5% Lidocaine Gel Depth: Down to and including healthy tissue and to muscle Percentage of wound debrided: 100 Instrument Used: 3mm curette Tissue Removed: slough, devitalized tissue Amount of bleeding with debridement: Mild Bleeding Controlled with: Compression and gauze Patient tolerated procedure: Patient tolerated procedure well Post-Debridement Measurements and Additional Note: Post-Debridement Measurements/Treatment WC - Nurse 1 - General Ulcer Assessment Start: 04/14/24 14:15 Freq: Status: Active Protocol: CHARLENE.SUSANNA Activity Type Activity Date Activity User E-sign Co-sign Detail Recorded Client Recorded Date Recorded By Document 04/14/24 14:18 DL [id number] 04/14/24 14:32 DL 04/14/24 14:18 WC - Today's Visit Information Type of service Initial Visit Arrival Mode Ambulatory Transfer Assistance None Patient Identification Verified (Name & Yes ) Patient Requires Transmission-Based No Precautions Height and Weight Height 4 ft 4 in Weight 135 lb Weight in Pounds 135.0 lbs Weight Measurement Method Stated by Patient Body Mass Index (BMI) 35.1 BMI Classification Obese Vital Signs Pulse Rate (60-100) 80 Pulse Location Monitor Respiratory Rate (12-18) 16 Respiratory rate source Observation Oxygen Delivery Method Room Air Blood Pressure (90/60-120/80) 166/82 H Blood Pressure Mean 110 Source Monitor Position Sitting Blood Pressure Location Left Arm History Since Last Visit- (Skip if this is Patient's initial visit) Left Footwear Regular Shoe Right Footwear Regular Shoe Pain Scale: 0-10 Numeric Is Patient Pain Free? Yes Lower Extremity Assessment/ Foot Assessment/ Toe Nail Assessment Left -Posterior Tibial Palpable No -Posterior Tibial Doppler Monophasic -Dorsalis Pedis Palpable No -Dorsalis Pedis Doppler Monophasic -Extremity Color Hemosiderin -Hair Growth on Legs No -Hair Growth on Toes No -Temperature of Extremity Cool -Capillary Refill Less than 3 Seconds -Dependent Rubor No -Blanched when Elevated No -Lipodermatosclerosis No -Other Deformity No -Prior Foot Ulcer No -Charcot Joint No -Prior Amputation No -Thick Yes -Discolored Yes -Deformed Yes -Improper Length & Hygeine No Right -Posterior Tibial Palpable No -Posterior Tibial Doppler Monophasic -Dorsalis Pedis Palpable No -Dorsalis Pedis Doppler Monophasic -Extremity Color Dusky, Hemosiderin -Temperature of Extremity Warm -Capillary Refill Less than 3 Seconds -Dependent Rubor No -Blanched when Elevated No -Lipodermatosclerosis No -Other Deformity No -Prior Foot Ulcer No -Charcot Joint No -Prior Amputation No -Thick Yes -Discolored Yes -Deformed Yes -Improper Length & Hygeine No Neuropathy Assessment Feet - Top Side and Bottom <Entered> (a) Communication Assessment Preferred language [place] Able to Read Yes Able to Write Yes Right Hearing Abillity Normal Left Hearing Abillity Normal Visual Assistive Devices None Teaching Assessment Preferences Verbal Readiness To Learn Good Willingness to Engage in Self Management Med Activies Readiness to Engage in Self Management Med Activities Anxiety Level Calm Cooperation Cooperative Perception Coherent Interest in Health Problem Asks Questions Education Importance Acknowledges Need Does Patient Smoke tobacco or other Yes substances Smoking Status Never smoker Is Patient Diabetic No Functional Assessment Recent Decline in Ability to Perform Denies Any Declines 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 to contact place of quaker No (a) 1 - _ WC - Nurse 1 - General Ulcer Measurement Start: 04/14/24 14:15 Freq: Status: Active Protocol: Activity Type Activity Date Activity User E-sign Co-sign Detail Recorded Client Recorded Date Recorded By Document 04/14/24 14:18 DL [id number] 04/14/24 14:32 DL 04/14/24 14:18 Wound Center Nurse 1 #3- R MED LE -Combined with other wound No -Current Size (cm) - Length 1.8 -Current Size (cm) - Width 0.9 -Current Size (cm) - Depth 0.3 -Total Square Cm 1.62 -Date of Last Picture (Recall this 04/14/24 field) -Photo Taken Yes -Tunneling No -Undermining/Tunneling No -Circular Undermining No -Exudate Amt Medium -Exudate Type Serosanguineous -Wound Margin Distinct, Outline Attached -Granulation Amt Medium (34-66%) -Granulation Quality Red -Slough/Fibrin Yes -Necrosis Amt Medium (34-66%) -Necrotic Tissue Type Adherent Slough -Texture (Sania-wound Skin Appearance) Assessed -Moisture (Sania-wound Skin Appearance) Assessed,Dry/ Scaly -Color (Sania-wound Skin Appearance) Assessed -Temperature (Sania-wound Skin No Abnormality Appearance) (Pt Warm) -Tenderness on Palpation (Sania-wound No Skin Appearance) -Ulcer Cleansing Rinsed/ Irrigated with Saline -Foul Odor after Cleansing No -Anesthetic Used 5% Lidocaine Gel Lower Limb Edema Present Yes Right Calf (cm) 39.1 Right Ankle (cm) 19.8 Left Calf (cm) 35.6 Left Ankle (cm) 20.5 - Nurse 2 - General Ulcer CM Notes Start: 04/14/24 14:15 Freq: Status: Active Protocol: Activity Type Activity Date Activity User E-sign Co-sign Detail Recorded Client Recorded Date Recorded By Document 04/14/24 14:54 [id number] 04/14/24 15:04 04/14/24 14:54 Wound Center Nurse 2 #3- R MED LE -Time 14:55 -Correct Patient Yes -Correct Side, Site, Position Yes -Correct Procedure Yes -Procedure Performed Yes -Type of Procedure Debridement -Clinical Debridement Muscle / Fascia -Tissue Removed Fascia -Post Debridement (cm) - Length 1.8 -Post Debridement (cm) - Width 1.0 -Post Debridement (cm) - Depth 0.6 -Total Square (Post) (cm) 1.80 -Area of Debridement (cm) - Length 1.8 -Area of Debridement (cm) - Width 1.0 -Total Square (Area) (cm) 1.80 -Tunneling No -Undermining/Tunneling No -Circular Undermining No -Wound/Ulcer Outcome Not Healed -Ulcer Cleansing Rinsed/ Irrigated with Saline -Foul Odor after Cleansing No -Bioengineered Tissue No -Bleeding Controlled with Pressure -Treatment Response Procedure Tolerated Well -Offloading No -Debridement - Muscle / Fascia, 1st Yes 20sq cm Pain Scale: 0-10 Numeric Is Patient Pain Free? Yes - Nurse 3 - General Ulcer D/C NN Start: 04/14/24 14:15 Freq: Status: Active Protocol: Activity Type Activity Date Activity User E-sign Co-sign Detail Recorded Client Recorded Date Recorded By Document 04/14/24 15:14 [id number] 04/14/24 15:25 04/14/24 15:14 Wound Care Center Nurse 3 #3- R MED LE -Ulcer Cleansing Rinsed/ Irrigated with Saline -Pieces of Black Foam Inserted 1 -Promogran Jaclyn Matter 1 -<Query Deleted From Dictionary> [id number] [id number] SILICONE Pain Scale: 0-10 Numeric Is Patient Pain Free? Yes - Visit Discharge Discharge Condition Stable Ambulatory Status Ambulatory Transportation Private Auto Medication Reconcilliation completed & No provided to patient/care provider Clinical Summary of Care Provided Yes Charges/Coding Visit Charges Office Visits / Consults: 85571 OV L4 Est 30min Procedures Integumentary [id number]: [id number] Janette musc/fascia 20 sq cm/< Assessment/Plan Assessment/Plan (1) Chronic ulcer of right leg: CODE(S): L97.919 - Non-pressure chronic ulcer of unspecified part of right lower leg with unspecified severity QUALIFIERS: Qualified Code(s): L97.913 - Non-pressure chronic ulcer of unspecified part of right lower leg with necrosis of muscle PLAN: nonpressure chronic ulcer of the right pichardo to the depth of the fascia (2) Venous stasis dermatitis of both lower extremities: CODE(S): I87.2 - Venous insufficiency (chronic) (peripheral) PLAN: Plan Due to her new, increased swelling and infection with recent decreased activity will obtain stat venous duplex to rule out DVT. She does have appearance of erythema throughout her right lower leg; I do question if this discoloration from or dermatitic reaction to the red fruit drink she has been applying to the skin versus cellulitis; I favor the former as she has been on Augmentin which per last culture should be effective. I have asked that she discontinue applying this red fruit drink to her skin. I will refill her Augmentin for now, would aim for 4-6 weeks of antibiotic therapy given osteomyelitis. Will obtain updated wound culture. For wound care she is instructed to: (1) Cleanse the area of the wound with antibacterial soap and water, pat gently to dry (2) Apply Jaclyn to the wound bed, lightly moistened with sterile water (3) Cover with [place] SAP (4) Change daily or more often as needed to manage drainage or if dressing becomes soiled/soaked Return to the wound care center in 1 week, call or return sooner with any concerns.
--- NOTE | 2024-04-15 09:23 | WC ---
PHOTO 04/14/24 RIGHT SUKHWINDER BRIGGS
== END 2024-04-15 23:59 | disposition home or self-care (01) ==
LOC: WC 14:00
PROVIDERS: PCP Internal Medicine; Referring Provider Internal Medicine; Visit Provider Physician Assistant
DX: L97.813 Non-pressure chronic ulcer of other part of right lower leg with necrosis of muscle (principal); I11.0 Hypertensive heart disease with heart failure; I50.22 Chronic systolic (congestive) heart failure; I87.2 Venous insufficiency (chronic) (peripheral); W20.8XXA Other cause of strike by thrown, projected or falling object, initial encounter; I25.10 Atherosclerotic heart disease of native coronary artery without angina pectoris; D64.9 Anemia, unspecified; E78.5 Hyperlipidemia, unspecified; Z79.899 Other long term (current) drug therapy
CPT/HCPCS: 11043; 87070; 87075; 87205; 93971; 99213; G0463

== ENCOUNTER 2024-05-12 13:30 | Outpatient (RCR) | payer MEDICARE, SELFPAY ==
[2024-04-16 02:50] VITALS: BP 166/82; PULSE 80; RESP 16; BMI 35.1
[2024-04-21 13:51] VITALS: BP 166/77; PULSE 75; RESP 18; TEMP 36.1; BMI 35.1
--- NOTE | 2024-04-21 17:24 | PCM.WC.PN ---
History of Present Illness Date of Service: 04/21/24 Chief Complaint: R pichardo ulceration History of Wound: Kenia Pittman is a pleasant 89 y/o woman who presents to the wound care center today for evaluation of R pichardo ulceration as referred by her PCP Dr. Delatorre. She states this wound first started in approximately December after she dropped a metal bucket lid and it hit her pichardo. She states initially she had no bleeding and it scabbed over. She applied various topical homeopathic remedies without much improvement, but she was not having pain so she was not too worried about it. Then a few weeks ago she developed more pain in the area of the wound leading her to see Dr. Delatrore. He performed initial debridement and exam was concerning for infection including possible osteomyelitis so she was initiated on doxycycline and Augmentin; she had subsequent bone scan which was suggestive of osteomyelitis. Her Augmentin was extended, she has been on it 2 weeks now by her report and tolerating well. She had wound culture which was polymicrobial and demonstrated good susceptibility to Augmentin. On my exam today, her RLE is significantly more swollen compared to the LLE. She states this has developed just over the last week or so. She admits she has been much less active, trying to stay off of her feet. Her pain has overall been stable. Her R lower leg from top of her ankle to just below her knee is red, with fairly sharp demarcation at the upper and lower limits. There does not seem to be excess warmth compared to her LLE. She tells me she has been applying recommended homeopathic topical to this portion of her leg. She brought the bottle which is [employer] drink; review of the ingredients is cranberry juice, sour greenberg juice, a variety of other fruit juices and citric acid. It does not seem to be intended for topical application; it is deep red in color. She indicates that her current discoloration is all within the limits of where she has been applying this juice. She denies any nausea, vomiting, fevers, or chills. I have previously seen Kenia in the vascular office. Dr. Egan performed RLE GSV ablation 02/2023 due to RLE venous ulceration she had at that time. Subjective Subjective Kenia returns today accompanied by her granddaughter Kiersten. Since her last visit here she did develop a widespread erythematous and slightly raised/palpable rash involving her anterior thighs, her cheeks, chin, and hands. This was first noticed on 04/18 at an appointment with Dr. Delatorre; she and her granddaughter think it started that day. To that point, she had been on the Augmentin about [address] Delatorre felt it was a drug eruption rash but more likely due to the HCTZ she had started about 1 week prior so this was discontinued. On my exam today, comparing to the pictures on Kiersten's phone from earlier this week, at the very least it does not appear worse and the color appeared slightly improved. Dr. Delatorre was able to come over at the time of her appointment as well and he felt that the rash was improving, noted that it seemed nearly resolved on her face compared to prior and that generally it looked less erythematous. Otherwise, she has been doing well. She did stop using the red juice topically and the color of her right lower leg is much improved, appears far less erythematous and irritated. She reports dressing changes with the Jaclyn have been going well, she did receive the supplies that were ordered. She denies any new pain, excess drainage, nausea, vomiting, fevers, or chills. She feels that the swelling is improved as well, she is tolerating the Tubigrip compression well. Objective Data Objective Data Vital Signs: Vital Signs Temp Pulse Resp BP O2 Del Method 96.9 F L 75 18 166/77 H Room Air 04/21/24 13:51 04/21/24 13:51 04/21/24 13:51 04/21/24 13:51 04/21/24 13:51 Oxygen Delivery Method Room Air Weight: 135 lb Body Mass Index (BMI) 35.1 Charges/Coding Procedures Integumentary 111xxx-113xx: 49923 Janette musc/fascia 20 sq cm/< Physical Exam Const alert, oriented x3 and no apparent distress General Appearance: cooperative and comfortable HEENT normocephalic, hearing grossly normal bilaterally and external ears normal Eyes General Eye: normal appearance of both eyes Neck General: normal visual inspection and trachea midline Resp normal respiratory effort Effort and Inspection: able to speak in complete sentences Cardio regular rate and regular rhythm Peripheral Pulses: posterior tibial pulses present and dorsalis pedis pulses present Extremity Extremity Narrative: RLE with 1-2+ edema, trace LLE edema Skin Wounds: wounds noted Wound Narrative: R pichardo ulceration to the depth of the fascia; there is some granulation tissue at the wound edges; there is overlying yellow slough; there is no apparent tracking, no purulence, no focal fluctuance/induration; this is reduced in size from last week The prior red discoloration of her R lower leg is nearly fully resolved, and skin generally appears less irritated as well. Psych mental status grossly normal, cooperative, speech normal and activity/motor behavior normal Debridement Note Debridement Note Wound debrided: R pichardo ulcer Laterality: Right Type of Debridement: Excisional debridement Anesthesia Used: 5% Lidocaine Gel Depth: Down to and including healthy tissue and to muscle Percentage of wound debrided: 100 Instrument Used: 3mm curette Tissue Removed: slough, devitalized tissue Amount of bleeding with debridement: Mild Bleeding Controlled with: Compression and gauze Patient tolerated procedure: Patient tolerated procedure well Post-Debridement Measurements and Additional Note: Post-Debridement Measurements/Treatment - Nurse 1 - General Ulcer Assessment Start: 04/21/24 13:51 Freq: Status: Active Protocol: MICHAEL Activity Type Activity Date Activity User E-sign Co-sign Detail Recorded Client Recorded Date Recorded By Document 04/21/24 13:51 [email or web address] [id number] 04/21/24 13:59 KW 04/21/24 13:51 - Today's Visit Information Type of service Follow-up Visit (Physician/ADOBE BALL MIXER ) Arrival Mode Ambulatory Patient Identification Verified (Name & Yes ) Height and Weight Body Mass Index (BMI) 35.1 BMI Classification Obese Vital Signs Temperature (97.8 F-99.1 F) 96.9 F L Temperature Source Temporal Pulse Rate (60-100) 75 Pulse Location Monitor Respiratory Rate (12-18) 18 Respiratory rate source Observation Oxygen Delivery Method Room Air Blood Pressure (90/60-120/80) 166/77 H Blood Pressure Mean (mm Hg) 106 Source Monitor Position Semi-Fowlers Blood Pressure Location Right Arm History Since Last Visit- (Skip if this is Patient's initial visit) Have you changed medications since your No last visit? Any new allergies or adverse reactions No Had a fall/change in ADL's that may No increase risk of falls Signs or symptoms of abuse and/or No neglect since last visit Have you been in the hospital since your No last visit? Has dressing in place as prescribed Yes Has compression in place as prescribed N/A Has offloadiing in place as prescribed N/A Experienced any changes in pain level or No management Left Footwear Regular Shoe Right Footwear Regular Shoe Pain Scale: 0-10 Numeric Is Patient Pain Free? Yes - Nurse 1 - General Ulcer Measurement Start: 04/21/24 13:51 Freq: Status: Active Protocol: Activity Type Activity Date Activity User E-sign Co-sign Detail Recorded Client Recorded Date Recorded By Document 04/21/24 13:51 [id number] 04/21/24 13:59 04/21/24 13:51 Wound Center Nurse 1 #3- R MED LE -Current Size (cm) - Length 1.3 -Current Size (cm) - Width 1 -Current Size (cm) - Depth 0.2 -Total Square Cm 1.3 -Exudate Amt Small -Exudate Type Serosanguineous -Wound Margin Distinct, Outline Attached -Necrosis Amt Large (67-100%) -Necrotic Tissue Type Adherent Slough -Texture (Sania-wound Skin Appearance) Assessed -Moisture (Sania-wound Skin Appearance) Assessed -Color (Sania-wound Skin Appearance) Assessed, Erythema -Temperature (Sania-wound Skin No Abnormality Appearance) (Pt Warm) -Tenderness on Palpation (Sania-wound No Skin Appearance) -Ulcer Cleansing Rinsed/ Irrigated with Saline -Foul Odor after Cleansing No -Anesthetic Used 5% Lidocaine Gel Right Calf (cm) 35.5 Right Ankle (cm) 19.3 WC - Nurse 2 - General Ulcer CM Notes Start: 04/21/24 13:51 Freq: Status: Active Protocol: Activity Type Activity Date Activity User E-sign Co-sign Detail Recorded Client Recorded Date Recorded By Document 04/21/24 14:45 [id number] 04/21/24 14:55 04/21/24 14:45 Wound Center Nurse 2 #3- R MED LE -Time 14:45 -Correct Patient Yes -Correct Side, Site, Position Yes -Correct Procedure Yes -Procedure Performed Yes -Type of Procedure Debridement -Clinical Debridement Muscle / Fascia -Tissue Removed Fascia -Post Debridement (cm) - Length 1.7 -Post Debridement (cm) - Width 0.9 -Post Debridement (cm) - Depth 0.1 -Total Square (Post) (cm) 1.53 -Area of Debridement (cm) - Length 1.7 -Area of Debridement (cm) - Width 0.9 -Total Square (Area) (cm) 1.53 -Tunneling No -Undermining/Tunneling No -Circular Undermining No -Wound/Ulcer Outcome Not Healed -Ulcer Cleansing Rinsed/ Irrigated with Saline -Foul Odor after Cleansing No -Bioengineered Tissue No -Bleeding Controlled with Pressure -Treatment Response Procedure Tolerated Well -Offloading No -Debridement - Muscle / Fascia, 1st Yes 20sq cm Pain Scale: 0-10 Numeric Is Patient Pain Free? Yes - Nurse 3 - General Ulcer D/C NN Start: 04/21/24 13:51 Freq: Status: Active Protocol: Activity Type Activity Date Activity User E-sign Co-sign Detail Recorded Client Recorded Date Recorded By Document 04/21/24 15:11 DL [id number] 04/21/24 15:12 DL 04/21/24 15:11 Wound Care Center Nurse 3 #3- R MED LE -Ulcer Cleansing Rinsed/ Irrigated with Saline -Foul Odor after Cleansing No -Primary Dressing Applied Promogran Jaclyn Matter, Silicone Border Foam 4x4 -Promogran Jaclyn Matter 1 -Silicone Border Foam 4x4 1 RLE -Tubular Bandage Single Layer -Size of Tubigrip Used Size E -Size E ($) 1 Treatment Response Procedure Tolerated Well Pain Scale: 0-10 Numeric Is Patient Pain Free? Yes - Visit Discharge Discharge Condition Stable Ambulatory Status Ambulatory Transportation Private Auto Assessment/Plan Assessment/Plan (1) Chronic ulcer of right leg: CODE(S): L97.919 - Non-pressure chronic ulcer of unspecified part of right lower leg with unspecified severity QUALIFIERS: Qualified Code(s): L97.913 - Non-pressure chronic ulcer of unspecified part of right lower leg with necrosis of muscle PLAN: nonpressure chronic ulcer of the right pichardo to the depth of the fascia (2) Venous stasis dermatitis of both lower extremities: CODE(S): I87.2 - Venous insufficiency (chronic) (peripheral) PLAN: Plan Venous duplex last week was negative for DVT. She has tolerated the Tubigrip compression well and her edema is improving. The erythematous appearance of her lower leg has nearly resolved from last week. I do believe this was secondary to the red-colored topical she had been utilizing. Her updated wound culture did not grow any bacteria, only wing albicans. I do not appreciate any signs of wing albicans infection so I favor this being a skin contaminant. Her wound is improving in size. I do not appreciate any signs of active/worsening infection. We will continue her Augmentin for total 6 weeks of therapy given suspicion for osteomyelitis. Continue to monitor drug-eruption rash for improvement. If this does not resolve, or any worsening then could consider discontinuing Augmentin and return to doxycycline as this has good bone penetration to address concern for osteo. Will continue current wound care regimen: (1) Cleanse the area of the wound with antibacterial soap and water, pat gently to dry (2) Apply Jaclyn to the wound bed, lightly moistened with sterile water (3) Cover with [place] SAP (4) Change daily or more often as needed to manage drainage or if dressing becomes soiled/soaked Return to the wound care center in 1 week, call or return sooner with any concerns.
[2024-04-28 13:51] VITALS: BP 170/78; PULSE 64; RESP 18; TEMP 36.1; BMI 35.1
--- NOTE | 2024-04-28 14:51 | PCM.WC.PN ---
History of Present Illness Date of Service: 04/28/24 Chief Complaint: R pichardo ulceration History of Wound: Kenia Pittman is a pleasant 89 y/o woman who presents to the wound care center today for evaluation of R pichardo ulceration as referred by her PCP Dr. Delatorre. She states this wound first started in approximately December after she dropped a metal bucket lid and it hit her pichardo. She states initially she had no bleeding and it scabbed over. She applied various topical homeopathic remedies without much improvement, but she was not having pain so she was not too worried about it. Then a few weeks ago she developed more pain in the area of the wound leading her to see Dr. Delatorre. He performed initial debridement and exam was concerning for infection including possible osteomyelitis so she was initiated on doxycycline and Augmentin; she had subsequent bone scan which was suggestive of osteomyelitis. Her Augmentin was extended, she has been on it 2 weeks now by her report and tolerating well. She had wound culture which was polymicrobial and demonstrated good susceptibility to Augmentin. On my exam today, her RLE is significantly more swollen compared to the LLE. She states this has developed just over the last week or so. She admits she has been much less active, trying to stay off of her feet. Her pain has overall been stable. Her R lower leg from top of her ankle to just below her knee is red, with fairly sharp demarcation at the upper and lower limits. There does not seem to be excess warmth compared to her LLE. She tells me she has been applying recommended homeopathic topical to this portion of her leg. She brought the bottle which is [employer] drink; review of the ingredients is cranberry juice, sour greenberg juice, a variety of other fruit juices and citric acid. It does not seem to be intended for topical application; it is deep red in color. She indicates that her current discoloration is all within the limits of where she has been applying this juice. She denies any nausea, vomiting, fevers, or chills. I have previously seen Kenia in the vascular office. Dr. Egan performed RLE GSV ablation 02/2023 due to RLE venous ulceration she had at that time. Subjective Subjective Kenia is accompanied to her appointment today as usual by her granddaughter Kiersten. Kenia feels she is doing very well, she has no significant pain in her leg, the swelling remains improved, previous dermatitis remains resolved. The drug-eruption rash continues to resolve as well; it is gone from her face and fading from her extremities. She does have questions about a few supplements she would like to start taking which are supposed to help with circulation and healing. Objective Data Objective Data Vital Signs: Vital Signs Temp Pulse Resp BP O2 Del Method 97.0 F L 64 18 170/78 H Room Air 04/28/24 13:51 04/28/24 13:51 04/28/24 13:51 04/28/24 13:51 04/28/24 13:51 Oxygen Delivery Method Room Air Weight: 135 lb Body Mass Index (BMI) 35.1 Charges/Coding Procedures Integumentary 111xxx-113xx: 68862 Janette musc/fascia 20 sq cm/< Physical Exam Const alert, oriented x3 and no apparent distress General Appearance: cooperative and comfortable HEENT normocephalic, hearing grossly normal bilaterally and external ears normal Eyes General Eye: normal appearance of both eyes Neck General: normal visual inspection and trachea midline Resp normal respiratory effort Effort and Inspection: able to speak in complete sentences Cardio regular rate and regular rhythm Peripheral Pulses: posterior tibial pulses present and dorsalis pedis pulses present Extremity Extremity Narrative: RLE with 1-2+ edema, trace LLE edema Skin Wounds: wounds noted Wound Narrative: R pichardo ulceration to the depth of the fascia; there is some granulation tissue at the wound edges; there is overlying yellow slough; there is no apparent tracking, no purulence, no focal fluctuance/induration; this is reduced in size Psych mental status grossly normal, cooperative, speech normal and activity/motor behavior normal Debridement Note Debridement Note Wound debrided: R pichardo ulcer Laterality: Right Type of Debridement: Excisional debridement Anesthesia Used: 5% Lidocaine Gel Depth: Down to and including healthy tissue and to muscle Percentage of wound debrided: 100 Instrument Used: 3mm curette Tissue Removed: slough, devitalized tissue Amount of bleeding with debridement: Mild Bleeding Controlled with: Compression and gauze Patient tolerated procedure: Patient tolerated procedure well Post-Debridement Measurements and Additional Note: Post-Debridement Measurements/Treatment CHARLENE - Nurse 1 - General Ulcer Assessment Start: 04/21/24 13:51 Freq: Status: Active Protocol: MICHAEL Activity Type Activity Date Activity User E-sign Co-sign Detail Recorded Client Recorded Date Recorded By Document 04/21/24 13:51 KW [id number] 04/21/24 13:59 KW Document 04/28/24 13:51 KW [id number] 04/28/24 13:55 KW 04/21/24 04/28/24 13:51 13:51 - Today's Visit Information Type of service Follow-up Visit Follow-up Visit (Physician/PARAFFIN PLANT OPERATOR (Physician/PARAFFIN PLANT OPERATOR ) ) Arrival Mode Ambulatory Ambulatory Patient Identification Verified (Name & Yes Yes ) Height and Weight Body Mass Index (BMI) 35.1 35.1 BMI Classification Obese Obese Vital Signs Temperature (97.8 F-99.1 F) 96.9 F L 97.0 F L Temperature Source Temporal Temporal Pulse Rate (60-100) 75 64 Pulse Location Monitor Monitor Respiratory Rate (12-18) 18 18 Respiratory rate source Observation Observation Oxygen Delivery Method Room Air Room Air Blood Pressure (90/60-120/80) 166/77 H 170/78 H Blood Pressure Mean (mm Hg) 106 108 Source Monitor Monitor Position Semi-Fowlers Semi-Fowlers Blood Pressure Location Right Arm Left Arm History Since Last Visit- (Skip if this is Patient's initial visit) Have you changed medications since your No No last visit? Any new allergies or adverse reactions No No Had a fall/change in ADL's that may No No increase risk of falls Signs or symptoms of abuse and/or No No neglect since last visit Have you been in the hospital since your No No last visit? Has dressing in place as prescribed Yes Yes Has compression in place as prescribed N/A Yes Has offloadiing in place as prescribed N/A N/A Experienced any changes in pain level or No No management Left Footwear Regular Shoe Regular Shoe Right Footwear Regular Shoe Regular Shoe Pain Scale: 0-10 Numeric Is Patient Pain Free? Yes Yes - Nurse 1 - General Ulcer Measurement Start: 04/21/24 13:51 Freq: Status: Active Protocol: Activity Type Activity Date Activity User E-sign Co-sign Detail Recorded Client Recorded Date Recorded By Document 04/21/24 13:51 KW [id number] 04/21/24 13:59 KW Document 04/28/24 13:51 KW [id number] 04/28/24 13:55 KW 04/21/24 04/28/24 13:51 13:51 Wound Center Nurse 1 #3- R MED LE -Current Size (cm) - Length 1.3 1.2 -Current Size (cm) - Width 1 0.5 -Current Size (cm) - Depth 0.2 0.3 -Total Square Cm 1.3 0.60 -Date of Last Picture (Recall this 04/28/24 field) -Exudate Amt Small Small -Exudate Type Serosanguineous Serosanguineous -Wound Margin Distinct, Distinct, Outline Outline Attached Attached -Granulation Amt Large (67-100%) -Granulation Quality Mellen -Necrosis Amt Large (67-100%) Small (1-33%) -Necrotic Tissue Type Adherent Slough Adherent Slough -Texture (Sania-wound Skin Appearance) Assessed Assessed -Moisture (Sania-wound Skin Appearance) Assessed Assessed -Color (Sania-wound Skin Appearance) Assessed, Assessed, Erythema Erythema -Temperature (Sania-wound Skin No Abnormality No Abnormality Appearance) (Pt Warm) (Pt Warm) -Tenderness on Palpation (Sania-wound No No Skin Appearance) -Ulcer Cleansing Rinsed/ Rinsed/ Irrigated with Irrigated with Saline Saline -Foul Odor after Cleansing No No -Anesthetic Used 5% Lidocaine 5% Lidocaine Gel Gel Right Calf (cm) 35.5 33.5 Right Ankle (cm) 19.3 20.5 WC - Nurse 2 - General Ulcer CM Notes Start: 04/21/24 13:51 Freq: Status: Active Protocol: Activity Type Activity Date Activity User E-sign Co-sign Detail Recorded Client Recorded Date Recorded By Document 04/21/24 14:45 [id number] 04/21/24 14:55 Document 04/28/24 14:15 [id number] 04/28/24 14:20 04/21/24 04/28/24 14:45 14:15 Wound Center Nurse 2 #3- R MED LE -Time 14:45 14:16 -Correct Patient Yes Yes -Correct Side, Site, Position Yes Yes -Correct Procedure Yes Yes -Procedure Performed Yes Yes -Type of Procedure Debridement Debridement -Clinical Debridement Muscle / Fascia Muscle / Fascia -Tissue Removed Fascia Fascia -Post Debridement (cm) - Length 1.7 1.2 -Post Debridement (cm) - Width 0.9 0.8 -Post Debridement (cm) - Depth 0.1 0.4 -Total Square (Post) (cm) 1.53 0.96 -Area of Debridement (cm) - Length 1.7 1.2 -Area of Debridement (cm) - Width 0.9 0.8 -Total Square (Area) (cm) 1.53 0.96 -Tunneling No No -Undermining/Tunneling No No -Circular Undermining No No -Wound/Ulcer Outcome Not Healed Not Healed -Ulcer Cleansing Rinsed/ Rinsed/ Irrigated with Irrigated with Saline Saline -Foul Odor after Cleansing No No -Bioengineered Tissue No No -Bleeding Controlled with Pressure Pressure -Treatment Response Procedure Procedure Tolerated Well Tolerated Well -Offloading No -Debridement - Muscle / Fascia, 1st Yes Yes 20sq cm Pain Scale: 0-10 Numeric Is Patient Pain Free? Yes Yes - Nurse 3 - General Ulcer D/C NN Start: 04/21/24 13:51 Freq: Status: Active Protocol: Activity Type Activity Date Activity User E-sign Co-sign Detail Recorded Client Recorded Date Recorded By Document 04/21/24 15:11 DL [id number] 04/21/24 15:12 DL Document 04/28/24 14:43 KW [id number] 04/28/24 14:44 KW 04/21/24 04/28/24 15:11 14:43 Wound Care Center Nurse 3 #3- R MED LE -Ulcer Cleansing Rinsed/ Irrigated with Saline -Foul Odor after Cleansing No -Primary Dressing Applied Promogran Promogran Jaclyn Matter, Jaclyn Matter, Silicone Border Silicone Border Foam 4x4 Foam 4x4 -Promogran Jaclyn Matter 1 1 -Silicone Border Foam 4x4 1 1 RLE -Tubular Bandage Single Layer Single Layer -Size of Tubigrip Used Size E Size E -Size E ($) 1 1 Treatment Response Procedure Tolerated Well Pain Scale: 0-10 Numeric Is Patient Pain Free? Yes Yes - Visit Discharge Discharge Condition Stable Stable Ambulatory Status Ambulatory Ambulatory Transportation Private Auto Private Auto Medication Reconcilliation completed & No provided to patient/care provider Clinical Summary of Care Provided Yes Assessment/Plan Assessment/Plan (1) Chronic ulcer of right leg: CODE(S): L97.919 - Non-pressure chronic ulcer of unspecified part of right lower leg with unspecified severity QUALIFIERS: Qualified Code(s): L97.913 - Non-pressure chronic ulcer of unspecified part of right lower leg with necrosis of muscle PLAN: nonpressure chronic ulcer of the right pichardo to the depth of the fascia (2) Venous stasis dermatitis of both lower extremities: CODE(S): I87.2 - Venous insufficiency (chronic) (peripheral) PLAN: Plan Drug-eruption rash is improving. It is gone from her face. It is present, but fading from her extremities. Her wound is improving in size. I do not appreciate any signs of active/worsening infection. We will continue her Augmentin for total 6 weeks of therapy given suspicion for osteomyelitis. Will continue current wound care regimen: (1) Cleanse the area of the wound with antibacterial soap and water, pat gently to dry (2) Apply Jaclyn to the wound bed, lightly moistened with sterile water (3) Cover with [place] SAP (4) Change daily or more often as needed to manage drainage or if dressing becomes soiled/soaked. I reviewed the supplement bottle she brought in with her today; do not appreciate any ingredients which are known to me as blood thinners which is my primary concern with supplements marketed towards circulation. As far as I can tell, no concerns with her initiating these oral supplements; I do advise she also check with her pharmacist to determine if these may interact with any of her current prescribed medications. Return to the wound care center in 1 week, call or return sooner with any concerns.
--- NOTE | 2024-04-29 12:14 | WC ---
PHOTO 04/28/24 RIGHT MEDIAL LE
[2024-05-05 13:21] VITALS: BP 174/84; PULSE 81; RESP 18; TEMP 36.2; BMI 35.1
--- NOTE | 2024-05-05 13:39 | PN.PCM_ITS ---
History of Present Illness Date of Service: 05/05/24 Chief Complaint: R pichardo ulceration History of Wound: Kenia Pittman is a pleasant 89 y/o woman who presents to the wound care center today for evaluation of R pichardo ulceration as referred by her PCP Dr. Delatorre. She states this wound first started in approximately December after she dropped a metal bucket lid and it hit her pichardo. She states initially she had no bleeding and it scabbed over. She applied various topical homeopathic remedies without much improvement, but she was not having pain so she was not too worried about it. Then a few weeks ago she developed more pain in the area of the wound leading her to see Dr. Delatorre. He performed initial debridement and exam was concerning for infection including possible osteomyelitis so she was initiated on doxycycline and Augmentin; she had subsequent bone scan which was suggestive of osteomyelitis. Her Augmentin was extended, she has been on it 2 weeks now by her report and tolerating well. She had wound culture which was polymicrobial and demonstrated good susceptibility to Augmentin. On my exam today, her RLE is significantly more swollen compared to the LLE. She states this has developed just over the last week or so. She admits she has been much less active, trying to stay off of her feet. Her pain has overall been stable. Her R lower leg from top of her ankle to just below her knee is red, with fairly sharp demarcation at the upper and lower limits. There does not seem to be excess warmth compared to her LLE. She tells me she has been applying recommended homeopathic topical to this portion of her leg. She brought the bottle which is [email or web address] drink; review of the ingredients is cranberry juice, sour greenberg juice, a variety of other fruit juices and citric acid. It does not seem to be intended for topical application; it is deep red in color. She indicates that her current discoloration is all within the limits of where she has been applying this juice. She denies any nausea, vomiting, fevers, or chills. I have previously seen Kenia in the vascular office. Dr. Egan performed RLE GSV ablation 02/2023 due to RLE venous ulceration she had at that time. Subjective Subjective She is doing well this week, reports no significant pain. She has not noticed any increased drainage or erythema. On my exam, some appearance of skin irritation within the outline of her bandage; no new areas of breakdown. Objective Data Objective Data Vital Signs: Vital Signs Temp Pulse Resp BP O2 Del Method 97.1 F L 81 18 174/84 H Room Air 05/05/24 13:21 05/05/24 13:21 05/05/24 13:21 05/05/24 13:21 05/05/24 13:21 Oxygen Delivery Method Room Air Weight: 135 lb Body Mass Index (BMI) 35.1 Charges/Coding Procedures Integumentary 111xxx-113xx: 16229 Janette musc/fascia 20 sq cm/< Physical Exam Const alert, oriented x3 and no apparent distress General Appearance: cooperative and comfortable HEENT normocephalic, hearing grossly normal bilaterally and external ears normal Eyes General Eye: normal appearance of both eyes Neck General: normal visual inspection and trachea midline Resp normal respiratory effort Effort and Inspection: able to speak in complete sentences Cardio regular rate and regular rhythm Peripheral Pulses: posterior tibial pulses present and dorsalis pedis pulses present Extremity Extremity Narrative: RLE with 1-2+ edema, trace LLE edema Skin Wounds: wounds noted Wound Narrative: R pichardo ulceration to the depth of the fascia; there is some granulation tissue at the wound edges; there is overlying yellow slough; there is no apparent tracking, no purulence, no focal fluctuance/induration; this is reduced in size This week, there is some irritation of the skin with clear demarcation within the outlines of the [place]-SAP dressing; no weeping/crusting/excess warmth. Psych mental status grossly normal, cooperative, speech normal and activity/motor behavior normal Debridement Note Debridement Note Wound debrided: R pichardo ulcer Laterality: Right Type of Debridement: Excisional debridement Anesthesia Used: 5% Lidocaine Gel Depth: Down to and including healthy tissue and to muscle Percentage of wound debrided: 100 Instrument Used: 3mm curette Tissue Removed: slough, devitalized tissue Amount of bleeding with debridement: Mild Bleeding Controlled with: Compression and gauze Patient tolerated procedure: Patient tolerated procedure well Post-Debridement Measurements and Additional Note: Post-Debridement Measurements/Treatment CHARLENE - Nurse 1 - General Ulcer Assessment Start: 04/21/24 13:51 Freq: Status: Active Protocol: MICHAEL Activity Type Activity Date Activity User E-sign Co-sign Detail Recorded Client Recorded Date Recorded By Document 04/21/24 13:51 KW [id number] 04/21/24 13:59 KW Document 04/28/24 13:51 KW [id number] 04/28/24 13:55 KW Document 05/05/24 13:21 KW [id number] 05/05/24 13:25 KW 04/21/24 04/28/24 05/05/24 13:51 13:51 13:21 - Today's Visit Information Type of service Follow-up Visit Follow-up Visit Follow-up Visit (Physician/TECHNICAL TRAINING SPECIALIST (Physician/TECHNICAL TRAINING SPECIALIST (Physician/TECHNICAL TRAINING SPECIALIST ) ) ) Arrival Mode Ambulatory Ambulatory Ambulatory Accompanied by granddaughter Patient Identification Verified (Name & Yes Yes Yes ) Height and Weight Body Mass Index (BMI) 35.1 35.1 35.1 BMI Classification Obese Obese Obese Vital Signs Temperature (97.8 F-99.1 F) 96.9 F L 97.0 F L 97.1 F L Temperature Source Temporal Temporal Temporal Pulse Rate (60-100) 75 64 81 Pulse Location Monitor Monitor Monitor Respiratory Rate (12-18) 18 18 18 Respiratory rate source Observation Observation Observation Oxygen Delivery Method Room Air Room Air Room Air Blood Pressure (90/60-120/80) 166/77 H 170/78 H 174/84 H Blood Pressure Mean (mm Hg) 106 108 114 Source Monitor Monitor Monitor Position Semi-Fowlers Semi-Fowlers Semi-Fowlers Blood Pressure Location Right Arm Left Arm Left Arm History Since Last Visit- (Skip if this is Patient's initial visit) Have you changed medications since your No No No last visit? Any new allergies or adverse reactions No No No Had a fall/change in ADL's that may No No No increase risk of falls Signs or symptoms of abuse and/or No No No neglect since last visit Have you been in the hospital since your No No No last visit? Has dressing in place as prescribed Yes Yes Yes Has compression in place as prescribed N/A Yes Yes Has offloadiing in place as prescribed N/A N/A N/A Experienced any changes in pain level or No No No management Left Footwear Regular Shoe Regular Shoe Regular Shoe Right Footwear Regular Shoe Regular Shoe Regular Shoe Pain Scale: 0-10 Numeric Is Patient Pain Free? Yes Yes Yes - Nurse 1 - General Ulcer Measurement Start: 04/21/24 13:51 Freq: Status: Active Protocol: Activity Type Activity Date Activity User E-sign Co-sign Detail Recorded Client Recorded Date Recorded By Document 04/21/24 13:51 KW [id number] 04/21/24 13:59 KW Document 04/28/24 13:51 KW [id number] 04/28/24 13:55 KW Document 05/05/24 13:21 KW [id number] 05/05/24 13:25 KW 04/21/24 04/28/24 05/05/24 13:51 13:51 13:21 Wound Center Nurse 1 #3- R MED LE -Current Size (cm) - Length 1.3 1.2 1 -Current Size (cm) - Width 1 0.5 1.6 -Current Size (cm) - Depth 0.2 0.3 0.2 -Total Square Cm 1.3 0.60 1.6 -Date of Last Picture (Recall this 04/28/24 05/05/24 field) -Exudate Amt Small Small Small -Exudate Type Serosanguineous Serosanguineous Serosanguineous -Wound Margin Distinct, Distinct, Distinct, Outline Outline Outline Attached Attached Attached -Granulation Amt Large (67-100%) Small (1-33%) -Granulation Quality [place] -Necrosis Amt Large (67-100%) Small (1-33%) Large (67-100%) -Necrotic Tissue Type Adherent Slough Adherent Slough Adherent Slough -Texture (Sania-wound Skin Appearance) Assessed Assessed Assessed -Moisture (Sania-wound Skin Appearance) Assessed Assessed Assessed -Color (Sania-wound Skin Appearance) Assessed, Assessed, Assessed, Erythema Erythema Erythema -Temperature (Sania-wound Skin No Abnormality No Abnormality No Abnormality Appearance) (Pt Warm) (Pt Warm) (Pt Warm) -Tenderness on Palpation (Sania-wound No No No Skin Appearance) -Ulcer Cleansing Rinsed/ Rinsed/ Rinsed/ Irrigated with Irrigated with Irrigated with Saline Saline Saline -Foul Odor after Cleansing No No No -Anesthetic Used 5% Lidocaine 5% Lidocaine 5% Lidocaine Gel Gel Gel Right Calf (cm) 35.5 33.5 33 Right Ankle (cm) 19.3 20.5 19.5 WC - Nurse 2 - General Ulcer CM Notes Start: 04/21/24 13:51 Freq: Status: Active Protocol: Activity Type Activity Date Activity User E-sign Co-sign Detail Recorded Client Recorded Date Recorded By Document 04/21/24 14:45 [id number] 04/21/24 14:55 Document 04/28/24 14:15 [id number] 04/28/24 14:20 Document 05/05/24 13:28 [id number] 05/05/24 13:34 04/21/24 04/28/24 05/05/24 14:45 14:15 13:28 Wound Center Nurse 2 #3- R MED LE -Time 14:45 14:16 13:29 -Correct Patient Yes Yes Yes -Correct Side, Site, Position Yes Yes Yes -Correct Procedure Yes Yes Yes -Procedure Performed Yes Yes Yes -Type of Procedure Debridement Debridement Debridement -Clinical Debridement Muscle / Fascia Muscle / Fascia Muscle / Fascia -Tissue Removed Fascia Fascia Fascia -Post Debridement (cm) - Length 1.7 1.2 1.1 -Post Debridement (cm) - Width 0.9 0.8 0.6 -Post Debridement (cm) - Depth 0.1 0.4 0.3 -Total Square (Post) (cm) 1.53 0.96 0.66 -Area of Debridement (cm) - Length 1.7 1.2 1.1 -Area of Debridement (cm) - Width 0.9 0.8 0.6 -Total Square (Area) (cm) 1.53 0.96 0.66 -Tunneling No No No -Undermining/Tunneling No No No -Circular Undermining No No No -Wound/Ulcer Outcome Not Healed Not Healed Not Healed -Ulcer Cleansing Rinsed/ Rinsed/ Rinsed/ Irrigated with Irrigated with Irrigated with Saline Saline Saline -Foul Odor after Cleansing No No No -Bioengineered Tissue No No No -Bleeding Controlled with Pressure Pressure Pressure -Treatment Response Procedure Procedure Procedure Tolerated Well Tolerated Well Tolerated Well -Offloading No No -Debridement - Muscle / Fascia, 1st Yes Yes Yes 20sq cm Pain Scale: 0-10 Numeric Is Patient Pain Free? Yes Yes Yes WC - Nurse 3 - General Ulcer D/C NN Start: 04/21/24 13:51 Freq: Status: Active Protocol: Activity Type Activity Date Activity User E-sign Co-sign Detail Recorded Client Recorded Date Recorded By Document 04/21/24 15:11 DL [id number] 04/21/24 15:12 DL Document 04/28/24 14:43 [id number] 04/28/24 14:44 KW 04/21/24 04/28/24 15:11 14:43 Wound Care Center Nurse 3 #3- R MED LE -Ulcer Cleansing Rinsed/ Irrigated with Saline -Foul Odor after Cleansing No -Primary Dressing Applied Promogran Promogran Jaclyn Matter, Jaclyn Matter, Silicone Border Silicone Border Foam 4x4 Foam 4x4 -Promogran Jaclyn Matter 1 1 -Silicone Border Foam 4x4 1 1 RLE -Tubular Bandage Single Layer Single Layer -Size of Tubigrip Used Size E Size E -Size E ($) 1 1 Treatment Response Procedure Tolerated Well Pain Scale: 0-10 Numeric Is Patient Pain Free? Yes Yes WC - Visit Discharge Discharge Condition Stable Stable Ambulatory Status Ambulatory Ambulatory Transportation Private Auto Private Auto Medication Reconcilliation completed & No provided to patient/care provider Clinical Summary of Care Provided Yes Assessment/Plan Assessment/Plan (1) Chronic ulcer of right leg: CODE(S): L97.919 - Non-pressure chronic ulcer of unspecified part of right lower leg with unspecified severity QUALIFIERS: Qualified Code(s): L97.913 - Non-pressure chronic ulcer of unspecified part of right lower leg with necrosis of muscle PLAN: nonpressure chronic ulcer of the right pichardo to the depth of the fascia (2) Venous stasis dermatitis of both lower extremities: CODE(S): I87.2 - Venous insufficiency (chronic) (peripheral) PLAN: Plan Drug-eruption rash continues to improve. Her wound is improving in size. I do not appreciate any signs of active/worsening infection. She has completed Augmentin regimen x 6 weeks. No signs of recurrent infection on exam today. It does appear she has some irritation from the [place]-SAP silicone adhesive dressing, will discontinue this and monitor. Will continue current wound care regimen: (1) Cleanse the area of the wound with antibacterial soap and water, pat gently to dry (2) Apply Jaclyn to the wound bed, lightly moistened with sterile water (3) Cover with dry gauze then wrap with conforming gauze (4) Change daily or more often as needed to manage drainage or if dressing becomes soiled/soaked. Return to the wound care center in 1 week, call or return sooner with any concerns.
--- NOTE | 2024-05-06 09:05 | WC ---
PHOTO 05/05/24 RIGHT [facility]
[2024-05-12 13:32] VITALS: BP 187/98; PULSE 85; RESP 18; TEMP 36.4; BMI 35.1
--- NOTE | 2024-05-12 14:01 | PCM.WC.PN ---
History of Present Illness Date of Service: 05/12/24 Chief Complaint: R pichardo ulceration History of Wound: Kenia Pittman is a pleasant 89 y/o woman who presents to the wound care center today for evaluation of R pichardo ulceration as referred by her PCP Dr. Delatorre. She states this wound first started in approximately December after she dropped a metal bucket lid and it hit her pichardo. She states initially she had no bleeding and it scabbed over. She applied various topical homeopathic remedies without much improvement, but she was not having pain so she was not too worried about it. Then a few weeks ago she developed more pain in the area of the wound leading her to see Dr. Delatorre. He performed initial debridement and exam was concerning for infection including possible osteomyelitis so she was initiated on doxycycline and Augmentin; she had subsequent bone scan which was suggestive of osteomyelitis. Her Augmentin was extended, she has been on it 2 weeks now by her report and tolerating well. She had wound culture which was polymicrobial and demonstrated good susceptibility to Augmentin. On my exam today, her RLE is significantly more swollen compared to the LLE. She states this has developed just over the last week or so. She admits she has been much less active, trying to stay off of her feet. Her pain has overall been stable. Her R lower leg from top of her ankle to just below her knee is red, with fairly sharp demarcation at the upper and lower limits. There does not seem to be excess warmth compared to her LLE. She tells me she has been applying recommended homeopathic topical to this portion of her leg. She brought the bottle which is [employer] drink; review of the ingredients is cranberry juice, sour greenberg juice, a variety of other fruit juices and citric acid. It does not seem to be intended for topical application; it is deep red in color. She indicates that her current discoloration is all within the limits of where she has been applying this juice. She denies any nausea, vomiting, fevers, or chills. I have previously seen Kenia in the vascular office. Dr. Egan performed RLE GSV ablation 02/2023 due to RLE venous ulceration she had at that time. Subjective Subjective Kenia is doing well this week. The prior dermatitis around her wound has resolved since discontinuing the silicone adhesive dressing and changing to conforming gauze. She has not had any new signs/symptoms of infection and she reports no concerns. Objective Data Objective Data Vital Signs: Vital Signs Temp Pulse Resp BP O2 Del Method 97.5 F L 85 18 187/98 H Room Air 05/12/24 13:32 05/12/24 13:32 05/12/24 13:32 05/12/24 13:32 05/12/24 13:32 Oxygen Delivery Method Room Air Weight: 135 lb Body Mass Index (BMI) 35.1 Charges/Coding Procedures Integumentary 111xxx-113xx: [id number] Janette musc/fascia 20 sq cm/< Physical Exam Const alert, oriented x3 and no apparent distress General Appearance: cooperative and comfortable HEENT normocephalic, hearing grossly normal bilaterally and external ears normal Eyes General Eye: normal appearance of both eyes Neck General: normal visual inspection and trachea midline Resp normal respiratory effort Effort and Inspection: able to speak in complete sentences Cardio regular rate and regular rhythm Peripheral Pulses: posterior tibial pulses present and dorsalis pedis pulses present Extremity Extremity Narrative: RLE with 1-2+ edema, trace LLE edema Skin Wounds: wounds noted Wound Narrative: R pichardo ulceration to the depth of the fascia; there is some granulation tissue at the wound edges; there is overlying yellow slough; there is no apparent tracking, no purulence, no focal fluctuance/induration; this is reduced in size This week, there is some irritation of the skin with clear demarcation within the outlines of the [place]-SAP dressing; no weeping/crusting/excess warmth. Psych mental status grossly normal, cooperative, speech normal and activity/motor behavior normal Debridement Note Debridement Note Wound debrided: R pichardo ulcer Laterality: Right Type of Debridement: Excisional debridement Anesthesia Used: 5% Lidocaine Gel Depth: Down to and including healthy tissue and to muscle Percentage of wound debrided: 100 Instrument Used: 3mm curette Tissue Removed: slough, devitalized tissue Amount of bleeding with debridement: Mild Bleeding Controlled with: Compression and gauze Patient tolerated procedure: Patient tolerated procedure well Post-Debridement Measurements and Additional Note: Post-Debridement Measurements/Treatment CHARLENE - Nurse 1 - General Ulcer Assessment Start: 04/21/24 13:51 Freq: Status: Active Protocol: MICHAEL Activity Type Activity Date Activity User E-sign Co-sign Detail Recorded Client Recorded Date Recorded By Document 04/21/24 13:51 KW [id number] 04/21/24 13:59 KW Document 04/28/24 13:51 KW [id number] 04/28/24 13:55 KW Document 05/05/24 13:21 KW [id number] 05/05/24 13:25 KW Document 05/12/24 13:32 KW [id number] 05/12/24 13:39 KW 04/21/24 04/28/24 05/05/24 13:51 13:51 13:21 WC - Today's Visit Information Type of service Follow-up Visit Follow-up Visit Follow-up Visit (Physician/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 WATER 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 (Physician/MARINE WATER TENDER (Physician/MARINE WATER TENDER ) ) ) Arrival Mode Ambulatory Ambulatory Ambulatory Accompanied by granddaughter Patient Identification Verified (Name & Yes Yes Yes ) Height and Weight Body Mass Index (BMI) 35.1 35.1 35.1 BMI Classification Obese Obese Obese Vital Signs Temperature (97.8 F-99.1 F) 96.9 F L 97.0 F L 97.1 F L Temperature Source Temporal Temporal Temporal Pulse Rate (60-100) 75 64 81 Pulse Location Monitor Monitor Monitor Respiratory Rate (12-18) 18 18 18 Respiratory rate source Observation Observation Observation Oxygen Delivery Method Room Air Room Air Room Air Blood Pressure (90/60-120/80) 166/77 H 170/78 H 174/84 H Blood Pressure Mean (mm Hg) 106 108 114 Source Monitor Monitor Monitor Position Semi-Fowlers Semi-Fowlers Semi-Fowlers Blood Pressure Location Right Arm Left Arm Left Arm History Since Last Visit- (Skip if this is Patient's initial visit) Have you changed medications since your No No No last visit? Any new allergies or adverse reactions No No No Had a fall/change in ADL's that may No No No increase risk of falls Signs or symptoms of abuse and/or No No No neglect since last visit Have you been in the hospital since your No No No last visit? Has dressing in place as prescribed Yes Yes Yes Has compression in place as prescribed N/A Yes Yes Has offloadiing in place as prescribed N/A N/A N/A Experienced any changes in pain level or No No No management Left Footwear Regular Shoe Regular Shoe Regular Shoe Right Footwear Regular Shoe Regular Shoe Regular Shoe Pain Scale: 0-10 Numeric Is Patient Pain Free? Yes Yes Yes 05/12/24 13:32 WC - Today's Visit Information Type of service Follow-up Visit (Physician/MARINE WATER TENDER ) Arrival Mode Ambulatory Accompanied by granddaughter Patient Identification Verified (Name & Yes ) Height and Weight Body Mass Index (BMI) 35.1 BMI Classification Obese Vital Signs Temperature (97.8 F-99.1 F) 97.5 F L Temperature Source Temporal Pulse Rate (60-100) 85 Pulse Location Monitor Respiratory Rate (12-18) 18 Respiratory rate source Observation Oxygen Delivery Method Room Air Blood Pressure (90/60-120/80) 187/98 H Blood Pressure Mean (mm Hg) 127 Source Monitor Position Semi-Fowlers Blood Pressure Location Left Arm History Since Last Visit- (Skip if this is Patient's initial visit) Have you changed medications since your No last visit? Any new allergies or adverse reactions No Had a fall/change in ADL's that may No increase risk of falls Signs or symptoms of abuse and/or No neglect since last visit Have you been in the hospital since your No last visit? Has dressing in place as prescribed Yes Has compression in place as prescribed Yes Has offloadiing in place as prescribed N/A Experienced any changes in pain level or No management Left Footwear Regular Shoe Right Footwear Regular Shoe Pain Scale: 0-10 Numeric Is Patient Pain Free? Yes - Nurse 1 - General Ulcer Measurement Start: 04/21/24 13:51 Freq: Status: Active Protocol: Activity Type Activity Date Activity User E-sign Co-sign Detail Recorded Client Recorded Date Recorded By Document 04/21/24 13:51 KW [id number] 04/21/24 13:59 KW Document 04/28/24 13:51 KW [id number] 04/28/24 13:55 KW Document 05/05/24 13:21 KW [id number] 05/05/24 13:25 KW Document 05/12/24 13:32 KW [id number] 05/12/24 13:39 KW 04/21/24 04/28/24 05/05/24 13:51 13:51 13:21 Wound Center Nurse 1 #3- R MED LE -Current Size (cm) - Length 1.3 1.2 1 -Current Size (cm) - Width 1 0.5 1.6 -Current Size (cm) - Depth 0.2 0.3 0.2 -Total Square Cm 1.3 0.60 1.6 -Date of Last Picture (Recall this 04/28/24 05/05/24 field) -Exudate Amt Small Small Small -Exudate Type Serosanguineous Serosanguineous Serosanguineous -Wound Margin Distinct, Distinct, Distinct, Outline Outline Outline Attached Attached Attached -Granulation Amt Large (67-100%) Small (1-33%) -Granulation Quality [place] -Necrosis Amt Large (67-100%) Small (1-33%) Large (67-100%) -Necrotic Tissue Type Adherent Slough Adherent Slough Adherent Slough -Texture (Sania-wound Skin Appearance) Assessed Assessed Assessed -Moisture (Sania-wound Skin Appearance) Assessed Assessed Assessed -Color (Sania-wound Skin Appearance) Assessed, Assessed, Assessed, Erythema Erythema Erythema -Temperature (Sania-wound Skin No Abnormality No Abnormality No Abnormality Appearance) (Pt Warm) (Pt Warm) (Pt Warm) -Tenderness on Palpation (Sania-wound No No No Skin Appearance) -Ulcer Cleansing Rinsed/ Rinsed/ Rinsed/ Irrigated with Irrigated with Irrigated with Saline Saline Saline -Foul Odor after Cleansing No No No -Anesthetic Used 5% Lidocaine 5% Lidocaine 5% Lidocaine Gel Gel Gel Right Calf (cm) 35.5 33.5 33 Right Ankle (cm) 19.3 20.5 19.5 05/12/24 13:32 Wound Center Nurse 1 #3- R MED LE -Current Size (cm) - Length 1.1 -Current Size (cm) - Width 0.6 -Current Size (cm) - Depth 0.2 -Total Square Cm 0.66 -Date of Last Picture (Recall this 05/12/24 field) -Exudate Amt Small -Exudate Type Serosanguineous -Wound Margin Distinct, Outline Attached -Granulation Amt Large (67-100%) -Granulation Quality Red -Necrosis Amt Small (1-33%) -Necrotic Tissue Type Adherent Slough -Texture (Sania-wound Skin Appearance) Assessed -Moisture (Sania-wound Skin Appearance) Assessed -Color (Sania-wound Skin Appearance) Assessed, Erythema -Temperature (Sania-wound Skin No Abnormality Appearance) (Pt Warm) -Tenderness on Palpation (Sania-wound No Skin Appearance) -Ulcer Cleansing Soap and Water -Foul Odor after Cleansing No -Anesthetic Used 5% Lidocaine Gel Right Calf (cm) 34 Right Ankle (cm) 19.5 WC - Nurse 2 - General Ulcer CM Notes Start: 04/21/24 13:51 Freq: Status: Active Protocol: Activity Type Activity Date Activity User E-sign Co-sign Detail Recorded Client Recorded Date Recorded By Document 04/21/24 14:45 GM [id number] 04/21/24 14:55 GM Document 04/28/24 14:15 GM [id number] 04/28/24 14:20 GM Document 05/05/24 13:28 GM [id number] 05/05/24 13:34 GM Document 05/12/24 13:50 BM [id number] 05/12/24 13:58 BMF 04/21/24 04/28/24 05/05/24 14:45 14:15 13:28 Wound Center Nurse 2 #3- R MED LE -Time 14:45 14:16 13:29 -Correct Patient Yes Yes Yes -Correct Side, Site, Position Yes Yes Yes -Correct Procedure Yes Yes Yes -Procedure Performed Yes Yes Yes -Type of Procedure Debridement Debridement Debridement -Clinical Debridement Muscle / Fascia Muscle / Fascia Muscle / Fascia -Tissue Removed Fascia Fascia Fascia -Post Debridement (cm) - Length 1.7 1.2 1.1 -Post Debridement (cm) - Width 0.9 0.8 0.6 -Post Debridement (cm) - Depth 0.1 0.4 0.3 -Total Square (Post) (cm) 1.53 0.96 0.66 -Area of Debridement (cm) - Length 1.7 1.2 1.1 -Area of Debridement (cm) - Width 0.9 0.8 0.6 -Total Square (Area) (cm) 1.53 0.96 0.66 -Tunneling No No No -Undermining/Tunneling No No No -Circular Undermining No No No -Wound/Ulcer Outcome Not Healed Not Healed Not Healed -Ulcer Cleansing Rinsed/ Rinsed/ Rinsed/ Irrigated with Irrigated with Irrigated with Saline Saline Saline -Foul Odor after Cleansing No No No -Bioengineered Tissue No No No -Bleeding Controlled with Pressure Pressure Pressure -Treatment Response Procedure Procedure Procedure Tolerated Well Tolerated Well Tolerated Well -Offloading No No -Debridement - Muscle / Fascia, 1st Yes Yes Yes 20sq cm Pain Scale: 0-10 Numeric Is Patient Pain Free? Yes Yes Yes 05/12/24 13:50 Wound Center Nurse 2 #3- R MED LE -Time 13:50 -Correct Patient Yes -Correct Side, Site, Position Yes -Correct Procedure Yes -Procedure Performed Yes -Type of Procedure Debridement -Clinical Debridement Muscle / Fascia -Tissue Removed Muscle,Fascia -Post Debridement (cm) - Length 1.5 -Post Debridement (cm) - Width 0.9 -Post Debridement (cm) - Depth 0.4 -Total Square (Post) (cm) 1.35 -Area of Debridement (cm) - Length 1.5 -Area of Debridement (cm) - Width 0.9 -Total Square (Area) (cm) 1.35 -Tunneling No -Undermining/Tunneling No -Circular Undermining No -Wound/Ulcer Outcome Not Healed -Ulcer Cleansing Rinsed/ Irrigated with Saline -Foul Odor after Cleansing No -Bioengineered Tissue No -Bleeding Controlled with Pressure -Treatment Response Procedure Tolerated Well -Offloading -Debridement - Muscle / Fascia, 1st Yes 20sq cm Pain Scale: 0-10 Numeric Is Patient Pain Free? Yes - Nurse 3 - General Ulcer D/C NN Start: 04/21/24 13:51 Freq: Status: Active Protocol: Activity Type Activity Date Activity User E-sign Co-sign Detail Recorded Client Recorded Date Recorded By Document 04/21/24 15:11 DL [id number] 04/21/24 15:12 DL Document 04/28/24 14:43 KW [id number] 04/28/24 14:44 KW Document 05/05/24 13:42 ML [id number] 05/05/24 13:43 ML 04/21/24 04/28/24 05/05/24 15:11 14:43 13:42 Wound Care Center Nurse 3 #3- R MED LE -Ulcer Cleansing Rinsed/ Rinsed/ Irrigated with Irrigated with Saline Saline -Foul Odor after Cleansing No -Primary Dressing Applied Promogran Promogran Promogran Jaclyn Matter, Jaclyn Matter, Jaclyn Matter Silicone Border Silicone Border Foam 4x4 Foam 4x4 -Primary Dressing Covered/Secured with Dry Gauze & Roll Gauze, Secured with Tape -Promogran Jaclyn Matter 1 1 1 -Silicone Border Foam 4x4 1 1 RLE -Tubular Bandage Single Layer Single Layer -Size of Tubigrip Used Size E Size E -Size E ($) 1 1 Treatment Response Procedure Tolerated Well Pain Scale: 0-10 Numeric Is Patient Pain Free? Yes Yes Yes WC - Visit Discharge Discharge Condition Stable Stable Ambulatory Status Ambulatory Ambulatory Transportation Private Auto Private Auto Medication Reconcilliation completed & No provided to patient/care provider Clinical Summary of Care Provided Yes Assessment/Plan Assessment/Plan (1) Chronic ulcer of right leg: CODE(S): L97.919 - Non-pressure chronic ulcer of unspecified part of right lower leg with unspecified severity QUALIFIERS: Qualified Code(s): L97.913 - Non-pressure chronic ulcer of unspecified part of right lower leg with necrosis of muscle PLAN: nonpressure chronic ulcer of the right pichardo to the depth of the fascia (2) Venous stasis dermatitis of both lower extremities: CODE(S): I87.2 - Venous insufficiency (chronic) (peripheral) PLAN: Plan Drug-eruption rash resolved. Her wound is stagnant in size. She has completed Augmentin regimen x 6 weeks. No signs of recurrent infection on exam today. Prior sania-wound dermatitis has resolved with discontinuation of the silicone adhesive dressings. Will continue current wound care regimen: (1) Cleanse the area of the wound with antibacterial soap and water, pat gently to dry (2) Apply Jaclyn to the wound bed, lightly moistened with sterile water (3) Cover with dry gauze then wrap with conforming gauze (4) Change daily or more often as needed to manage drainage or if dressing becomes soiled/soaked. She has had minimal improvement in wound size despite addressing underlying infection and now greater than 4 weeks of adequate local wound care and well-managed edema. I do believe she would benefit significantly from use of skin-substitute graft such as Epifix to assist with wound healing. Will submit to her insurance for this. Plan for return to clinic in 2 weeks, sooner as needed.
--- NOTE | 2024-05-13 09:35 | WC ---
PHOTO 05/12/24 SUKHWINDER ROYAL
== END 2024-05-16 23:59 | disposition home or self-care (01) ==
LOC: WC 13:30
PROVIDERS: PCP Internal Medicine; Referring Provider Internal Medicine; Visit Provider Physician Assistant
DX: L97.913 Non-pressure chronic ulcer of unspecified part of right lower leg with necrosis of muscle (principal); I87.2 Venous insufficiency (chronic) (peripheral)
CPT/HCPCS: 11043

== ENCOUNTER 2024-06-13 11:00 | Outpatient (RCR) | payer MEDICARE, SELFPAY ==
[2024-05-17 00:30] VITALS: BP 187/98; PULSE 85; RESP 18; TEMP 36.4; BMI 35.1
[2024-05-26 13:39] VITALS: BP 160/83; PULSE 86; RESP 18; TEMP 36.2; BMI 35.1
--- NOTE | 2024-05-26 15:27 | PCM.WC.PN ---
History of Present Illness Date of Service: 05/26/24 Chief Complaint: R pichardo ulceration History of Wound: Kenia Pittman is a pleasant 89 y/o woman who presents to the wound care center today for evaluation of R pichardo ulceration as referred by her PCP Dr. Delatorre. She states this wound first started in approximately December after she dropped a metal bucket lid and it hit her pichardo. She states initially she had no bleeding and it scabbed over. She applied various topical homeopathic remedies without much improvement, but she was not having pain so she was not too worried about it. Then a few weeks ago she developed more pain in the area of the wound leading her to see Dr. Delatorre. He performed initial debridement and exam was concerning for infection including possible osteomyelitis so she was initiated on doxycycline and Augmentin; she had subsequent bone scan which was suggestive of osteomyelitis. Her Augmentin was extended, she has been on it 2 weeks now by her report and tolerating well. She had wound culture which was polymicrobial and demonstrated good susceptibility to Augmentin. On my exam today, her RLE is significantly more swollen compared to the LLE. She states this has developed just over the last week or so. She admits she has been much less active, trying to stay off of her feet. Her pain has overall been stable. Her R lower leg from top of her ankle to just below her knee is red, with fairly sharp demarcation at the upper and lower limits. There does not seem to be excess warmth compared to her LLE. She tells me she has been applying recommended homeopathic topical to this portion of her leg. She brought the bottle which is [employer] drink; review of the ingredients is cranberry juice, sour greenberg juice, a variety of other fruit juices and citric acid. It does not seem to be intended for topical application; it is deep red in color. She indicates that her current discoloration is all within the limits of where she has been applying this juice. She denies any nausea, vomiting, fevers, or chills. I have previously seen Kenia in the vascular office. Dr. Egan performed RLE GSV ablation 02/2023 due to RLE venous ulceration she had at that time. Subjective Subjective Kenia is doing well. She feels the wound is looking better. She is not having any new pain, discomfort, redness, swelling, excess drainage, or foul odor. Objective Data Objective Data Vital Signs: Vital Signs Temp Pulse Resp BP 97.2 F L 86 18 160/83 H 05/26/24 13:39 05/26/24 13:39 05/26/24 13:39 05/26/24 13:39 Weight: 135 lb Body Mass Index (BMI) 35.1 Charges/Coding Procedures Integumentary 111xxx-113xx: [id number] Janette subq tissue 20 sq cm/< Physical Exam Const alert, oriented x3 and no apparent distress General Appearance: cooperative and comfortable HEENT normocephalic, hearing grossly normal bilaterally and external ears normal Eyes General Eye: normal appearance of both eyes Neck General: normal visual inspection and trachea midline Resp normal respiratory effort Effort and Inspection: able to speak in complete sentences Cardio regular rate and regular rhythm Peripheral Pulses: posterior tibial pulses present and dorsalis pedis pulses present Extremity Extremity Narrative: RLE with 1-2+ edema, trace LLE edema Skin Wounds: wounds noted Wound Narrative: R pichardo ulceration to the depth of the subcutaneous tissue; the base is now 100% granular; there is moderate overlying yellow slough; there is no apparent tracking, no purulence, no focal fluctuance/induration; size is significantly improved Psych mental status grossly normal, cooperative, speech normal and activity/motor behavior normal Debridement Note Debridement Note Wound debrided: R pichardo ulcer Laterality: Right Type of Debridement: Excisional debridement Anesthesia Used: 5% Lidocaine Gel Depth: Down to and including healthy tissue and to muscle Percentage of wound debrided: 100 Instrument Used: 3mm curette Tissue Removed: slough, devitalized tissue Amount of bleeding with debridement: Mild Bleeding Controlled with: Compression and gauze Patient tolerated procedure: Patient tolerated procedure well Post-Debridement Measurements and Additional Note: Post-Debridement Measurements/Treatment CHARLENE - Nurse 1 - General Ulcer Assessment Start: 05/26/24 13:39 Freq: Status: Active Protocol: MICHAEL Activity Type Activity Date Activity User E-sign Co-sign Detail Recorded Client Recorded Date Recorded By Document 05/26/24 13:39 DL [id number] 05/26/24 13:46 DL 05/26/24 13:39 CHARLENE - Today's Visit Information Type of service 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 ) Arrival Mode Ambulatory Transfer Assistance None Patient Identification Verified (Name & Yes ) Patient Requires Transmission-Based No Precautions Height and Weight Body Mass Index (BMI) 35.1 BMI Classification Obese Vital Signs Temperature (97.8 F-99.1 F) 97.2 F L Temperature Source Temporal Pulse Rate (60-100) 86 Pulse Location Monitor Respiratory Rate (12-18) 18 Respiratory rate source Observation Blood Pressure (90/60-120/80) 160/83 H Blood Pressure Mean (mm Hg) 108 Source Monitor History Since Last Visit- (Skip if this is Patient's initial visit) Have you changed medications since your No last visit? Any new allergies or adverse reactions No Had a fall/change in ADL's that may No increase risk of falls Signs or symptoms of abuse and/or No neglect since last visit Have you been in the hospital since your No last visit? Has dressing in place as prescribed Yes Has compression in place as prescribed Yes Has offloadiing in place as prescribed N/A Experienced any changes in pain level or No management Pain Scale: 0-10 Numeric Is Patient Pain Free? Yes WC - Nurse 1 - General Ulcer Measurement Start: 05/26/24 13:39 Freq: Status: Active Protocol: Activity Type Activity Date Activity User E-sign Co-sign Detail Recorded Client Recorded Date Recorded By Document 05/26/24 13:39 DL [id number] 05/26/24 13:46 DL 05/26/24 13:39 Wound Center Nurse 1 #3- R MED LE -Current Size (cm) - Length 0.7 -Current Size (cm) - Width 0.3 -Current Size (cm) - Depth 0.2 -Total Square Cm 0.21 -Exudate Amt Medium -Exudate Type Serosanguineous -Wound Margin Distinct, Outline Attached -Granulation Amt None Present (0 %) -Necrosis Amt Small (1-33%) -Necrotic Tissue Type Adherent Slough -Structure Exposed N/A -Texture (Sania-wound Skin Appearance) Scarring,Rash -Moisture (Sania-wound Skin Appearance) Maceration -Color (Sania-wound Skin Appearance) Hemosiderin Staining -Temperature (Sania-wound Skin No Abnormality Appearance) (Pt Warm) -Ulcer Cleansing Soap and Water -Foul Odor after Cleansing No -Anesthetic Used 5% Lidocaine Gel Right Calf (cm) 31 Right Ankle (cm) 19.2 WC - Nurse 2 - General Ulcer CM Notes Start: 05/26/24 13:39 Freq: Status: Active Protocol: Activity Type Activity Date Activity User E-sign Co-sign Detail Recorded Client Recorded Date Recorded By Document 05/26/24 13:57 GM [id number] 05/26/24 14:03 GM 05/26/24 13:57 Wound Center Nurse 2 #3- R MED LE -Time 13:58 -Correct Patient Yes -Correct Side, Site, Position Yes -Correct Procedure Yes -Procedure Performed Yes -Type of Procedure Debridement -Clinical Debridement Subcutaneous -Tissue Removed Subcutaneous -Tunneling No -Undermining/Tunneling No -Circular Undermining No -Wound/Ulcer Outcome Not Healed -Ulcer Cleansing Rinsed/ Irrigated with Saline -Foul Odor after Cleansing No -Bioengineered Tissue No -Bleeding Controlled with Pressure -Treatment Response Procedure Tolerated Well -Offloading No -Debridement - Subq, 1st 20sq cm Yes Pain Scale: 0-10 Numeric Is Patient Pain Free? Yes WC - Nurse 3 - General Ulcer D/C NN Start: 05/26/24 13:39 Freq: Status: Active Protocol: Activity Type Activity Date Activity User E-sign Co-sign Detail Recorded Client Recorded Date Recorded By Document 05/26/24 14:11 ML [id number] 05/26/24 14:12 ML 05/26/24 14:11 Wound Care Center Nurse 3 #3- R MED LE -Ulcer Cleansing Rinsed/ Irrigated with Saline -Primary Dressing Applied Promogran Jaclyn Matter -Other Dressing CONFORMING GAUZE -Primary Dressing Covered/Secured with Secured with Tape -Promogran Jaclyn Matter 1 RLE -Tubular Bandage Single Layer -Size of Tubigrip Used Size E -Size E ($) 1 Pain Scale: 0-10 Numeric Is Patient Pain Free? Yes Assessment/Plan Assessment/Plan (1) Chronic ulcer of right leg: CODE(S): L97.919 - Non-pressure chronic ulcer of unspecified part of right lower leg with unspecified severity QUALIFIERS: Qualified Code(s): L97.913 - Non-pressure chronic ulcer of unspecified part of right lower leg with necrosis of muscle PLAN: nonpressure chronic ulcer of the right pichardo to the depth of the fascia (2) Venous stasis dermatitis of both lower extremities: CODE(S): I87.2 - Venous insufficiency (chronic) (peripheral) PLAN: Plan Her wound is much improved in size; depth is also improved, no longer with visible fascia. She has completed Augmentin regimen x 6 weeks. No signs of recurrent infection on exam today. Prior sania-wound dermatitis remains resolved with discontinuation of the silicone adhesive dressings. Will continue current wound care regimen: (1) Cleanse the area of the wound with antibacterial soap and water, pat gently to dry (2) Apply Jaclyn to the wound bed, lightly moistened with sterile water (3) Cover with dry gauze then wrap with conforming gauze (4) Change daily or more often as needed to manage drainage or if dressing becomes soiled/soaked. Epifix was improved by insurance but copay is very high. Wound made good progress since last visit, will hold off on Epifix for now. Plan for return to clinic in 2 weeks, sooner as needed.
[2024-06-09 13:38] VITALS: BP 171/77; PULSE 81; RESP 16; TEMP 36.4; BMI 35.1
--- NOTE | 2024-06-09 14:45 | PN.PCM_ITS ---
History of Present Illness Date of Service: 06/09/24 Chief Complaint: R pichardo ulceration History of Wound: Kenia Pittman is a pleasant 89 y/o woman who presents to the wound care center today for evaluation of R pichardo ulceration as referred by her PCP Dr. Delatorre. She states this wound first started in approximately December after she dropped a metal bucket lid and it hit her pichardo. She states initially she had no bleeding and it scabbed over. She applied various topical homeopathic remedies without much improvement, but she was not having pain so she was not too worried about it. Then a few weeks ago she developed more pain in the area of the wound leading her to see Dr. Delatorre. He performed initial debridement and exam was concerning for infection including possible osteomyelitis so she was initiated on doxycycline and Augmentin; she had subsequent bone scan which was suggestive of osteomyelitis. Her Augmentin was extended, she has been on it 2 weeks now by her report and tolerating well. She had wound culture which was polymicrobial and demonstrated good susceptibility to Augmentin. On my exam today, her RLE is significantly more swollen compared to the LLE. She states this has developed just over the last week or so. She admits she has been much less active, trying to stay off of her feet. Her pain has overall been stable. Her R lower leg from top of her ankle to just below her knee is red, with fairly sharp demarcation at the upper and lower limits. There does not seem to be excess warmth compared to her LLE. She tells me she has been applying recommended homeopathic topical to this portion of her leg. She brought the bottle which is [employer] drink; review of the ingredients is cranberry juice, sour greenberg juice, a variety of other fruit juices and citric acid. It does not seem to be intended for topical application; it is deep red in color. She indicates that her current discoloration is all within the limits of where she has been applying this juice. She denies any nausea, vomiting, fevers, or chills. I have previously seen Kenia in the vascular office. Dr. Egan performed RLE GSV ablation 02/2023 due to RLE venous ulceration she had at that time. Subjective Subjective Kenia returns today for evaluation of her RLE wound. The wound appears much better; unfortunately, the rest of her leg is looking worse. She is having skin peeling/flaking, redness, warmth, and several scattered areas of superficial skin breakdown with some weeping; she reports this has been going on a few days. She is not sure what caused this. She states she is not applying anything new. She reports she has been wearing her compression and elevating her legs when resting. She denies N/V, fevers, chills, or other concerns today. Objective Data Objective Data Vital Signs: Vital Signs Temp Pulse Resp BP O2 Del Method 97.5 F L 81 16 171/77 H Room Air 06/09/24 13:38 06/09/24 13:38 06/09/24 13:38 06/09/24 13:38 06/09/24 13:38 Oxygen Delivery Method Room Air Weight: 135 lb Body Mass Index (BMI) 35.1 Charges/Coding Visit Charges Office Visits / Consults: 32065 OV L3 Est 20min Physical Exam Const alert, oriented x3 and no apparent distress General Appearance: cooperative and comfortable HEENT normocephalic, hearing grossly normal bilaterally and external ears normal Eyes General Eye: normal appearance of both eyes Neck General: normal visual inspection and trachea midline Resp normal respiratory effort Effort and Inspection: able to speak in complete sentences Cardio regular rate and regular rhythm Peripheral Pulses: posterior tibial pulses present and dorsalis pedis pulses present Extremity Extremity Narrative: RLE with 1-2+ edema, trace LLE edema Skin Wounds: wounds noted Wound Narrative: R pichardo ulceration is epitheliazlied; however, her right lower leg now has diffuse erythema, skin flaking, scattered areas of superficial skin breakdown with weeping, excess warmth to touch. Psych mental status grossly normal, cooperative, speech normal and activity/motor behavior normal Debridement Note Debridement Note No debridement was completed: No debridement was completed today Post-Debridement Measurements and Additional Note: Post-Debridement Measurements/Treatment WC - Nurse 1 - General Ulcer Assessment Start: 05/26/24 13:39 Freq: Status: Active Protocol: MICHAEL Activity Type Activity Date Activity User E-sign Co-sign Detail Recorded Client Recorded Date Recorded By Document 05/26/24 13:39 DL [id number] 05/26/24 13:46 DL Document 06/09/24 13:38 KW [id number] 06/09/24 13:55 KW 05/26/24 06/09/24 13:39 13:38 - Today's Visit Information Type of service Follow-up Visit Follow-up Visit (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 (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 ) ) Arrival Mode Ambulatory Ambulatory Transfer Assistance None Accompanied by granddaughter Patient Identification Verified (Name & Yes Yes ) Patient Requires Transmission-Based No Precautions Height and Weight Body Mass Index (BMI) 35.1 35.1 BMI Classification Obese Obese Vital Signs Temperature (97.8 F-99.1 F) 97.2 F L 97.5 F L Temperature Source Temporal Temporal Pulse Rate (60-100) 86 81 Pulse Location Monitor Monitor Respiratory Rate (12-18) 18 16 Respiratory rate source Observation Observation Oxygen Delivery Method Room Air Blood Pressure (90/60-120/80) 160/83 H 171/77 H Blood Pressure Mean (mm Hg) 108 108 Source Monitor Monitor Position Semi-Fowlers Blood Pressure Location Left Arm History Since Last Visit- (Skip if this is Patient's initial visit) Have you changed medications since your No No last visit? Any new allergies or adverse reactions No No Had a fall/change in ADL's that may No No increase risk of falls Signs or symptoms of abuse and/or No No neglect since last visit Have you been in the hospital since your No No last visit? Has dressing in place as prescribed Yes Yes Has compression in place as prescribed Yes Yes Has offloadiing in place as prescribed N/A N/A Experienced any changes in pain level or No No management Left Footwear Regular Shoe Right Footwear Regular Shoe Pain Scale: 0-10 Numeric Is Patient Pain Free? Yes Yes - Nurse 1 - General Ulcer Measurement Start: 05/26/24 13:39 Freq: Status: Active Protocol: Activity Type Activity Date Activity User E-sign Co-sign Detail Recorded Client Recorded Date Recorded By Document 05/26/24 13:39 DL [id number] 05/26/24 13:46 DL Document 06/09/24 13:38 KW [id number] 06/09/24 13:55 KW 05/26/24 06/09/24 13:39 13:38 Wound Center Nurse 1 #3- R MED LE -Current Size (cm) - Length 0.7 0.5 -Current Size (cm) - Width 0.3 0.1 -Current Size (cm) - Depth 0.2 0.1 -Total Square Cm 0.21 0.05 -Date of Last Picture (Recall this 06/09/24 field) -Exudate Amt Medium Small -Exudate Type Serosanguineous Serosanguineous -Wound Margin Distinct, Distinct, Outline Outline Attached Attached -Granulation Amt None Present (0 Large (67-100%) %) -Granulation Quality Red -Necrosis Amt Small (1-33%) -Necrotic Tissue Type Adherent Slough -Structure Exposed N/A -Texture (Sania-wound Skin Appearance) Scarring,Rash Assessed -Moisture (Sania-wound Skin Appearance) Maceration Assessed,Dry/ Scaly -Color (Sania-wound Skin Appearance) Hemosiderin Assessed, Staining Erythema -Temperature (Sania-wound Skin No Abnormality No Abnormality Appearance) (Pt Warm) (Pt Warm) -Tenderness on Palpation (Sania-wound No Skin Appearance) -Ulcer Cleansing Soap and Water Soap and Water -Foul Odor after Cleansing No No -Anesthetic Used 5% Lidocaine 5% Lidocaine Gel Gel Right Calf (cm) 31 Right Ankle (cm) 19.2 - Nurse 2 - General Ulcer CM Notes Start: 05/26/24 13:39 Freq: Status: Active Protocol: Activity Type Activity Date Activity User E-sign Co-sign Detail Recorded Client Recorded Date Recorded By Document 05/26/24 13:57 [id number] 05/26/24 14:03 Document 06/09/24 13:55 [id number] 06/09/24 13:59 05/26/24 06/09/24 13:57 13:55 Wound Center Nurse 2 #3- R MED LE -Time 13:58 13:56 -Correct Patient Yes Yes -Correct Side, Site, Position Yes Yes -Correct Procedure Yes No -Procedure Performed Yes No -Type of Procedure Debridement -Clinical Debridement Subcutaneous -Tissue Removed Subcutaneous -Tunneling No No -Undermining/Tunneling No No -Circular Undermining No No -Wound/Ulcer Outcome Not Healed Healed- Epithelialized -Ulcer Cleansing Rinsed/ Irrigated with Saline -Foul Odor after Cleansing No -Bioengineered Tissue No -Bleeding Controlled with Pressure NA -Treatment Response Procedure Tolerated Well -Offloading No -Debridement - Subq, 1st 20sq cm Yes Pain Scale: 0-10 Numeric Is Patient Pain Free? Yes Yes - Nurse 3 - General Ulcer D/C NN Start: 05/26/24 13:39 Freq: Status: Active Protocol: Activity Type Activity Date Activity User E-sign Co-sign Detail Recorded Client Recorded Date Recorded By Document 05/26/24 14:11 ML [id number] 05/26/24 14:12 ML 05/26/24 14:11 Wound Care Center Nurse 3 #3- R MED LE -Ulcer Cleansing Rinsed/ Irrigated with Saline -Primary Dressing Applied Promogran Jaclyn Matter -Other Dressing CONFORMING GAUZE -Primary Dressing Covered/Secured with Secured with Tape -Promogran Jaclyn Matter 1 RLE -Tubular Bandage Single Layer -Size of Tubigrip Used Size E -Size E ($) 1 Pain Scale: 0-10 Numeric Is Patient Pain Free? Yes Assessment/Plan Assessment/Plan (1) Chronic ulcer of right leg: CODE(S): L97.919 - Non-pressure chronic ulcer of unspecified part of right lower leg with unspecified severity QUALIFIERS: Qualified Code(s): L97.913 - Non-pressure chronic ulcer of unspecified part of right lower leg with necrosis of muscle PLAN: nonpressure chronic ulcer of the right pichardo to the depth of the fascia (2) Venous stasis dermatitis of both lower extremities: CODE(S): I87.2 - Venous insufficiency (chronic) (peripheral) (3) Cellulitis of right lower extremity: CODE(S): L03.115 - Cellulitis of right lower limb PLAN: Plan Her RLE ulceration has epithelialized. Unfortunately, she has physical exam findings consistent with RLE cellulitis today. No streaking proximally, no constitutional signs/symptoms. Will treat with Augmentin x 10 days as she has tolerated this well previously. Will apply Unna boot to her RLE for compression and to treat her superficial skin breakdown and flaking. She is instructed to keep this clean and dry. She is instructed to continue to elevate her legs at all times of rest and to try to avoid prolonged periods of idle sitting/standing. She will return on Thursday for a nurse visit to have the Unna boot replaced and to make sure there has been no worsening. She will return to see me next . She will call sooner with any concerns or present to the ER should she develop any progressive erythema, fevers, chills.
--- NOTE | 2024-06-10 09:04 | WC ---
PHOTO 06/09/24 RIGHT [facility]
[2024-06-13 11:20] VITALS: BP 167/89; PULSE 84; RESP 16; TEMP 36.5; BMI 35.1
--- NOTE | 2024-06-13 12:00 | WC ---
Marion huntley nurse visit change today. Pt's RLE looks better. Noted, however, that pt has a mild red, flat rash to left orbital area/face, and LLE. Pt said it itches and wonders if it's from the current antibiotic she's taking. Augmentin? Did update Susan PEPE via msg. Awaiting on response. Pt aware that I will call her if I receive any new orders and is to con't to monitor and call us if anything changes or worsens.
== END 2024-06-15 23:59 | disposition home or self-care (01) ==
LOC: WC 11:00
PROVIDERS: PCP Internal Medicine; Referring Provider Internal Medicine; Visit Provider Physician Assistant
DX: L97.811 Non-pressure chronic ulcer of other part of right lower leg limited to breakdown of skin (principal); L03.115 Cellulitis of right lower limb; I87.2 Venous insufficiency (chronic) (peripheral)
CPT/HCPCS: 11042; 29580; 99213; G0463

== ENCOUNTER 2024-06-30 13:30 | Outpatient (RCR) | payer MEDICARE, SELFPAY ==
[2024-06-16 00:32] VITALS: BP 167/89; PULSE 84; RESP 16; TEMP 36.5; BMI 35.1
[2024-06-16 13:37] VITALS: BP 154/89; PULSE 94; RESP 16; TEMP 36.3; BMI 35.1
--- NOTE | 2024-06-16 14:14 | PCM.WC.PN ---
History of Present Illness Date of Service: 06/16/24 Chief Complaint: R pichardo ulceration History of Wound: Kenia Pittman is a pleasant 89 y/o woman who presents to the wound care center today for evaluation of R pichardo ulceration as referred by her PCP Dr. Delatorre. She states this wound first started in approximately December after she dropped a metal bucket lid and it hit her pichardo. She states initially she had no bleeding and it scabbed over. She applied various topical homeopathic remedies without much improvement, but she was not having pain so she was not too worried about it. Then a few weeks ago she developed more pain in the area of the wound leading her to see Dr. Delatorre. He performed initial debridement and exam was concerning for infection including possible osteomyelitis so she was initiated on doxycycline and Augmentin; she had subsequent bone scan which was suggestive of osteomyelitis. Her Augmentin was extended, she has been on it 2 weeks now by her report and tolerating well. She had wound culture which was polymicrobial and demonstrated good susceptibility to Augmentin. On my exam today, her RLE is significantly more swollen compared to the LLE. She states this has developed just over the last week or so. She admits she has been much less active, trying to stay off of her feet. Her pain has overall been stable. Her R lower leg from top of her ankle to just below her knee is red, with fairly sharp demarcation at the upper and lower limits. There does not seem to be excess warmth compared to her LLE. She tells me she has been applying recommended homeopathic topical to this portion of her leg. She brought the bottle which is [employer] drink; review of the ingredients is cranberry juice, sour greenberg juice, a variety of other fruit juices and citric acid. It does not seem to be intended for topical application; it is deep red in color. She indicates that her current discoloration is all within the limits of where she has been applying this juice. She denies any nausea, vomiting, fevers, or chills. I have previously seen Kenia in the vascular office. Dr. Egan performed RLE GSV ablation 02/2023 due to RLE venous ulceration she had at that time. Subjective Subjective Last week, Kenia's wound was healed but she had left lower leg cellulitis. I prescribed Augmentin which has worked well for her in the past. However, after a few days on the Augmentin she reports she developed a red, patchy rash to the left side of her face and her thighs. It is a bit itchy but not otherwise painful. She denies associated constitutional symptoms. She denies any sick contacts or use of other new products/foods. Objective Data Objective Data Vital Signs: Vital Signs Temp Pulse Resp BP O2 Del Method 97.4 F L 94 16 154/89 H Room Air 06/16/24 13:37 06/16/24 13:37 06/16/24 13:37 06/16/24 13:37 06/16/24 13:37 Oxygen Delivery Method Room Air Weight: 135 lb Body Mass Index (BMI) 35.1 Charges/Coding Visit Charges Office Visits / Consults: 26136 OV L3 Est 20min Physical Exam Const alert, oriented x3 and no apparent distress General Appearance: cooperative and comfortable HEENT normocephalic, hearing grossly normal bilaterally and external ears normal Eyes General Eye: normal appearance of both eyes Neck General: normal visual inspection and trachea midline Resp normal respiratory effort Effort and Inspection: able to speak in complete sentences Cardio regular rate and regular rhythm Peripheral Pulses: posterior tibial pulses present and dorsalis pedis pulses present Extremity Extremity Narrative: RLE with 1-2+ edema, trace LLE edema Skin Wounds: wounds noted Wound Narrative: R pichardo ulceration remains healed. Right lower leg with significant improvement in appearance; there are no residual areas of superficial skin breakdown, skin flaking is significantly improved, no further excess warmth. She does have a patchy erythematous, flat rash to her L cheek, L thigh, small amount to the L calf. No rash on her abdomen or arms at this time. 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[employer] ) Arrival Mode Ambulatory Accompanied by granddaughter Patient Identification Verified (Name & Yes ) Height and Weight Body Mass Index (BMI) 35.1 BMI Classification Obese Vital Signs Temperature (97.8 F-99.1 F) 97.4 F L Temperature Source Temporal Pulse Rate (60-100) 94 Pulse Location Monitor Respiratory Rate (12-18) 16 Respiratory rate source Observation Oxygen Delivery Method Room Air Blood Pressure (90/60-120/80) 154/89 H Blood Pressure Mean (mm Hg) 110 Source Monitor Position Sitting Blood Pressure Location Left Arm History Since Last Visit- (Skip if this is Patient's initial visit) Have you changed medications since your No last visit? Any new allergies or adverse reactions No Had a fall/change in ADL's that may No increase risk of falls Signs or symptoms of abuse and/or No neglect since last visit Have you been in the hospital since your No last visit? Has dressing in place as prescribed Yes Has compression in place as prescribed Yes Has offloadiing in place as prescribed N/A Experienced any changes in pain level or No management Left Footwear Regular Shoe Right Footwear Regular Shoe Pain Scale: 0-10 Numeric Is Patient Pain Free? Yes - Nurse 1 - General Ulcer Measurement Start: 06/16/24 13:35 Freq: Status: Active Protocol: Activity Type Activity Date Activity User E-sign Co-sign Detail Recorded Client Recorded Date Recorded By Document 06/16/24 13:37 KW [id number] 06/16/24 13:51 KW 06/16/24 13:37 Wound Center Nurse 1 #3- R MED LE -Current Size (cm) - Length 0.1 -Current Size (cm) - Width 0.1 -Current Size (cm) - Depth 0 -Total Square Cm 0.01 -Date of Last Picture (Recall this 06/16/24 field) -Epithelialization Large 67-100% -Texture (Sania-wound Skin Appearance) Assessed -Moisture (Sania-wound Skin Appearance) Assessed,Dry/ Scaly -Color (Sania-wound Skin Appearance) Assessed -Temperature (Sania-wound Skin No Abnormality Appearance) (Pt Warm) -Tenderness on Palpation (Sania-wound No Skin Appearance) -Ulcer Cleansing Soap and Water -Foul Odor after Cleansing No Right Calf (cm) 30.2 Right Ankle (cm) 19 WC - Nurse 2 - General Ulcer CM Notes Start: 06/16/24 13:35 Freq: Status: Active Protocol: Activity Type Activity Date Activity User E-sign Co-sign Detail Recorded Client Recorded Date Recorded By Document 06/16/24 13:59 [id number] 06/16/24 14:00 06/16/24 13:59 Wound Center Nurse 2 #3- R MED LE -Time 13:59 -Correct Patient Yes -Correct Side, Site, Position Yes -Correct Procedure No -Procedure Performed No -Tunneling No -Undermining/Tunneling No -Circular Undermining No -Wound/Ulcer Outcome Healed- Epithelialized -Foul Odor after Cleansing No -Bioengineered Tissue No -Bleeding Controlled with NA Pain Scale: 0-10 Numeric Is Patient Pain Free? Yes Assessment/Plan Assessment/Plan (1) Venous stasis dermatitis of both lower extremities: CODE(S): I87.2 - Venous insufficiency (chronic) (peripheral) (2) Cellulitis of right lower extremity: CODE(S): L03.115 - Cellulitis of right lower limb (3) Rash and other nonspecific skin eruption: CODE(S): R21 - Rash and other nonspecific skin eruption PLAN: Plan Her RLE ulceration remains healed. Her cellulitis appears to be resolving. Unfortunately, she has developed a rash; the distribution is a bit atypical and appearance is more macular vs papular but given the timing does seem most likely to be related to the Augmentin. She will discontinue this and instead initiate doxycyline to complete the course for her cellulitis. She is instructed to call if her rash does not begin to improve, if it worsens, or if she develops other symptoms of concern. For her RLE, will have her wash daily with soap and water then follow with applying a mild, fragrance free lotion. Will provide her with high-strength Tubigrips for compression which she is to wear every day. She is instructed to continue to elevate her legs at all times of rest and to try to avoid prolonged periods of idle sitting/standing. She will return in 1 week to reassess; if her RLE remains without cellulitic changes or wounds and her rash is improving anticipate discharging her from the wound center at that time.
--- NOTE | 2024-06-17 12:01 | WC ---
PHOTO 06/16/24 RIGHT [facility]
[2024-06-23 13:37] VITALS: BP 169/90; PULSE 84; RESP 18; TEMP 36.6; BMI 35.1
--- NOTE | 2024-06-23 14:08 | PN.PCM_ITS ---
History of Present Illness Date of Service: 06/23/24 Chief Complaint: R pichardo ulceration History of Wound: Kenia Pittman is a pleasant 89 y/o woman who presents to the wound care center today for evaluation of R pichardo ulceration as referred by her PCP Dr. Delatorre. She states this wound first started in approximately December after she dropped a metal bucket lid and it hit her pichardo. She states initially she had no bleeding and it scabbed over. She applied various topical homeopathic remedies without much improvement, but she was not having pain so she was not too worried about it. Then a few weeks ago she developed more pain in the area of the wound leading her to see Dr. Delatorre. He performed initial debridement and exam was concerning for infection including possible osteomyelitis so she was initiated on doxycycline and Augmentin; she had subsequent bone scan which was suggestive of osteomyelitis. Her Augmentin was extended, she has been on it 2 weeks now by her report and tolerating well. She had wound culture which was polymicrobial and demonstrated good susceptibility to Augmentin. On my exam today, her RLE is significantly more swollen compared to the LLE. She states this has developed just over the last week or so. She admits she has been much less active, trying to stay off of her feet. Her pain has overall been stable. Her R lower leg from top of her ankle to just below her knee is red, with fairly sharp demarcation at the upper and lower limits. There does not seem to be excess warmth compared to her LLE. She tells me she has been applying recommended homeopathic topical to this portion of her leg. She brought the bottle which is [employer] drink; review of the ingredients is cranberry juice, sour greenberg juice, a variety of other fruit juices and citric acid. It does not seem to be intended for topical application; it is deep red in color. She indicates that her current discoloration is all within the limits of where she has been applying this juice. She denies any nausea, vomiting, fevers, or chills. I have previously seen Kenia in the vascular office. Dr. Egan performed RLE GSV ablation 02/2023 due to RLE venous ulceration she had at that time. Subjective Subjective Her leg looks worse again this week. Reports she had scattered areas break open and begin to weep, she has had some increased pain. She denies constitutional symptoms. She has seen improvement of the rash on her face; she has rash on her L thigh (it is worst here) and to a lesser extent her R thigh which seem approximately stable. She also has some dry, flaking skin at her L ankle but no redness/weeping. She did stop the Augmentin as directed. She just started the doxycycline Mon/Tu. Objective Data Objective Data Vital Signs: Vital Signs Temp Pulse Resp BP O2 Del Method 97.9 F 84 18 169/90 H Room Air 06/23/24 13:37 06/23/24 13:37 06/23/24 13:37 06/23/24 13:37 06/23/24 13:37 Oxygen Delivery Method Room Air Weight: 135 lb Body Mass Index (BMI) 35.1 Charges/Coding Visit Charges Office Visits / Consults: 74008 OV L3 Est 20min Physical Exam Const alert, oriented x3 and no apparent distress General Appearance: cooperative and comfortable HEENT normocephalic, hearing grossly normal bilaterally and external ears normal Eyes General Eye: normal appearance of both eyes Neck General: normal visual inspection and trachea midline Resp normal respiratory effort Effort and Inspection: able to speak in complete sentences Cardio regular rate and regular rhythm Peripheral Pulses: posterior tibial pulses present and dorsalis pedis pulses present Extremity Extremity Narrative: RLE with 1-2+ edema, trace LLE edema Skin Wounds: wounds noted Wound Narrative: Initial R pichardo ulceration remains healed. However, R lower leg with diffuse mild erythema, with scattered superficial open areas and associated skin peeling/dried drainage. No excess warmth to palpation, foul odor. She does have a patchy erythematous, flat rash to her B/L cheeks (much less erythematous, improved), L thigh, small amount to the L calf and R thigh (this was present last week, but not noted) which all appear stable. No rash on her abdomen or arms at this time. Psych mental status grossly normal, cooperative, speech normal and activity/motor behavior normal Debridement Note Debridement Note No debridement was completed: No debridement was completed today Post-Debridement Measurements and Additional Note: Post-Debridement Measurements/Treatment CHARLENE - Nurse 1 - General Ulcer Assessment Start: 06/16/24 13:35 Freq: Status: Active Protocol: MICHAEL Activity Type Activity Date Activity User E-sign Co-sign Detail Recorded Client Recorded Date Recorded By Document 06/16/24 13:37 KW [id number] 06/16/24 13:51 KW Document 06/23/24 13:37 KW [id number] 06/23/24 13:45 KW 06/16/24 06/23/24 13:37 13:37 - Today's Visit Information Type of service Follow-up Visit 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 ) ) Arrival Mode Ambulatory Ambulatory Accompanied by granddaughter granddaughter Patient Identification Verified (Name & Yes Yes ) Height and Weight Body Mass Index (BMI) 35.1 35.1 BMI Classification Obese Obese Vital Signs Temperature (97.8 F-99.1 F) 97.4 F L 97.9 F Temperature Source Temporal Temporal Pulse Rate (60-100) 94 84 Pulse Location Monitor Monitor Respiratory Rate (12-18) 16 18 Respiratory rate source Observation Observation Oxygen Delivery Method Room Air Room Air Blood Pressure (90/60-120/80) 154/89 H 169/90 H Blood Pressure Mean (mm Hg) 110 116 Source Monitor Monitor Position Sitting Semi-Fowlers Blood Pressure Location Left Arm Left Arm History Since Last Visit- (Skip if this is Patient's initial visit) Have you changed medications since your No No last visit? Any new allergies or adverse reactions No No Had a fall/change in ADL's that may No No increase risk of falls Signs or symptoms of abuse and/or No No neglect since last visit Have you been in the hospital since your No No last visit? Has dressing in place as prescribed Yes Yes Has compression in place as prescribed Yes Yes Has offloadiing in place as prescribed N/A N/A Experienced any changes in pain level or No No management Left Footwear Regular Shoe Regular Shoe Right Footwear Regular Shoe Regular Shoe Pain Scale: 0-10 Numeric Is Patient Pain Free? Yes Yes - Nurse 1 - General Ulcer Measurement Start: 06/16/24 13:35 Freq: Status: Active Protocol: Activity Type Activity Date Activity User E-sign Co-sign Detail Recorded Client Recorded Date Recorded By Document 06/16/24 13:37 KW [id number] 06/16/24 13:51 KW Document 06/23/24 13:37 [id number] 06/23/24 13:45 KW 06/16/24 06/23/24 13:37 13:37 Wound Center Nurse 1 #3- R MED LE -Current Size (cm) - Length 0.1 -Current Size (cm) - Width 0.1 -Current Size (cm) - Depth 0 -Total Square Cm 0.01 -Date of Last Picture (Recall this 06/16/24 field) -Epithelialization Large 67-100% -Texture (Sania-wound Skin Appearance) Assessed -Moisture (Sania-wound Skin Appearance) Assessed,Dry/ Scaly -Color (Sania-wound Skin Appearance) Assessed -Temperature (Sania-wound Skin No Abnormality Appearance) (Pt Warm) -Tenderness on Palpation (Sania-wound No Skin Appearance) -Ulcer Cleansing Soap and Water -Foul Odor after Cleansing No Right Calf (cm) 30.2 33 Right Ankle (cm) 19 19.7 - Nurse 2 - General Ulcer CM Notes Start: 06/16/24 13:35 Freq: Status: Active Protocol: Activity Type Activity Date Activity User E-sign Co-sign Detail Recorded Client Recorded Date Recorded By Document 06/16/24 13:59 [id number] 06/16/24 14:00 Document 06/23/24 13:50 [id number] 06/23/24 13:52 06/16/24 06/23/24 13:59 13:50 Wound Center Nurse 2 #3- R MED LE -Time 13:59 -Correct Patient Yes -Correct Side, Site, Position Yes -Correct Procedure No -Procedure Performed No -Tunneling No -Undermining/Tunneling No -Circular Undermining No -Wound/Ulcer Outcome Healed- Epithelialized -Foul Odor after Cleansing No -Bioengineered Tissue No -Bleeding Controlled with NA Pain Scale: 0-10 Numeric Is Patient Pain Free? Yes Yes - Nurse 3 - General Ulcer D/C NN Start: 06/16/24 13:35 Freq: Status: Active Protocol: Activity Type Activity Date Activity User E-sign Co-sign Detail Recorded Client Recorded Date Recorded By Document 06/16/24 14:13 [id number] 06/16/24 14:14 06/16/24 14:13 Wound Care Center Nurse 3 RLE -Lotion applied to leg before Yes compression wrap -Tubular Bandage Single Layer -Size of Tubigrip Used Size D -Size D ($) 2 Pain Scale: 0-10 Numeric Is Patient Pain Free? Yes WC - Visit Discharge Discharge Condition Stable Ambulatory Status Ambulatory Clinical Summary of Care Provided Yes Assessment/Plan Assessment/Plan (1) Venous stasis dermatitis of both lower extremities: CODE(S): I87.2 - Venous insufficiency (chronic) (peripheral) (2) Cellulitis of right lower extremity: CODE(S): L03.115 - Cellulitis of right lower limb (3) Rash and other nonspecific skin eruption: CODE(S): R21 - Rash and other nonspecific skin eruption PLAN: Plan Her RLE ulceration remains healed. Her RLE looks worse again this week. She did have a 5-6 day gap without antibiotic therapy due to her reaction to Augmentin and delay in getting doxycycline. Her rash looks better on her cheeks, stable on her thighs. Will check CBC, BMP, ESR, and CRP. Will have her finish course of doxycycline, she is just a few days in. Will consider steroid taper pending labs and persistence of her rash. Will return to applying Unna boot to the RLE which will remain in place for 1 week and be removed at her next visit here. We discussed red flag signs/symptoms which should lead her to present to the ER. She is instructed to continue to elevate her legs at all times of rest and to try to avoid prolonged periods of idle sitting/standing. She will return in 1 week to reassess
[2024-06-23 16:50] LABS: Absolute Lymphocyte Count 1.02 X10^3/uL (0.83-4.51); Absolute Neutrophil Count 4.5 X10^3/uL (2.0-7.7); Basophil# 0.04 X10^3/uL; Basophil% 0.6 % (0-1); Eosinophil# 0.14 X10^3/uL; Eosinophils% 2.2 % (0-5); Hemoglobin 11.4 g/dL (12.0-15.0); Lymphocyte # 1.02 X10^3/ul (0.83-4.51); Lymphocyte % 15.9 % (19-41); Mean Corp Hgb Conc 32.6 g/dL (32-36); Mean Corpuscular Hgb 29.2 pg (27.0-32.0); Mean Corpuscular Volume 89.5 fL (81-99); Mean Platelet Vol. 9.5 fl (6.2-12.0); Monocyte# 0.68 X10^3/uL; Monocyte% 10.6 % (0-10); NRBC Flagged by Analyzer 0 % (0-5); Neutrophil # 4.53 X10^3/uL (2.7-7.7); Neutrophil % 70.5 % (47-70); Platelet Count 213 K/mm3 (150-450); RBC Distribution Width CV 13.3 % (11.6-14.6); RBC Distribution Width SD 43.5 fl (35.1-43.9); Red Blood Count 3.91 M/mm3 (4.2-5.4); White Blood Count 6.4 K/mm3 (4.4-11.0)
[2024-06-23 17:40] LABS: Anion Gap 15 (5-15); BUN 29 mg/dL (4-19); BUN/Creat Ratio 25.5 RATIO (10-20); Calcium,Total 9.6 mg/dL (7.6-11.0); Carbon Dioxide 19.5 mmol/L (21.0-32.0); Chloride 101 mmol/L (98-108); Creatinine, Serum 1.13 mg/dL (0.70-1.20); EST Glomerular Filtration Rate 47 (>60); Estimated Creatinine Clearance 28.14 ml/min (50-250); Glucose 86 mg/dL (70-99); Potassium 4.5 mmol/L (3.3-5.1); Sodium Level 135 mmol/L (133-145)
[2024-06-23 17:55] LABS: Erythrocyte Sedimentation Rate 19 mm/hr (0-30)
--- NOTE | 2024-06-24 10:04 | WC ---
PHOTO 06/23/24 RIGHT [facility])
[2024-06-30 13:34] VITALS: BP 168/72; PULSE 74; RESP 18; TEMP 36.4; BMI 35.1
--- NOTE | 2024-06-30 14:03 | PCM.WC.PN ---
History of Present Illness Date of Service: 06/30/24 Chief Complaint: R pichardo ulceration History of Wound: Kenia Pittman is a pleasant 89 y/o woman who presents to the wound care center today for evaluation of R pichardo ulceration as referred by her PCP Dr. Delatorre. She states this wound first started in approximately December after she dropped a metal bucket lid and it hit her pichardo. She states initially she had no bleeding and it scabbed over. She applied various topical homeopathic remedies without much improvement, but she was not having pain so she was not too worried about it. Then a few weeks ago she developed more pain in the area of the wound leading her to see Dr. Delatorre. He performed initial debridement and exam was concerning for infection including possible osteomyelitis so she was initiated on doxycycline and Augmentin; she had subsequent bone scan which was suggestive of osteomyelitis. Her Augmentin was extended, she has been on it 2 weeks now by her report and tolerating well. She had wound culture which was polymicrobial and demonstrated good susceptibility to Augmentin. On my exam today, her RLE is significantly more swollen compared to the LLE. She states this has developed just over the last week or so. She admits she has been much less active, trying to stay off of her feet. Her pain has overall been stable. Her R lower leg from top of her ankle to just below her knee is red, with fairly sharp demarcation at the upper and lower limits. There does not seem to be excess warmth compared to her LLE. She tells me she has been applying recommended homeopathic topical to this portion of her leg. She brought the bottle which is [employer] drink; review of the ingredients is cranberry juice, sour greenberg juice, a variety of other fruit juices and citric acid. It does not seem to be intended for topical application; it is deep red in color. She indicates that her current discoloration is all within the limits of where she has been applying this juice. She denies any nausea, vomiting, fevers, or chills. I have previously seen Kenia in the vascular office. Dr. Egan performed RLE GSV ablation 02/2023 due to RLE venous ulceration she had at that time. Subjective Subjective Kenia returns today for evaluation of her RLE. Recall that her initial RLE wound has healed, we have been dealing with a recurrent cellulitis possibly superimposed upon some stasis dermatitis to the right lower leg now the last few weeks. There is improved appearance today, no longer appearing cellulitic, skin is healed but very delicate. Rash to her face and upper extremities is improved but appears the same or worse to the anterior thighs. I initially thought the Augmentin to be the provoking factor for the rash, this was stopped 2-3 weeks ago and as noted face/arms have improved but not the legs. These improved even after starting the doxycycline so I do not think this to be the culprit. Upon further discussion, Kenia admits to having also started some new vitamins and applying something new topically to the thighs, maybe the Sissel drink again per her neighbor's recommendations. Recall that she had been applying this Sissel to her RLE when I first started seeing her and it had caused a dermatitis then. She also states that she would like today to be her last wound center appointment, she feels we have not made much progress the last few weeks and she would like to pursue the natural route and treatment per her neighbor's recommendations. Objective Data Objective Data Vital Signs: Vital Signs Temp Pulse Resp BP O2 Del Method 97.5 F L 74 18 168/72 H Room Air 06/30/24 13:34 06/30/24 13:34 06/30/24 13:34 06/30/24 13:34 06/30/24 13:34 Oxygen Delivery Method Room Air Weight: 135 lb Body Mass Index (BMI) 35.1 Lab / Micro Data 06/23/24 14:51 06/23/24 14:51 Charges/Coding Visit Charges Office Visits / Consults: [id number] OV L3 Est 20min Physical Exam Const alert, oriented x3 and no apparent distress General Appearance: cooperative and comfortable HEENT normocephalic, hearing grossly normal bilaterally and external ears normal Eyes General Eye: normal appearance of both eyes Neck General: normal visual inspection and trachea midline Resp normal respiratory effort Effort and Inspection: able to speak in complete sentences Cardio regular rate and regular rhythm Peripheral Pulses: posterior tibial pulses present and dorsalis pedis pulses present Extremity Extremity Narrative: RLE with 1-2+ edema, trace LLE edema Skin Wounds: wounds noted Wound Narrative: Initial R pichardo ulceration remains healed. R lower leg with resolved prior diffuse mild erythema, healed prior scattered superficial open areas and associated skin peeling/dried drainage. Newly healed skin is very delicate. No excess warmth to palpation, foul odor. No drainage. She does have a patchy erythematous, flat rash L thigh, small amount to the L calf and R thigh; resolved on the bilateral cheeks/face. Psych mental status grossly normal, cooperative, speech normal and activity/motor behavior normal Debridement Note Debridement Note No debridement was completed: No debridement was completed today Post-Debridement Measurements and Additional Note: Post-Debridement Measurements/Treatment - Nurse 1 - General Ulcer Assessment Start: 06/16/24 13:35 Freq: Status: Active Protocol: WC.LOWEXT Activity Type Activity Date Activity User E-sign Co-sign Detail Recorded Client Recorded Date Recorded By Document 06/16/24 13:37 KW [id number] 06/16/24 13:51 KW Document 06/23/24 13:37 KW [id number] 06/23/24 13:45 KW Document 06/30/24 13:34 KW [id number] 06/30/24 13:43 KW 06/16/24 06/23/24 06/30/24 13:37 13:37 13:34 - Today's Visit Information Type of service Follow-up Visit Follow-up Visit Follow-up Visit (Physician/CABLE MOCK UP ASSEMBLER (Physician/CABLE MOCK UP ASSEMBLER (Physician/CABLE MOCK UP ASSEMBLER ) ) ) Arrival Mode Ambulatory Ambulatory Ambulatory Accompanied by granddaughter granddaughter granddaughter Patient Identification Verified (Name & Yes Yes Yes ) Height and Weight Body Mass Index (BMI) 35.1 35.1 35.1 BMI Classification Obese Obese Obese Vital Signs Temperature (97.8 F-99.1 F) 97.4 F L 97.9 F 97.5 F L Temperature Source Temporal Temporal Temporal Pulse Rate (60-100) 94 84 74 Pulse Location Monitor Monitor Monitor Respiratory Rate (12-18) 16 18 18 Respiratory rate source Observation Observation Observation Oxygen Delivery Method Room Air Room Air Room Air Blood Pressure (90/60-120/80) 154/89 H 169/90 H 168/72 H Blood Pressure Mean (mm Hg) 110 116 104 Source Monitor Monitor Monitor Position Sitting Semi-Fowlers Semi-Fowlers Blood Pressure Location Left Arm Left Arm Left Arm History Since Last Visit- (Skip if this is Patient's initial visit) Have you changed medications since your No No No last visit? Any new allergies or adverse reactions No No No Had a fall/change in ADL's that may No No No increase risk of falls Signs or symptoms of abuse and/or No No No neglect since last visit Have you been in the hospital since your No No No last visit? Has dressing in place as prescribed Yes Yes Yes Has compression in place as prescribed Yes Yes Yes Has offloadiing in place as prescribed N/A N/A N/A Experienced any changes in pain level or No No No management Left Footwear Regular Shoe Regular Shoe Regular Shoe Right Footwear Regular Shoe Regular Shoe Regular Shoe Pain Scale: 0-10 Numeric Is Patient Pain Free? Yes Yes Yes WC - Nurse 1 - General Ulcer Measurement Start: 06/16/24 13:35 Freq: Status: Active Protocol: Activity Type Activity Date Activity User E-sign Co-sign Detail Recorded Client Recorded Date Recorded By Document 06/16/24 13:37 KW [id number] 06/16/24 13:51 KW Document 06/23/24 13:37 KW [id number] 06/23/24 13:45 KW Document 06/30/24 13:34 KW [id number] 06/30/24 13:43 KW 06/16/24 06/23/24 06/30/24 13:37 13:37 13:34 Wound Center Nurse 1 #3- R MED LE -Current Size (cm) - Length 0.1 -Current Size (cm) - Width 0.1 -Current Size (cm) - Depth 0 -Total Square Cm 0.01 -Date of Last Picture (Recall this 06/16/24 field) -Epithelialization Large 67-100% -Texture (Sania-wound Skin Appearance) Assessed -Moisture (Sania-wound Skin Appearance) Assessed,Dry/ Scaly -Color (Sania-wound Skin Appearance) Assessed -Temperature (Sania-wound Skin No Abnormality Appearance) (Pt Warm) -Tenderness on Palpation (Sania-wound No Skin Appearance) -Ulcer Cleansing Soap and Water -Foul Odor after Cleansing No Right Calf (cm) 30.2 33 31 Right Ankle (cm) 19 19.7 19.5 Left Calf (cm) 34 WC - Nurse 2 - General Ulcer CM Notes Start: 06/16/24 13:35 Freq: Status: Active Protocol: Activity Type Activity Date Activity User E-sign Co-sign Detail Recorded Client Recorded Date Recorded By Document 06/16/24 13:59 GM [id number] 06/16/24 14:00 Document 06/23/24 13:50 [id number] 06/23/24 13:52 Document 06/30/24 13:49 [id number] 06/30/24 13:54 06/16/24 06/23/24 06/30/24 13:59 13:50 13:49 Wound Center Nurse 2 #3- R MED LE -Time 13:59 -Correct Patient Yes -Correct Side, Site, Position Yes -Correct Procedure No -Procedure Performed No -Tunneling No -Undermining/Tunneling No -Circular Undermining No -Wound/Ulcer Outcome Healed- Epithelialized -Foul Odor after Cleansing No -Bioengineered Tissue No -Bleeding Controlled with NA Pain Scale: 0-10 Numeric Is Patient Pain Free? Yes Yes Yes - Nurse 3 - General Ulcer D/C NN Start: 06/16/24 13:35 Freq: Status: Active Protocol: Activity Type Activity Date Activity User E-sign Co-sign Detail Recorded Client Recorded Date Recorded By Document 06/16/24 14:13 [id number] 06/16/24 14:14 Document 06/23/24 14:14 [id number] 06/23/24 14:15 06/16/24 06/23/24 14:13 14:14 Wound Care Center Nurse 3 LLE -Tubular Bandage Double Layer -Size of Tubigrip Used Size D -Size D ($) 2 -Other order is double RLE -Lotion applied to leg before Yes Yes compression wrap -Multi-Layered Wrap Application Unna Boot - Right -Tubular Bandage Single Layer -Size of Tubigrip Used Size D -Size D ($) 2 -Unna- Right (Qty applied) 1 Pain Scale: 0-10 Numeric Is Patient Pain Free? Yes Yes - Visit Discharge Discharge Condition Stable Stable Ambulatory Status Ambulatory Ambulatory Transportation Private Auto Medication Reconcilliation completed & No provided to patient/care provider Clinical Summary of Care Provided Yes Yes Assessment/Plan Assessment/Plan (1) Venous stasis dermatitis of both lower extremities: CODE(S): I87.2 - Venous insufficiency (chronic) (peripheral) (2) Cellulitis of right lower extremity: CODE(S): L03.115 - Cellulitis of right lower limb (3) Rash and other nonspecific skin eruption: CODE(S): R21 - Rash and other nonspecific skin eruption PLAN: Plan Her RLE ulceration remains healed. Her RLE looks much improved this week following completion of course of doxycycline and Unna boot application. Her rash looks better on her cheeks, stable on her thighs. CBC was unremarkable, BUN elevated but feel likely related to antibiotic, CRP elevated but ESR normal. At this point, with face rash resolved but thigh stable I question if the thigh rash is secondary to a new vitamin or new topical she is applying versus the antibiotic. I advise that she stop any new vitamins and new topicals and instead use just mild, fragrance free soap and water to cleanse and apply fragrance free moisturizer daily. Could consider short course of steroids but she does not wish to pursue this. As noted, she wishes to pursue natural treatments per her neighbor and discontinue follow-up here. We discussed signs/symptoms of infection for which to monitor and seek medical evaluation. I have strongly encouraged continued measured compression stockings, mild soaps and good moisturizer to the legs, leg elevation at rest for management of her venous stasis dermatitis. I have advised that if her rash does not resolve or continues to worsen please contact us or her PCP. She understands that she may return any time as needed.
--- NOTE | 2024-07-01 09:29 | WC ---
PHOTO 06/30/24 RLE
== END 2024-07-14 14:41 | disposition home or self-care (01) ==
LOC: WC 13:30
PROVIDERS: PCP Internal Medicine; Referring Provider Internal Medicine; Visit Provider Physician Assistant
DX: I87.2 Venous insufficiency (chronic) (peripheral) (principal); L03.115 Cellulitis of right lower limb; R21 Rash and other nonspecific skin eruption; Z79.899 Other long term (current) drug therapy
CPT/HCPCS: 29580; 36415; 80048; 85025; 85652; 86140; 99213; G0463

== ENCOUNTER → 2024-11-03 | Outpatient (CLI) | payer MEDICARE, SELFPAY ==
[2024-11-03 15:57] LABS: AST(SGOT) 28 U/L (<=31); Alanine Aminotransfer ALT/SGPT 18 U/L (<=34); Albumin, Serum 4.2 g/dL (3.4-4.8); Alkaline Phosphatase 83 U/L (35-104); Anion Gap 13 (5-15); BUN 31 mg/dL (4-19); BUN/Creat Ratio 25.8 RATIO (10-20); Calcium,Total 9.7 mg/dL (7.6-11.0); Carbon Dioxide 21.9 mmol/L (21.0-32.0); Chloride 104 mmol/L (98-108); Ferritin 648 ng/mL (22-378); Free T3 2.2 pg/mL (2.18-3.98); Globulin 3.8 g/dL (2.2-4.2); Glucose 102 mg/dL (70-99); Potassium 4.5 mmol/L (3.3-5.1); Pro- Brain NATRIURETIC PEPTIDE 4225 pg/mL (<=1800); Vitamin B12 838 pg/mL (180-914); Vitamin D,25 Hydroxy 30.8 ng/mL (30-100)
[2024-11-03 16:05] LABS: Hematocrit 33.5 % (37-47); Hemoglobin 10.9 g/dL (12.0-15.0); Immature Granulocytes Count 0.020 X10^3/uL (0.0-0.0); Mean Corp Hgb Conc 32.5 g/dL (32-36); Mean Corpuscular Volume 91.5 fL (81-99); Mean Platelet Vol. 9.9 fl (6.2-12.0); NRBC Flagged by Analyzer 0 % (0-5); Platelet Count 177 K/mm3 (150-450); RBC Distribution Width CV 14.1 % (11.6-14.6); RBC Distribution Width SD 47.7 fl (35.1-43.9); Red Blood Count 3.66 M/mm3 (4.2-5.4); White Blood Count 6.4 K/mm3 (4.4-11.0)
[2024-11-03 16:14] LABS: Iron 23 ug/dL (50-170); Iron Binding Capacity,Unsat 106 ug/dL (228-428); Magnesium 2.3 mg/dL (1.5-2.2)
[2024-11-03 16:18] LABS: Iron Binding Capacity,Total 129 ug/dL (250-450)
== END | disposition home or self-care (01) ==
PROVIDERS: PCP Internal Medicine; Referring Provider Internal Medicine; Visit Provider Internal Medicine
DX: I48.0 Paroxysmal atrial fibrillation (principal); I50.22 Chronic systolic (congestive) heart failure; E78.5 Hyperlipidemia, unspecified; R06.02 Shortness of breath; R06.09 Other forms of dyspnea; E55.9 Vitamin D deficiency, unspecified; E53.8 Deficiency of other specified B group vitamins; Z86.39 Personal history of other endocrine, nutritional and metabolic disease
CPT/HCPCS: 36415; 80053; 82306; 82607; 82728; 83540; 83550; 83735; 83880; 84439; 84443; 84481; 85025

== ENCOUNTER → 2024-12-14 | Outpatient (CLI) | payer MEDICARE, SELFPAY ==
--- NOTE | 2024-12-14 12:55 | ECHOD_ITS ---
Reason For Study ECHO/Echo Complete
== END | disposition home or self-care (01) ==
PROVIDERS: PCP Internal Medicine; Referring Provider Internal Medicine; Visit Provider Internal Medicine
DX: I50.22 Chronic systolic (congestive) heart failure (principal); R06.02 Shortness of breath; R06.09 Other forms of dyspnea
CPT/HCPCS: 93306